=== PATIENT | male | born 1960 | race Caucasian/White ===

== ENCOUNTER 2016-07-23 11:15 | Emergency (ER) | payer MEDICARE, MEDICAID ==
[2016-07-23] MEDS ORDERED: HYDROMORPHONE HCL INJ/PF 2 MG/ML AMPULE IV ONE (11:49)
--- NOTE | 2016-07-23 11:49 | ER Document Report ---
ED Medical Screen (RME) - General Mode of Arrival: Wheelchair Information source: Patient TRAVEL OUTSIDE OF THE [place] IN LAST 30 DAYS: No - HPI Patient complains to provider of: Bruising and pain to the upper abdomen Onset: Other - 'couple days ago' Associated Symptoms: Other - see notes above <YOHANNES TERRY - Last Filed: 07/23/16 12:52> <FABIANA DIAZ - Last Filed: 07/23/16 13:33> - General Chief Complaint: Rib Pain Stated Complaint: ABDOMINAL PAIN/DIFFICULTY BREATHING Time Seen by Provider: 07/23/16 11:42 Notes: 55-year-old male with history of hypertension and on Coumadin presents to the ED complaining of bruising and pain to the upper abdomen that started a couple days ago. Patient reports that he was crabbing when an alligator pulled on his line and he was pressed up against the railing. Patient reports gradually worsening bruising and pain to the upper abdomen. (YOHANNES TERRY) - Related Data Allergies/Adverse Reactions: Algerian Ginseng [From Ginseng Edge] Allergy (Severe, Verified 07/23/16 11:19) INTERACTS WITH SZ MEDICATION SO CANNOT HAVE guarana seed extract [From Ginseng Edge] Allergy (Severe, Verified 07/23/16 11: 19) INTERACTS WITH SZ MEDICATION SO CANNOT HAVE Kinyarwanda Ginseng [From Ginseng Edge] Allergy (Severe, Verified 07/23/16 11:19) INTERACTS WITH SZ MEDICATION SO CANNOT HAVE Siberian Ginseng Root Extract [From Ginseng Edge] Allergy (Severe, Verified 11:19) INTERACTS WITH SZ MEDICATION SO CANNOT HAVE Past Medical History - General Information source: Patient - Social History Family history: Reviewed & Not Pertinent - Past Medical History Cardiac Medical History: Reports: Hx Hypertension Denies: Hx Coronary Artery Disease, Hx Heart Attack Pulmonary Medical History: Reports: Hx COPD Denies: Hx Asthma, Hx Bronchitis, Hx Pneumonia Neurological Medical History: Reports: Hx Cerebrovascular Accident - 2 Major CVAs- 1996, 2008, Hx Seizures - Epilepsy- last seizure a few months Endocrine Medical History: Reports: Hx Diabetes Mellitus Type 2 Renal/ Medical History: Denies: Hx Peritoneal Dialysis GI Medical History: Reports: Hx Gastroesophageal Reflux Disease Musculoskeltal Medical History: Reports Hx Arthritis Psychiatric Medical History: Reports: Hx Anxiety, Hx Depression Past Surgical History: Reports: Hx Appendectomy, Hx Cholecystectomy - Immunizations Hx Diphtheria, Pertussis, Tetanus Vaccination: Yes - 2006 <TERRYYOHANNES - Last Filed: 07/23/16 12:52> Review of Systems - Review of Systems Constitutional: No symptoms reported EENT: No symptoms reported Cardiovascular: No symptoms reported Respiratory: No symptoms reported Gastrointestinal: See HPI, Abdominal pain - bilateral upper abdomen Genitourinary: No symptoms reported Male Genitourinary: No symptoms reported Musculoskeletal: No symptoms reported Skin: See HPI, Change in color - bruising to the bilateral upper abdomen Hematologic/Lymphatic: No symptoms reported Neurological/Psychological: No symptoms reported -: Yes All other systems reviewed and negative <YOHANNES TERRY - Last Filed: 07/23/16 12:52> Physical Exam - General General appearance: Alert In distress: None - Respiratory Respiratory status: No respiratory distress Breath sounds: Normal - Cardiovascular Rhythm: Regular Heart sounds: Normal auscultation Murmur: No Friction rub: No Gallop: None auscultated - Abdominal Inspection: Other - ecchymosis across the upper abdomen that is worse on the right than left.. No: Normal Distension: Distended - mild Tenderness: Tender - diffuse tenderness to palpation, Guarding - RUQ <TERRYYOHANNES - Last Filed: 07/23/16 12:52> Course - Laboratory Result Diagrams: 07/23/16 12:09 07/23/16 12:09 <YOHANNES TERRY - Last Filed: 07/23/16 12:52> - Laboratory Result Diagrams: 07/23/16 12:09 07/23/16 12:09 <FABIANA DIAZ - Last Filed: 07/23/16 13:33> - Vital Signs Vital signs: Temp Pulse Resp BP Pulse Ox 97.7 F 76 15 118/64 96 07/23/16 11:23 07/23/16 11:23 07/23/16 13:01 07/23/16 13:01 07/23/16 13:01 - Laboratory Laboratory results interpreted by me: 07/23/16 07/23/16 07/23/16 12:09 12:09 12:09 RBC 3.83 L Hgb 12.0 L Hct 36.3 L PT 39.4 H Sodium 135.8 L Chloride 95 L BUN 23 H Creatinine 1.43 H Est GFR (Non-Af Amer) 52 L Glucose 322 H Scribe Documentation - Scribe Written by Scribe:: Richar Leach, 07/23/2016 1257 acting as scribe for :: Lee <YOHANNES TERRY - Last Filed: 07/23/16 12:52>
[2016-07-23 12:36] LABS: ABSOLUTE BASOPHILS # (AUTO) 0.1 10^3/uL (0.0-0.2); ABSOLUTE EOSINOPHILS # (AUTO) 0.3 10^3/uL (0.0-0.6); ABSOLUTE LYMPHOCYTES (AUTO) 2.5 10^3/uL (0.5-4.7); ABSOLUTE MONOCYTES (AUTO) 0.6 10^3/uL (0.1-1.4); ABSOLUTE NEUT (AUTO) 5.7 10^3/uL (1.7-8.2); BASOPHILS % (AUTO) 0.7 % (0-2); EOSINOPHILS % (AUTO) 2.9 % (0-6); HEMATOCRIT 36.3 % (37.9-51.0); HGB HCT DIFFERENCE -0.3; LYMPHOCYTES % (AUTO) 27.7 % (13-45); MEAN CORPUSCULAR HEMOGLOBIN 31.4 pg (27.0-33.4); MEAN CORPUSCULAR HGB CONC 33.2 g/dL (32.0-36.0); MEAN CORPUSCULAR VOLUME 95 fl (80-97); MONOCYTES % (AUTO) 6.4 % (3-13); RED BLOOD COUNT 3.83 10^6/uL (4.35-5.55); SEGMENTED NEUTROPHILS % (AUTO) 62.3 % (42-78); WHITE BLOOD COUNT 9.1 10^3/uL (4.0-10.5)
[2016-07-23 12:44] LABS: PROTHROMBIN TIME 39.4 SEC (11.4-15.4)
[2016-07-23 12:59] LABS: ADD ON TESTING BLD IN LAB ACKNOWLEDGE
--- NOTE | 2016-07-23 13:04 | ER Document Report ---
ED General Pain - General Chief Complaint: Rib Pain Stated Complaint: ABDOMINAL PAIN/DIFFICULTY BREATHING Time Seen by Provider: 07/23/16 11:42 Mode of Arrival: Wheelchair Information source: Patient Notes: Patient is a 55-year-old male with past medical history as recorded including stroke 3, on Coumadin, who presents today with upper abdominal pain and swelling secondary to an incident 4 days ago. Patient states he was crabbing with his family when he was using a line with chicken to catch cramps with an alligator caught the line. Patient states he tried to hold onto the line and with the alligator move because the patient to hit his upper abdomen and lower ribs on a railing. He has had some progressive pain and swelling to the upper abdomen since that time. He denies any chest pain but states some mild shortness of breath when he lays flat. He denies any nausea, vomiting, or fevers. TRAVEL OUTSIDE OF THE [place] IN LAST 30 DAYS: No - HPI Onset: Other - See above Onset/Duration: Sudden Quality of pain: Achy, Burning Severity: Moderate Pain Level: 2 Context: New onset Associated symptoms: Other - See above Exacerbated by: Other - See above Relieved by: Denies Similar symptoms previously: No Recently seen / treated by doctor: No - Related Data Allergies/Adverse Reactions: Togolese Ginseng [From Ginseng Edge] Allergy (Severe, Verified 07/23/16 11:19) INTERACTS WITH SZ MEDICATION SO CANNOT HAVE guarana seed extract [From Ginseng Edge] Allergy (Severe, Verified 07/23/16 11: 19) INTERACTS WITH SZ MEDICATION SO CANNOT HAVE Lao Ginseng [From Ginseng Edge] Allergy (Severe, Verified 07/23/16 11:19) INTERACTS WITH SZ MEDICATION SO CANNOT HAVE Siberian Ginseng Root Extract [From Ginseng Edge] Allergy (Severe, Verified 11:19) INTERACTS WITH SZ MEDICATION SO CANNOT HAVE Past Medical History - General Information source: Patient - Social History Smoking Status: Unknown if Ever Smoked Cigarette use (# per day): No Chew tobacco use (# tins/day): No Smoking Education Provided: No Frequency of alcohol use: None Family History: Reviewed & Not Pertinent Patient has suicidal ideation: No Patient has homicidal ideation: No - Past Medical History Cardiac Medical History: Reports: Hx Hypertension Denies: Hx Coronary Artery Disease, Hx Heart Attack Pulmonary Medical History: Reports: Hx COPD Denies: Hx Asthma, Hx Bronchitis, Hx Pneumonia Neurological Medical History: Reports: Hx Cerebrovascular Accident - 2 Major CVAs- 1996, 2008, Hx Seizures - Epilepsy- last seizure a few months Endocrine Medical History: Reports: Hx Diabetes Mellitus Type 2 Renal/ Medical History: Denies: Hx Peritoneal Dialysis GI Medical History: Reports: Hx Gastroesophageal Reflux Disease Musculoskeltal Medical History: Reports Hx Arthritis Psychiatric Medical History: Reports: Hx Anxiety, Hx Depression Past Surgical History: Reports: Hx Appendectomy, Hx Cholecystectomy - Immunizations Hx Diphtheria, Pertussis, Tetanus Vaccination: Yes - 2006 Review of Systems - Review of Systems Constitutional: denies: Fever EENT: denies: Eye discharge, Nose discharge Respiratory: denies: Short of breath Gastrointestinal: Abdomen distended. denies: Vomiting Genitourinary: denies: Dysuria Musculoskeletal: denies: Leg swelling Neurological/Psychological: Other - no slurred speech -: Yes All other systems reviewed and negative Physical Exam - Vital signs Vitals: Temp Pulse Resp BP Pulse Ox 97.7 F 76 18 109/78 97 07/23/16 11:23 07/23/16 11:23 07/23/16 11:23 07/23/16 11:23 07/23/16 11:23 Interpretation: Normal Notes: Reviewed vital signs and nursing note as charted by RN. CONSTITUTIONAL: Alert and oriented and responds appropriately to questions. Well -appearing; well-nourished HEAD: Normocephalic; atraumatic EYES: PERRL; Sclerae non-icteric CARD: Regular rate and rhythm; no murmurs, no clicks, no rubs, no gallops; symmetric distal pulses RESP: Normal chest excursion without splinting or tachypnea; a mild tenderness to the anterior lateral ribs without crepitus; breath sounds clear and equal bilaterallys ABD/GI: Normal bowel sounds; patient has ecchymosis across his entire upper abdomen. Tender to palpation to the upper left and right quadrants. No rebound or guarding present. BACK: The back appears normal and is non-tender to palpation EXT: Normal ROM in all joints; non-tender to palpation; no cyanosis, no effusions, no edema SKIN: See above NEURO: Moves all extremities equally; Motor and sensory function intact PSYCH: The patient's mood and manner are appropriate. Grooming and personal hygiene are appropriate. Course - Re-evaluation Re-evalutation: Given the above history and physical examination, we will order coagulation profile, hemoglobin, and a CT scan of the abdomen and pelvis. Patient's vital signs are stable. Patient currently denies any chest pain. 07/23/16 13:04 Hemoglobin as recorded. INR is recorded. CT is pending. Vital signs are stable. 07/23/16 15:14 No change in the exam. CT scan of the abdomen and pelvis as recorded. Patient will be discharged home with strict return precautions and follow-up with primary care provider. Given the patient's slightly elevated INR, I am having him hold his morning dose tomorrow and contact his primary doctor. Strict return precautions have been explained. - Vital Signs Vital signs: Temp Pulse Resp BP Pulse Ox 97.7 F 76 8 L 124/62 98 07/23/16 11:23 07/23/16 11:23 07/23/16 14:01 07/23/16 14:00 07/23/16 14:01 - Laboratory Result Diagrams: 07/23/16 12:09 07/23/16 12:09 Laboratory results interpreted by me: 07/23/16 07/23/16 07/23/16 12:09 12:09 12:09 RBC 3.83 L Hgb 12.0 L Hct 36.3 L PT 39.4 H Sodium 135.8 L Chloride 95 L BUN 23 H Creatinine 1.43 H Est GFR (Non-Af Amer) 52 L Glucose 322 H Discharge - Discharge Clinical Impression: Elevated INR Abdominal wall contusion Qualifiers: Encounter type: initial encounter Qualified Code(s): S30.1XXA - Contusion of abdominal wall, initial encounter Condition: Good Disposition: HOME, SELF-CARE Additional Instructions: Come back immediately for any increased pain, swelling, fever, shortness of breath, vomiting, or any other acute problems. Please hold her morning dose of Coumadin as we have discussed and contact her primary care physician for follow- up.
[2016-07-23 13:12] LABS: ALANINE AMINOTRANSFERASE 29 U/L (21-72); ALBUMIN 4.3 g/dL (3.5-5.0); ALKALINE PHOSPHATASE 57 U/L (38-126); ANION GAP 13 (5-19); ASPARTATE AMINO TRANSFERASE 25 U/L (17-59); BILIRUBIN,DIRECT 0.4 mg/dL (0.0-0.4); BILIRUBIN,TOTAL 0.5 mg/dL (0.2-1.3); BLOOD UREA NITROGEN 23 mg/dL (7-20); CALCIUM 8.8 mg/dL (8.4-10.2); CARBON DIOXIDE 28 mmol/L (22-30); CHLORIDE 95 mmol/L (98-107); CREATININE RESULT 1.43 mg/dL (0.52-1.25); GLUCOSE 322 mg/dL (75-110); POTASSIUM 3.8 mmol/L (3.6-5.0); SODIUM 135.8 mmol/L (137-145); TOTAL PROTEIN 7.7 g/dL (6.3-8.2)
[2016-07-23 13:13] LABS: LIPASE 62.4 U/L (23-300)
--- NOTE | 2016-07-23 14:37 | RADIOLOGY REPORT (SQ) ---
EXAM DESCRIPTION: CT ABD/PELVIS WITH IV ONLY; CT CHEST WITH COMPLETED DATE/TIME: 07/23/2016 2:21 pm REASON FOR STUDY: RUQ bruise after trauma, on coumadin; 21; trauma on coumadin CONTRAST TYPE AND DOSE: contrast/concentration: Isovue 370.00 mg/ml; Total Contrast Delivered: 85.0 ml; Total Saline Delivered: 53.7 ml RENAL FUNCTION: Creatinine 1.4 COMPARISON: None. TECHNIQUE: CT scan of the chest performed using helical scanning technique with dynamic intravenous contrast injection. Images reviewed with lung, soft tissue and bone windows. Reconstructed coronal a nd sagittal MPR images reviewed. All images stored on PACS. All CT scanners at this facility use dose modulation, iterative reconstruction, and/or weight based d osing when appropriate to reduce radiation dose to as low as reasonably achievable (ALARA). [facility]: Dose Right [facility]: CareDose [facility]: Dose Right [facility]: Teradose 4D [facility]: Corevalus Systems RADIATION DOSE: Up-to-date CT equipment and radiation dose reduction techniques were employed. CTDIv ol: 9.3 - 12.4 mGy. DLP: 1441 mGy-cm.. LIMITATIONS: None. FINDINGS: AXILLAE: No adenopathy. CHEST WALL: No masses. No subcutaneous air. LUNGS: No nodules or masses. No pneumothorax. No infiltrates. PLEURA: No effusions. No calcifications. THYROID: No masses or significant asymmetry. HILAR AND MEDIASTINAL STRUCTURES: Small subcentimeter mediastinal nodes. No mediastinal hematoma inga dent. No abnormal gas. AORTA AND GREAT VESSELS: No aneurysm. No laceration or dissection. PULMONARY ARTERIES: No identified pulmonary emboli. Study not optimized for the pulmonary arteries. HEART: No pericardial effusion. HARDWARE AND LIFELINES: None. BONES: No significant finding. OTHER: No other significant finding. IMPRESSION: 1. No acute posttraumatic changes in the chest. COMPARISON: None. RADIATION DOSE: Up-to-date CT equipment and radiation dose reduction techniques were employed. CTDIv ol: 9.3 - 12.4 mGy. DLP: 1441 mGy-cm.mGy. TECHNIQUE: CT scan of the abdomen and pelvis performed with intravenous and oral contrast using [place] scanning technique with dynamic intravenous contrast injection. Images reviewed with lung, soft tissue and bone windows. Reconstructed coronal and sagittal MPR images reviewed. Delayed images for evaluation of the urinary system also acquired and evaluated. All images stored on PACS. All CT scanners at this facility use dose modulation, iterative reconstruction, and/or weight based d osing when appropriate to reduce radiation dose to as low as reasonably achievable (ALARA). [facility]: Dose Right [facility]: SureCare [facility]: Dose Right [facility]: Teradose 4D [facility]: Corevalus Systems FINDINGS: LIVER: No laceration. No perihepatic fluid. Mildly fatty. SPLEEN: No evidence of injury or adjacent fluid. PANCREAS: No masses. No significant calcifications. No adjacent inflammation or peripancreatic flui d collections. Pancreatic duct not dilated. GALLBLADDER: Surgically absent. ADRENAL GLANDS: No significant masses or asymmetry. RIGHT KIDNEY AND URETER: No solid masses. No significant calcification. No hydronephrosis or hydroure ter. LEFT KIDNEY AND URETER: No solid masses. No significant calcification. No hydronephrosis or hydrouret er. AORTA AND VESSELS: Atherosclerotic but normal caliber, intact. Major arterial and venous structures look generally patent. No retroperitoneal hematoma evident. RETROPERITONEUM: As above. LARGE AND SMALL BOWEL: No dilatation. No masses. No wall thickening. APPENDIX: Surgically absent. ABDOMINAL WALL: No hernia or masses. PERITONEAL CAVITY: No free air. No free fluid. No peritoneal implants or masses. PELVIS: No mass or free fluid. Normal bladder. BONES: No significant or acute findings. OTHER: No other significant finding. IMPRESSION: 1. No acute abdominopelvic abnormality. TECHNICAL DOCUMENTATION: JOB ID: [id number] Quality ID # [id number]: Final reports with documentation of one or more dose reduction techniques (e.g., Au tomated exposure control, adjustment of the mA and/or kV according to patient size, use of iterative reconstruction technique) 2010 [employer]- All Rights Reserved
[2016-07-23] MEDS ORDERED: NORMAL SALINE 1000 ML 1,000 ML IV ONE (15:26)
[2016-07-23] MEDS ORDERED: HYDROCODONE/ACETAMINOPHEN 5-325 MG TABLET PO ONE (15:30)
[2016-07-23 16:13] VITALS: BP 136/83
== END 2016-07-23 16:42 | disposition home or self-care (01) ==
LOC: ER 11:15
DX: S30.1XXA Contusion of abdominal wall, initial encounter (principal); R07.81 Pleurodynia; R10.9 Unspecified abdominal pain; R06.02 Shortness of breath; X58.XXXA Exposure to other specified factors, initial encounter
CPT/HCPCS: 99284; 96374; 86900; 86901; 36415; 86850; 83690; 85025; 85610; 80053; 71260; 74177; J1170; J7030; A9270

== ENCOUNTER 2016-11-12 16:21 | Inpatient (IN) | payer MEDICARE, MEDICAID ==
[2016-11-12] MEDS ORDERED: NORMAL SALINE 1000 ML 1,000 ML IV PRN (16:47)
[2016-11-12] MEDS ORDERED: ONDANSETRON HCL INJ/PF 4 MG/2 ML SDV IV ONE ×2 (16:48→21:16)
[2016-11-12] MEDS ORDERED: MORPHINE SULFATE 10 MG/ML INJ IV ONE ×2 (16:48→20:35)
--- NOTE | 2016-11-12 16:48 | ER Document Report ---
ED Medical Screen (RME) - General Chief Complaint: Abdominal Pain Stated Complaint: SEVERE STOMACH PAIN Time Seen by Provider: 11/12/16 16:36 Mode of Arrival: Wheelchair Information source: Patient, Relative TRAVEL OUTSIDE OF THE [place] IN LAST 30 DAYS: No - HPI Patient complains to provider of: Abdominal pain Notes: 11/12/16 16:47 Patient is a 56-year-old male presenting to the emergency room today complaining of diffuse crampy abdominal pain that has been going on intermittently, however worsening over the past week, he has had nausea and vomiting for a week, has not been able to pass urine over the past 48 hours although he does not feel as though he has a full bladder, has not had a bowel movement in a few days as well, patient was sent to the emergency room by Dr. Otero's office - Related Data Allergies/Adverse Reactions: Malian Ginseng [From Ginseng Edge] Allergy (Severe, Verified 11/12/16 16:30) INTERACTS WITH SZ MEDICATION SO CANNOT HAVE guarana seed extract [From Ginseng Edge] Allergy (Severe, Verified 11/12/16 16: 30) INTERACTS WITH SZ MEDICATION SO CANNOT HAVE French Ginseng [From Ginseng Edge] Allergy (Severe, Verified 11/12/16 16:30) INTERACTS WITH SZ MEDICATION SO CANNOT HAVE Siberian Ginseng Root Extract [From Ginseng Edge] Allergy (Severe, Verified 05/26 16:30) INTERACTS WITH SZ MEDICATION SO CANNOT HAVE Past Medical History - Social History Family history: Reviewed & Not Pertinent - Past Medical History Cardiac Medical History: Reports: Hx Hypertension Denies: Hx Coronary Artery Disease, Hx Heart Attack Pulmonary Medical History: Reports: Hx COPD Denies: Hx Asthma, Hx Bronchitis, Hx Pneumonia Neurological Medical History: Reports: Hx Cerebrovascular Accident - 2 Major CVAs- 1996, 2008, Hx Seizures - Epilepsy- last seizure a few months Endocrine Medical History: Reports: Hx Diabetes Mellitus Type 2 Renal/ Medical History: Denies: Hx Peritoneal Dialysis GI Medical History: Reports: Hx Gastroesophageal Reflux Disease Musculoskeltal Medical History: Reports Hx Arthritis Psychiatric Medical History: Reports: Hx Anxiety, Hx Depression Past Surgical History: Reports: Hx Appendectomy, Hx Cholecystectomy - Immunizations Hx Diphtheria, Pertussis, Tetanus Vaccination: Yes - 2006 Physical Exam - Vital signs Vitals: Temp Pulse Resp BP Pulse Ox 97.4 F 70 18 125/63 97 11/12/16 16:30 11/12/16 16:30 11/12/16 16:30 11/12/16 16:30 11/12/16 16:30 Course - Vital Signs Vital signs: Temp Pulse Resp BP Pulse Ox 97.4 F 70 18 125/63 97 11/12/16 16:30 11/12/16 16:30 11/12/16 16:30 11/12/16 16:30 11/12/16 16:30
[2016-11-12 17:40] LABS: APPEARANCE,URINE CLEAR; BILIRUBIN,URINE NEGATIVE (NEGATIVE); GLUCOSE, URINE 50 mg/dL (NEGATIVE); KETONES,URINE NEGATIVE (NEGATIVE); LEUKOCYTE ESTERASE,URINE NEGATIVE (NEGATIVE); NITRITE,URINE NEGATIVE (NEGATIVE); PROTEIN,URINE 30 mg/dL (NEGATIVE); URINE SPECIFIC GRAVITY 1.013; UROBILINOGEN,URINE NEGATIVE mg/dL (<2.0)
[2016-11-12 18:02] LABS: ABSOLUTE BASOPHILS # (AUTO) 0.1 10^3/uL (0.0-0.2); ABSOLUTE EOSINOPHILS # (AUTO) 0.2 10^3/uL (0.0-0.6); ABSOLUTE LYMPHOCYTES (AUTO) 1.9 10^3/uL (0.5-4.7); ABSOLUTE MONOCYTES (AUTO) 0.8 10^3/uL (0.1-1.4); ABSOLUTE NEUT (AUTO) 7.8 10^3/uL (1.7-8.2); BASOPHILS % (AUTO) 0.9 % (0-2); EOSINOPHILS % (AUTO) 1.6 % (0-6); HEMATOCRIT 38.9 % (37.9-51.0); HEMOGLOBIN 13.6 g/dL (13.5-17.0); HGB HCT DIFFERENCE 1.9; LYMPHOCYTES % (AUTO) 17.9 % (13-45); MEAN CORPUSCULAR HEMOGLOBIN 32.3 pg (27.0-33.4); MEAN CORPUSCULAR HGB CONC 35.1 g/dL (32.0-36.0); MEAN CORPUSCULAR VOLUME 92 fl (80-97); MONOCYTES % (AUTO) 7.1 % (3-13); RED BLOOD COUNT 4.23 10^6/uL (4.35-5.55); SEGMENTED NEUTROPHILS % (AUTO) 72.5 % (42-78); WHITE BLOOD COUNT 10.7 10^3/uL (4.0-10.5)
--- NOTE | 2016-11-12 19:46 | ER Document Report ---
ED GI/ - General Chief Complaint: Abdominal Pain Stated Complaint: SEVERE STOMACH PAIN Time Seen by Provider: 11/12/16 16:36 Mode of Arrival: Wheelchair Notes: Patient is a 56-year-old male who comes emergency department for chief complaint of intermittent worsening abdominal pain and vomiting 1 week. He was sent to the emergency department by his aquatics lifeguard Dr. Otero. He states that he is feeling pain in his mid to left lower abdomen which is worsening. He states he had a normal bowel movement yesterday, nonbloody, not constipated. He denies hematemesis. Past medical history of CVA, hypertension, GERD, he takes Nexium, he also takes hydrocodone. He has had an appendectomy and cholecystectomy. He had an endoscopy in the past, polyps were removed, he is not sure how long ago this was. He states vomiting is random, he denies chest pain, shortness of breath, fever. TRAVEL OUTSIDE OF THE [place] IN LAST 30 DAYS: No - Related Data Allergies/Adverse Reactions: Andorran Ginseng [From Ginseng Edge] Allergy (Severe, Verified 11/12/16 16:30) INTERACTS WITH SZ MEDICATION SO CANNOT HAVE guarana seed extract [From Ginseng Edge] Allergy (Severe, Verified 11/12/16 16: 30) INTERACTS WITH SZ MEDICATION SO CANNOT HAVE Greek Ginseng [From Ginseng Edge] Allergy (Severe, Verified 11/12/16 16:30) INTERACTS WITH SZ MEDICATION SO CANNOT HAVE Siberian Ginseng Root Extract [From Ginseng Edge] Allergy (Severe, Verified 05/26 16:30) INTERACTS WITH SZ MEDICATION SO CANNOT HAVE Past Medical History - General Information source: Patient, Relative - Social History Smoking Status: Never Smoker Frequency of alcohol use: None Drug Abuse: None Lives with: Family Family History: Reviewed & Not Pertinent - Past Medical History Cardiac Medical History: Reports: Hx Hypertension Denies: Hx Coronary Artery Disease, Hx Heart Attack Pulmonary Medical History: Reports: Hx COPD Denies: Hx Asthma, Hx Bronchitis, Hx Pneumonia Neurological Medical History: Reports: Hx Cerebrovascular Accident - 2 Major CVAs- 1996, 2008, Hx Seizures - Epilepsy- last seizure a few months Endocrine Medical History: Reports: Hx Diabetes Mellitus Type 2 Renal/ Medical History: Denies: Hx Peritoneal Dialysis GI Medical History: Reports: Hx Gastroesophageal Reflux Disease Musculoskeltal Medical History: Reports Hx Arthritis Psychiatric Medical History: Reports: Hx Anxiety, Hx Depression Past Surgical History: Reports: Hx Appendectomy, Hx Cholecystectomy - Immunizations Hx Diphtheria, Pertussis, Tetanus Vaccination: Yes - 2006 Review of Systems - Review of Systems Constitutional: No symptoms reported EENT: No symptoms reported Cardiovascular: No symptoms reported Respiratory: No symptoms reported Gastrointestinal: See HPI Genitourinary: No symptoms reported Male Genitourinary: No symptoms reported Musculoskeletal: No symptoms reported Skin: No symptoms reported Hematologic/Lymphatic: No symptoms reported Neurological/Psychological: No symptoms reported Physical Exam - Vital signs Vitals: Temp Pulse Resp BP Pulse Ox 97.4 F 70 18 125/63 97 11/12/16 16:30 11/12/16 16:30 11/12/16 16:30 11/12/16 16:30 11/12/16 16:30 Interpretation: Normal - General General appearance: Appears well, Alert - HEENT Head: Normocephalic, Atraumatic Eyes: Normal Pupils: PERRL - Respiratory Respiratory status: No respiratory distress Chest status: Nontender Breath sounds: Normal Chest palpation: Normal - Cardiovascular Rhythm: Regular. No: Tachycardia Heart sounds: Normal auscultation, S1 appreciated, S2 appreciated Murmur: No - Abdominal Inspection: Normal Distension: No distension Bowel sounds: Normal Tenderness: Tender - generalized abdominal tenderness, no areas of guarding, no rigidity, no rebound tenderness Organomegaly: No organomegaly - Back Back: Normal, Nontender. No: Tender, CVA tenderness - Extremities General upper extremity: Normal inspection, Nontender, Normal color, Normal ROM , Normal temperature General lower extremity: Normal inspection, Nontender, Normal color, Normal ROM , Normal temperature, Normal weight bearing. No: Carlton's sign - Neurological Neuro grossly intact: Yes Cognition: Normal Orientation: AAOx4 Williamson Coma Scale Eye Opening: Spontaneous Sirena Coma Scale Verbal: Oriented Sirena Coma Scale Motor: Obeys Commands Sirena Coma Scale Total: 15 Speech: Normal Motor strength normal: LUE, RUE, LLE, RLE Sensory: Normal - Psychological Associated symptoms: Normal affect, Normal mood - Skin Skin Temperature: Warm Skin Moisture: Dry Skin Color: Normal Course - Re-evaluation Re-evalutation: Patient with generalized abdominal tenderness, he does intermittently appear to be uncomfortable, he does not appear to be in severe distress. Vital signs are generally unremarkable with no fever, no tachycardia, no hypotension. CBC shows mild leukocytosis with no shift. Chemistries show acute renal insufficiency with creatinine of 2.95, elevated BUN, mild hyponatremia. Anion gap and bicarbonate are normal. Patient reporting some flank pain on the left side although I do not appreciate CVA tenderness. Because of this CAT scan was performed to rule out obstructing pathology causing renal failure or other acute intra-abdominal abnormality. CAT scan is normal. Daughter states that patient has had this before where he vomits and has abdominal pain for days and then finally improves. He states that if he even eats soup he will vomit it up. Patient was sent here by his aquatics lifeguard , I called his aquatics lifeguard Dr. Olvera, his recommendation is for patient to be kept n.p.o. and admitted to the hospital and he will plan to consult on an scope the patient tomorrow. Called and spoke with Dr. Cruz, patient's primary care provider, patient will be admitted to telemetry. - Vital Signs Vital signs: Temp Pulse Resp BP Pulse Ox 97.7 F 72 16 149/71 H 99 11/13/16 04:18 11/13/16 04:18 11/13/16 04:18 11/13/16 04:18 11/13/16 00:28 - Laboratory Result Diagrams: 11/12/16 17:41 11/12/16 19:55 Laboratory results interpreted by me: 11/12/16 11/12/16 11/12/16 17:09 17:41 19:55 WBC 10.7 H RBC 4.23 L PT Sodium 133.7 L Potassium 3.5 L Chloride 92 L BUN 41 H Creatinine 2.95 H Est GFR ( Amer) 27 L Est GFR (Non-Af Amer) 22 L Glucose 227 H Direct Bilirubin 0.6 H AST 69 H ALT 90 H Urine Protein 30 H Urine Glucose (UA) 50 H Urine Blood SMALL H 11/12/16 19:55 WBC RBC PT 22.3 H Sodium Potassium Chloride BUN Creatinine Est GFR ( Amer) Est GFR (Non-Af Amer) Glucose Direct Bilirubin AST ALT Urine Protein Urine Glucose (UA) Urine Blood Discharge - Discharge Clinical Impression: Abdominal pain Qualifiers: Abdominal location: generalized Qualified Code(s): R10.84 - Generalized abdominal pain Vomiting Qualifiers: Vomiting type: unspecified Vomiting Intractability: unspecified Nausea presence : with nausea Qualified Code(s): R11.2 - Nausea with vomiting, unspecified Acute renal failure Qualifiers: Acute renal failure type: unspecified Qualified Code(s): N17.9 - Acute kidney failure, unspecified Condition: Stable Disposition: ADMITTED INPATIENT Admitting Provider: Nancy Unit Admitted: Telemetry
[2016-11-12 20:26] LABS: ALANINE AMINOTRANSFERASE 90 U/L (21-72); ALBUMIN 4.5 g/dL (3.5-5.0); ALKALINE PHOSPHATASE 73 U/L (38-126); ANION GAP 15 (5-19); ASPARTATE AMINO TRANSFERASE 69 U/L (17-59); BILIRUBIN,DIRECT 0.6 mg/dL (0.0-0.4); BILIRUBIN,TOTAL 0.6 mg/dL (0.2-1.3); BLOOD UREA NITROGEN 41 mg/dL (7-20); CALCIUM 9.4 mg/dL (8.4-10.2); CARBON DIOXIDE 27 mmol/L (22-30); CHLORIDE 92 mmol/L (98-107); CREATININE RESULT 2.95 mg/dL (0.52-1.25); GLUCOSE 227 mg/dL (75-110); LIPASE 44.1 U/L (23-300); POTASSIUM 3.5 mmol/L (3.6-5.0); SODIUM 133.7 mmol/L (137-145); TOTAL PROTEIN 7.7 g/dL (6.3-8.2)
--- NOTE | 2016-11-12 21:09 | RADIOLOGY REPORT (SQ) ---
EXAM DESCRIPTION: CT ABD/PELVIS NO ORAL OR IV COMPLETED DATE/TIME: 11/12/2016 8:57 pm REASON FOR STUDY: LLQ and left flank pain, vomiting COMPARISON: None. TECHNIQUE: CT scan of the abdomen and pelvis performed without intravenous or oral contrast. Images reviewed with lung, soft tissue, and bone windows. Reconstructed coronal and sagittal MPR images revi ewed. All images stored on PACS. All CT scanners at this facility use dose modulation, iterative reconstruction, and/or weight based d osing when appropriate to reduce radiation dose to as low as reasonably achievable (ALARA). [facility]: Dose Right [facility]: CareDose [facility]: Dose Right [facility]: Teradose 4D [facility]: Smart Technologies RADIATION DOSE: Up-to-date CT equipment and radiation dose reduction techniques were employed. CTDIv ol: 9.1 mGy. DLP: 485 mGy-cm.mGy. LIMITATIONS: None. FINDINGS: LOWER CHEST: No significant findings. No nodules or infiltrates. NON-CONTRASTED LIVER, SPLEEN, ADRENALS: Evaluation limited by lack of IV contrast. No identified sign ificant masses. PANCREAS: No masses. No peripancreatic inflammatory changes. GALLBLADDER: Surgically absent. RIGHT KIDNEY AND URETER: No suspicious masses. Assessment limited by lack of IV contrast. No signif icant calcifications. No hydronephrosis or hydroureter. LEFT KIDNEY AND URETER: No suspicious masses. Assessment limited by lack of IV contrast. No signifi cant calcifications. No hydronephrosis or hydroureter. AORTA AND RETROPERITONEUM: No aneurysm. No retroperitoneal masses or adenopathy. BOWEL AND PERITONEAL CAVITY: No obvious masses or inflammatory changes. No free fluid. APPENDIX: Normal. PELVIS, BLADDER, AND ABDOMINAL WALL:No abnormal masses. No free fluid. Bladder normal. BONES: No significant findings. OTHER: No other significant finding. IMPRESSION: NO ACUTE PROCESS IN THE ABDOMEN OR PELVIS. COMMENT: Quality ID # [id number]: Final reports with documentation of one or more dose reduction techniques (e.g., Automated exposure control, adjustment of the mA and/or kV according to patient size, use of iterative reconstruction technique) TECHNICAL DOCUMENTATION: JOB ID: [id number] All Rights Reserved
[2016-11-12 21:43] LABS: PROTHROMBIN TIME 22.3 SEC (11.4-15.4)
[2016-11-13] MEDS: NORMAL SALINE 1000 ML 1,000 ML IV PRN ×2 (02:14→17:43)
[2016-11-13] MEDS: ONDANSETRON HCL INJ/PF 4 MG/2 ML SDV IV PRN ×4 (02:14→21:54)
[2016-11-13] MEDS: MORPHINE SULFATE 10 MG/ML INJ IV PRN ×4 (02:14→22:02)
[2016-11-13] MEDS ORDERED: DEXTROSE 40% GEL 15 GM TUBE PO PRN ×2 (02:27)
[2016-11-13] MEDS ORDERED: GLUCAGON,HUMAN RECOMB 1 MG INJ SUBCUT PRN (02:27)
[2016-11-13] MEDS ORDERED: DEXTROSE 50%-WATER 25 GM/50 ML DISP.SYRIN IV PRN ×2 (02:27)
[2016-11-13 05:27] LABS: ABSOLUTE EOSINOPHILS # (AUTO) 0.2 10^3/uL (0.0-0.6); ABSOLUTE LYMPHOCYTES (AUTO) 2.1 10^3/uL (0.5-4.7); ABSOLUTE MONOCYTES (AUTO) 0.7 10^3/uL (0.1-1.4); ABSOLUTE NEUT (AUTO) 4.7 10^3/uL (1.7-8.2); BASOPHILS % (AUTO) 0.3 % (0-2); HEMATOCRIT 33.9 % (37.9-51.0); HEMOGLOBIN 12.2 g/dL (13.5-17.0); HGB HCT DIFFERENCE 2.7; LYMPHOCYTES % (AUTO) 27.2 % (13-45); MEAN CORPUSCULAR HGB CONC 35.9 g/dL (32.0-36.0); MEAN CORPUSCULAR VOLUME 92 fl (80-97); RED BLOOD COUNT 3.68 10^6/uL (4.35-5.55); RED CELL DISTRIBUTION WIDTH 12.4 % (11.5-14.0); SEGMENTED NEUTROPHILS % (AUTO) 60.5 % (42-78); WHITE BLOOD COUNT 7.8 10^3/uL (4.0-10.5)
[2016-11-13 05:52] LABS: ALANINE AMINOTRANSFERASE 85 U/L (21-72); ALBUMIN 3.9 g/dL (3.5-5.0); ALKALINE PHOSPHATASE 67 U/L (38-126); ANION GAP 14 (5-19); ASPARTATE AMINO TRANSFERASE 65 U/L (17-59); BILIRUBIN,DIRECT 0.5 mg/dL (0.0-0.4); BILIRUBIN,TOTAL 0.5 mg/dL (0.2-1.3); BLOOD UREA NITROGEN 35 mg/dL (7-20); CARBON DIOXIDE 25 mmol/L (22-30); CHLORIDE 96 mmol/L (98-107); CREATININE RESULT 2.69 mg/dL (0.52-1.25); GLUCOSE 170 mg/dL (75-110); POTASSIUM 3.2 mmol/L (3.6-5.0); TOTAL PROTEIN 6.7 g/dL (6.3-8.2)
--- NOTE | 2016-11-13 07:27 | PDOC CONSULTATION ---
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 he also had a colonoscopy that was completed to the cecum he comes in with acute complaints denies any unusual diet or recent travel no one else is sick denies any diarrhea had CT scan done that was negative he needs to be scheduled for an EGD to rule out any gastric outlet obstruction he may also have a component of gastroparesis Past Medical History Cardiac Medical History: Reports: Hypertension Denies: Coronary Artery Disease, Myocardial Infarction Pulmonary Medical History: Reports: Chronic Obstructive Pulmonary Disease (COPD) Denies: Asthma, Bronchitis, Pneumonia Neurological Medical History: Reports: Seizures - Epilepsy- last seizure a few months Endocrine Medical History: Reports: Diabetes Mellitus Type 2 GI Medical History: Reports: Gastroesophageal Reflux Disease Musculoskeltal Medical History: Reports: Arthritis Psychiatric Medical History: Reports: Depression Hematology: Denies: Anemia Past Surgical History Past Surgical History: Reports: Appendectomy, Cholecystectomy Social History Lives with: Family Smoking Status: Never Smoker Cigarettes Packs Per Day: 1 Last Time Smoked: 11/08/2016 Frequency of Alcohol Use: None Hx Prescription Drug Abuse: No - Advance Directive Resuscitation Status: Full Code Family History Family History: Reviewed & Not Pertinent Parental Family History Reviewed: Yes Children Family History Reviewed: Unknown Sibling(s) Family History Reviewed.: Unknown Medication/Allergy Home Medications: Amlodipine Besylate 10 mg PO DAILY 06/05/14 Atenolol [Tenormin 25 mg Tablet] 25 mg PO DAILY 06/05/14 Carbamazepine [Carbamazepine ER] 400 mg PO DAILY 06/05/14 Carbamazepine [Tegretol Xr 200 mg Tab.sr] 200 mg PO QHS 06/05/14 Citalopram Hydrobromide [Celexa] 1 tab PO DAILY 06/05/14 Clonidine HCl [Clonidine HCl ER] 0.1 mg PO Q12 06/05/14 Fluticasone Propionate [Flonase Allergy Relief] 9.9 ml NS ASDIR PRN 06/05/14 Gabapentin 800 mg PO BID 06/05/14 Glimepiride [Amaryl 4 mg Tablet] 2 tab PO DAILY 06/05/14 Hydrochlorothiazide 25 mg PO DAILY 06/05/14 Insulin Aspart [Novolog Flexpen] 0 unit SUBCUT .SLD SCALE 06/05/14 Insulin Detemir [Levemir Flextouch] 60 unit SQ QHS 06/05/14 Lisinopril 40 mg PO DAILY 06/05/14 Metformin HCl [Glucophage] 1 tab PO BID 06/05/14 [place]-3 Fatty Acids [[place]-3] 1,000 mg PO BID 06/05/14 Atorvastatin Calcium [Lipitor 40 mg Tablet] 40 mg PO QHS 11/28/14 Warfarin Sodium [Coumadin 7.5 mg Tablet] 7.5 mg PO DAILY 11/28/14 Cyclobenzaprine HCl [Flexeril 10 mg Tablet] 10 mg PO TID #10 tablet 05/08/15 Albuterol Sulfate [Ventolin Hfa] 1 - 2 puff IH Q4 PRN 08/07/15 Esomeprazole Mag Trihydrate [Nexium] 40 mg PO DAILY 08/07/15 Levocetirizine Dihydrochloride [Xyzal 5 mg Tablet] 5 mg PO DAILY 08/07/15 Nitroglycerin 0.4 mg SL ASDIR PRN 08/07/15 Tiotropium [place] [Spiriva Handihaler 18 mcg/dose (30 Dose)] 1 cap IH DAILY Triamcinolone Acetonide [Aristocort 0.025% Cream] 1 applic TP BID 08/07/15 Hydrocodone Bit/Acetaminophen [Hydrocodon-Acetaminophn 10-325] 1 each PO TID PRN 08/08/15 Magnesium Oxide [Diasense Magnesium] 400 mg PO DAILY #30 tablet 08/09/15 Potassium Chloride 20 meq PO DAILY #60 tab.prt.sr 08/09/15 Hydrocodone/Acetaminophen [[place] 5-325 Tablet] 1 each PO Q6 PRN #12 tablet 07/23 Allergies/Adverse Reactions: Indonesian Ginseng [From Ginseng Edge] Allergy (Severe, Verified 11/12/16 16:30) INTERACTS WITH SZ MEDICATION SO CANNOT HAVE guarana seed extract [From Ginseng Edge] Allergy (Severe, Verified 11/12/16 16: 30) INTERACTS WITH SZ MEDICATION SO CANNOT HAVE Luxembourgish Ginseng [From Ginseng Edge] Allergy (Severe, Verified 11/12/16 16:30) INTERACTS WITH SZ MEDICATION SO CANNOT HAVE Siberian Ginseng Root Extract [From Ginseng Edge] Allergy (Severe, Verified 05/26 16:30) INTERACTS WITH SZ MEDICATION SO CANNOT HAVE Review of Systems Constitutional: ABSENT: fever(s), headache(s), night sweats Eyes: ABSENT: visual disturbances Ears: ABSENT: hearing changes Nose, Mouth, and Throat: ABSENT: mouth pain Cardiovascular: PRESENT: dyspnea on exertion. ABSENT: chest pain, orthropnea, palpitations Respiratory: ABSENT: hemoptysis Gastrointestinal: PRESENT: nausea, vomiting. ABSENT: coffee ground emesis, diarrhea, melena Genitourinary: ABSENT: dysuria, hematuria Musculoskeletal: ABSENT: deformity, joint swelling Integumentary: ABSENT: lesions, pruritus Neurological: ABSENT: syncope, tingling, tremor(s), vertigo Endocrine: ABSENT: polydipsia, polyphagia, polyuria Hematologic/Lymphatic: ABSENT: easy bruising Physical Exam Vital Signs: Temp Pulse Resp BP Pulse Ox 97.7 F 72 16 149/71 H 99 11/13/16 04:18 11/13/16 04:18 11/13/16 04:18 11/13/16 04:18 11/13/16 00:28 Intake & Output 11/12/16 11/13/16 11/14/16 06:59 06:59 06:59 Intake Total 400 Balance 400 General appearance: PRESENT: well-developed, well-nourished Head exam: PRESENT: atraumatic, normocephalic Eye exam: PRESENT: EOMI, PERRLA. ABSENT: nystagmus, periorbital swelling, scleral icterus Mouth exam: PRESENT: moist, neck supple Throat exam: ABSENT: tonsillar exudate, tonsillogmegaly Neck exam: ABSENT: meningismus, tenderness, thyromegaly Respiratory exam: PRESENT: symmetrical, unlabored. ABSENT: chest wall tenderness, tachypnea Cardiovascular exam: PRESENT: RRR, +S1, +S2 GI/Abdominal exam: PRESENT: soft. ABSENT: rebound, rigid, tenderness Extremities exam: PRESENT: pedal edema, +1 edema. ABSENT: joint swelling Neurological exam: PRESENT: alert, awake, oriented to time, oriented to situation, CN II-XII grossly intact Skin exam: PRESENT: normal color. ABSENT: mottled, urticaria, vesicles Results Laboratory Results: 11/13/16 04:44 11/13/16 04:44 11/13/16 11/13/16 04:44 04:44 WBC 7.8 RBC 3.68 L Hgb 12.2 L Hct 33.9 L MCV 92 MCH 33.0 MCHC 35.9 RDW 12.4 Plt Count 281 Seg Neutrophils % 60.5 Lymphocytes % 27.2 Monocytes % 9.0 Eosinophils % 3.0 Basophils % 0.3 Absolute Neutrophils 4.7 Absolute Lymphocytes 2.1 Absolute Monocytes 0.7 Absolute Eosinophils 0.2 Absolute Basophils 0.0 Sodium 135.0 L Potassium 3.2 L Chloride 96 L Carbon Dioxide 25 Anion Gap 14 BUN 35 H Creatinine 2.69 H Est GFR ( Amer) 30 L Est GFR (Non-Af Amer) 25 L Glucose 170 H Calcium 9.0 Total Bilirubin 0.5 AST 65 H ALT 85 H Alkaline Phosphatase 67 Total Protein 6.7 Albumin 3.9 Impressions: Abdomen/Pelvis CT 11/12/16 20:35 IMPRESSION: NO ACUTE PROCESS IN THE ABDOMEN OR PELVIS. Assessment & Plan - Diagnosis (1) Abdominal pain Qualifiers: Abdominal location: generalized Qualified Code(s): R10.84 - Generalized abdominal pain Plan: May have peptic ulcer disease does have a history of GERD has has been on PPI due to his history of Pitt's now has abnormal renal function will need EGD Pitt's will be ablated if necessary will try to get him off PPI if possible Risks, benefits and alternatives are discussed with the patient in detail further recommendations to follow he has had his gallbladder removed in the past (2) Vomiting Qualifiers: Vomiting type: unspecified Vomiting Intractability: unspecified Nausea presence: with nausea Qualified Code(s): R11.2 - Nausea with vomiting, unspecified Plan: Will exclude possible gastric outlet issues however he has diabetic and could have a component of gastroparesis as well his worsening renal function may also be a cause further recommendations to follow in the meanwhile, start antiemetics and will schedule his EGD in the am
[2016-11-13] MEDS ORDERED: POTASSI CL 20 MEQ/50 ML RIDER 20 MEQ/50 ML RTUPB IV ONE (08:31)
--- NOTE | 2016-11-13 08:47 | PDOC H&P ---
History of Present Illness Admission Date/PCP: 11/13/16 02:26 JAYNA ROB Patient complains of: [place], Vomiting, Abdominal pain History of Present Illness: RADHA GARCIA is a 56 year old male known to my practice who presented to the ED with complain of worsening abdominal pain with persistent nausea and vomiting. Patient reported that his symptoms have been on going for several days. He denied any fever or chills. No problem with his urination or flank pain. Patient has not been compliant with his diabetic management and medical follow up. He has history of Pitt esophagus and under care of Dr Otero, entry level administrative assistant. His initial ED evaluation revealed worsening renal function. His CT abdomen was negative for acute pathology. His morbidities include Hypertension, COPD, Seizure disorder, GERD, Osteoarthritis and Diabetes Mellitus. Past Medical History Cardiac Medical History: Reports: Hypertension Denies: Coronary Artery Disease, Myocardial Infarction Pulmonary Medical History: Reports: Chronic Obstructive Pulmonary Disease (COPD) Denies: Asthma, Bronchitis, Pneumonia Neurological Medical History: Reports: Seizures - Epilepsy- last seizure a few months Endocrine Medical History: Reports: Diabetes Mellitus Type 2 GI Medical History: Reports: Gastroesophageal Reflux Disease Musculoskeltal Medical History: Reports: Arthritis Psychiatric Medical History: Reports: Depression Hematology: Denies: Anemia Past Surgical History Past Surgical History: Reports: Appendectomy, Cholecystectomy Social History Lives with: Family Smoking Status: Never Smoker Cigarettes Packs Per Day: 1 Last Time Smoked: 11/08/2016 Frequency of Alcohol Use: None Hx Prescription Drug Abuse: No - Advance Directive Resuscitation Status: Full Code Family History Family History: Reviewed & Not Pertinent Parental Family History Reviewed: Yes Children Family History Reviewed: Yes Sibling(s) Family History Reviewed.: Yes Medication/Allergy Allergies/Adverse Reactions: Guyanese Ginseng [From Ginseng Edge] Allergy (Severe, Verified 11/12/16 16:30) INTERACTS WITH SZ MEDICATION SO CANNOT HAVE guarana seed extract [From Ginseng Edge] Allergy (Severe, Verified 11/12/16 16: 30) INTERACTS WITH SZ MEDICATION SO CANNOT HAVE Lao Ginseng [From Ginseng [facility]] Allergy (Severe, Verified 11/12/16 16:30) INTERACTS WITH SZ MEDICATION SO CANNOT HAVE Siberian Ginseng Root Extract [From Ginseng Edge] Allergy (Severe, Verified 05/26 16:30) INTERACTS WITH SZ MEDICATION SO CANNOT HAVE Review of Systems Constitutional: ABSENT: chills, fever(s), headache(s), weight gain, weight loss Eyes: ABSENT: visual disturbances Ears: ABSENT: hearing changes Nose, Mouth, and Throat: ABSENT: as per HPI, headache(s), mouth pain, sore throat, vertigo, other Cardiovascular: ABSENT: chest pain, dyspnea on exertion, edema, orthropnea, palpitations Respiratory: ABSENT: cough, hemoptysis Gastrointestinal: PRESENT: abdominal pain, nausea, vomiting. ABSENT: as per HPI , bloating, coffee ground emesis, constipation, diarrhea, dysphagia, heartburn, hematemesis, hematochezia, melena, other Genitourinary: ABSENT: dysuria, hematuria Musculoskeletal: ABSENT: joint swelling Integumentary: ABSENT: rash, wounds Neurological: ABSENT: abnormal gait, abnormal speech, confusion, dizziness, focal weakness, syncope Psychiatric: ABSENT: anxiety, depression, homidical ideation, suicidal ideation Endocrine: ABSENT: cold intolerance, heat intolerance, menstrual abnormalities, polydipsia, polyuria Hematologic/Lymphatic: ABSENT: easy bleeding, easy bruising, lymphadenopathy Physical Exam Vital Signs: Temp Pulse Resp BP Pulse Ox 97.7 F 63 16 149/71 H 99 11/13/16 04:18 11/13/16 07:00 11/13/16 04:18 11/13/16 04:18 11/13/16 00:28 Intake & Output 11/12/16 11/13/16 11/14/16 06:59 06:59 06:59 Intake Total 400 Balance 400 General appearance: PRESENT: no acute distress Head exam: PRESENT: atraumatic, normocephalic Eye exam: PRESENT: conjunctiva pink, EOMI, PERRLA. ABSENT: scleral icterus Ear exam: PRESENT: normal external ear exam Mouth exam: PRESENT: moist, tongue midline Teeth exam: PRESENT: poor dentation Neck exam: PRESENT: full ROM. ABSENT: carotid bruit, JVD, lymphadenopathy, thyromegaly Respiratory exam: PRESENT: clear to auscultation mark Cardiovascular exam: PRESENT: RRR. ABSENT: diastolic murmur, rubs, systolic murmur Pulses: PRESENT: normal dorsalis pedis pul, +2 pedal pulses bilateral Vascular exam: PRESENT: normal capillary refill. ABSENT: pallor GI/Abdominal exam: PRESENT: normal bowel sounds, soft, tenderness - left flank region. ABSENT: distended, guarding, mass, organolmegaly, rebound Rectal exam: PRESENT: deferred Extremities exam: ABSENT: pedal edema Musculoskeletal exam: PRESENT: normal inspection Neurological exam: PRESENT: alert, awake, oriented to person, oriented to place , oriented to time, oriented to situation, CN II-XII grossly intact. ABSENT: motor sensory deficit Psychiatric exam: PRESENT: appropriate affect, normal mood. ABSENT: homicidal ideation, suicidal ideation Skin exam: PRESENT: dry, intact, warm. ABSENT: cyanosis, rash Results Laboratory Results: 11/13/16 04:44 11/13/16 04:44 11/13/16 11/13/16 04:44 04:44 WBC 7.8 RBC 3.68 L Hgb 12.2 L Hct 33.9 L MCV 92 MCH 33.0 MCHC 35.9 RDW 12.4 Plt Count 281 Seg Neutrophils % 60.5 Lymphocytes % 27.2 Monocytes % 9.0 Eosinophils % 3.0 Basophils % 0.3 Absolute Neutrophils 4.7 Absolute Lymphocytes 2.1 Absolute Monocytes 0.7 Absolute Eosinophils 0.2 Absolute Basophils 0.0 Sodium 135.0 L Potassium 3.2 L Chloride 96 L Carbon Dioxide 25 Anion Gap 14 BUN 35 H Creatinine 2.69 H Est GFR ( Amer) 30 L Est GFR (Non-Af Amer) 25 L Glucose 170 H Calcium 9.0 Total Bilirubin 0.5 AST 65 H ALT 85 H Alkaline Phosphatase 67 Total Protein 6.7 Albumin 3.9 Impressions: Abdomen/Pelvis CT 11/12/16 20:35 IMPRESSION: NO ACUTE PROCESS IN THE ABDOMEN OR PELVIS. Assessment & Plan - Diagnosis (1) Acute renal failure Qualifiers: Acute renal failure type: unspecified Qualified Code(s): N17.9 - Acute kidney failure, unspecified Is this a current diagnosis for this admission?: Yes Plan: See admitting attending physician orders. (2) Nausea & vomiting Qualifiers: Vomiting type: unspecified Vomiting Intractability: unspecified Qualified Code(s): R11.2 - Nausea with vomiting, unspecified Is this a current diagnosis for this admission?: Yes Plan: See admitting attending physician orders. (3) Abdominal pain Qualifiers: Abdominal location: generalized Qualified Code(s): R10.84 - Generalized abdominal pain Is this a current diagnosis for this admission?: Yes Plan: See admitting attending physician orders. (4) Diabetes mellitus type 2 in nonobese Is this a current diagnosis for this admission?: Yes Plan: See admitting attending physician orders. (5) HTN (hypertension) Qualifiers: Hypertension type: essential hypertension Qualified Code(s): I10 - Essential (primary) hypertension Is this a current diagnosis for this admission?: Yes Plan: See admitting attending physician orders. (6) COPD (chronic obstructive pulmonary disease) Qualifiers: Chronic bronchitis type: unspecified Is this a current diagnosis for this admission?: Yes Plan: See admitting attending physician orders. (7) GERD (gastroesophageal reflux disease) Qualifiers: Esophagitis presence: esophagitis presence not specified Qualified Code(s) : K21.9 - Gastro-esophageal reflux disease without esophagitis Is this a current diagnosis for this admission?: Yes Plan: See admitting attending physician orders. (8) Seizure disorder Is this a current diagnosis for this admission?: Yes Plan: See admitting attending physician orders. (9) Osteoarthritis involving multiple joints on both sides of body Is this a current diagnosis for this admission?: Yes Plan: See admitting attending physician orders. - Time Time Spent: 50 to 70 Minutes Medications reviewed and adjusted accordingly: Yes Anticipated discharge: Home Within: Other - Inpatient Certification Based on my medical assessment, after consideration of the patient's comorbidities, presenting symptoms, or acuity I expect that the services needed warrant INPATIENT care.: Yes I certify that my determination is in accordance with my understanding of Medicare's requirements for reasonable and necessary INPATIENT services [42 CFR 412.3e].: Yes Medical Necessity: Need Close Monitoring Due to Risk of Patient Decompensation, Need For IV Fluids, Need For Continuous Telemetry Monitoring, Risk of Complication if Not Cared For in Hospital Post Hospital Care: D/C Division Sales Manager Documentation - Plan Summary Plan Summary: See admitting attending physician orders.
[2016-11-13 08:56] LABS: PHOSPHORUS 3.5 mg/dL (2.5-4.5)
--- NOTE | 2016-11-13 09:04 | EKG REPORT ---
SEVERITY:- BORDERLINE ECG - SINUS RHYTHM BORDERLINE T ABNORMALITIES, ANT-LAT LEADS : Confirmed by: Rachel Chance MD 13-Nov-2016 09:04:20
[2016-11-13 09:21] LABS: MAGNESIUM 1.1 mg/dL (1.6-2.3)
[2016-11-13] MEDS ORDERED: MAGNESIUM SULFATE/D5W 1 GM/100 ML RTUPB IV ONE (14:30)
[2016-11-13] MEDS ORDERED: DIPHENHYDRAMINE HCL 50 MG/ML VIAL ONE (14:49)
[2016-11-13] MEDS ORDERED: MIDAZOLAM 2 MG/2 ML INJ ONE ×2 (14:50)
[2016-11-13] MEDS ORDERED: NALOXONE HCL INJ/PF 0.4 MG/1 ML SDV ONE (14:50)
[2016-11-13] MEDS ORDERED: ONDANSETRON HCL INJ/PF 4 MG/2 ML SDV ONE (14:50)
[2016-11-13] MEDS ORDERED: EPINEPHRINE INJ 1 MG/10 ML DISP.SYRIN ONE (14:51)
[2016-11-13] MEDS ORDERED: FLUMAZENIL INJ 0.5 MG/5 ML VIAL ONE (14:51)
[2016-11-13] MEDS ORDERED: GLUCAGON,HUMAN RECOMB 1 MG INJ ONE (14:51)
[2016-11-13] MEDS: FENTANYL CITRATE INJ/PF 100 MCG/2 ML AMPUL ONE ×3 (14:52→14:58)
--- NOTE | 2016-11-13 15:25 | Operative Report ---
Operative Report DATE OF SURGERY: 11/13/16 Operative Report: The risks benefits and alternatives of the procedure explained to the patient in detail and informed consent is obtained.A GIF Olympus video scope was inserted into the patient's mouth and hypopharynx, the esophagus is identified intubated and insufflated, the scope was then advanced through the esophagus stomach and duodenum, retroflexion maneuver is done,the esophagus stomach and first and second portions of the duodenum examined PREOPERATIVE DIAGNOSIS: Nausea vomiting. Known history of Pitt's POSTOPERATIVE DIAGNOSIS: Gastritis status post biopsy rule out Helicobacter pylori. [place]'s esophagus status post ablation OPERATION: EGD with ablation. EGD with biopsy SURGEON: FRANCISCO J MOYER ANESTHESIA: Moderate Sedation - 3 mg of Versed, 50 mcg of fentanyl. Conscious sedation monitoring time 30 minutes. TISSUE REMOVED OR ALTERED: Gastric mucosal specimen obtained to rule out Helicobacter pylori COMPLICATIONS: None. ESTIMATED BLOOD LOSS: None. INTRAOPERATIVE FINDINGS: As described above. PROCEDURE: Patient tolerated procedure well. No immediate postprocedure complications are noted. Patient sent back to his room in good condition. Resume regular diet We will wait on biopsies. Started on PPI. Further recommendations to follow.
[2016-11-14] MEDS: INSULIN LISPRO 100 UNIT/ML 3 ML VIAL SUBCUT PRN ×3 (00:50→22:15)
[2016-11-14] MEDS: ONDANSETRON HCL INJ/PF 4 MG/2 ML SDV IV PRN ×3 (03:11→13:21)
[2016-11-14] MEDS: MORPHINE SULFATE 10 MG/ML INJ IV PRN (03:11)
[2016-11-14] MEDS: NORMAL SALINE 1000 ML 1,000 ML IV PRN ×2 (03:15→13:21)
[2016-11-14] MEDS ORDERED: ALBUTEROL SULFATE HFA (90 MCG/PUFF) 8 GM MDI (1 MDI/ER DISP) IH PRN (08:32)
[2016-11-14] MEDS ORDERED: ALBUTEROL SULFATE 0.083% NEB 2.5 MG/3 ML AMPUL NEB PRN (08:32)
[2016-11-14] MEDS ORDERED: NITROGLYCERIN 0.4 MG/TAB 25 TAB/BOTTLE SL PRN (08:32)
[2016-11-14] MEDS ORDERED: GLIMEPIRIDE 4 MG TABLET PO ONE (09:00)
[2016-11-14] MEDS ORDERED: LANSOPRAZOLE 30 MG TAB.RAP.DR PO ONE (09:30)
[2016-11-14] MEDS: CITALOPRAM HYDROBROMIDE 20 MG TABLET PO SCH (09:56)
[2016-11-14] MEDS: VARENICLINE TARTRATE 1 MG TABLET PO SCH ×2 (09:56→17:24)
[2016-11-14] MEDS: CARBAMAZEPINE 200 MG TAB.SR.12H PO SCH (09:57)
[2016-11-14] MEDS: HYDROCHLOROTHIAZIDE 25 MG TABLET PO SCH (09:57)
[2016-11-14] MEDS: AMLODIPINE BESYLATE 10 MG TABLET PO SCH (09:58)
[2016-11-14] MEDS: MAGNESIUM OXIDE 400 MG TABLET PO SCH (09:58)
[2016-11-14] MEDS: POTASSIUM CHLORIDE 10 MEQ TABLET.SA PO SCH (09:59)
[2016-11-14] MEDS: HYDROCODONE/ACETAMINOPHEN 10-325 MG TABLET PO PRN ×2 (09:59→18:32)
[2016-11-14] MEDS ORDERED: (PENDING PHARMACY ID) (Atenolol [Tenormin] 25 MG) PO SCH (10:00)
[2016-11-14] MEDS ORDERED: LISINOPRIL 10 MG TABLET PO SCH (10:00)
[2016-11-14] MEDS ORDERED: HYDROCHLOROTHIAZIDE 25 MG TABLET PO SCH (10:00)
[2016-11-14] MEDS ORDERED: (PENDING PHARMACY ID) (Potassium Chloride [Klor-Con M20] 20 MEQ) PO SCH (10:00)
[2016-11-14] MEDS ORDERED: CLONIDINE HCL 0.1 MG TABLET PO SCH (10:00)
[2016-11-14] MEDS ORDERED: CARBAMAZEPINE 400 MG PO SCH (10:00)
[2016-11-14] MEDS ORDERED: ATENOLOL 50 MG TABLET PO ONE (12:00)
--- NOTE | 2016-11-14 12:03 | PDOC PROGRESS REPORT ---
Subjective Progress Note for:: 11/14/16 Subjective:: patient underwent EGD yesterday tolerated well. Biopsies are still pending. Patient did have some Pitt's esophagus that was ablated. Still having nausea vomiting not able to eat. Renal consultation is pending. We will wait on biopsies for further recommendations. We will need PPI along with antiemetic as needed. Family updated Physical Exam Vital Signs: Temp Pulse Resp BP Pulse Ox 98.1 F 73 16 139/67 H 98 11/14/16 11:30 11/14/16 11:30 11/14/16 11:30 11/14/16 11:30 11/14/16 11:30 Intake & Output 11/13/16 11/14/16 11/15/16 06:59 06:59 06:59 Intake Total 400 3043 Output Total 1000 Balance 400 2043 Weight 75.4 kg General appearance: PRESENT: cooperative, well-developed, well-nourished Head exam: PRESENT: atraumatic, normocephalic Eye exam: PRESENT: EOMI, PERRLA. ABSENT: nystagmus, periorbital swelling, scleral icterus Mouth exam: PRESENT: moist, neck supple Throat exam: ABSENT: tonsillar exudate Neck exam: ABSENT: meningismus, tenderness, thyromegaly Respiratory exam: PRESENT: symmetrical, unlabored. ABSENT: tachypnea, wheezes Cardiovascular exam: PRESENT: RRR, +S1, +S2 GI/Abdominal exam: PRESENT: soft. ABSENT: rebound, rigid, tenderness Extremities exam: ABSENT: joint swelling Musculoskeletal exam: PRESENT: full ROM Neurological exam: PRESENT: oriented to time, oriented to situation, CN II-XII grossly intact Psychiatric exam: PRESENT: appropriate affect Skin exam: PRESENT: normal color. ABSENT: mottled, pallor, petechiae, urticaria , vesicles Results Laboratory Results: 11/13/16 04:44 11/13/16 04:44 Impressions: Abdomen/Pelvis CT 11/12/16 20:35 IMPRESSION: NO ACUTE PROCESS IN THE ABDOMEN OR PELVIS. Assessment & Plan - Diagnosis (1) Abdominal pain Qualifiers: Abdominal location: generalized Qualified Code(s): R10.84 - Generalized abdominal pain Is this a current diagnosis for this admission?: Yes (2) Vomiting Qualifiers: Vomiting type: unspecified Vomiting Intractability: unspecified Nausea presence: with nausea Qualified Code(s): R11.2 - Nausea with vomiting, unspecified (3) Abnormal LFTs Plan: Slight elevation in the patient's AST and ALT levels Continue to monitor. No signs of biliary obstruction with the normal total bilirubin. (4) Barretts esophagus Plan: Ablated yesterday during upper endoscopy. Patient tolerated the procedure. (5) Acute renal failure Qualifiers: Acute renal failure type: unspecified Qualified Code(s): N17.9 - Acute kidney failure, unspecified Is this a current diagnosis for this admission?: Yes Plan: No follow-up labs have been ordered for today. His potassium was low yesterday. His mag needs him was slow but I have given him a gram prior to his procedure. He will need follow-up labs. He will need nephrology consult. (6) GERD (gastroesophageal reflux disease) Qualifiers: Esophagitis presence: esophagitis presence not specified Qualified Code(s) : K21.9 - Gastro-esophageal reflux disease without esophagitis Is this a current diagnosis for this admission?: Yes Plan: Continue PPI and antiemetic. No ulcer noted to explain the patient's abdominal pain. CT scan had been done. It is negative.
[2016-11-14] MEDS: PREGABALIN 100 MG CAPSULE PO SCH ×2 (13:13→22:06)
--- NOTE | 2016-11-14 15:49 | PDOC PROGRESS REPORT ---
Subjective Progress Note for:: 11/14/16 Subjective:: Patient reported some improvement in his abdominal pain. Tolerating some amount of oral food intake but limited quantity. No significant nausea or vomiting. No fever or chills. Physical Exam Vital Signs: Temp Pulse Resp BP Pulse Ox 98.1 F 73 16 139/67 H 98 11/14/16 11:30 11/14/16 11:30 11/14/16 11:30 11/14/16 11:30 11/14/16 11:30 Intake & Output 11/13/16 11/14/16 11/15/16 06:59 06:59 06:59 Intake Total 400 3043 Output Total 1000 Balance 400 2043 Weight 75.4 kg General appearance: PRESENT: no acute distress, well-developed, well-nourished Head exam: PRESENT: atraumatic, normocephalic Eye exam: PRESENT: conjunctiva pink, EOMI, PERRLA. ABSENT: scleral icterus Mouth exam: PRESENT: moist Respiratory exam: PRESENT: clear to auscultation mark Cardiovascular exam: PRESENT: RRR. ABSENT: diastolic murmur, rubs, systolic murmur GI/Abdominal exam: PRESENT: normal bowel sounds, soft, tenderness - epigastric region. ABSENT: distended, guarding, mass, organolmegaly, rebound Extremities exam: ABSENT: pedal edema Neurological exam: PRESENT: alert, awake, oriented to person, oriented to place , oriented to time, oriented to situation, CN II-XII grossly intact. ABSENT: motor sensory deficit Psychiatric exam: PRESENT: appropriate affect, normal mood. ABSENT: homicidal ideation, suicidal ideation Skin exam: PRESENT: dry, intact, warm. ABSENT: cyanosis, rash Results Laboratory Results: 11/13/16 04:44 11/13/16 04:44 Impressions: Abdomen/Pelvis CT 11/12/16 20:35 IMPRESSION: NO ACUTE PROCESS IN THE ABDOMEN OR PELVIS. Assessment & Plan - Diagnosis (1) Acute renal failure Qualifiers: Acute renal failure type: unspecified Qualified Code(s): N17.9 - Acute kidney failure, unspecified Is this a current diagnosis for this admission?: Yes (2) Nausea & vomiting Qualifiers: Vomiting type: unspecified Vomiting Intractability: unspecified Qualified Code(s): R11.2 - Nausea with vomiting, unspecified Is this a current diagnosis for this admission?: Yes (3) Abdominal pain Qualifiers: Abdominal location: generalized Qualified Code(s): R10.84 - Generalized abdominal pain Is this a current diagnosis for this admission?: Yes (4) Diabetes mellitus type 2 in nonobese Is this a current diagnosis for this admission?: Yes (5) HTN (hypertension) Qualifiers: Hypertension type: essential hypertension Qualified Code(s): I10 - Essential (primary) hypertension Is this a current diagnosis for this admission?: Yes (6) COPD (chronic obstructive pulmonary disease) Qualifiers: Chronic bronchitis type: unspecified Is this a current diagnosis for this admission?: Yes (7) GERD (gastroesophageal reflux disease) Qualifiers: Esophagitis presence: esophagitis presence not specified Qualified Code(s) : K21.9 - Gastro-esophageal reflux disease without esophagitis Is this a current diagnosis for this admission?: Yes (8) Seizure disorder Is this a current diagnosis for this admission?: Yes (9) Osteoarthritis involving multiple joints on both sides of body Is this a current diagnosis for this admission?: Yes - Time Time Spent with patient: 25-34 minutes Medications reviewed and adjusted accordingly: Yes Anticipated discharge: Home Within: Other - Inpatient Certification Based on my medical assessment, after consideration of the patient's comorbidities, presenting symptoms, or acuity I expect that the services needed warrant INPATIENT care.: Yes I certify that my determination is in accordance with my understanding of Medicare's requirements for reasonable and necessary INPATIENT services [42 CFR 412.3e].: Yes Medical Necessity: Need Close Monitoring Due to Risk of Patient Decompensation, Need For IV Fluids, Need For Continuous Telemetry Monitoring, Need for Pain Control, Risk of Complication if Not Cared For in Hospital Post Hospital 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 Maintain on IV fluid support with hope that his hydration will resolve his abnormal renal indices. There is downward trend in his creatinine level. His CT scan abdomen and pelvis did not suggest any structural kidney pathology, limited by IV contrast due to his elevated creatinine upon presentation. He will receive potassium and Magnesium supplementation. I will request nephrology consultation with Dr. Daljit Rodríguez.
[2016-11-14] MEDS ORDERED: METFORMIN HCL 500 MG TABLET PO SCH (16:00)
[2016-11-14] MEDS ORDERED: MAGNESIUM SULFATE/D5W 1 GM/100 ML RTUPB IV ONE (18:00)
[2016-11-14] MEDS ORDERED: (PENDING PHARMACY ID) (Fenofibrate Nanocrystallized [Triglide] 160 MG) PO SCH (22:00)
[2016-11-14] MEDS: CLONIDINE HCL 0.2 MG TABLET PO SCH (22:06)
[2016-11-15] MEDS: HYDROCODONE/ACETAMINOPHEN 10-325 MG TABLET PO PRN ×3 (00:15→18:43)
[2016-11-15] MEDS: ONDANSETRON HCL INJ/PF 4 MG/2 ML SDV IV PRN ×3 (00:17→20:27)
[2016-11-15 05:15] LABS: ABSOLUTE BASOPHILS # (AUTO) 0.1 10^3/uL (0.0-0.2); ABSOLUTE EOSINOPHILS # (AUTO) 0.3 10^3/uL (0.0-0.6); ABSOLUTE MONOCYTES (AUTO) 0.6 10^3/uL (0.1-1.4); ABSOLUTE NEUT (AUTO) 4.7 10^3/uL (1.7-8.2); BASOPHILS % (AUTO) 1.1 % (0-2); EOSINOPHILS % (AUTO) 3.5 % (0-6); HEMATOCRIT 32.5 % (37.9-51.0); HEMOGLOBIN 11.5 g/dL (13.5-17.0); LYMPHOCYTES % (AUTO) 26.6 % (13-45); MEAN CORPUSCULAR HEMOGLOBIN 32.4 pg (27.0-33.4); MEAN CORPUSCULAR HGB CONC 35.3 g/dL (32.0-36.0); MEAN CORPUSCULAR VOLUME 92 fl (80-97); MONOCYTES % (AUTO) 7.4 % (3-13); RED BLOOD COUNT 3.54 10^6/uL (4.35-5.55); RED CELL DISTRIBUTION WIDTH 12.6 % (11.5-14.0); SEGMENTED NEUTROPHILS % (AUTO) 61.4 % (42-78); WHITE BLOOD COUNT 7.6 10^3/uL (4.0-10.5)
[2016-11-15] MEDS: PREGABALIN 100 MG CAPSULE PO SCH ×3 (05:24→21:44)
[2016-11-15] MEDS: LANSOPRAZOLE 30 MG TAB.RAP.DR PO SCH (05:24)
[2016-11-15 05:38] LABS: ALANINE AMINOTRANSFERASE 53 U/L (21-72); ALBUMIN 3.6 g/dL (3.5-5.0); ALKALINE PHOSPHATASE 64 U/L (38-126); ANION GAP 12 (5-19); ASPARTATE AMINO TRANSFERASE 16 U/L (17-59); BILIRUBIN,DIRECT 0.4 mg/dL (0.0-0.4); BILIRUBIN,TOTAL 0.4 mg/dL (0.2-1.3); BLOOD UREA NITROGEN 16 mg/dL (7-20); CALCIUM 8.7 mg/dL (8.4-10.2); CARBON DIOXIDE 27 mmol/L (22-30); CHLORIDE 93 mmol/L (98-107); GLUCOSE 323 mg/dL (75-110); POTASSIUM 3.2 mmol/L (3.6-5.0); SODIUM 131.7 mmol/L (137-145)
[2016-11-15] MEDS: MAGNESIUM OXIDE 400 MG TABLET PO SCH (10:03)
[2016-11-15] MEDS: POTASSIUM CHLORIDE 10 MEQ TABLET.SA PO SCH (10:03)
[2016-11-15] MEDS: CLONIDINE HCL 0.2 MG TABLET PO SCH ×2 (10:04→21:42)
[2016-11-15] MEDS: AMLODIPINE BESYLATE 10 MG TABLET PO SCH (10:04)
[2016-11-15] MEDS: GLIMEPIRIDE 4 MG TABLET PO SCH (10:04)
[2016-11-15] MEDS: CITALOPRAM HYDROBROMIDE 20 MG TABLET PO SCH (10:04)
[2016-11-15] MEDS: ATENOLOL 50 MG TABLET PO SCH (10:05)
[2016-11-15] MEDS: VARENICLINE TARTRATE 1 MG TABLET PO SCH ×2 (10:05→17:42)
[2016-11-15] MEDS: HYDROCHLOROTHIAZIDE 25 MG TABLET PO SCH (10:05)
[2016-11-15] MEDS: FLUTICASONE NASAL SPRAY 50 MCG/SPRY 120 SPRAY/16 GM NASL PRN (10:06)
[2016-11-15] MEDS: CARBAMAZEPINE 200 MG TAB.SR.12H PO SCH (11:11)
--- NOTE | 2016-11-15 15:31 | PDOC PROGRESS REPORT ---
Subjective Subjective:: Patient denied any chest pain or difficulty with breathing. No significant abdominal pain, nausea or vomiting. Tolerating some amount of oral food intake but limited quantity. No fever or chills. Physical Exam Vital Signs: Temp Pulse Resp BP Pulse Ox 98.0 F 68 16 128/66 H 97 11/15/16 07:31 11/15/16 13:34 11/15/16 13:34 11/15/16 07:31 11/15/16 07:31 Intake & Output 11/14/16 11/15/16 11/16/16 06:59 06:59 06:59 Intake Total 3043 5770 Output Total 1000 2300 Balance 2043 3470 Weight 75.4 kg Physical Exam: General appearance: PRESENT: no acute distress, well-developed, well-nourished Head exam: PRESENT: atraumatic, normocephalic Eye exam: PRESENT: conjunctiva pink, EOMI, PERRLA. ABSENT: scleral icterus Mouth exam: PRESENT: moist Respiratory exam: PRESENT: clear to auscultation mark Cardiovascular exam: PRESENT: RRR. ABSENT: diastolic murmur, rubs, systolic murmur GI/Abdominal exam: PRESENT: normal bowel sounds, soft ABSENT: tenderness, distended, guarding, mass, organomegaly, rebound Extremities exam: ABSENT: pedal edema Neurological exam: PRESENT: alert, awake, oriented to person, oriented to place , oriented to time, oriented to situation, CN II-XII grossly intact. ABSENT: motor sensory deficit Psychiatric exam: PRESENT: appropriate affect, normal mood. ABSENT: homicidal ideation, suicidal ideation Skin exam: PRESENT: dry, intact, warm. ABSENT: cyanosis, rash Results Laboratory Results: 11/15/16 04:36 11/15/16 04:36 11/15/16 11/15/16 04:36 04:36 WBC 7.6 RBC 3.54 L Hgb 11.5 L Hct 32.5 L MCV 92 MCH 32.4 MCHC 35.3 RDW 12.6 Plt Count 267 Seg Neutrophils % 61.4 Lymphocytes % 26.6 Monocytes % 7.4 Eosinophils % 3.5 Basophils % 1.1 Absolute Neutrophils 4.7 Absolute Lymphocytes 2.0 Absolute Monocytes 0.6 Absolute Eosinophils 0.3 Absolute Basophils 0.1 Sodium 131.7 L Potassium 3.2 L Chloride 93 L Carbon Dioxide 27 Anion Gap 12 BUN 16 Creatinine 1.00 Est GFR ( Amer) > 60 Est GFR (Non-Af Amer) > 60 Glucose 323 H Calcium 8.7 Total Bilirubin 0.4 AST 16 L ALT 53 Alkaline Phosphatase 64 Total Protein 6.0 L Albumin 3.6 Impressions: Abdomen/Pelvis CT 11/12/16 20:35 IMPRESSION: NO ACUTE PROCESS IN THE ABDOMEN OR PELVIS. Assessment & Plan - Diagnosis (1) Acute renal failure Qualifiers: Acute renal failure type: unspecified Qualified Code(s): N17.9 - Acute kidney failure, unspecified Is this a current diagnosis for this admission?: Yes Plan: Resolved (2) Nausea & vomiting Qualifiers: Vomiting type: unspecified Vomiting Intractability: unspecified Qualified Code(s): R11.2 - Nausea with vomiting, unspecified Is this a current diagnosis for this admission?: Yes Plan: Resolved (3) Abdominal pain Qualifiers: Abdominal location: generalized Qualified Code(s): R10.84 - Generalized abdominal pain Is this a current diagnosis for this admission?: Yes Plan: Resolved (4) Diabetes mellitus type 2 in nonobese Is this a current diagnosis for this admission?: Yes Plan: Restart on Metformin therapy. Continue sliding scale coverage. (5) HTN (hypertension) Qualifiers: Hypertension type: essential hypertension Qualified Code(s): I10 - Essential (primary) hypertension Is this a current diagnosis for this admission?: Yes (6) COPD (chronic obstructive pulmonary disease) Qualifiers: Chronic bronchitis type: unspecified Is this a current diagnosis for this admission?: Yes (7) GERD (gastroesophageal reflux disease) Qualifiers: Esophagitis presence: esophagitis presence not specified Qualified Code(s) : K21.9 - Gastro-esophageal reflux disease without esophagitis Is this a current diagnosis for this admission?: Yes (8) Seizure disorder Is this a current diagnosis for this admission?: Yes (9) Osteoarthritis involving multiple joints on both sides of body Is this a current diagnosis for this admission?: Yes - Time Time Spent with patient: 25-34 minutes Medications reviewed and adjusted accordingly: Yes Anticipated discharge: Home Within: Other - Inpatient Certification Based on my medical assessment, after consideration of the patient's comorbidities, presenting symptoms, or acuity I expect that the services needed warrant INPATIENT care.: Yes I certify that my determination is in accordance with my understanding of Medicare's requirements for reasonable and necessary INPATIENT services [42 CFR 412.3e].: Yes Medical Necessity: Need Close Monitoring Due to Risk of Patient Decompensation, Need For IV Fluids, Need For Continuous Telemetry Monitoring, Risk of Complication if Not Cared For in Hospital Post Hospital Care: D/C Roll Icer Machine Documentation - Plan Summary Plan Summary: Restart on Metformin for Diabetes Mellitus management. Cancel nephrology consult request since there is no available service and his prerenal azotemia did resolved.
[2016-11-15] MEDS ORDERED: MAGNESIUM SULFATE/D5W 1 GM/100 ML RTUPB IV ONE (16:00)
[2016-11-15] MEDS ORDERED: POTASSIUM CHLORIDE 10 MEQ TABLET.SA PO ONE (16:00)
[2016-11-15] MEDS: INSULIN LISPRO 100 UNIT/ML 3 ML VIAL SUBCUT PRN ×2 (17:34→22:52)
[2016-11-16] MEDS: HYDROCODONE/ACETAMINOPHEN 10-325 MG TABLET PO PRN ×3 (02:11→17:59)
[2016-11-16] MEDS: ONDANSETRON HCL INJ/PF 4 MG/2 ML SDV IV PRN ×2 (02:11→21:48)
[2016-11-16] MEDS: NORMAL SALINE 1000 ML 1,000 ML IV PRN ×2 (02:12→15:27)
[2016-11-16] MEDS: PREGABALIN 100 MG CAPSULE PO SCH ×3 (06:39→21:48)
[2016-11-16] MEDS: LANSOPRAZOLE 30 MG TAB.RAP.DR PO SCH (06:39)
[2016-11-16 06:46] LABS: ANION GAP 12 (5-19); BLOOD UREA NITROGEN 16 mg/dL (7-20); CALCIUM 9.3 mg/dL (8.4-10.2); CARBON DIOXIDE 26 mmol/L (22-30); CHLORIDE 97 mmol/L (98-107); CREATININE RESULT 1.05 mg/dL (0.52-1.25); GLUCOSE 236 mg/dL (75-110); MAGNESIUM 1.4 mg/dL (1.6-2.3); POTASSIUM 3.7 mmol/L (3.6-5.0); SODIUM 135.4 mmol/L (137-145)
[2016-11-16] MEDS: GLIMEPIRIDE 4 MG TABLET PO SCH (08:09)
[2016-11-16] MEDS: POTASSIUM CHLORIDE 10 MEQ TABLET.SA PO SCH (09:34)
[2016-11-16] MEDS: CITALOPRAM HYDROBROMIDE 20 MG TABLET PO SCH (09:34)
[2016-11-16] MEDS: CLONIDINE HCL 0.2 MG TABLET PO SCH ×2 (09:35→21:48)
[2016-11-16] MEDS: AMLODIPINE BESYLATE 10 MG TABLET PO SCH (09:35)
[2016-11-16] MEDS: HYDROCHLOROTHIAZIDE 25 MG TABLET PO SCH (09:35)
[2016-11-16] MEDS: MAGNESIUM OXIDE 400 MG TABLET PO SCH (09:36)
[2016-11-16] MEDS: INSULIN LISPRO 100 UNIT/ML 3 ML VIAL SUBCUT PRN ×4 (09:40→21:59)
[2016-11-16] MEDS: VARENICLINE TARTRATE 1 MG TABLET PO SCH ×2 (09:44→17:29)
[2016-11-16] MEDS: ATENOLOL 50 MG TABLET PO SCH (09:45)
[2016-11-16] MEDS: CARBAMAZEPINE 200 MG TAB.SR.12H PO SCH (11:12)
--- NOTE | 2016-11-16 15:30 | PDOC PROGRESS REPORT ---
Subjective Progress Note for:: 11/16/16 Subjective:: No chest pain or difficulty with breathing. No abdominal pain, nausea or vomiting. No fever or chills. No compliant with dietary restriction due to family supplying patient with excess calorie food. He maintain hyperglycemic state. Physical Exam Vital Signs: Temp Pulse Resp BP Pulse Ox 97.9 F 53 L 16 116/48 L 98 11/16/16 12:10 11/16/16 14:00 11/16/16 12:10 11/16/16 12:10 11/16/16 12:10 Intake & Output 11/15/16 11/16/16 11/17/16 06:59 06:59 06:59 Intake Total 5770 3420 530 Output Total 2300 2400 700 Balance 3470 1020 -170 Physical Exam: General appearance: PRESENT: no acute distress, well-developed, well-nourished Head exam: PRESENT: atraumatic, normocephalic Eye exam: PRESENT: conjunctiva pink, EOMI, PERRLA. ABSENT: scleral icterus Mouth exam: PRESENT: moist Respiratory exam: PRESENT: clear to auscultation mark Cardiovascular exam: PRESENT: RRR. ABSENT: diastolic murmur, rubs, systolic murmur GI/Abdominal exam: PRESENT: normal bowel sounds, soft ABSENT: tenderness, distended, guarding, mass, organomegaly, rebound Extremities exam: ABSENT: pedal edema Neurological exam: PRESENT: alert, awake, oriented to person, oriented to place , oriented to time, oriented to situation, CN II-XII grossly intact. ABSENT: motor sensory deficit Psychiatric exam: PRESENT: appropriate affect, normal mood. ABSENT: homicidal ideation, suicidal ideation Skin exam: PRESENT: dry, intact, warm. ABSENT: cyanosis, rash Results Laboratory Results: 11/15/16 04:36 11/16/16 05:50 11/16/16 05:50 Sodium 135.4 L Potassium 3.7 Chloride 97 L Carbon Dioxide 26 Anion Gap 12 BUN 16 Creatinine 1.05 Est GFR ( Amer) > 60 Est GFR (Non-Af Amer) > 60 Glucose 236 H Calcium 9.3 Magnesium 1.4 L Impressions: Abdomen/Pelvis CT 11/12/16 20:35 IMPRESSION: NO ACUTE PROCESS IN THE ABDOMEN OR PELVIS. Assessment & Plan - Diagnosis (1) Acute renal failure Qualifiers: Acute renal failure type: unspecified Qualified Code(s): N17.9 - Acute kidney failure, unspecified Is this a current diagnosis for this admission?: Yes (2) Nausea & vomiting Qualifiers: Vomiting type: unspecified Vomiting Intractability: unspecified Qualified Code(s): R11.2 - Nausea with vomiting, unspecified Is this a current diagnosis for this admission?: Yes (3) Abdominal pain Qualifiers: Abdominal location: generalized Qualified Code(s): R10.84 - Generalized abdominal pain Is this a current diagnosis for this admission?: Yes (4) Diabetes mellitus type 2 in nonobese Is this a current diagnosis for this admission?: Yes (5) HTN (hypertension) Qualifiers: Hypertension type: essential hypertension Qualified Code(s): I10 - Essential (primary) hypertension Is this a current diagnosis for this admission?: Yes (6) COPD (chronic obstructive pulmonary disease) Qualifiers: Chronic bronchitis type: unspecified Is this a current diagnosis for this admission?: Yes (7) GERD (gastroesophageal reflux disease) Qualifiers: Esophagitis presence: esophagitis presence not specified Qualified Code(s) : K21.9 - Gastro-esophageal reflux disease without esophagitis Is this a current diagnosis for this admission?: Yes (8) Seizure disorder Is this a current diagnosis for this admission?: Yes (9) Osteoarthritis involving multiple joints on both sides of body Is this a current diagnosis for this admission?: Yes - Time Time Spent with patient: 25-34 minutes Medications reviewed and adjusted accordingly: Yes Anticipated discharge: Home with Homehealth Within: Other - Inpatient Certification Based on my medical assessment, after consideration of the patient's comorbidities, presenting symptoms, or acuity I expect that the services needed warrant INPATIENT care.: Yes I certify that my determination is in accordance with my understanding of Medicare's requirements for reasonable and necessary INPATIENT services [42 CFR 412.3e].: Yes Medical Necessity: Need Close Monitoring Due to Risk of Patient Decompensation, Need For IV Fluids, Need For Continuous Telemetry Monitoring, Risk of Complication if Not Cared For in Hospital Post Hospital Care: D/C Systems Operator Documentation - Plan Summary Plan Summary: Continue current medication management. Decrease IV fluid infusion rate to maintenance level. Patient will receive magnesium rider replacment. Request DM teaching nurse to educate patient and family of diabetes self management.
[2016-11-16] MEDS ORDERED: MAGNESIUM SULFATE/D5W 1 GM/100 ML RTUPB IV ONE (16:30)
[2016-11-16] MEDS: FLUTICASONE NASAL SPRAY 50 MCG/SPRY 120 SPRAY/16 GM NASL PRN (23:34)
[2016-11-17] MEDS: NORMAL SALINE 1000 ML 1,000 ML IV PRN (03:04)
[2016-11-17] MEDS: PREGABALIN 100 MG CAPSULE PO SCH ×3 (06:37→21:27)
[2016-11-17] MEDS: LANSOPRAZOLE 30 MG TAB.RAP.DR PO SCH (06:37)
[2016-11-17] MEDS: HYDROCODONE/ACETAMINOPHEN 10-325 MG TABLET PO PRN ×3 (06:46→21:26)
[2016-11-17] MEDS: ONDANSETRON HCL INJ/PF 4 MG/2 ML SDV IV PRN ×3 (06:46→21:26)
[2016-11-17] MEDS: INSULIN LISPRO 100 UNIT/ML 3 ML VIAL SUBCUT PRN ×3 (06:46→21:27)
[2016-11-17] MEDS: ATENOLOL 50 MG TABLET PO SCH (09:35)
[2016-11-17] MEDS: POTASSIUM CHLORIDE 10 MEQ TABLET.SA PO SCH (09:35)
[2016-11-17] MEDS: VARENICLINE TARTRATE 1 MG TABLET PO SCH ×2 (09:35→18:38)
[2016-11-17] MEDS: CLONIDINE HCL 0.2 MG TABLET PO SCH ×2 (09:37→21:27)
[2016-11-17] MEDS: MAGNESIUM OXIDE 400 MG TABLET PO SCH (09:37)
[2016-11-17] MEDS: CITALOPRAM HYDROBROMIDE 20 MG TABLET PO SCH (09:37)
[2016-11-17] MEDS: HYDROCHLOROTHIAZIDE 25 MG TABLET PO SCH (09:38)
[2016-11-17] MEDS: CARBAMAZEPINE 200 MG TAB.SR.12H PO SCH (09:38)
[2016-11-17] MEDS: GLIMEPIRIDE 4 MG TABLET PO SCH (09:38)
[2016-11-17] MEDS: AMLODIPINE BESYLATE 10 MG TABLET PO SCH (09:39)
--- NOTE | 2016-11-17 13:07 | PDOC PROGRESS REPORT ---
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 ABSENT: nystagmus, periorbital swelling, scleral icterus Mouth exam: PRESENT: moist, neck supple Throat exam: ABSENT: tonsillar exudate, tonsillogmegaly Neck exam: ABSENT: meningismus, tenderness, thyromegaly Respiratory exam: PRESENT: symmetrical, unlabored. ABSENT: tachypnea, wheezes Cardiovascular exam: PRESENT: RRR, +S1, +S2 GI/Abdominal exam: PRESENT: soft. ABSENT: rebound, rigid, tenderness Extremities exam: ABSENT: joint swelling Musculoskeletal exam: PRESENT: full ROM Neurological exam: PRESENT: alert, awake, oriented to time, oriented to situation Skin exam: PRESENT: normal color. ABSENT: mottled, pallor, petechiae, urticaria , vesicles Results Laboratory Results: 11/15/16 04:36 11/16/16 05:50 Impressions: Abdomen/Pelvis CT 11/12/16 20:35 IMPRESSION: NO ACUTE PROCESS IN THE ABDOMEN OR PELVIS. Assessment & Plan - Diagnosis (1) Abdominal pain Qualifiers: Abdominal location: generalized Qualified Code(s): R10.84 - Generalized abdominal pain Is this a current diagnosis for this admission?: Yes (2) Vomiting Qualifiers: Vomiting type: unspecified Vomiting Intractability: unspecified Nausea presence: with nausea Qualified Code(s): R11.2 - Nausea with vomiting, unspecified (3) Abnormal LFTs Plan: seems to have resolved, (4) Barretts esophagus Plan: recently ablated , follow up in 1 year (5) Acute renal failure Qualifiers: Acute renal failure type: unspecified Qualified Code(s): N17.9 - Acute kidney failure, unspecified Is this a current diagnosis for this admission?: Yes Plan: improving, may explain his nausea and vomiting (6) GERD (gastroesophageal reflux disease) Qualifiers: Esophagitis presence: esophagitis presence not specified Qualified Code(s) : K21.9 - Gastro-esophageal reflux disease without esophagitis Is this a current diagnosis for this admission?: Yes Plan: continue PPI and antiemetic will wait on biopsies - Time Time Spent with patient: 15-24 minutes
--- NOTE | 2016-11-17 14:35 | PDOC PROGRESS REPORT ---
Subjective Progress Note for:: 11/17/16 Subjective:: No chest pain or difficulty with breathing. No abdominal pain, nausea or vomiting. No fever or chills. POC remain elevated probably due to lack of Metformin on his medication regimen. Physical Exam Vital Signs: Temp Pulse Resp BP Pulse Ox 97.7 F 49 L 18 134/66 H 96 11/17/16 11:56 11/17/16 11:56 11/17/16 11:56 11/17/16 11:56 11/17/16 11:56 Intake & Output 11/16/16 11/17/16 11/18/16 06:59 06:59 06:59 Intake Total 3420 4338 Output Total 2400 2850 Balance 1020 1488 Weight 76.5 kg Physical Exam: General appearance: PRESENT: no acute distress, well-developed, well-nourished Head exam: PRESENT: atraumatic, normocephalic Eye exam: PRESENT: conjunctiva pink, EOMI, PERRLA. ABSENT: scleral icterus Mouth exam: PRESENT: moist Respiratory exam: PRESENT: clear to auscultation mark Cardiovascular exam: PRESENT: RRR. ABSENT: diastolic murmur, rubs, systolic murmur GI/Abdominal exam: PRESENT: normal bowel sounds, soft ABSENT: tenderness, distended, guarding, mass, organomegaly, rebound Extremities exam: ABSENT: pedal edema Neurological exam: PRESENT: alert, awake, oriented to person, oriented to place , oriented to time, oriented to situation, CN II-XII grossly intact. ABSENT: motor sensory deficit Psychiatric exam: PRESENT: appropriate affect, normal mood. ABSENT: homicidal ideation, suicidal ideation Skin exam: PRESENT: dry, intact, warm. ABSENT: cyanosis, rash Results Laboratory Results: 11/15/16 04:36 11/16/16 05:50 Impressions: Abdomen/Pelvis CT 11/12/16 20:35 IMPRESSION: NO ACUTE PROCESS IN THE ABDOMEN OR PELVIS. Assessment & Plan - Diagnosis (1) Acute renal failure Qualifiers: Acute renal failure type: unspecified Qualified Code(s): N17.9 - Acute kidney failure, unspecified Is this a current diagnosis for this admission?: Yes (2) Nausea & vomiting Qualifiers: Vomiting type: unspecified Vomiting Intractability: unspecified Qualified Code(s): R11.2 - Nausea with vomiting, unspecified Is this a current diagnosis for this admission?: Yes (3) Abdominal pain Qualifiers: Abdominal location: generalized Qualified Code(s): R10.84 - Generalized abdominal pain Is this a current diagnosis for this admission?: Yes (4) Diabetes mellitus type 2 in nonobese Is this a current diagnosis for this admission?: Yes Plan: Discussed with pharmacy regarding restarting him on Metformin since his renal indices have been normal since 11/14/16. (5) HTN (hypertension) Qualifiers: Hypertension type: essential hypertension Qualified Code(s): I10 - Essential (primary) hypertension Is this a current diagnosis for this admission?: Yes (6) COPD (chronic obstructive pulmonary disease) Qualifiers: Chronic bronchitis type: unspecified Is this a current diagnosis for this admission?: Yes (7) GERD (gastroesophageal reflux disease) Qualifiers: Esophagitis presence: esophagitis presence not specified Qualified Code(s) : K21.9 - Gastro-esophageal reflux disease without esophagitis Is this a current diagnosis for this admission?: Yes (8) Seizure disorder Is this a current diagnosis for this admission?: Yes (9) Osteoarthritis involving multiple joints on both sides of body Is this a current diagnosis for this admission?: Yes (10) Bradycardia Is this a current diagnosis for this admission?: Yes Plan: Maybe drug induced. I will d/c Atenolol and monitor response. Obtain 12 lead EKG evaluation. - Time Time Spent with patient: 25-34 minutes Medications reviewed and adjusted accordingly: Yes Anticipated discharge: Home Within: Other - Inpatient Certification Medical Necessity: Need Close Monitoring Due to Risk of Patient Decompensation, Need For Continuous Telemetry Monitoring, Risk of Complication if Not Cared For in Hospital Post Hospital Care: D/C Brand Lead Documentation - Plan Summary Plan Summary: Restart on Metformin for DM management. Held by pharmacy due to initial elevated serum creatinine. D/C Atenolol due to associated bradycardia. Follow up on DM educator consultation for Diabetes teaching.
[2016-11-17] MEDS ORDERED: METFORMIN HCL 500 MG TABLET PO SCH (15:00)
--- NOTE | 2016-11-17 18:12 | EKG REPORT ---
SEVERITY:- NORMAL ECG - SINUS RHYTHM : Confirmed by: Sidney Bowie MD 17-Nov-2016 18:12:14
[2016-11-17] MEDS: METFORMIN HCL 500 MG TABLET PO SCH (18:33)
[2016-11-17] MEDS: FENOFIBRATE NANOCRYSTALLIZED 145 MG TABLET PO SCH (18:33)
[2016-11-18] MEDS: PREGABALIN 100 MG CAPSULE PO SCH ×3 (05:10→21:08)
[2016-11-18] MEDS: LANSOPRAZOLE 30 MG TAB.RAP.DR PO SCH (05:10)
[2016-11-18] MEDS: ONDANSETRON HCL INJ/PF 4 MG/2 ML SDV IV PRN ×3 (05:45→21:09)
[2016-11-18] MEDS: HYDROCODONE/ACETAMINOPHEN 10-325 MG TABLET PO PRN ×3 (05:45→21:08)
[2016-11-18] MEDS: METFORMIN HCL 500 MG TABLET PO SCH ×2 (08:06→17:43)
[2016-11-18] MEDS: GLIMEPIRIDE 4 MG TABLET PO SCH (08:06)
[2016-11-18] MEDS: INSULIN LISPRO 100 UNIT/ML 3 ML VIAL SUBCUT PRN ×2 (08:06→17:43)
--- NOTE | 2016-11-18 09:04 | PDOC PROGRESS REPORT ---
Subjective Progress Note for:: 11/18/16 Subjective:: biopsies are negative patient symptoms have improved able to tolerate diet less nausea and no vomiting patient denies any melena there is no early satiety patient can be followed as an outpatient Physical Exam Vital Signs: Temp Pulse Resp BP Pulse Ox 98.0 F 54 L 15 126/53 H 98 11/18/16 08:20 11/18/16 08:20 11/18/16 08:20 11/18/16 08:20 11/18/16 08:20 Intake & Output 11/17/16 11/18/16 11/19/16 06:59 06:59 06:59 Intake Total 4338 3610 Output Total 2850 3200 Balance 1488 410 Weight 76.5 kg 76.5 kg General appearance: PRESENT: no acute distress, well-developed, well-nourished Head exam: PRESENT: atraumatic, normocephalic Eye exam: PRESENT: EOMI, PERRLA. ABSENT: nystagmus, periorbital swelling, scleral icterus Mouth exam: PRESENT: moist Throat exam: ABSENT: tonsillar exudate, tonsillogmegaly Neck exam: ABSENT: meningismus, tenderness, thyromegaly Respiratory exam: PRESENT: symmetrical, unlabored. ABSENT: tachypnea, wheezes Cardiovascular exam: PRESENT: RRR, +S1, +S2 GI/Abdominal exam: PRESENT: soft. ABSENT: rebound, rigid, tenderness Extremities exam: ABSENT: joint swelling Neurological exam: PRESENT: alert, awake, oriented to time, oriented to situation, CN II-XII grossly intact Psychiatric exam: PRESENT: appropriate affect Skin exam: PRESENT: normal color. ABSENT: mottled, pallor, petechiae, urticaria , vesicles Results Laboratory Results: 11/15/16 04:36 11/16/16 05:50 Impressions: Abdomen/Pelvis CT 11/12/16 20:35 IMPRESSION: NO ACUTE PROCESS IN THE ABDOMEN OR PELVIS. Assessment & Plan - Diagnosis (1) Abdominal pain Qualifiers: Abdominal location: generalized Qualified Code(s): R10.84 - Generalized abdominal pain Is this a current diagnosis for this admission?: Yes Plan: resolved, no peptic ulcer disease (2) Vomiting Qualifiers: Vomiting type: unspecified Vomiting Intractability: unspecified Nausea presence: with nausea Qualified Code(s): R11.2 - Nausea with vomiting, unspecified (3) Abnormal LFTs Plan: resolved, will follow up as outpatient (4) Barretts esophagus Plan: surveillance in 1 year (5) Acute renal failure Qualifiers: Acute renal failure type: unspecified Qualified Code(s): N17.9 - Acute kidney failure, unspecified Is this a current diagnosis for this admission?: Yes Plan: improving, likely explains his nausea and vomiting (6) GERD (gastroesophageal reflux disease) Qualifiers: Esophagitis presence: esophagitis presence not specified Qualified Code(s) : K21.9 - Gastro-esophageal reflux disease without esophagitis Is this a current diagnosis for this admission?: Yes - Time Time Spent with patient: 15-24 minutes
[2016-11-18] MEDS: HYDROCHLOROTHIAZIDE 25 MG TABLET PO SCH (10:27)
[2016-11-18] MEDS: POTASSIUM CHLORIDE 10 MEQ TABLET.SA PO SCH (10:28)
[2016-11-18] MEDS: CLONIDINE HCL 0.2 MG TABLET PO SCH ×2 (10:28→21:09)
[2016-11-18] MEDS: MAGNESIUM OXIDE 400 MG TABLET PO SCH (10:28)
[2016-11-18] MEDS: AMLODIPINE BESYLATE 10 MG TABLET PO SCH (10:28)
[2016-11-18] MEDS: CITALOPRAM HYDROBROMIDE 20 MG TABLET PO SCH (10:28)
[2016-11-18] MEDS: CARBAMAZEPINE 200 MG TAB.SR.12H PO SCH (10:30)
[2016-11-18] MEDS: VARENICLINE TARTRATE 1 MG TABLET PO SCH ×2 (10:30→17:43)
[2016-11-18] MEDS: FLUTICASONE NASAL SPRAY 50 MCG/SPRY 120 SPRAY/16 GM NASL PRN (10:31)
[2016-11-18] MEDS: FENOFIBRATE NANOCRYSTALLIZED 145 MG TABLET PO SCH (17:43)
--- NOTE | 2016-11-18 19:15 | PDOC PROGRESS REPORT ---
Subjective Progress Note for:: 11/18/16 Subjective:: No chest pain or difficulty with breathing. No abdominal pain, nausea or vomiting. No fever or chills. There is some improvement in his glycemic control. Spouse reported that he has been on Coumadin therapy by his manager staffing while in [place] due to blood clot. Physical Exam Vital Signs: Temp Pulse Resp BP Pulse Ox 98.0 F 59 L 17 138/70 H 99 11/18/16 17:08 11/18/16 17:08 11/18/16 17:08 11/18/16 17:08 11/18/16 17:08 Intake & Output 11/17/16 11/18/16 11/19/16 06:59 06:59 06:59 Intake Total 4338 3610 2139 Output Total 2850 3200 Balance 1926 517 3273 Weight 76.5 kg 76.5 kg Physical Exam: General appearance: PRESENT: no acute distress, well-developed, well-nourished Head exam: PRESENT: atraumatic, normocephalic Eye exam: PRESENT: conjunctiva pink, EOMI, PERRLA. ABSENT: scleral icterus Mouth exam: PRESENT: moist Respiratory exam: PRESENT: clear to auscultation mark Cardiovascular exam: PRESENT: RRR. ABSENT: diastolic murmur, rubs, systolic murmur GI/Abdominal exam: PRESENT: normal bowel sounds, soft ABSENT: tenderness, distended, guarding, mass, organomegaly, rebound Extremities exam: ABSENT: pedal edema Neurological exam: PRESENT: alert, awake, oriented to person, oriented to place , oriented to time, oriented to situation, CN II-XII grossly intact. ABSENT: motor sensory deficit Psychiatric exam: PRESENT: appropriate affect, normal mood. ABSENT: homicidal ideation, suicidal ideation Skin exam: PRESENT: dry, intact, warm. ABSENT: cyanosis, rash Results Laboratory Results: 11/15/16 04:36 11/16/16 05:50 Impressions: Abdomen/Pelvis CT 11/12/16 20:35 IMPRESSION: NO ACUTE PROCESS IN THE ABDOMEN OR PELVIS. Assessment & Plan - Diagnosis (1) Acute renal failure Qualifiers: Acute renal failure type: unspecified Qualified Code(s): N17.9 - Acute kidney failure, unspecified Is this a current diagnosis for this admission?: Yes (2) Nausea & vomiting Qualifiers: Vomiting type: unspecified Vomiting Intractability: unspecified Qualified Code(s): R11.2 - Nausea with vomiting, unspecified Is this a current diagnosis for this admission?: Yes (3) Abdominal pain Qualifiers: Abdominal location: generalized Qualified Code(s): R10.84 - Generalized abdominal pain Is this a current diagnosis for this admission?: Yes (4) Diabetes mellitus type 2 in nonobese Is this a current diagnosis for this admission?: Yes (5) HTN (hypertension) Qualifiers: Hypertension type: essential hypertension Qualified Code(s): I10 - Essential (primary) hypertension Is this a current diagnosis for this admission?: Yes (6) COPD (chronic obstructive pulmonary disease) Qualifiers: Chronic bronchitis type: unspecified Is this a current diagnosis for this admission?: Yes (7) GERD (gastroesophageal reflux disease) Qualifiers: Esophagitis presence: esophagitis presence not specified Qualified Code(s) : K21.9 - Gastro-esophageal reflux disease without esophagitis Is this a current diagnosis for this admission?: Yes (8) Seizure disorder Is this a current diagnosis for this admission?: Yes (9) Osteoarthritis involving multiple joints on both sides of body Is this a current diagnosis for this admission?: Yes (10) Bradycardia Is this a current diagnosis for this admission?: Yes - Time Time Spent with patient: 25-34 minutes Medications reviewed and adjusted accordingly: Yes Anticipated discharge: Home with Homehealth Within: Other - Inpatient Certification Based on my medical assessment, after consideration of the patient's comorbidities, presenting symptoms, or acuity I expect that the services needed warrant INPATIENT care.: Yes I certify that my determination is in accordance with my understanding of Medicare's requirements for reasonable and necessary INPATIENT services [42 CFR 412.3e].: Yes Medical Necessity: Need Close Monitoring Due to Risk of Patient Decompensation, Need For Continuous Telemetry Monitoring, Risk of Complication if Not Cared For in Hospital Post Hospital Care: D/C Ic Designer Gate Arrays Documentation - Plan Summary Plan Summary: Obtain INR. Restart on Coumadin therapy after extensive discussion with patient and spouse regarding risk of intracranial bleed due to his seizure disorder. Start on Januvia 50 mg po bid with intent to combine with Metformin upon discharge for better glycemic control. Maintain on all other current medication management.
[2016-11-18 19:50] LABS: PROTHROMBIN TIME 11.9 SEC (11.4-15.4)
[2016-11-18] MEDS ORDERED: SITAGLIPTIN PHOSPHATE 50 MG TABLET PO ONE (20:00)
[2016-11-18] MEDS: WARFARIN SODIUM 7.5 MG TABLET PO SCH (21:08)
[2016-11-18] MEDS ORDERED: (PENDING PHARMACY ID) (Warfarin Sodium 7.5 MG) PO SCH (22:00)
[2016-11-19] MEDS: PREGABALIN 100 MG CAPSULE PO SCH ×3 (05:26→21:53)
[2016-11-19] MEDS: LANSOPRAZOLE 30 MG TAB.RAP.DR PO SCH (05:26)
[2016-11-19] MEDS: SITAGLIPTIN PHOSPHATE 50 MG TABLET PO SCH ×2 (08:01→16:06)
[2016-11-19] MEDS: GLIMEPIRIDE 4 MG TABLET PO SCH (08:01)
[2016-11-19] MEDS: INSULIN LISPRO 100 UNIT/ML 3 ML VIAL SUBCUT PRN ×3 (08:01→22:00)
[2016-11-19] MEDS: METFORMIN HCL 500 MG TABLET PO SCH ×2 (08:01→16:06)
[2016-11-19] MEDS: HYDROCODONE/ACETAMINOPHEN 10-325 MG TABLET PO PRN ×3 (08:08→22:54)
[2016-11-19] MEDS: ONDANSETRON HCL INJ/PF 4 MG/2 ML SDV IV PRN ×3 (08:09→22:56)
[2016-11-19] MEDS: CLONIDINE HCL 0.2 MG TABLET PO SCH ×2 (11:01→21:44)
[2016-11-19] MEDS: POTASSIUM CHLORIDE 10 MEQ TABLET.SA PO SCH (11:02)
[2016-11-19] MEDS: MAGNESIUM OXIDE 400 MG TABLET PO SCH (11:03)
[2016-11-19] MEDS: CITALOPRAM HYDROBROMIDE 20 MG TABLET PO SCH (11:03)
[2016-11-19] MEDS: AMLODIPINE BESYLATE 10 MG TABLET PO SCH (11:03)
[2016-11-19] MEDS: HYDROCHLOROTHIAZIDE 25 MG TABLET PO SCH (11:03)
[2016-11-19] MEDS: VARENICLINE TARTRATE 1 MG TABLET PO SCH ×2 (11:04→17:09)
[2016-11-19] MEDS: CARBAMAZEPINE 200 MG TAB.SR.12H PO SCH (11:05)
[2016-11-19] MEDS: FENOFIBRATE NANOCRYSTALLIZED 145 MG TABLET PO SCH (17:09)
--- NOTE | 2016-11-19 18:08 | PDOC PROGRESS REPORT ---
Subjective Progress Note for:: 11/19/16 Subjective:: No chest pain or difficulty with breathing. No abdominal pain, nausea or vomiting. No fever or chills. Physical Exam Vital Signs: Temp Pulse Resp BP Pulse Ox 97.9 F 57 L 20 140/74 H 100 11/19/16 16:00 11/19/16 16:00 11/19/16 16:00 11/19/16 16:00 11/19/16 16:00 Intake & Output 11/18/16 11/19/16 11/20/16 06:59 06:59 06:59 Intake Total 3610 2859 810 Output Total 3200 1425 590 Balance 410 1434 220 Weight 76.5 kg 76.6 kg Physical Exam: General appearance: PRESENT: no acute distress, well-developed, well-nourished Head exam: PRESENT: atraumatic, normocephalic Eye exam: PRESENT: conjunctiva pink, EOMI, PERRLA. ABSENT: scleral icterus Mouth exam: PRESENT: moist Respiratory exam: PRESENT: clear to auscultation mark Cardiovascular exam: PRESENT: RRR. ABSENT: diastolic murmur, rubs, systolic murmur GI/Abdominal exam: PRESENT: normal bowel sounds, soft ABSENT: tenderness, distended, guarding, mass, organomegaly, rebound Extremities exam: ABSENT: pedal edema Neurological exam: PRESENT: alert, awake, oriented to person, oriented to place , oriented to time, oriented to situation, CN II-XII grossly intact. ABSENT: motor sensory deficit Psychiatric exam: PRESENT: appropriate affect, normal mood. ABSENT: homicidal ideation, suicidal ideation Skin exam: PRESENT: dry, intact, warm. ABSENT: cyanosis, rash Results Laboratory Results: 11/15/16 04:36 11/16/16 05:50 Impressions: Abdomen/Pelvis CT 11/12/16 20:35 IMPRESSION: NO ACUTE PROCESS IN THE ABDOMEN OR PELVIS. Assessment & Plan - Diagnosis (1) Acute renal failure Qualifiers: Acute renal failure type: unspecified Qualified Code(s): N17.9 - Acute kidney failure, unspecified Is this a current diagnosis for this admission?: Yes Plan: Resolved (2) Nausea & vomiting Qualifiers: Vomiting type: unspecified Vomiting Intractability: unspecified Qualified Code(s): R11.2 - Nausea with vomiting, unspecified Is this a current diagnosis for this admission?: Yes Plan: Resolved (3) Abdominal pain Qualifiers: Abdominal location: generalized Qualified Code(s): R10.84 - Generalized abdominal pain Is this a current diagnosis for this admission?: Yes Plan: Resolved (4) Diabetes mellitus type 2 in nonobese Is this a current diagnosis for this admission?: Yes Plan: Improving POC readings. Consider combining Januvia and Metformin upon discharge. (5) HTN (hypertension) Qualifiers: Hypertension type: essential hypertension Qualified Code(s): I10 - Essential (primary) hypertension Is this a current diagnosis for this admission?: Yes Plan: Improving on current medication regimen. (6) COPD (chronic obstructive pulmonary disease) Qualifiers: Chronic bronchitis type: unspecified Is this a current diagnosis for this admission?: Yes (7) GERD (gastroesophageal reflux disease) Qualifiers: Esophagitis presence: esophagitis presence not specified Qualified Code(s) : K21.9 - Gastro-esophageal reflux disease without esophagitis Is this a current diagnosis for this admission?: Yes (8) Seizure disorder Is this a current diagnosis for this admission?: Yes (9) Osteoarthritis involving multiple joints on both sides of body Is this a current diagnosis for this admission?: Yes (10) Bradycardia Is this a current diagnosis for this admission?: Yes Plan: Resolved - Time Time Spent with patient: 25-34 minutes Medications reviewed and adjusted accordingly: Yes Anticipated discharge: Home Within: within 24 hours - Inpatient Certification Based on my medical assessment, after consideration of the patient's comorbidities, presenting symptoms, or acuity I expect that the services needed warrant INPATIENT care.: Yes I certify that my determination is in accordance with my understanding of Medicare's requirements for reasonable and necessary INPATIENT services [42 CFR 412.3e].: Yes Medical Necessity: Need Close Monitoring Due to Risk of Patient Decompensation, Need For IV Fluids, Need For Continuous Telemetry Monitoring, Risk of Complication if Not Cared For in Hospital Post Hospital Care: D/C Garment Inspector Documentation - Plan Summary Plan Summary: D/C IV fluid support. Instructed to maintain adequate oral fluid intake.
[2016-11-19] MEDS: WARFARIN SODIUM 7.5 MG TABLET PO SCH (21:53)
[2016-11-20] MEDS: LANSOPRAZOLE 30 MG TAB.RAP.DR PO SCH (05:49)
[2016-11-20] MEDS: PREGABALIN 100 MG CAPSULE PO SCH ×3 (05:49→22:10)
[2016-11-20] MEDS: METFORMIN HCL 500 MG TABLET PO SCH ×2 (07:22→18:01)
[2016-11-20] MEDS: SITAGLIPTIN PHOSPHATE 50 MG TABLET PO SCH ×2 (07:22→18:02)
[2016-11-20] MEDS: GLIMEPIRIDE 4 MG TABLET PO SCH (07:23)
[2016-11-20] MEDS: ONDANSETRON HCL INJ/PF 4 MG/2 ML SDV IV PRN ×3 (07:29→22:44)
[2016-11-20] MEDS: HYDROCODONE/ACETAMINOPHEN 10-325 MG TABLET PO PRN ×3 (07:29→22:42)
[2016-11-20] MEDS: CITALOPRAM HYDROBROMIDE 20 MG TABLET PO SCH (09:29)
[2016-11-20] MEDS: CLONIDINE HCL 0.2 MG TABLET PO SCH ×2 (09:29→22:10)
[2016-11-20] MEDS: POTASSIUM CHLORIDE 10 MEQ TABLET.SA PO SCH (09:30)
[2016-11-20] MEDS: MAGNESIUM OXIDE 400 MG TABLET PO SCH (09:30)
[2016-11-20] MEDS: VARENICLINE TARTRATE 1 MG TABLET PO SCH ×2 (09:30→18:01)
[2016-11-20] MEDS: HYDROCHLOROTHIAZIDE 25 MG TABLET PO SCH (09:30)
[2016-11-20] MEDS: CARBAMAZEPINE 200 MG TAB.SR.12H PO SCH (09:30)
[2016-11-20] MEDS: AMLODIPINE BESYLATE 10 MG TABLET PO SCH (09:30)
[2016-11-20] MEDS: INSULIN LISPRO 100 UNIT/ML 3 ML VIAL SUBCUT PRN ×3 (09:31→18:02)
[2016-11-20] MEDS: FENOFIBRATE NANOCRYSTALLIZED 145 MG TABLET PO SCH (18:02)
[2016-11-20] MEDS: WARFARIN SODIUM 7.5 MG TABLET PO SCH (22:10)
[2016-11-21 05:53] LABS: PROTHROMBIN TIME 17.5 SEC (11.4-15.4)
[2016-11-21] MEDS ORDERED: LANSOPRAZOLE 30 MG TAB.RAP.DR PO SCH (06:00)
[2016-11-21] MEDS: PREGABALIN 100 MG CAPSULE PO SCH ×2 (06:02→14:05)
[2016-11-21] MEDS: GLIMEPIRIDE 4 MG TABLET PO SCH (08:07)
[2016-11-21] MEDS: HYDROCODONE/ACETAMINOPHEN 10-325 MG TABLET PO PRN (08:07)
[2016-11-21] MEDS: METFORMIN HCL 500 MG TABLET PO SCH (08:08)
[2016-11-21] MEDS: INSULIN LISPRO 100 UNIT/ML 3 ML VIAL SUBCUT PRN (08:08)
[2016-11-21] MEDS: SITAGLIPTIN PHOSPHATE 50 MG TABLET PO SCH (08:08)
[2016-11-21] MEDS: ONDANSETRON HCL INJ/PF 4 MG/2 ML SDV IV PRN (08:28)
[2016-11-21] MEDS: CLONIDINE HCL 0.2 MG TABLET PO SCH (09:32)
[2016-11-21] MEDS: AMLODIPINE BESYLATE 10 MG TABLET PO SCH (09:33)
[2016-11-21] MEDS: MAGNESIUM OXIDE 400 MG TABLET PO SCH (09:33)
[2016-11-21] MEDS: HYDROCHLOROTHIAZIDE 25 MG TABLET PO SCH (09:33)
[2016-11-21] MEDS: VARENICLINE TARTRATE 1 MG TABLET PO SCH (09:33)
[2016-11-21] MEDS: CARBAMAZEPINE 200 MG TAB.SR.12H PO SCH (09:33)
[2016-11-21] MEDS: POTASSIUM CHLORIDE 10 MEQ TABLET.SA PO SCH (09:33)
[2016-11-21] MEDS: CITALOPRAM HYDROBROMIDE 20 MG TABLET PO SCH (09:33)
--- NOTE | 2016-11-21 15:16 | PDOC DISCHARGE SUMMARY ---
General - Admit/Disc Date/PCP Admission Date/Primary Care Provider: 11/13/16 02:26 JAYNA RIVAS Discharge Date: 11/21/16 - Discharge Diagnosis (1) Acute renal failure Is this a current diagnosis for this admission?: Yes (2) Nausea & vomiting Is this a current diagnosis for this admission?: Yes (3) Abdominal pain Is this a current diagnosis for this admission?: Yes (4) Diabetes mellitus type 2 in nonobese Is this a current diagnosis for this admission?: Yes (5) HTN (hypertension) Is this a current diagnosis for this admission?: Yes (6) COPD (chronic obstructive pulmonary disease) Is this a current diagnosis for this admission?: Yes (7) GERD (gastroesophageal reflux disease) Is this a current diagnosis for this admission?: Yes (8) Seizure disorder Is this a current diagnosis for this admission?: Yes (9) Osteoarthritis involving multiple joints on both sides of body Is this a current diagnosis for this admission?: Yes (10) Bradycardia Is this a current diagnosis for this admission?: Yes - Additional Information Resuscitation Status: Full Code Discharge Diet: Cardiac, Diabetic Discharge Activity: Activity As Tolerated Home Medications: Albuterol Sulfate [Albuterol Sulfate 2.5mg/3 mL] 1 vial IH Q4HP PRN 11/13/16 Albuterol Sulfate [Proair HFA] 2 puff IH Q4HP PRN 11/13/16 Amlodipine Besylate [Norvasc 10 mg Tablet] 10 mg PO DAILY 11/13/16 Atenolol [Tenormin] 25 mg PO DAILY 11/13/16 Buprenorphine (Butrans) 15 Mcg Patch 1 ea TOP MO@1000 11/13/16 Carbamazepine [Tegretol Xr] 400 mg PO DAILY 11/13/16 Citalopram Hydrobromide [Celexa 20 mg Tablet] 20 mg PO DAILY 11/13/16 Cyclobenzaprine HCl [Flexeril 10 mg Tablet] 10 mg PO QHS 11/13/16 Esomeprazole Magnesium [Nexium] 40 mg PO QAM 11/13/16 Fenofibrate Nanocrystallized [Triglide] 160 mg PO QHS 11/13/16 Fluticasone Propionate [Flonase Nasal [place] 50 Mcg/[place] 16 gm] 2 sprays NASL DAILYP PRN 11/13/16 Gabapentin [Neurontin] 800 mg PO BID 11/13/16 Glimepiride [Amaryl 4 mg Tablet] 8 mg PO QAM 11/13/16 Hydrochlorothiazide [Hydrodiuril 25 mg Tablet] 25 mg PO DAILY 11/13/16 Hydrocodone/Acetaminophen [[place] 10-325 mg Tablet] 1 tab PO TIDP PRN 11/13/16 Insulin Aspart [Novolog Insulin (Aspart) 100 unit/mL] 0 unit SUBCUT .SLIDING SCALE 11/13/16 Insulin Detemir [Levemir] 60 unit SQ HSP PRN 11/13/16 Lisinopril [Prinivil 40 mg Tablet] 40 mg PO DAILY 11/13/16 Magnesium Oxide [Mag-Ox 400 mg Tablet] 400 mg PO DAILY 11/13/16 Metformin HCl [Glucophage] 1,000 mg PO BIDBS 11/13/16 Nitroglycerin [Nitrostat 0.4 mg (1/150 Gr) Tabs 25/Bottle] 1 tab SL Q5MP PRN 06/25 [place]-3 Acid Ethyl Esters [Lovaza 1 gm Capsule] 2 gm PO Q12 11/13/16 Potassium Chloride [Klor-Con M20] 20 meq PO DAILY 11/13/16 Pregabalin [Lyrica 100 mg Capsule] 100 mg PO Q8 11/13/16 Varenicline Tartrate [Chantix 1 mg Tablet] 1 mg PO BID 11/13/16 Clonidine HCl [Catapres 0.2 mg Tablet] 0.2 mg PO Q12 #60 tablet 11/21/16 Sitagliptin Phosphate [Januvia 50 mg Tablet] 50 mg PO BIDACBS #60 tablet Warfarin Sodium [Coumadin] 7.5 mg PO DAILY #0 11/21/16 History of Present Illness History of Present Illness: RADHA GARCIA is a 56 year old male known to my practice who presented to the ED with complain of worsening abdominal pain with persistent nausea and vomiting. Patient reported that his symptoms have been on going for several days. He denied any fever or chills. No problem with his urination or flank pain. Patient has not been compliant with his diabetic management and medical follow up. He has history of [place] esophagus and under care of Dr Otero, office cleaner. His initial ED evaluation revealed worsening renal function. His CT abdomen was negative for acute pathology. His morbidities include Hypertension, COPD, Seizure disorder, GERD, Osteoarthritis and Diabetes Mellitus. Hospital Course Hospital Course: Patient did respond to IV PPI and anti emetic therapy. He was seen by Dr Otero, gastroenterologoist, and had EGD completed during this hospitalization that did not reveal any acute pathology but suggested chronic inactive gastritis on biopsy pathology review. His hospitalization further compounded by his hyperglycemic incidents. Adjustment was made to his diabetic medication management with some improvement. He will be discharge home today with follow up appointment. Physical Exam Vital Signs: Temp Pulse Resp BP Pulse Ox 98.1 F 61 12 100/54 L 98 11/21/16 12:59 11/21/16 12:59 11/21/16 12:59 11/21/16 12:59 11/21/16 12:59 Intake & Output 11/20/16 11/21/16 11/22/16 06:59 06:59 06:59 Intake Total 2590 1520 Output Total 590 Balance 2000 1520 Weight 75.2 kg 73.8 kg Physical Exam: General appearance: PRESENT: no acute distress, well-developed, well-nourished Head exam: PRESENT: atraumatic, normocephalic Eye exam: PRESENT: conjunctiva pink, EOMI, PERRLA. ABSENT: scleral icterus Mouth exam: PRESENT: moist Respiratory exam: PRESENT: clear to auscultation mark Cardiovascular exam: PRESENT: RRR. ABSENT: diastolic murmur, rubs, systolic murmur GI/Abdominal exam: PRESENT: normal bowel sounds, soft ABSENT: tenderness, distended, guarding, mass, organomegaly, rebound Extremities exam: ABSENT: pedal edema Neurological exam: PRESENT: alert, awake, oriented to person, oriented to place , oriented to time, oriented to situation, CN II-XII grossly intact. ABSENT: motor sensory deficit Psychiatric exam: PRESENT: appropriate affect, normal mood. ABSENT: homicidal ideation, suicidal ideation Skin exam: PRESENT: dry, intact, warm. ABSENT: cyanosis, rash Results Laboratory Results: 11/15/16 04:36 11/16/16 05:50 Impressions: Abdomen/Pelvis CT 11/12/16 20:35 IMPRESSION: NO ACUTE PROCESS IN THE ABDOMEN OR PELVIS. Qualifiers PATEINT BEING DISCHARGED WITH ANY OF THE FOLLOWING DIAGNOSIS?: No Plan Discharge Plan: D/C home today. Follow up in the office as instructed upon discharge. Time Spent: Less than 30 Minutes
[2016-11-21 15:28] VITALS: BP 140/74
== END 2016-11-21 16:11 | disposition home or self-care (01) | DRG 684 ==
LOC: ER 16:21 → UNDOADMIN 22:36 → EH 22:36 → 4S 11-13 00:23 → EH 11-13 00:23 → 4S 11-13 02:26 → EH 11-13 02:26
PROVIDERS: ADMIT Internal Medicine Geriatric Medicine; ATTEND Internal Medicine Geriatric Medicine
PROC: 0D558ZZ Destruction of Esophagus, Via Natural or Artificial Opening Endoscopic (ICD-10-PCS; 2016-11-13)
PROC: 0DB68ZX Excision of Stomach, Via Natural or Artificial Opening Endoscopic, Diagnostic (ICD-10-PCS; principal; 2016-11-13 14:00)
PROC: 3E0F73Z Introduction of Anti-inflammatory into Respiratory Tract, Via Natural or Artificial Opening (ICD-10-PCS; 2016-11-14)
DX: N17.9 Acute kidney failure, unspecified (principal); E11.9 Type 2 diabetes mellitus without complications; I10 Essential (primary) hypertension; J44.9 Chronic obstructive pulmonary disease, unspecified; K21.9 Gastro-esophageal reflux disease without esophagitis; G40.909 Epilepsy, unspecified, not intractable, without status epilepticus; M15.3 Secondary multiple arthritis; R00.1 Bradycardia, unspecified; K22.70 Barrett's esophagus without dysplasia; M19.90 Unspecified osteoarthritis, unspecified site; F32.9 Major depressive disorder, single episode, unspecified; F41.8 Other specified anxiety disorders; K29.50 Unspecified chronic gastritis without bleeding; Z90.49 Acquired absence of other specified parts of digestive tract; Z79.82 Long term (current) use of aspirin; Z79.4 Long term (current) use of insulin; Z79.899 Other long term (current) drug therapy; Z86.73 Personal history of transient ischemic attack (TIA), and cerebral infarction without residual deficits; Z91.19 Patient's noncompliance with other medical treatment and regimen
CPT/HCPCS: 36415; 43239; 74176; 80048; 80053; 80307; 81001; 82962; 83690; 83735; 84100; 85025; 85610; 85730; 87086; 88305; 88342; 93005; 93010; 96374; 96375; 96376; 99285; J0171; J1200; J1610; J1815; J2250; J2270; J2310; J2405; J3010; J3475; J3480; J3490; J7030

== ENCOUNTER 2016-12-23 11:11 | Emergency (ER) | payer MEDICARE, MEDICAID ==
[2016-12-23] MEDS ORDERED: ONDANSETRON HCL INJ/PF 4 MG/2 ML SDV IV ONE (11:34)
[2016-12-23] MEDS ORDERED: NORMAL SALINE 1000 ML 1,000 ML IV ONE (11:34)
--- NOTE | 2016-12-23 11:36 | ER Document Report ---
ED Medical Screen (RME) - General Chief Complaint: Flank Pain Stated Complaint: ABDOMINAL PAIN Time Seen by Provider: 12/23/16 11:32 Notes: Patient complains of several days of severe lower back pain and abdominal pain. He has had nausea. And diarrhea. Patient states she was recently admitted to this hospital for renal failure. TRAVEL OUTSIDE OF THE [place] IN LAST 30 DAYS: No - Related Data Allergies/Adverse Reactions: Macedonian Ginseng [From Ginseng Edge] Allergy (Severe, Verified 12/23/16 11:16) INTERACTS WITH SZ MEDICATION SO CANNOT HAVE guarana seed extract [From Ginseng Edge] Allergy (Severe, Verified 12/23/16 11: 16) INTERACTS WITH SZ MEDICATION SO CANNOT HAVE Bulgarian Ginseng [From Ginseng Edge] Allergy (Severe, Verified 12/23/16 11:16) INTERACTS WITH SZ MEDICATION SO CANNOT HAVE Siberian Ginseng Root Extract [From Ginseng Edge] Allergy (Severe, Verified 11:16) INTERACTS WITH SZ MEDICATION SO CANNOT HAVE Past Medical History - Social History Chew tobacco use (# tins/day): - 5 Frequency of alcohol use: None Drug Abuse: None Family history: Reviewed & Not Pertinent - Past Medical History Cardiac Medical History: Reports: Hx Hypercholesterolemia, Hx Hypertension Denies: Hx Coronary Artery Disease, Hx Heart Attack Pulmonary Medical History: Reports: Hx COPD Denies: Hx Asthma, Hx Bronchitis, Hx Pneumonia Neurological Medical History: Reports: Hx Cerebrovascular Accident - 2 Major CVAs- 1996, 2008, Hx Seizures Endocrine Medical History: Reports: Hx Diabetes Mellitus Type 2 Renal/ Medical History: Reports: Hx Kidney Stones. Denies: Hx Peritoneal Dialysis GI Medical History: Reports: Hx Gastroesophageal Reflux Disease Musculoskeltal Medical History: Reports Hx Arthritis Psychiatric Medical History: Reports: Hx Anxiety, Hx Depression Past Surgical History: Reports: Hx Appendectomy, Hx Cholecystectomy, Hx Orthopedic Surgery - Neck - Immunizations Hx Diphtheria, Pertussis, Tetanus Vaccination: Yes - 2006 History of Influenza Vaccine for 11/2016 - 04/2017 Season: Refused Physical Exam - Vital signs Vitals: Temp Pulse Resp BP Pulse Ox 97.8 F 72 18 118/64 99 12/23/16 11:16 12/23/16 11:16 12/23/16 11:16 12/23/16 11:16 12/23/16 11:16 Course - Vital Signs Vital signs: Temp Pulse Resp BP Pulse Ox 97.8 F 72 18 118/64 99 11/14/17 11:16 12/23/16 11:16 12/23/16 11:16 12/23/16 11:16 12/23/16 11:16
[2016-12-23] MEDS ORDERED: FENTANYL CITRATE INJ/PF 100 MCG/2 ML AMPUL IV ONE ×2 (13:12→14:51)
--- NOTE | 2016-12-23 13:14 | ER Document Report ---
ED GI/ - General Mode of Arrival: Ambulatory Information source: Patient TRAVEL OUTSIDE OF THE [place] IN LAST 30 DAYS: No <CHEIKH FRANCISCO - Last Filed: 12/23/16 13:23> <CHAPIN NEGRETE - Last Filed: 01/21/17 16:49> - General Chief Complaint: Flank Pain Stated Complaint: ABDOMINAL PAIN Time Seen by Provider: 12/23/16 11:32 Notes: Patient is a 56 year old male that presents to the emergency department today with complaints of right sided flank and back pain. Patient was seen a little over a month ago for similar complaints and his daughter at bedside states she does not think it has gotten any better since discharge, she thinks his pain is worse now than when he was previously admitted. Patient complains of dark urine. Patient is a poor historian so history is somewhat limited. (CHEIKH FRNACISCO) - Related Data Allergies/Adverse Reactions: Danish Ginseng [From Ginseng Edge] Allergy (Severe, Verified 12/23/16 11:16) INTERACTS WITH SZ MEDICATION SO CANNOT HAVE guarana seed extract [From Ginseng Edge] Allergy (Severe, Verified 12/23/16 11: 16) INTERACTS WITH SZ MEDICATION SO CANNOT HAVE Irish Ginseng [From Ginseng Edge] Allergy (Severe, Verified 12/23/16 11:16) INTERACTS WITH SZ MEDICATION SO CANNOT HAVE Siberian Ginseng Root Extract [From Ginseng Edge] Allergy (Severe, Verified 11:16) INTERACTS WITH SZ MEDICATION SO CANNOT HAVE Past Medical History - General Information source: Patient - Social History Smoking Status: Current Every Day Smoker Cigarette use (# per day): Yes - 5 Frequency of alcohol use: None Drug Abuse: None Lives with: Family Family History: Reviewed & Not Pertinent - Past Medical History Cardiac Medical History: Reports: Hx Hypercholesterolemia, Hx Hypertension Pulmonary Medical History: Reports: Hx COPD Neurological Medical History: Reports: Hx Cerebrovascular Accident - 2 Major CVAs- 1996, 2008, Hx Seizures Endocrine Medical History: Reports: Hx Diabetes Mellitus Type 2 Renal/ Medical History: Reports: Hx Kidney Stones GI Medical History: Reports: Hx Gastroesophageal Reflux Disease Musculoskeltal Medical History: Reports Hx Arthritis Psychiatric Medical History: Reports: Hx Anxiety, Hx Depression Past Surgical History: Reports: Hx Appendectomy, Hx Cholecystectomy, Hx Orthopedic Surgery - Neck - Immunizations Hx Diphtheria, Pertussis, Tetanus Vaccination: Yes - 2006 <CHEIKH FRANCISCO - Last Filed: 12/23/16 13:23> Review of Systems - Review of Systems Constitutional: No symptoms reported EENT: No symptoms reported Cardiovascular: No symptoms reported Respiratory: No symptoms reported Gastrointestinal: See HPI, Abdominal pain, Diarrhea Genitourinary: See HPI, Flank pain Male Genitourinary: No symptoms reported Musculoskeletal: No symptoms reported Skin: No symptoms reported Hematologic/Lymphatic: No symptoms reported Neurological/Psychological: No symptoms reported -: Yes All other systems reviewed and negative <CHEIKH FRANCISCO - Last Filed: 12/23/16 13:23> Physical Exam - Vital signs Interpretation: Normal - General General appearance: Alert In distress: None - Appears uncomfortable - HEENT Head: Normocephalic, Atraumatic Eyes: Normal Pupils: PERRL - Respiratory Respiratory status: No respiratory distress Chest status: Nontender Breath sounds: Normal Chest palpation: Normal - Cardiovascular Rhythm: Regular Heart sounds: Normal auscultation Murmur: No - Abdominal Inspection: Normal Distension: No distension Bowel sounds: Normal Tenderness: Nontender Organomegaly: No organomegaly - Back Back: Normal, Tender - Paraspinal tenderness to palpation of the right lower back - Extremities General upper extremity: Normal inspection, Nontender, Normal color, Normal ROM , Normal temperature General lower extremity: Normal inspection, Nontender, Normal color, Normal ROM , Normal temperature, Normal weight bearing. No: Carlton's sign - Neurological Neuro grossly intact: Yes Cognition: Normal Orientation: AAOx4 Si[place] Coma Scale Eye Opening: Spontaneous [place] Coma Scale Verbal: Oriented Sirena Coma Scale Motor: Obeys Commands Marcy Coma Scale Total: 15 Speech: Normal Motor strength normal: LUE, RUE, LLE, RLE Sensory: Normal - Psychological Associated symptoms: Normal affect, Normal mood - Skin Skin Temperature: Warm Skin Moisture: Dry Skin Color: Normal <CHAPIN NEGRETE - Last Filed: 01/21/17 16:49> - Vital signs Vitals: Temp Pulse Resp BP Pulse Ox 97.8 F 72 18 118/64 99 12/23/16 11:16 12/23/16 11:16 12/23/16 11:16 12/23/16 11:16 12/23/16 11:16 Course <CHEIKH FRANCISCO - Last Filed: 12/23/16 13:23> - Laboratory Result Diagrams: 12/23/16 13:04 12/23/16 13:04 <CHAPIN NEGRETE - Last Filed: 01/21/17 16:49> - Re-evaluation Re-evalutation: 12/23/16 16:08 Patient with no acute findings on CT, bladder, or urine. Feels better after pain medication. Patient has Lortab at home. He will be discharged home with Soma and Lidoderm patches. He is to follow-up with his doctor. Return if any worsening or concerning symptoms. I have discussed his case with Dr. Rivas. Patient will be given slip for outpatient MRI. Patient and daughter understand and agree with this plan. Stable for discharge. (CHAPIN NEGRETE) - Vital Signs Vital signs: Temp Pulse Resp BP Pulse Ox 97.8 F 72 11 L 136/79 H 100 12/23/16 11:16 12/23/16 11:16 12/23/16 16:01 12/23/16 16:00 12/23/16 16:01 - Laboratory Laboratory results interpreted by me: 12/23/16 12/23/16 12/23/16 13:04 13:04 13:04 RBC 3.51 L Hgb 11.2 L Hct 32.6 L PT Carbon Dioxide 31 H Glucose 166 H Creatine Kinase 42 L Urine Glucose (UA) 12/23/16 12/23/16 13:04 14:59 RBC Hgb Hct PT 17.2 H Carbon Dioxide Glucose Creatine Kinase Urine Glucose (UA) >=500 H Discharge <CHEIKH FRANCISCO - Last Filed: 12/23/16 13:23> <CHAPIN NEGRETE - Last Filed: 01/21/17 16:49> - Discharge Clinical Impression: Back pain Qualifiers: Back pain location: low back pain Chronicity: acute Back pain laterality: right Sciatica presence: unspecified whether sciatica present Qualified Code(s) : M54.5 - Low back pain Condition: Stable Disposition: HOME, SELF-CARE Prescriptions: Carisoprodol [Soma 350 Mg Tablet] 350 mg PO BIDP PRN #20 tablet PRN Reason: Lidocaine [Lidoderm] 1 each TP DAILY #30 adh..patch Forms: Follow-Up Radiology Testing Referrals: JAYNA RIVAS MD [Primary Care Provider] - Follow up in 1 week Scribe Attestation: 12/23/16 15:58 I personally performed the services described in the documentation, reviewed and edited the documentation which was dictated to the scribe in my presence, and it accurately records my words and actions. (CHAPIN NEGRETE) Scribe Documentation - Scribe Written by Richar:: Richar Warren, 12/23/2016 acting as scribe for :: Callie <CHEIKH FRANCISCO - Last Filed: 12/23/16 13:23>
[2016-12-23 13:39] LABS: ABSOLUTE EOSINOPHILS # (AUTO) 0.4 10^3/uL (0.0-0.6); ABSOLUTE LYMPHOCYTES (AUTO) 2.7 10^3/uL (0.5-4.7); ABSOLUTE MONOCYTES (AUTO) 0.6 10^3/uL (0.1-1.4); ABSOLUTE NEUT (AUTO) 6.4 10^3/uL (1.7-8.2); BASOPHILS % (AUTO) 0.3 % (0-2); EOSINOPHILS % (AUTO) 3.5 % (0-6); HEMATOCRIT 32.6 % (37.9-51.0); HEMOGLOBIN 11.2 g/dL (13.5-17.0); LYMPHOCYTES % (AUTO) 26.6 % (13-45); MEAN CORPUSCULAR HEMOGLOBIN 32.1 pg (27.0-33.4); MEAN CORPUSCULAR HGB CONC 34.4 g/dL (32.0-36.0); MEAN CORPUSCULAR VOLUME 93 fl (80-97); MONOCYTES % (AUTO) 5.5 % (3-13); RED BLOOD COUNT 3.51 10^6/uL (4.35-5.55); SEGMENTED NEUTROPHILS % (AUTO) 64.1 % (42-78)
[2016-12-23 14:10] LABS: ALANINE AMINOTRANSFERASE 49 U/L (21-72); ALBUMIN 3.9 g/dL (3.5-5.0); ALKALINE PHOSPHATASE 72 U/L (38-126); ANION GAP 12 (5-19); ASPARTATE AMINO TRANSFERASE 41 U/L (17-59); BILIRUBIN,DIRECT 0.3 mg/dL (0.0-0.4); BILIRUBIN,TOTAL 0.3 mg/dL (0.2-1.3); BLOOD UREA NITROGEN 17 mg/dL (7-20); CALCIUM 8.5 mg/dL (8.4-10.2); CARBON DIOXIDE 31 mmol/L (22-30); CHLORIDE 99 mmol/L (98-107); CREATININE RESULT 0.89 mg/dL (0.52-1.25); GLUCOSE 166 mg/dL (75-110); LIPASE 49.8 U/L (23-300); POTASSIUM 3.8 mmol/L (3.6-5.0); SODIUM 141.5 mmol/L (137-145)
--- NOTE | 2016-12-23 14:14 | RADIOLOGY REPORT (SQ) ---
EXAM DESCRIPTION: CT LTD RENAL STONE PROTOCOL ON COMPLETED DATE/TIME: 12/23/2016 1:34 pm REASON FOR STUDY: flank pain, n/v COMPARISON: 11/12/2016 TECHNIQUE: CT scan of the abdomen and pelvis performed without intravenous or oral contrast. Images reviewed with lung, soft tissue, and bone windows. Reconstructed coronal and sagittal MPR images revi ewed. All images stored on PACS. All CT scanners at this facility use dose modulation, iterative reconstruction, and/or weight based d osing when appropriate to reduce radiation dose to as low as reasonably achievable (ALARA). [facility]: Dose Right [facility]: CareDose [facility]: Dose Right [facility]: Teradose 4D [facility]: Smart Virtual[employer] Software RADIATION DOSE: Up-to-date CT equipment and radiation dose reduction techniques were employed. CTDIv ol: 11.5 mGy. DLP: 651 mGy-cm.mGy. LIMITATIONS: None. FINDINGS: LOWER CHEST: No significant findings. No nodules or infiltrates. NON-CONTRASTED LIVER, SPLEEN, ADRENALS: Evaluation limited by lack of IV contrast. No identified sign ificant masses. Scattered splenic calcifications are again identified. PANCREAS: No masses. No peripancreatic inflammatory changes. GALLBLADDER: Status post cholecystectomy RIGHT KIDNEY AND URETER: No suspicious masses. Assessment limited by lack of IV contrast. No signif icant calcifications. No hydronephrosis or hydroureter. LEFT KIDNEY AND URETER: No suspicious masses. Assessment limited by lack of IV contrast. No signifi cant calcifications. No hydronephrosis or hydroureter. AORTA AND RETROPERITONEUM: No aneurysm. Vascular calcifications are identified in the abdominal aort a. No retroperitoneal masses or adenopathy. BOWEL AND PERITONEAL CAVITY: No obvious masses or inflammatory changes. No free fluid. APPENDIX: Status post appendectomy PELVIS, BLADDER, AND ABDOMINAL WALL:No abnormal masses. No free fluid. Bladder normal. Prostatic quentin cifications are identified. BONES: No significant findings. OTHER: Small umbilical hernia is identified containing fat IMPRESSION: NO SIGNIFICANT OR ACUTE PROCESS IN THE ABDOMEN OR PELVIS. COMMENT: Quality ID # [id number]: Final reports with documentation of one or more dose reduction techniques (e.g., Automated exposure control, adjustment of the mA and/or kV according to patient size, use of iterative reconstruction technique) TECHNICAL DOCUMENTATION: JOB ID: [id number]- All Rights Reserved
--- NOTE | 2016-12-23 14:42 | RADIOLOGY REPORT (SQ) ---
EXAM DESCRIPTION: U/S RETROPERITON (RENAL/AORTA) COMPLETED DATE/TIME: 12/23/2016 2:33 pm REASON FOR STUDY: evaluate renal failure COMPARISON: None. TECHNIQUE: Dynamic and static grayscale images acquired of the kidneys and bladder and recorded on P ACS. Additional selected color Doppler and spectral images recorded. LIMITATIONS: None. FINDINGS: RIGHT KIDNEY: Normal size, 11.4 cm. Normal echogenicity. No solid or suspicious masses. No hydronephrosis. No calcifications. LEFT KIDNEY: Normal size, 11.2 cm. Normal echogenicity. No solid or suspicious masses. No hydronephr osis. No calcifications. BLADDER: No masses. OTHER FINDINGS: No other significant finding. IMPRESSION: NORMAL RENAL AND BLADDER ULTRASOUND. TECHNICAL DOCUMENTATION: JOB ID: [id number] [employer]- All Rights Reserved
[2016-12-23] MEDS ORDERED: MORPHINE SULFATE 10 MG/ML INJ IV ONE (14:59)
[2016-12-23 15:08] LABS: PROTHROMBIN TIME 17.2 SEC (11.4-15.4)
[2016-12-23 15:09] LABS: PARTIAL THROMBOPLASTIN TIME 33.9 SEC (23.5-35.8)
[2016-12-23 15:21] LABS: APPEARANCE,URINE CLEAR; BILIRUBIN,URINE NEGATIVE (NEGATIVE); GLUCOSE, URINE >=500 mg/dL (NEGATIVE); KETONES,URINE NEGATIVE (NEGATIVE); LEUKOCYTE ESTERASE,URINE NEGATIVE (NEGATIVE); NITRITE,URINE NEGATIVE (NEGATIVE); PROTEIN,URINE NEGATIVE (NEGATIVE); URINE SPECIFIC GRAVITY 1.007; UROBILINOGEN,URINE NEGATIVE mg/dL (<2.0)
[2016-12-23 16:16] VITALS: BP 136/79
== END 2016-12-23 16:25 | disposition home or self-care (01) ==
LOC: ER 11:11
DX: M54.5 Low back pain (principal); R10.9 Unspecified abdominal pain; R39.89 Other symptoms and signs involving the genitourinary system; R19.7 Diarrhea, unspecified; F17.210 Nicotine dependence, cigarettes, uncomplicated; I10 Essential (primary) hypertension; J44.9 Chronic obstructive pulmonary disease, unspecified; E11.9 Type 2 diabetes mellitus without complications; Z86.73 Personal history of transient ischemic attack (TIA), and cerebral infarction without residual deficits; Z87.442 Personal history of urinary calculi; Z90.49 Acquired absence of other specified parts of digestive tract
CPT/HCPCS: 96376; 99284; 96361; 96374; 96375; 36415; 82553; 82550; 83690; 85025; 85610; 85730; 80053; 81001; 76770; 76380; J3010; J2270; J2405; J7030

== ENCOUNTER 2017-06-24 16:25 | Emergency (ER) | payer MEDICARE, MEDICAID ==
[2017-06-24] MEDS ORDERED: OXYCODONE-ACETAMINOPHEN 5-325 MG TABLET PO ONE (17:03)
--- NOTE | 2017-06-24 17:10 | ER Document Report ---
ED Respiratory Problem - General Chief Complaint: Rib Pain Stated Complaint: FALL/RIB PAIN Time Seen by Provider: 06/24/17 16:57 Notes: Patient is a 57-year-old male with complaints of left rib pain. Patient reports that he fell in the bathroom 2 days ago hitting his left ribs on the sink. Positive pain with deep breathing. Denies hitting his head or any other injuries. TRAVEL OUTSIDE OF THE [place] IN LAST 30 DAYS: No - HPI Patient complains to provider of: Other - Left rib pain Duration: Worse/persistent Quality of pain: Sharp Cough: Nonproductive Associated symptoms: Hurts to breathe. denies: Chest pain/discomfort, Difficulty breathing Similar symptoms previously: No Recently seen / treated by doctor: No - Related Data Allergies/Adverse Reactions: Ukrainian Ginseng [From Ginseng Edge] Allergy (Severe, Verified 06/24/17 16:26) INTERACTS WITH SZ MEDICATION SO CANNOT HAVE guarana seed extract [From Ginseng Edge] Allergy (Severe, Verified 06/24/17 16: 26) INTERACTS WITH SZ MEDICATION SO CANNOT HAVE Portuguese Ginseng [From Ginseng Edge] Allergy (Severe, Verified 06/24/17 16:26) INTERACTS WITH SZ MEDICATION SO CANNOT HAVE Siberian Ginseng Root Extract [From Ginseng Edge] Allergy (Severe, Verified 16:26) INTERACTS WITH SZ MEDICATION SO CANNOT HAVE Past Medical History - General Information source: Patient - Social History Smoking Status: Current Every Day Smoker Frequency of alcohol use: None Drug Abuse: None Lives with: Family Family History: Reviewed & Not Pertinent - Past Medical History Cardiac Medical History: Reports: Hx Hypercholesterolemia, Hx Hypertension Denies: Hx Coronary Artery Disease, Hx Heart Attack Pulmonary Medical History: Reports: Hx COPD Denies: Hx Asthma, Hx Bronchitis, Hx Pneumonia Neurological Medical History: Reports: Hx Cerebrovascular Accident - 2 Major CVAs- 1996, 2008, Hx Seizures Endocrine Medical History: Reports: Hx Diabetes Mellitus Type 2 Renal/ Medical History: Reports: Hx Kidney Stones. Denies: Hx Peritoneal Dialysis GI Medical History: Reports: Hx Gastroesophageal Reflux Disease Musculoskeltal Medical History: Reports Hx Arthritis Psychiatric Medical History: Reports: Hx Anxiety, Hx Depression Past Surgical History: Reports: Hx Appendectomy, Hx Cholecystectomy, Hx Orthopedic Surgery - Neck - Immunizations Hx Diphtheria, Pertussis, Tetanus Vaccination: Yes - 2006 Review of Systems - Review of Systems Constitutional: No symptoms reported EENT: No symptoms reported Cardiovascular: No symptoms reported Respiratory: See HPI Gastrointestinal: No symptoms reported Genitourinary: No symptoms reported Male Genitourinary: No symptoms reported Musculoskeletal: No symptoms reported Skin: No symptoms reported Hematologic/Lymphatic: No symptoms reported Neurological/Psychological: No symptoms reported Physical Exam - Vital signs Vitals: Temp Pulse Resp BP Pulse Ox 98.2 F 98 16 130/67 H 96 06/24/17 16:30 06/24/17 16:30 06/24/17 16:30 06/24/17 16:30 06/24/17 16:30 Interpretation: Normal - General General appearance: Appears well, Alert - HEENT Head: Normocephalic, Atraumatic Eyes: Normal Pupils: PERRL - Respiratory Respiratory status: No respiratory distress Chest status: Tender - left anterolateral chest wall tenderness., Ecchymosis - left areola and left lateral chest wall, Pain on movement, Pain with cough, Pain with deep breathing Breath sounds: Decreased air movement - poor respiratory effort Chest palpation: Normal - Cardiovascular Rhythm: Regular Heart sounds: Normal auscultation Murmur: No - Abdominal Inspection: Normal Distension: No distension Bowel sounds: Normal Tenderness: Nontender Organomegaly: No organomegaly - Back Back: Normal, Nontender - Extremities General upper extremity: Normal inspection, Nontender, Normal color, Normal ROM , Normal temperature General lower extremity: Normal inspection, Nontender, Normal color, Normal ROM , Normal temperature, Normal weight bearing. No: Carlton's sign - Neurological Neuro grossly intact: Yes Cognition: Normal Orientation: AAOx4 Rule Coma Scale Eye Opening: Spontaneous Rule Coma Scale Verbal: Oriented Rule Coma Scale Motor: Obeys Commands Rule Coma Scale Total: 15 Speech: Normal Motor strength normal: LUE, RUE, LLE, RLE Sensory: Normal - Psychological Associated symptoms: Normal affect, Normal mood - Skin Skin Temperature: Warm Skin Moisture: Dry Skin Color: Normal Course - Re-evaluation Re-evalutation: 06/24/17 17:54 X-ray is negative for rib fracture. These results were reviewed with the patient. I will prescribe a short course of narcotic pain medication for pain control. Patient encouraged to breathe deeply to avoid developing a pneumonia. Patient is instructed to follow-up with his primary care tomorrow. Patient is agreeable with plan and stable for discharge - Vital Signs Vital signs: Temp Pulse Resp BP Pulse Ox 98.2 F 98 16 130/67 H 96 06/24/17 16:30 06/24/17 16:30 06/24/17 16:30 06/24/17 16:30 06/24/17 16:30 Discharge - Discharge Clinical Impression: Contusion of rib on left side Qualifiers: Encounter type: initial encounter Qualified Code(s): S20.212A - Contusion of left front wall of thorax, initial encounter Condition: Stable Disposition: HOME, SELF-CARE Instructions: Rib Injuries and Fractures ([facility]), Oral Narcotic Medication ([facility]) , Ice Packs ([facility]) Additional Instructions: Your x-ray is negative for rib fracture Take your pain medication as prescribed and follow-up with your pain management tomorrow for further treatment Encourage deep breathing to avoid developing a pneumonia If you develop any cough, fever, shortness of breath you need to be reevaluated Prescriptions: Oxycodone HCl/Acetaminophen [Percocet 5-325 mg Tablet] 1 - 2 tab PO ASDIR PRN # 25 tablet PRN Reason:
--- NOTE | 2017-06-24 17:30 | RADIOLOGY REPORT (SQ) ---
EXAM DESCRIPTION: RIBS LEFT W/PA CHEST COMPLETED DATE/TIME: 06/24/2017 5:21 pm REASON FOR STUDY: fell, left rib pain COMPARISON: None. TECHNIQUE: Frontal view of the chest and additional views of the left ribs acquired. NUMBER OF VIEWS: Three view. LIMITATIONS: None. FINDINGS: FRONTAL CXR: No pneumothorax. No pleural effusion. No atelectasis or infiltrates. RIBS: No displaced rib fractures. No lytic or blastic bony lesions. OTHER: No other significant finding. IMPRESSION: NO PNEUMOTHORAX. NO DISPLACED RIB FRACTURES. COMMENT: SITE OF TRAUMA/COMPLAINT MARKED/STAMP COMPLETED: YES. TECHNICAL DOCUMENTATION: JOB ID: [id number] [employer]- All Rights Reserved Reading location - IP/workstation name: [email or web address]
[2017-06-24] MEDS ORDERED: LIDOCAINE 5% (700 MG) TRANSDERMAL ADH..PATCH TP ONE (17:52)
[2017-06-24 18:13] VITALS: BP 118/82
== END 2017-06-24 18:13 | disposition home or self-care (01) ==
LOC: ER 16:25
DX: S20.212A Contusion of left front wall of thorax, initial encounter (principal); R07.81 Pleurodynia; W19.XXXA Unspecified fall, initial encounter; Y92.002 Bathroom of unspecified non-institutional (private) residence as the place of occurrence of the external cause; I10 Essential (primary) hypertension; J44.9 Chronic obstructive pulmonary disease, unspecified; E11.9 Type 2 diabetes mellitus without complications
CPT/HCPCS: 99283; 71101; A9270

== ENCOUNTER 2017-07-26 16:35 | Emergency (ER) | payer MEDICARE, MEDICAID ==
[2017-07-26] MEDS ORDERED: ONDANSETRON 4 MG TAB.RAPDIS PO ONE (17:36)
--- NOTE | 2017-07-26 17:38 | ER Document Report ---
ED Medical Screen (RME) - General Chief Complaint: Abdominal Pain Stated Complaint: VOMITING Time Seen by Provider: 07/26/17 17:34 Mode of Arrival: Ambulatory Information source: Patient Notes: 56-year-old male with hypertension, type 2 diabetes, COPD, previous CVA, DVT on Coumadin presents with complaint of nausea, vomiting, left flank pain that started upon awakening. Patient describes left flank pain as aching, throbbing and without radiation. He states he had 3 episodes of vomiting prior to arrival. Patient states that during his vomiting episodes his nose began to bleed. Upon exam there is no active bleeding. I have greeted and performed a rapid initial assessment of this patient. A comprehensive ED assessment and evaluation of the patient including analysis of labs and imaging ( if obtained) and completion of medical decision making will be conducted by an additional ED provider. Lab called to inform me of a panic value of the patient's INR which is 5.9. They are sending someone to redraw this lab. PHYSICAL EXAMINATION: GENERAL: Appears to be in pain. HEAD: Atraumatic, normocephalic. EYES: Pupils equal round extraocular movements intact, conjunctiva are normal. ENT: Nares patent NECK: Normal range of motion LUNGS: No respiratory distress Musculoskeletal: Normal range of motion NEUROLOGICAL: Normal speech, normal gait. PSYCH: Normal mood, normal affect. SKIN: Warm, Dry, normal turgor, no rashes or lesions noted. TRAVEL OUTSIDE OF THE [place] IN LAST 30 DAYS: No - HPI Onset: Just prior to arrival Onset/Duration: Gradual, Persistent Quality of pain: Throbbing Severity: Mild Associated Symptoms: Nausea, Vomiting - Related Data Allergies/Adverse Reactions: Belarusian Ginseng [From Ginseng Edge] Allergy (Severe, Verified 07/26/17 17:27) INTERACTS WITH SZ MEDICATION SO CANNOT HAVE guarana seed extract [From Ginseng Edge] Allergy (Severe, Verified 07/26/17 17: 27) INTERACTS WITH SZ MEDICATION SO CANNOT HAVE Polish Ginseng [From Ginseng Edge] Allergy (Severe, Verified 07/26/17 17:27) INTERACTS WITH SZ MEDICATION SO CANNOT HAVE Siberian Ginseng Root Extract [From Ginseng Edge] Allergy (Severe, Verified 17:27) INTERACTS WITH SZ MEDICATION SO CANNOT HAVE Past Medical History - Social History Chew tobacco use (# tins/day): No Frequency of alcohol use: None Drug Abuse: None Family history: Reviewed & Not Pertinent - Past Medical History Cardiac Medical History: Reports: Hx Hypercholesterolemia, Hx Hypertension Denies: Hx Coronary Artery Disease, Hx Heart Attack Pulmonary Medical History: Reports: Hx COPD Denies: Hx Asthma, Hx Bronchitis, Hx Pneumonia Neurological Medical History: Reports: Hx Cerebrovascular Accident - 2 Major CVAs- 1996, 2008, Hx Seizures Endocrine Medical History: Reports: Hx Diabetes Mellitus Type 2 Renal/ Medical History: Reports: Hx Kidney Stones. Denies: Hx Peritoneal Dialysis GI Medical History: Reports: Hx Gastroesophageal Reflux Disease Musculoskeltal Medical History: Reports Hx Arthritis Psychiatric Medical History: Reports: Hx Anxiety, Hx Depression Past Surgical History: Reports: Hx Appendectomy, Hx Cholecystectomy, Hx Orthopedic Surgery - Neck - Immunizations Hx Diphtheria, Pertussis, Tetanus Vaccination: Yes - 2006 History of Influenza Vaccine for 11/2016 - 04/2017 Season: Refused Physical Exam - Vital signs Vitals: Temp Pulse Resp BP Pulse Ox 98.9 F 96 18 138/92 H 98 07/26/17 16:51 07/26/17 16:51 07/26/17 16:51 07/26/17 16:51 07/26/17 16:51 Course - Vital Signs Vital signs: Temp Pulse Resp BP Pulse Ox 98.9 F 96 18 138/92 H 98 07/26/17 16:51 07/26/17 16:51 07/26/17 16:51 07/26/17 16:51 07/26/17 16:51 - Laboratory Result Diagrams: 07/26/17 18:28 07/26/17 18:28 Laboratory results interpreted by me: 07/26/17 18:28 WBC 10.8 H RBC 4.06 L Hgb 13.1 L Hct 36.6 L Doctor's Discharge - Discharge Referrals: JAYNA RIVAS MD [Primary Care Provider] - Follow up as needed
[2017-07-26 18:41] LABS: ABSOLUTE BASOPHILS # (AUTO) 0.1 10^3/uL (0.0-0.2); ABSOLUTE EOSINOPHILS # (AUTO) 0.3 10^3/uL (0.0-0.6); ABSOLUTE LYMPHOCYTES (AUTO) 1.7 10^3/uL (0.5-4.7); ABSOLUTE MONOCYTES (AUTO) 0.7 10^3/uL (0.1-1.4); BASOPHILS % (AUTO) 1.3 % (0-2); EOSINOPHILS % (AUTO) 2.5 % (0-6); HEMATOCRIT 36.6 % (37.9-51.0); HEMOGLOBIN 13.1 g/dL (13.5-17.0); LYMPHOCYTES % (AUTO) 15.9 % (13-45); MEAN CORPUSCULAR HEMOGLOBIN 32.3 pg (27.0-33.4); MEAN CORPUSCULAR HGB CONC 35.8 g/dL (32.0-36.0); MEAN CORPUSCULAR VOLUME 90 fl (80-97); MONOCYTES % (AUTO) 6.1 % (3-13); PLATELET COUNT 351 10^3/uL (150-450); RED BLOOD COUNT 4.06 10^6/uL (4.35-5.55); RED CELL DISTRIBUTION WIDTH 13.2 % (11.5-14.0); SEGMENTED NEUTROPHILS % (AUTO) 74.2 % (42-78); TOTAL CELLS COUNTED % (AUTO) 100 %; WHITE BLOOD COUNT 10.8 10^3/uL (4.0-10.5)
[2017-07-26 19:00] LABS: ALANINE AMINOTRANSFERASE 34 U/L (21-72); ALBUMIN 4.5 g/dL (3.5-5.0); ALKALINE PHOSPHATASE 123 U/L (38-126); ANION GAP 16 (5-19); ASPARTATE AMINO TRANSFERASE 40 U/L (17-59); BILIRUBIN,DIRECT 0.6 mg/dL (0.0-0.4); BILIRUBIN,TOTAL 0.6 mg/dL (0.2-1.3); BLOOD UREA NITROGEN 9 mg/dL (7-20); CALCIUM 9.3 mg/dL (8.4-10.2); CARBON DIOXIDE 28 mmol/L (22-30); CHLORIDE 89 mmol/L (98-107); GLUCOSE 119 mg/dL (75-110); SODIUM 132.8 mmol/L (137-145); TOTAL PROTEIN 8.1 g/dL (6.3-8.2)
[2017-07-26 19:06] LABS: POTASSIUM 2.8 mmol/L (3.6-5.0)
[2017-07-26] MEDS: NORMAL SALINE 1000 ML 1,000 ML IV PRN ×2 (19:24→23:10)
--- NOTE | 2017-07-26 19:30 | ER Document Report ---
ED General - General Chief Complaint: Abdominal Pain Stated Complaint: VOMITING Time Seen by Provider: 07/26/17 17:34 Mode of Arrival: Ambulatory Information source: Patient Notes: This is a 56-year-old man with a history of CVAs, chronic kidney disease, chronic pain, coronary artery disease who is on chronic anticoagulation with Coumadin who presents to the emergency room with nausea, vomiting. He does state that he has had some back pain (left flank) as well. He did state he had an episode of nosebleeding which is resolved spontaneously. Patient does report falling 1 week onto his side and does have some left flank pain. He denies any blood in the urine. TRAVEL OUTSIDE OF THE [place] IN LAST 30 DAYS: No - HPI Onset: Last week Onset/Duration: Gradual Quality of pain: Dull Severity: Moderate Pain Level: 2 Associated symptoms: Nausea, Vomiting. denies: Chest pain, Fever, Shortness of breath Exacerbated by: Denies Relieved by: Denies Similar symptoms previously: Yes Recently seen / treated by doctor: Yes - Related Data Allergies/Adverse Reactions: Ecuadorean Ginseng [From Ginseng Edge] Allergy (Severe, Verified 07/26/17 17:27) INTERACTS WITH SZ MEDICATION SO CANNOT HAVE guarana seed extract [From Ginseng Edge] Allergy (Severe, Verified 07/26/17 17: 27) INTERACTS WITH SZ MEDICATION SO CANNOT HAVE Hungarian Ginseng [From Ginseng Edge] Allergy (Severe, Verified 07/26/17 17:27) INTERACTS WITH SZ MEDICATION SO CANNOT HAVE Siberian Ginseng Root Extract [From Ginseng Edge] Allergy (Severe, Verified 17:27) INTERACTS WITH SZ MEDICATION SO CANNOT HAVE Past Medical History - General Information source: Patient - Social History Smoking Status: Current Every Day Smoker Cigarette use (# per day): Yes - 1 pack per day smoker Chew tobacco use (# tins/day): No Frequency of alcohol use: None Drug Abuse: None Lives with: Family Family History: Reviewed & Not Pertinent Patient has suicidal ideation: No Patient has homicidal ideation: No - Past Medical History Cardiac Medical History: Reports: Hx Hypercholesterolemia, Hx Hypertension Denies: Hx Coronary Artery Disease, Hx Heart Attack Pulmonary Medical History: Reports: Hx COPD Denies: Hx Asthma, Hx Bronchitis, Hx Pneumonia Neurological Medical History: Reports: Hx Cerebrovascular Accident - 2 Major CVAs- 1996, 2008, Hx Seizures Endocrine Medical History: Reports: Hx Diabetes Mellitus Type 2 Renal/ Medical History: Reports: Hx Kidney Stones. Denies: Hx Peritoneal Dialysis GI Medical History: Reports: Hx Gastroesophageal Reflux Disease Musculoskeltal Medical History: Reports Hx Arthritis Psychiatric Medical History: Reports: Hx Anxiety, Hx Depression Past Surgical History: Reports: Hx Appendectomy, Hx Cholecystectomy, Hx Orthopedic Surgery - Neck - Immunizations Hx Diphtheria, Pertussis, Tetanus Vaccination: Yes - 2006 Review of Systems - Review of Systems Constitutional: denies: Chills, Fever EENT: See HPI Cardiovascular: No symptoms reported Respiratory: No symptoms reported Gastrointestinal: See HPI Genitourinary: No symptoms reported Male Genitourinary: No symptoms reported Musculoskeletal: See HPI Skin: No symptoms reported Hematologic/Lymphatic: No symptoms reported Neurological/Psychological: No symptoms reported Physical Exam - Vital signs Vitals: Temp Pulse Resp BP Pulse Ox 98.9 F 96 18 138/92 H 98 07/26/17 16:51 07/26/17 16:51 07/26/17 16:51 07/26/17 16:51 07/26/17 16:51 Notes: Physical exam: GENERAL: 56-year-old man, alert and oriented 3, no acute distress. No active bleeding. HEAD: Atraumatic, normocephalic. EYES: Pupils equal round and reactive to light, extraocular movements intact, sclera anicteric, conjunctiva are normal. ENT: Nares patent, no active bleeding, oropharynx clear without exudates. Moist mucous membranes. NECK: Normal range of motion, supple without obvious mass or JVD. LUNGS: Breath sounds clear to auscultation bilaterally and equal. No wheezes rales or rhonchi. HEART: Regular rate and rhythm without murmurs, rubs or gallops. ABDOMEN: Soft, normoactive bowel sounds. No tenderness to palpation. No guarding, no rebound. No masses appreciated. Mild left CVA tenderness felt mostly musculoskeletal. EXTREMITIES: Normal range of motion, no pitting or edema. No clubbing or cyanosis. NEUROLOGICAL: Cranial nerves II through XII grossly intact. Normal speech, moving all extremities. PSYCH: Normal mood, normal affect. SKIN: Warm, Dry, normal turgor, no rashes or lesions noted. Course - Re-evaluation Re-evalutation: 07/26/17 22:54 Note: Given the patient's flank pain and supratherapeutic INR, CT of the abdomen was done which shows no evidence of bleed. For the supratherapeutic INR, patient was given vitamin K (2.5 mg p.o.) 1. The plan will be to hold the Coumadin for 2 days. I have advised him to have a repeat INR in 3 days. As far as the nosebleeds, they stopped prior to his arrival here in the ER and he has had no further bleeding. She was given nausea medicine with some IV fluids and he feels much better. Patient did have hypomagnesemia and was given IV magnesium. He was also found to have hypokalemia and was given potassium. He has had these electrolyte disorders in the past. He denies any alcohol intake. He does smoke 1 pack per day. - Vital Signs Vital signs: Temp Pulse Resp BP Pulse Ox 98.9 F 96 18 138/92 H 98 07/26/17 16:51 07/26/17 16:51 07/26/17 16:51 07/26/17 16:51 07/26/17 16:51 - Laboratory Result Diagrams: 07/26/17 18:28 07/26/17 18:28 Laboratory results interpreted by me: 07/26/17 07/26/17 07/26/17 18:28 18:28 18:28 WBC 10.8 H RBC 4.06 L Hgb 13.1 L Hct 36.6 L PT INR Sodium 132.8 L Potassium 2.8 L* Chloride 89 L Glucose 119 H Magnesium 1.0 L* Direct Bilirubin 0.6 H 07/26/17 19:04 WBC RBC Hgb Hct PT 56.9 H* INR 6.10 H* Sodium Potassium Chloride Glucose Magnesium Direct Bilirubin Discharge - Discharge Clinical Impression: Hypomagnesemia, Hypokalemia, Nausea, Supratherapeutic INR Condition: Stable Additional Instructions: As we discussed, your magnesium level was low as well as your potassium. You were given both in the ER. I would continue your potassium supplementation. Magnesium supplementation is fine as well. I would continue your other medicines. Kidney function tests were excellent and I. Your Coumadin level however was updated (6.1). Given the nosebleed you had earlier, you were given some vitamin K. And I would hold the Coumadin level for 2 days. I would like you to follow-up with Dr. Rivas and repeat get a repeat Coumadin level in a few days. Return to the emergency room for any concerns or getting worse. Prescriptions: Clonidine HCl 0.2 mg PO BID #60 tablet Gabapentin 800 mg PO TID #60 capsule Referrals: JAYNA RIVAS MD [Primary Care Provider] - Follow up in 3-5 days
[2017-07-26 19:42] LABS: PROTHROMBIN TIME 56.9 SEC (11.4-15.4)
--- NOTE | 2017-07-26 20:06 | RADIOLOGY REPORT (SQ) ---
EXAM DESCRIPTION: CT LTD RENAL STONE PROTOCOL ON COMPLETED DATE/TIME: 07/26/2017 7:52 pm REASON FOR STUDY: left flank pain COMPARISON: 12/23/2016. TECHNIQUE: CT scan of the abdomen and pelvis performed without intravenous or oral contrast. Images reviewed with lung, soft tissue, and bone windows. Reconstructed coronal and sagittal MPR images revi ewed. All images stored on PACS. All CT scanners at this facility use dose modulation, iterative reconstruction, and/or weight based d osing when appropriate to reduce radiation dose to as low as reasonably achievable (ALARA). [facility]: Dose Right [facility]: CareDose [facility]: Dose Right [facility]: Teradose 4D [facility]: Victorious RADIATION DOSE: CT Rad equipment meets quality standard of care and radiation dose reduction techniq ues were employed. CTDIvol: 8.1 mGy. DLP: 438 mGy-cm.mGy. LIMITATIONS: None. FINDINGS: LOWER CHEST: No significant findings. No nodules or infiltrates. NON-CONTRASTED LIVER, SPLEEN, ADRENALS: Evaluation limited by lack of IV contrast. No identified sign ificant masses. PANCREAS: No masses. No peripancreatic inflammatory changes. GALLBLADDER: Surgically absent. RIGHT KIDNEY AND URETER: No suspicious masses. Assessment limited by lack of IV contrast. No signif icant calcifications. No hydronephrosis or hydroureter. LEFT KIDNEY AND URETER: No suspicious masses. Assessment limited by lack of IV contrast. No signifi cant calcifications. No hydronephrosis or hydroureter. AORTA AND RETROPERITONEUM: No aneurysm. No retroperitoneal masses or adenopathy. BOWEL AND PERITONEAL CAVITY: No obvious masses or inflammatory changes. No free fluid. APPENDIX: Surgically absent. PELVIS, BLADDER, AND ABDOMINAL WALL:No abnormal masses. No free fluid. Bladder normal. BONES: No significant findings. OTHER: No other significant finding. IMPRESSION: NO SIGNIFICANT OR ACUTE PROCESS IN THE ABDOMEN OR PELVIS. COMMENT: Quality ID # [id number]: Final reports with documentation of one or more dose reduction techniques (e.g., Automated exposure control, adjustment of the mA and/or kV according to patient size, use of iterative reconstruction technique) TECHNICAL DOCUMENTATION: JOB ID: [id number] [employer]- All Rights Reserved Reading location - IP/workstation name: [email or web address]
[2017-07-26] MEDS ORDERED: POTASSIUM CHLORIDE 10 MEQ TABLET.SA PO ONE ×2 (20:34→22:50)
[2017-07-26 20:42] LABS: APPEARANCE,URINE CLEAR; BILIRUBIN,URINE NEGATIVE (NEGATIVE); COLOR,URINE YELLOW; GLUCOSE, URINE NEGATIVE (NEGATIVE); KETONES,URINE NEGATIVE (NEGATIVE); LEUKOCYTE ESTERASE,URINE NEGATIVE (NEGATIVE); NITRITE,URINE NEGATIVE (NEGATIVE); PROTEIN,URINE NEGATIVE (NEGATIVE); URINE SPECIFIC GRAVITY 1.009; UROBILINOGEN,URINE NEGATIVE mg/dL (<2.0)
[2017-07-26] MEDS ORDERED: MORPHINE SULFATE 10 MG/ML INJ IV ONE (21:13)
[2017-07-26] MEDS ORDERED: PHYTONADIONE 5 MG TABLET PO ONE (21:13)
[2017-07-26] MEDS ORDERED: FENTANYL CITRATE INJ/PF 100 MCG/2 ML AMPUL IV ONE (21:38)
[2017-07-26] MEDS: MAGNESIUM SULFATE/D5W 1 GM/100 ML RTUPB IV SCH ×2 (21:46→22:58)
[2017-07-26] MEDS ORDERED: PROMETHAZINE HCL 25 MG TABLET PO ONE (23:28)
[2017-07-27 00:48] VITALS: BP 166/79
== END 2017-07-27 00:48 | disposition home or self-care (01) ==
LOC: ER 16:35
DX: R10.9 Unspecified abdominal pain (principal); R11.0 Nausea; E83.42 Hypomagnesemia; E87.6 Hypokalemia; R79.89 Other specified abnormal findings of blood chemistry; F17.210 Nicotine dependence, cigarettes, uncomplicated; E78.00 Pure hypercholesterolemia, unspecified; I10 Essential (primary) hypertension; J44.9 Chronic obstructive pulmonary disease, unspecified; E11.9 Type 2 diabetes mellitus without complications; Z86.73 Personal history of transient ischemic attack (TIA), and cerebral infarction without residual deficits; Z87.442 Personal history of urinary calculi; Z90.49 Acquired absence of other specified parts of digestive tract; Z79.02 Long term (current) use of antithrombotics/antiplatelets
CPT/HCPCS: 99284; 96361; 96375; 96365; 96366; 36415; 83735; 85025; 85610; 80053; 81001; 76380; A9270 ×4; J3010; J3475; J7030; J3490; S0119

== ENCOUNTER 2017-09-28 10:02 | Emergency (ER) | payer MEDICARE, MEDICAID ==
[2017-09-28] MEDS ORDERED: NORMAL SALINE 1000 ML 1,000 ML IV PRN (10:23)
--- NOTE | 2017-09-28 10:23 | ER Document Report ---
ED General - General Stated Complaint: WEAKNESS Time Seen by Provider: 09/28/17 10:14 Notes: 56-year-old male brought in by EMS for altered mental status. Patient was found obtunded on the floor. History of DKA. History of noncompliance. On Coumadin. Followed by Dr. Cruz. Patient is arousable and does answer questions. Patient does seem to be quite somnolent. No signs of trauma. Has not taken his insulin he says because he has felt too ill. TRAVEL OUTSIDE OF THE [place] IN LAST 30 DAYS: No - HPI Onset: Yesterday Onset/Duration: Sudden Quality of pain: Achy Severity: Severe Pain Level: 3 Associated symptoms: Nausea, Vomiting - Related Data Allergies/Adverse Reactions: Spanish Ginseng [From Ginseng Edge] Allergy (Severe, Verified 07/26/17 17:27) INTERACTS WITH SZ MEDICATION SO CANNOT HAVE guarana seed extract [From Ginseng Edge] Allergy (Severe, Verified 07/26/17 17: 27) INTERACTS WITH SZ MEDICATION SO CANNOT HAVE Swedish Ginseng [From Ginseng Edge] Allergy (Severe, Verified 07/26/17 17:27) INTERACTS WITH SZ MEDICATION SO CANNOT HAVE Siberian Ginseng Root Extract [From Ginseng Edge] Allergy (Severe, Verified 17:27) INTERACTS WITH SZ MEDICATION SO CANNOT HAVE Past Medical History - General Information source: Patient, [facility] Office, [facility] Records Cannot obtain history due to: Altered mental status - Social History Smoking Status: Unknown if Ever Smoked Frequency of alcohol use: Unknown Drug Abuse: Other - unKnown Lives with: Other - Unknown Family History: Reviewed & Not Pertinent - Past Medical History Cardiac Medical History: Reports: Hx Hypercholesterolemia, Hx Hypertension Denies: Hx Coronary Artery Disease, Hx Heart Attack Pulmonary Medical History: Reports: Hx COPD Denies: Hx Asthma, Hx Bronchitis, Hx Pneumonia Neurological Medical History: Reports: Hx Cerebrovascular Accident - 2 Major CVAs- 1996, 2008, Hx Seizures Endocrine Medical History: Reports: Hx Diabetes Mellitus Type 2 Renal/ Medical History: Reports: Hx Kidney Stones. Denies: Hx Peritoneal Dialysis GI Medical History: Reports: Hx Gastroesophageal Reflux Disease Musculoskeletal Medical History: Reports Hx Arthritis Psychiatric Medical History: Reports: Hx Anxiety, Hx Depression Past Surgical History: Reports: Hx Appendectomy, Hx Cholecystectomy, Hx Orthopedic Surgery - Neck - Immunizations Hx Diphtheria, Pertussis, Tetanus Vaccination: Yes - 2006 Review of Systems - Review of Systems -: Yes ROS unobtainable due to patient's medical condition Physical Exam - Vital signs Vitals: Resp 22 H 09/28/17 10:05 Interpretation: Tachycardic, Tachypneic. No: Febrile - Notes Notes: Very ill-appearing man in acute distress - General General appearance: Appears well, Alert - HEENT Head: Normocephalic, Atraumatic Eyes: Normal Pupils: PERRL Mucous membranes: Dry Pharynx: Normal Neck: Normal - Respiratory Respiratory status: Tachypnea Chest status: Nontender Breath sounds: Normal Chest palpation: Normal - Cardiovascular Rhythm: Tachycardia Heart sounds: Normal auscultation Murmur: No - Abdominal Inspection: Normal Distension: No distension Bowel sounds: Normal Tenderness: Nontender Organomegaly: No organomegaly - Back Back: Normal, Nontender - Extremities General upper extremity: Normal inspection, Nontender, Normal color, Normal ROM , Normal temperature General lower extremity: Normal inspection, Nontender, Normal color, Normal ROM , Normal temperature. No: Carlton's sign - Neurological Neuro grossly intact: Yes Cognition: Confused Orientation: Disoriented to place, Disoriented to time. No: Disoriented to events Sirena Coma Scale Eye Opening: Spontaneous Sterling Coma Scale Verbal: Confused Sirena Coma Scale Motor: Obeys Commands Sterling Coma Scale Total: 14 Speech: Normal Motor strength normal: LUE, RUE, LLE, RLE Sensory: Normal - Psychological Associated symptoms: Normal affect, Normal mood - Skin Skin Temperature: Warm Skin Moisture: Dry Skin Color: Normal Course - Re-evaluation Re-evalutation: 09/28/17 11:49 This is an extremely ill individual who is acidotic and hypercarbic with blood sugar over 1200 in the potassium of 1.8. On Coumadin with an INR of 2.58. No obvious head bleed. Starting on insulin however potassium is extremely low so need IV potassium. Will also try oral potassium. Troponin is slightly elevated as well. Patient is tachycardic. IV fluids have been ordered. I am consulting hospitalist for admission at this time. It is my opinion the patient currently is too unstable for transfer needs to be resuscitated here. Patient is in guarded condition at this time. 09/28/17 11:50 Laboratory 09/28/17 09/28/17 09/28/17 10:27 10:27 10:27 WBC 17.9 H RBC 5.35 Hgb 16.7 Hct 52.6 H MCV 98 H MCH 31.3 MCHC 31.8 L RDW 13.2 Plt Count 455 H Total Counted 100 Seg Neutrophils % Not Reportable Seg Neuts % (Manual) 94 H Lymphocytes % Not Reportable Lymphocytes % (Manual) 2 L Monocytes % Not Reportable Monocytes % (Manual) 4 Eosinophils % Not Reportable Eosinophils % (Manual) 0 Basophils % Not Reportable Basophils % (Manual) 0 Absolute Neutrophils Not Reportable Abs Neuts (Manual) 16.8 H Absolute Lymphocytes Not Reportable Abs Lymphs (Manual) 0.4 L Absolute Monocytes Not Reportable Abs Monocytes (Manual) 0.7 Absolute Eosinophils Not Reportable Absolute Eos (Manual) 0.0 Absolute Basophils Not Reportable Abs Basophils (Manual) 0.0 Toxic Granulation SLIGHT Clumped Platelets PRESENT Platelet Comment Not Reportable RBC Morph Comment NORMO-CYTIC/CHROMIC PT INR APTT VBG pH VBG pCO2 VBG HCO3 VBG Base Excess Sodium 146.4 H Potassium 1.8 L* Chloride 92 L Carbon Dioxide 20 L Anion Gap 34 H BUN 24 H Creatinine 1.14 Est GFR ( Amer) > 60 Est GFR (Non-Af Amer) > 60 Glucose 1244 H* Lactic Acid 4.9 H Calcium 12.5 H* Total Bilirubin 0.5 Direct Bilirubin 0.5 H Neonat Total Bilirubin Not Reportable Neonat Direct Bilirubin Not Reportable Neonat Indirect Bili Not Reportable AST 25 ALT 39 Alkaline Phosphatase 209 H Troponin I Total Protein 10.1 H Albumin 5.2 H 09/28/17 09/28/17 09/28/17 10:27 10:27 10:27 WBC RBC Hgb Hct MCV MCH MCHC RDW Plt Count Total Counted Seg Neutrophils % Seg Neuts % (Manual) Lymphocytes % Lymphocytes % (Manual) Monocytes % Monocytes % (Manual) Eosinophils % Eosinophils % (Manual) Basophils % Basophils % (Manual) Absolute Neutrophils Abs Neuts (Manual) Absolute Lymphocytes Abs Lymphs (Manual) Absolute Monocytes Abs Monocytes (Manual) Absolute Eosinophils Absolute Eos (Manual) Absolute Basophils Abs Basophils (Manual) Toxic Granulation Clumped Platelets Platelet Comment RBC Morph Comment PT 28.9 H INR 2.58 APTT 39.5 H VBG pH 7.19 L* VBG pCO2 65.6 H* VBG HCO3 24.2 VBG Base Excess -5.8 Sodium Potassium Chloride Carbon Dioxide Anion Gap BUN Creatinine Est GFR ( Amer) Est GFR (Non-Af Amer) Glucose Lactic Acid Calcium Total Bilirubin Direct Bilirubin Neonat Total Bilirubin Neonat Direct Bilirubin Neonat Indirect Bili AST ALT Alkaline Phosphatase Troponin I 0.200 Total Protein Albumin Head CT 09/28/17 10:38 IMPRESSION: No acute findings. Old right occipital and bilateral basal ganglia infarcts EVIDENCE OF ACUTE STROKE: NO. 09/28/17 14:05 Dr. Reyes has seen and evaluated patient. After discussion with the pediatric orthodontist at [facility] she has decided to transfer patient. I have ordered a repeat Accu-Chek. Patient will need more potassium and continuation of insulin drip. Pending transfer at this time. Patient has been reevaluated. Remains stable for transfer at this time. 09/28/17 14:50 09/28/17 15:38 Blood sugar still high but coming down nicely. Troponin is slightly elevated as well. Continue with potassium drip as well as insulin drip. Increasing insulin to 7 units an hour. Potassium is up to 2.1. Remains arousable. Cameron is in place. 09/28/17 15:52 The patient has been reevaluated. Remained stable for transfer at this time - Vital Signs Vital signs: Temp Pulse Resp BP Pulse Ox 95.6 F L 18 152/97 H 96 09/28/17 15:47 09/28/17 15:47 09/28/17 14:00 09/28/17 14:01 - Laboratory Result Diagrams: 09/28/17 10:27 09/28/17 14:38 Laboratory results interpreted by me: 09/28/17 09/28/17 09/28/17 10:27 10:27 10:27 WBC 17.9 H Hct 52.6 H MCV 98 H MCHC 31.8 L Plt Count 455 H Seg Neuts % (Manual) 94 H Lymphocytes % (Manual) 2 L Abs Neuts (Manual) 16.8 H Abs Lymphs (Manual) 0.4 L PT APTT VBG pH VBG pCO2 Sodium 146.4 H Potassium 1.8 L* Chloride 92 L Carbon Dioxide 20 L Anion Gap 34 H BUN 24 H Glucose 1244 H* Lactic Acid 4.9 H Calcium 12.5 H* Direct Bilirubin 0.5 H Alkaline Phosphatase 209 H Total Protein 10.1 H Albumin 5.2 H Urine Protein Urine Glucose (UA) Urine Ketones Urine Blood 09/28/17 09/28/17 09/28/17 10:27 10:27 11:36 WBC Hct MCV MCHC Plt Count Seg Neuts % (Manual) Lymphocytes % (Manual) Abs Neuts (Manual) Abs Lymphs (Manual) PT 28.9 H APTT 39.5 H VBG pH 7.19 L* VBG pCO2 65.6 H* Sodium Potassium Chloride Carbon Dioxide Anion Gap BUN Glucose Lactic Acid Calcium Direct Bilirubin Alkaline Phosphatase Total Protein Albumin Urine Protein 30 H Urine Glucose (UA) >=500 H Urine Ketones 20 H Urine Blood MODERATE H - EKG Interpretation by [place] EKG shows normal: [place], Intervals, QRS Complexes, ST-T Waves Rate: Tachycardia Critical Care Note - Critical Care Note Total time excluding time spent on procedures (mins): 75 Comments: Electrolyte abnormality, acidosis, DKA, combined respiratory and metabolic acidosis, profound hypokalemia, coordination of transfer of care Discharge - Discharge Clinical Impression: Hypokalemia, Non-ST elevation HI (NSTEMI) Diabetic ketoacidosis Qualifiers: Diabetes mellitus type: type 1 Diabetes mellitus complication detail: without coma Qualified Code(s): E10.10 - Type 1 diabetes mellitus with ketoacidosis without coma Condition: Poor Disposition: [facility] Unit Admitted: ICU
--- NOTE | 2017-09-28 10:24 | EKG REPORT ---
SEVERITY:- ABNORMAL ECG - SINUS TACHYCARDIA FIRST DEGREE AV BLOCK PRASANNA, CONSIDER BIATRIAL ABNORMALITIES LVH WITH SECONDARY REPOLARIZATION ABNORMALITY ST DEPRESSION, CONSIDER ISCHEMIA, DIFFUSE LDS : Confirmed by: Kyaw Verma 28-Sep-2017 10:23:55
[2017-09-28 10:54] LABS: VENOUS BLOOD BASE EXCESS -5.8 mmol/L; VENOUS BLOOD HCO3 24.2 mmol/L (20-32)
[2017-09-28 10:57] LABS: HEMATOCRIT 52.6 % (37.9-51.0); HEMOGLOBIN 16.7 g/dL (13.5-17.0); MEAN CORPUSCULAR HEMOGLOBIN 31.3 pg (27.0-33.4); MEAN CORPUSCULAR HGB CONC 31.8 g/dL (32.0-36.0); MEAN CORPUSCULAR VOLUME 98 fl (80-97); PLATELET COUNT 455 10^3/uL (150-450); RED BLOOD COUNT 5.35 10^6/uL (4.35-5.55); RED CELL DISTRIBUTION WIDTH 13.2 % (11.5-14.0); WHITE BLOOD COUNT 17.9 10^3/uL (4.0-10.5)
[2017-09-28 10:59] LABS: VENOUS BLOOD PCO2 65.6 mmHg (35-63); VENOUS BLOOD PH 7.19 (7.30-7.42)
[2017-09-28 11:07] LABS: INTERNATIONAL RATION (INR) 2.58; PROTHROMBIN TIME 28.9 SEC (11.4-15.4)
[2017-09-28 11:08] LABS: PARTIAL THROMBOPLASTIN TIME 39.5 SEC (23.5-35.8)
--- NOTE | 2017-09-28 11:10 | RADIOLOGY REPORT (SQ) ---
EXAM DESCRIPTION: CT HEAD WITHOUT COMPLETED DATE/TIME: 09/28/2017 11:01 am REASON FOR STUDY: altered COMPARISON: CT brain 08/07/2015, 05/08/2015 TECHNIQUE: Axial images acquired through the brain without intravenous contrast. Images reviewed wi th bone, brain and subdural windows. Additional sagittal and coronal reconstructions were generated. Images stored on PACS. All CT scanners at this facility use dose modulation, iterative reconstruction, and/or weight based d osing when appropriate to reduce radiation dose to as low as reasonably achievable (ALARA). [facility]: Dose Right [facility]: CareDose [facility]: Dose Right [facility]: Teradose 4D [facility]: Smart Gentis RADIATION DOSE: CT Rad equipment meets quality standard of care and radiation dose reduction techniq ues were employed. CTDIvol: 53.2 mGy. DLP: 2546 mGy-cm. mGy. LIMITATIONS: Motion artifact, patient scanned twice FINDINGS: Motion artifact. Patient scanned twice. On images without motion, no gross acute large territory ischemic change, acute intracranial hemorrha ge, mass effect, or midline shift. Old infarcts are present in the right occipital lobe, bilateral basal ganglia. No acute calvarial fracture. Paranasal sinuses grossly clear. IMPRESSION: No acute findings. Old right occipital and bilateral basal ganglia infarcts EVIDENCE OF ACUTE STROKE: NO. COMMENT: Quality ID # [id number]: Final reports with documentation of one or more dose reduction techniques (e.g., Automated exposure control, adjustment of the mA and/or kV according to patient size, use of iterative reconstruction technique) TECHNICAL DOCUMENTATION: JOB ID: [id number] [employer]- All Rights Reserved Reading location - IP/workstation name: [email or web address]
[2017-09-28 11:16] LABS: ALANINE AMINOTRANSFERASE 39 U/L (21-72); ALBUMIN 5.2 g/dL (3.5-5.0); ALKALINE PHOSPHATASE 209 U/L (38-126); ASPARTATE AMINO TRANSFERASE 25 U/L (17-59); BILIRUBIN,DIRECT 0.5 mg/dL (0.0-0.4); BILIRUBIN,TOTAL 0.5 mg/dL (0.2-1.3); BLOOD UREA NITROGEN 24 mg/dL (7-20); TOTAL PROTEIN 10.1 g/dL (6.3-8.2)
[2017-09-28 11:22] LABS: CARBON DIOXIDE 20 mmol/L (22-30); CHLORIDE 92 mmol/L (98-107); SODIUM 146.4 mmol/L (137-145)
[2017-09-28] MEDS ORDERED: ALBUTEROL SULFATE 0.083% NEB 2.5 MG/3 ML AMPUL NEB ONE (11:26)
[2017-09-28 11:29] LABS: CALCIUM 12.5 mg/dL (8.4-10.2)
[2017-09-28 11:30] LABS: ABSOLUTE LYMPHOCYTES# (MANUAL) 0.4 10^3/uL (0.5-4.7); ABSOLUTE MONOCYTES # (MANUAL) 0.7 10^3/uL (0.1-1.4); ABSOLUTE NEUTROPHILS# (MANUAL) 16.8 10^3/uL (1.7-8.2); ANION GAP 34 (5-19); BASOPHILS % (MANUAL) 0 % (0-2); EOSINOPHILS % (MANUAL) 0 % (0-6); GLUCOSE 1244 mg/dL (75-110); LYMPHOCYTES % (MANUAL) 2 % (13-45); MONOCYTES % (MANUAL) 4 % (3-13); PLATELET CLUMPS PRESENT; POTASSIUM 1.8 mmol/L (3.6-5.0); SEGMENTED NEUTROPHILS % (MAN) 94 % (42-78); TOTAL CELLS COUNTED 100; TOXIC GRANULATION SLIGHT
[2017-09-28] MEDS ORDERED: POTASSI CL 20 MEQ/1/2NS 1L 20 MEQ/1,000 ML RTUINJ IV ONE ×2 (11:30→15:09)
[2017-09-28 11:31] LABS: RBC MORPHOLOGY COMMENT NORMO-CYTIC/CHROMIC
[2017-09-28] MEDS ORDERED: DEXTROSE 50%-WATER 25 GM/50 ML DISP.SYRIN IV PRN ×2 (11:33)
[2017-09-28] MEDS ORDERED: DEXTROSE 40% GEL 15 GM TUBE PO PRN ×2 (11:33)
[2017-09-28] MEDS ORDERED: GLUCAGON,HUMAN RECOMB 1 MG INJ IM PRN (11:33)
[2017-09-28] MEDS ORDERED: NORMAL SALINE 100 ML with INSULIN REGULAR, HUMAN 100 UNIT IV PRN ×2 (11:33)
[2017-09-28] MEDS ORDERED: ASPIRIN 81 MG TABLET, CHEWABLE PO ONE (11:34)
[2017-09-28] MEDS ORDERED: POTASSIUM CHLORIDE 20 MEQ/15 ML UDCUP PO ONE (11:35)
--- NOTE | 2017-09-28 12:20 | RADIOLOGY REPORT (SQ) ---
EXAM DESCRIPTION: CHEST SINGLE VIEW COMPLETED DATE/TIME: 09/28/2017 11:46 am REASON FOR STUDY: sob COMPARISON: CT 07/23/2016 EXAM PARAMETERS: NUMBER OF VIEWS: One view. TECHNIQUE: Single frontal radiographic view of the chest acquired. RADIATION DOSE: NA LIMITATIONS: None. FINDINGS: LUNGS AND PLEURA: No opacities, masses or pneumothorax. No pleural effusion. MEDIASTINUM AND HILAR STRUCTURES: No masses. Contour normal. HEART AND VASCULAR STRUCTURES: Heart normal in size. Normal vasculature. BONES: No acute findings. HARDWARE: None in the chest. OTHER: No other significant finding. IMPRESSION: NO ACUTE RADIOGRAPHIC FINDING IN THE CHEST. TECHNICAL DOCUMENTATION: JOB ID: [id number] [employer]- All Rights Reserved Reading location - IP/workstation name: [email or web address]
[2017-09-28] MEDS: RINGERS SOLUTION,LACTATED 1,000 ML IV PRN ×2 (12:24→12:50)
[2017-09-28] MEDS ORDERED: INSULIN REG, HUMAN 100 UNIT/ML 3 ML VIAL (PYX) ONE (12:41)
[2017-09-28 12:42] LABS: APPEARANCE,URINE CLEAR; BILIRUBIN,URINE NEGATIVE (NEGATIVE); COLOR,URINE STRAW; GLUCOSE, URINE >=500 mg/dL (NEGATIVE); KETONES,URINE 20 mg/dL (NEGATIVE); LEUKOCYTE ESTERASE,URINE NEGATIVE (NEGATIVE); NITRITE,URINE NEGATIVE (NEGATIVE); PROTEIN,URINE 30 mg/dL (NEGATIVE); URINE SPECIFIC GRAVITY 1.028; UROBILINOGEN,URINE NEGATIVE mg/dL (<2.0)
[2017-09-28] MEDS ORDERED: INSULIN REG, HUMAN 100 UNIT/ML 3 ML VIAL (PYX) IV ONE (12:51)
[2017-09-28] MEDS ORDERED: POTASSI CL 20 MEQ/50 ML RIDER 20 MEQ/50 ML RTUPB IV ONE (14:07)
[2017-09-28 15:12] LABS: BLOOD UREA NITROGEN 25 mg/dL (7-20); CALCIUM 11.3 mg/dL (8.4-10.2)
[2017-09-28 15:18] LABS: CARBON DIOXIDE 20 mmol/L (22-30); CHLORIDE 107 mmol/L (98-107); SODIUM 150.6 mmol/L (137-145)
[2017-09-28 15:25] LABS: ANION GAP 24 (5-19)
[2017-09-28 15:27] LABS: GLUCOSE 851 mg/dL (75-110); POTASSIUM 2.1 mmol/L (3.6-5.0)
[2017-09-28 16:06] VITALS: BP 141/96
== END 2017-09-28 16:26 | disposition short-term general hospital (02) ==
LOC: ER 10:02 → EH 12:03 → UNDOADMIN 12:03 → EH 16:25
DX: E10.10 Type 1 diabetes mellitus with ketoacidosis without coma (principal); T38.3X6A Underdosing of insulin and oral hypoglycemic [antidiabetic] drugs, initial encounter; Z91.128 Patient's intentional underdosing of medication regimen for other reason; Z91.14 Patient's other noncompliance with medication regimen; I21.4 Non-ST elevation (NSTEMI) myocardial infarction; E87.6 Hypokalemia; R41.0 Disorientation, unspecified; R11.2 Nausea with vomiting, unspecified; I10 Essential (primary) hypertension; J44.9 Chronic obstructive pulmonary disease, unspecified; R00.0 Tachycardia, unspecified; Z86.73 Personal history of transient ischemic attack (TIA), and cerebral infarction without residual deficits; Z79.01 Long term (current) use of anticoagulants
CPT/HCPCS: 93005; 99291; 99292; 51702; 96365; 96366; 36415; 87040; 87086; 82962; 85025; 85610; 85730; 80048; 80053; 81001; 84484; 82803; 83605; 71045; 70450; 93010; A9270 ×2; J3480; J7120

== ENCOUNTER 2018-01-23 00:57 | Emergency (ER) | payer MEDICARE, MEDICAID ==
[2018-01-23] MEDS ORDERED: MORPHINE SULFATE 10 MG/ML INJ IV ONE (02:30)
[2018-01-23] MEDS ORDERED: ONDANSETRON HCL INJ/PF 4 MG/2 ML SDV IV ONE (02:31)
--- NOTE | 2018-01-23 02:41 | ER Document Report ---
ED GI/ - General Chief Complaint: Pain With Urination Stated Complaint: URINARY PROBLEM Time Seen by Provider: 01/23/18 02:22 Notes: Patient is a 57 year old male that comes to the emergency department for chief complaint of pain in his left mid to lower abdomen and left side for the past 3 days, he states he has vomited once yesterday, he denies fever, he states today he started having hematuria as well. He is on Coumadin. He denies fever or chills. Past medical history of kidney stones, ureteral stents, CVA, hypertension, type 2 diabetes, smoking. TRAVEL OUTSIDE OF THE [place] IN LAST 30 DAYS: No - Related Data Allergies/Adverse Reactions: Burmese Ginseng [From Ginseng Edge] Allergy (Severe, Verified 07/26/17 17:27) INTERACTS WITH SZ MEDICATION SO CANNOT HAVE guarana seed extract [From Ginseng Edge] Allergy (Severe, Verified 07/26/17 17: 27) INTERACTS WITH SZ MEDICATION SO CANNOT HAVE Indonesian Ginseng [From Ginseng Edge] Allergy (Severe, Verified 07/26/17 17:27) INTERACTS WITH SZ MEDICATION SO CANNOT HAVE Siberian Ginseng Root Extract [From Ginseng Edge] Allergy (Severe, Verified 17:27) INTERACTS WITH SZ MEDICATION SO CANNOT HAVE Past Medical History - General Information source: Patient - Social History Smoking Status: Never Smoker Drug Abuse: None Lives with: Family Family History: Reviewed & Not Pertinent - Past Medical History Cardiac Medical History: Reports: Hx Hypercholesterolemia, Hx Hypertension Denies: Hx Coronary Artery Disease, Hx Heart Attack Pulmonary Medical History: Reports: Hx COPD Denies: Hx Asthma, Hx Bronchitis, Hx Pneumonia Neurological Medical History: Reports: Hx Cerebrovascular Accident - 2 Major CVAs- 1996, 2008, Hx Seizures Endocrine Medical History: Reports: Hx Diabetes Mellitus Type 2 Renal/ Medical History: Reports: Hx Kidney Stones. Denies: Hx Peritoneal Dialysis GI Medical History: Reports: Hx Gastroesophageal Reflux Disease Musculoskeletal Medical History: Reports Hx Arthritis Psychiatric Medical History: Reports: Hx Anxiety, Hx Depression Past Surgical History: Reports: Hx Appendectomy, Hx Cholecystectomy, Hx Orthopedic Surgery - Neck - Immunizations Hx Diphtheria, Pertussis, Tetanus Vaccination: Yes - 2006 Review of Systems - Review of Systems Constitutional: No symptoms reported EENT: No symptoms reported Cardiovascular: No symptoms reported Respiratory: No symptoms reported Gastrointestinal: See HPI Genitourinary: See HPI Male Genitourinary: No symptoms reported Musculoskeletal: No symptoms reported Skin: No symptoms reported Hematologic/Lymphatic: No symptoms reported Neurological/Psychological: No symptoms reported Physical Exam - Vital signs Vitals: Temp Pulse Resp BP Pulse Ox 98.3 F 75 22 H 131/84 H 95 01/23/18 02:07 01/23/18 02:07 01/23/18 02:07 01/23/18 02:07 01/23/18 02:07 - Notes Notes: GENERAL: Alert, interacts well. Mildly uncomfortable appearing HEAD: Normocephalic, atraumatic. EYES: Pupils equal, round, and reactive to light. Extraocular movements intact. ENT: Oral mucosa moist, tongue midline. Oropharynx unremarkable. Airway patent. Nares patent, no nasal septal hematoma, TM's intact. NECK: Full range of motion. Supple. Trachea midline. LUNGS: Clear to auscultation bilaterally, no wheezes, rales, or rhonchi. No respiratory distress. HEART: Regular rate and rhythm. No murmur ABDOMEN: Tenderness in the left mid to lower abdomen, no guarding or rigidity, remaining abdomen nontender. Non-distended. Bowel sounds present in all 4 quadrants. GENITOURINARY: No signs of trauma, no current bleeding, unremarkable otherwise. EXTREMITIES: Moves all 4 extremities spontaneously. No edema, normal radial and dorsalis pedis pulses bilaterally. No cyanosis. BACK: no cervical, thoracic, lumbar midline tenderness. No saddle anesthesia, normal distal neurovascular exam. No CVA tenderness. NEUROLOGICAL: Alert and oriented x3. Normal speech. [cranial nerves II through XII grossly intact]. PSYCH: Normal affect, normal mood. SKIN: Warm, dry, normal turgor. No rashes or lesions noted. Course - Re-evaluation Re-evalutation: I did see the patient's urine at bedside, it appears to be gross blood. He does not have any bleeding from the penis however. He has not had any trauma. He does have some left lower abdominal pain but without guarding. He also has some bruising over the lower abdomen, he states this is from injecting his insulin. Vital signs are unremarkable, no fever. Patient medicated for his symptoms. On reevaluation he still has intermittent minimal symptoms. CBC shows mild leukocytosis, hemoglobin is normal. Chemistry shows mildly low potassium and magnesium is slightly low. Patient with no dizziness, palpitations, chest pain, shortness of breath. Urine shows blood, bacteria, white blood cells. Started on Rocephin. Culture placed. PT/INR unfortunately shows that patient is very over anticoagulated with INR of 9. CAT scan performed to rule out bleed and infected ureterolithiasis. Negative for both. I discussed with patient, recommended admission to the hospital for his over anticoagulation and urinary tract infection. I also recommended treatment of electrolytes. Patient declined. He states that he has to be home with his who is dying, he states that he must be discharged to be with her but he does agree to have his laboratory workup performed and close follow-up. He states he will take his antibiotics, hold his warfarin, and see his provider. He states he will return if he worsens. I discussed this with his daughter and she states agreement with this plan. I discussed with Dr. Mccullough. - Vital Signs Vital signs: Temp Pulse Resp BP Pulse Ox 98.8 F 75 22 H 159/100 H 98 01/23/18 04:50 01/23/18 02:07 01/23/18 02:07 01/23/18 04:50 01/23/18 04:50 - Laboratory Result Diagrams: 01/23/18 03:00 01/23/18 03:00 Laboratory results interpreted by me: 01/23/18 01/23/18 01/23/18 02:25 03:00 03:00 WBC 11.9 H Absolute Neutrophils 8.6 H PT 83.8 H* Potassium Chloride Carbon Dioxide Glucose Magnesium Alkaline Phosphatase Urine Protein 100 H Urine Blood LARGE H 01/23/18 01/23/18 03:00 03:00 WBC Absolute Neutrophils PT Potassium 3.1 L Chloride 97 L Carbon Dioxide 34 H Glucose 250 H Magnesium 1.5 L Alkaline Phosphatase 175 H Urine Protein Urine Blood Discharge - Discharge Clinical Impression: Hypercoagulable state Hematuria Qualifiers: Hematuria type: gross Qualified Code(s): R31.0 - Gross hematuria Urinary tract infection Qualifiers: Urinary tract infection type: site unspecified Hematuria presence: without hematuria Qualified Code(s): N39.0 - Urinary tract infection, site not specified Condition: Stable Disposition: HOME, SELF-CARE Additional Instructions: Your evaluation is most consistent with a recently stone, bleeding secondary to this, a urinary tract infection, and you are over anticoagulated. Hold your Coumadin for the next 2 days, call tomorrow for close primary care follow-up so they can recheck this. Be very careful and avoid falling because of your high risk of bleeding. You have been provided with pain medication to take, do not mix with alcohol or other sedating medication. Return immediately if you worsen including severe headache, vomiting, fever, severe abdominal pain, or any other concerning or worsening symptoms. Prescriptions: Cephalexin Monohydrate [Keflex 500 mg Capsule] 500 mg PO BID #14 capsule Morphine Sulfate [Morphine Ir 15 Mg Tablet] 15 mg PO TID PRN #10 tablet PRN Reason: Referrals: JEFFREY MYRICK MD [Primary Care Provider] - 01/25/18
[2018-01-23 03:10] LABS: ABSOLUTE BASOPHILS # (AUTO) 0.1 10^3/uL (0.0-0.2); ABSOLUTE EOSINOPHILS # (AUTO) 0.3 10^3/uL (0.0-0.6); ABSOLUTE LYMPHOCYTES (AUTO) 1.8 10^3/uL (0.5-4.7); ABSOLUTE MONOCYTES (AUTO) 0.9 10^3/uL (0.1-1.4); ABSOLUTE NEUT (AUTO) 8.6 10^3/uL (1.7-8.2); BASOPHILS % (AUTO) 1.2 % (0-2); EOSINOPHILS % (AUTO) 2.8 % (0-6); HEMATOCRIT 40.9 % (37.9-51.0); HEMOGLOBIN 13.9 g/dL (13.5-17.0); LYMPHOCYTES % (AUTO) 15.5 % (13-45); MEAN CORPUSCULAR HEMOGLOBIN 30.9 pg (27.0-33.4); MEAN CORPUSCULAR VOLUME 91 fl (80-97); MONOCYTES % (AUTO) 7.9 % (3-13); PLATELET COUNT 315 10^3/uL (150-450); RED BLOOD COUNT 4.49 10^6/uL (4.35-5.55); RED CELL DISTRIBUTION WIDTH 13.3 % (11.5-14.0); SEGMENTED NEUTROPHILS % (AUTO) 72.6 % (42-78); TOTAL CELLS COUNTED % (AUTO) 100 %; WHITE BLOOD COUNT 11.9 10^3/uL (4.0-10.5)
[2018-01-23 03:11] LABS: APPEARANCE,URINE CLOUDY; BILIRUBIN,URINE NEGATIVE (NEGATIVE); GLUCOSE, URINE NEGATIVE (NEGATIVE); KETONES,URINE NEGATIVE (NEGATIVE); LEUKOCYTE ESTERASE,URINE NEGATIVE (NEGATIVE); NITRITE,URINE NEGATIVE (NEGATIVE); PROTEIN,URINE 100 mg/dL (NEGATIVE); URINE SPECIFIC GRAVITY 1.014; UROBILINOGEN,URINE NEGATIVE mg/dL (<2.0)
[2018-01-23 03:12] LABS: COLOR,URINE RED
[2018-01-23 03:23] LABS: ALANINE AMINOTRANSFERASE 67 U/L (21-72); ALBUMIN 3.9 g/dL (3.5-5.0); ALKALINE PHOSPHATASE 175 U/L (38-126); ANION GAP 6 (5-19); ASPARTATE AMINO TRANSFERASE 38 U/L (17-59); BILIRUBIN,DIRECT 0.3 mg/dL (0.0-0.4); BILIRUBIN,TOTAL 0.6 mg/dL (0.2-1.3); BLOOD UREA NITROGEN 12 mg/dL (7-20); CARBON DIOXIDE 34 mmol/L (22-30); CHLORIDE 97 mmol/L (98-107); GLUCOSE 250 mg/dL (75-110); POTASSIUM 3.1 mmol/L (3.6-5.0); SODIUM 137.3 mmol/L (137-145); TOTAL PROTEIN 7.6 g/dL (6.3-8.2)
[2018-01-23] MEDS ORDERED: CEFTRIAXONE 1 GM/D5W RTU 1 GM/50 ML RTUPB IV ONE (03:23)
[2018-01-23 03:33] LABS: INTERNATIONAL RATION (INR) 9.98
[2018-01-23 03:34] LABS: PROTHROMBIN TIME 83.8 SEC (11.4-15.4)
--- NOTE | 2018-01-23 04:01 | RADIOLOGY REPORT (SQ) ---
CLINICAL DATA: 57-year-old male with abdominal pain and hematuria. TECHNICAL DATA: Axial CT imaging of the abdomen and pelvis was performed. Sagittal and coronal reconstructed images were then performed. The CT study is performed according to ALARA (as low as reasonably achievable) or ALARA/IMAGE GENTLY, with automatic adjustment of mA and/or kV according to patient size. Performed on: 01/23/2018 at 3:27 AM Comparison: Prior CT abdomen and pelvis performed on 07/26/2017. FINDINGS: Lung bases: The lung bases are clear. There is minimal bibasilar atelectasis and/or fibrosis. Liver:The liver is normal in size and configuration. No focal hepatic abnormalities are appreciated on this unenhanced scan. Liver attenuation is within normal limits. Spleen:The spleen is normal is size, configuration and attenuation. There are multiple splenic granulomas. Gallbladder and bile duct: The gallbladder is surgically absent. There is no biliary ductal dilatation. Pancreas: The pancreas is grossly normal in size and configuration. Adrenal Glands:The adrenal glands are normal in size and configuration. Kidneys:The kidneys are normal in size and configuration. There appears to be mild fullness of the left renal collecting system without nash hydronephrosis or hydroureter. No ureteral calculi are identified. There is no evidence of nephrolithiasis. No focal renal abnormalities are identified. Stomach:The stomach is grossly normal. There is no definite hiatal hernia. Bowel:The bowel gas pattern is non specific and non obstructive. Appendix: The appendix is not clearly visualized on this examination. There is no definite CT evidence to suggest acute appendicitis. Free air:There is no evidence of free air. Free fluid: There is no evidence of free fluid. Vasculature: The aorta is normal in caliber and contour. The inferior vena cava is grossly unremarkable. There are heavy atherosclerotic calcifications along the abdominal aorta and iliac arteries. Lymphadenopathy: No pathologic lymphadenopathy is identified. Bladder: The bladder is well distended and smooth in contour. Reproductive: The prostate gland is grossly within normal limits. There are punctate calcifications scattered throughout the prostate gland. Bones: No acute osseous abnormalities are identified. Soft tissues: There is infiltration of the subcutaneous fat along the lower anterior abdominal wall without significant skin thickening. This appearance could be related to cellulitis or localized subcutaneous injections. IMPRESSION: 1. Very mild fullness of the left renal collecting system without nash hydronephrosis or hydroureter. No urinary tract calcifications are identified. The appearance is nonspecific but could be related to a recently passed stone. 2. Evidence of prior granulomatous disease. 3. Remote cholecystectomy. 4. Heavy atherosclerotic calcifications along the abdominal aorta and iliac arteries. 5. Infiltration of the subcutaneous fat along the lower anterior abdominal wall which could be related to cellulitis or localized subcutaneous medication injections. This is new when compared to the prior study. Correlate clinically.
[2018-01-23] MEDS ORDERED: OXYCODONE-ACETAMINOPHEN 5-325 MG TABLET PO ONE (04:17)
[2018-01-23 05:04] VITALS: BP 159/100
== END 2018-01-23 05:04 | disposition home or self-care (01) ==
LOC: ER 00:57
DX: D68.59 Other primary thrombophilia (principal); R31.0 Gross hematuria; N39.0 Urinary tract infection, site not specified; R10.30 Lower abdominal pain, unspecified; Z79.01 Long term (current) use of anticoagulants; I10 Essential (primary) hypertension; J44.9 Chronic obstructive pulmonary disease, unspecified; E11.9 Type 2 diabetes mellitus without complications
CPT/HCPCS: 99284; 96375; 96365; 86900; 86901; 36415; 87086; 86850; 83735; 85025; 85610; 80053; 81001; 76380; J2270; A9270; J2405; J0696

== ENCOUNTER 2018-05-07 15:15 | Emergency (ER) | payer MEDICARE, MEDICAID ==
[2018-05-07 15:39] VITALS: BP 156/83
--- NOTE | 2018-05-07 18:28 | ER Document Report ---
ED Medical Screen (RME) - General Chief Complaint: Head Injury without LOC Stated Complaint: HEADACHE Time Seen by Provider: 05/07/18 18:25 Primary Care Provider: JEFFREY MYRICK MD [Primary Care Provider] - Follow up as needed Mode of Arrival: Medic Information source: Patient, Relative TRAVEL OUTSIDE OF THE [place] IN LAST 30 DAYS: No - HPI Patient complains to provider of: head injury Onset: This afternoon - pt with ossible syncopal episode after standing up from commode and hit his head on corner of wall (pt. on coumadin). Has been dizzy with CHRISTOPHER since - Related Data Allergies/Adverse Reactions: Cuban Ginseng [From Ginseng Edge] Allergy (Severe, Verified 07/26/17 17:27) INTERACTS WITH SZ MEDICATION SO CANNOT HAVE guarana seed extract [From Ginseng Edge] Allergy (Severe, Verified 07/26/17 17:27) INTERACTS WITH SZ MEDICATION SO CANNOT HAVE Turkish Ginseng [From Ginseng Edge] Allergy (Severe, Verified 07/26/17 17:27) INTERACTS WITH SZ MEDICATION SO CANNOT HAVE Siberian Ginseng Root Extract [From Ginseng Edge] Allergy (Severe, Verified 07/26/17 17:27) INTERACTS WITH SZ MEDICATION SO CANNOT HAVE Past Medical History - Social History Family history: Reviewed & Not Pertinent - Past Medical History Cardiac Medical History: Reports: Hx Hypercholesterolemia, Hx Hypertension Denies: Hx Coronary Artery Disease, Hx Heart Attack Pulmonary Medical History: Reports: Hx COPD Denies: Hx Asthma, Hx Bronchitis, Hx Pneumonia Neurological Medical History: Reports: Hx Cerebrovascular Accident - 2 Major CVAs- 1996, 2008, Hx Seizures Endocrine Medical History: Reports: Hx Diabetes Mellitus Type 2 Renal/ Medical History: Reports: Hx Kidney Stones. Denies: Hx Peritoneal Dialysis GI Medical History: Reports: Hx Gastroesophageal Reflux Disease Musculoskeltal Medical History: Reports Hx Arthritis Psychiatric Medical History: Reports: Hx Anxiety, Hx Depression Past Surgical History: Reports: Hx Appendectomy, Hx Cholecystectomy, Hx Orthopedic Surgery - Neck - Immunizations Hx Diphtheria, Pertussis, Tetanus Vaccination: Yes - 2006 History of Influenza Vaccine for 11/2016 - 04/2017 Season: Refused Physical Exam - Vital signs Vitals: Temp Pulse Resp BP Pulse Ox 98.1 F 70 18 156/83 H 99 05/07/18 15:36 05/07/18 15:36 05/07/18 15:36 05/07/18 15:36 05/07/18 15:36 Course - Vital Signs Vital signs: Temp Pulse Resp BP Pulse Ox 98.1 F 70 18 156/83 H 99 05/07/18 15:36 05/07/18 15:36 05/07/18 15:36 05/07/18 15:36 05/07/18 15:36 Doctor's Discharge - Discharge Referrals: JEFFREY MYRICK MD [Primary Care Provider] - Follow up as needed
--- NOTE | 2018-05-07 19:19 | RADIOLOGY REPORT (SQ) ---
EXAM DESCRIPTION: CT HEAD WITHOUT COMPLETED DATE/TIME: 05/07/2018 7:00 pm REASON FOR STUDY: head trauma COMPARISON: 09/28/2017 TECHNIQUE: Axial images acquired through the brain without intravenous contrast. Images reviewed wi th bone, brain and subdural windows. Images stored on PACS. All CT scanners at this facility use dose modulation, iterative reconstruction, and/or weight based d osing when appropriate to reduce radiation dose to as low as reasonably achievable (ALARA). [facility]: Dose Right [facility]: CareDose [facility]: Dose Right [facility]: Teradose 4D [facility]: Smart Play[employer] RADIATION DOSE: CT Rad equipment meets quality standard of care and radiation dose reduction techniq ues were employed. CTDIvol: 53.2 mGy. DLP: 991 mGy-cm.mGy. LIMITATIONS: None. FINDINGS: VENTRICLES: Stable. CEREBRUM: No masses. No hemorrhage. No midline shift. Areas of low density in the white matter due to chronic ischemic change. No evidence for acute infarction. CEREBELLUM: No masses. No hemorrhage. No alteration of density. No evidence for acute infarction. EXTRAAXIAL SPACES: Age-related involutional change. No fluid collections. No masses. ORBITS AND GLOBE: No intra- or extraconal masses. Normal contour of globe without masses. CALVARIUM: No fracture. PARANASAL SINUSES: No fluid or mucosal thickening. SOFT TISSUES: No mass or hematoma. OTHER: No other significant finding. IMPRESSION: No acute intracranial findings. EVIDENCE OF ACUTE STROKE: NO. TECHNICAL DOCUMENTATION: JOB ID: [id number] Quality ID # [id number]: Final reports with documentation of one or more dose reduction techniques (e.g., Au tomated exposure control, adjustment of the mA and/or kV according to patient size, use of iterative reconstruction technique) 2010 [employer]- All Rights Reserved Reading location - IP/workstation name: [email or web address]
[2018-05-07 20:11] LABS: APPEARANCE,URINE CLEAR; BILIRUBIN,URINE NEGATIVE (NEGATIVE); COLOR,URINE YELLOW; GLUCOSE, URINE NEGATIVE (NEGATIVE); KETONES,URINE NEGATIVE (NEGATIVE); LEUKOCYTE ESTERASE,URINE TRACE (NEGATIVE); NITRITE,URINE NEGATIVE (NEGATIVE); PROTEIN,URINE 30 mg/dL (NEGATIVE); URINE SPECIFIC GRAVITY 1.016
[2018-05-07 20:20] LABS: ABSOLUTE BASOPHILS # (AUTO) 0.1 10^3/uL (0.0-0.2); ABSOLUTE EOSINOPHILS # (AUTO) 0.3 10^3/uL (0.0-0.6); ABSOLUTE MONOCYTES (AUTO) 0.8 10^3/uL (0.1-1.4); ABSOLUTE NEUT (AUTO) 6.8 10^3/uL (1.7-8.2); BASOPHILS % (AUTO) 1.2 % (0-2); EOSINOPHILS % (AUTO) 2.4 % (0-6); HEMATOCRIT 42.5 % (37.9-51.0); LYMPHOCYTES % (AUTO) 27.5 % (13-45); MEAN CORPUSCULAR HEMOGLOBIN 31.8 pg (27.0-33.4); MEAN CORPUSCULAR HGB CONC 35.3 g/dL (32.0-36.0); MEAN CORPUSCULAR VOLUME 90 fl (80-97); MONOCYTES % (AUTO) 7.2 % (3-13); PLATELET COUNT 320 10^3/uL (150-450); RED BLOOD COUNT 4.71 10^6/uL (4.35-5.55); RED CELL DISTRIBUTION WIDTH 13.7 % (11.5-14.0); SEGMENTED NEUTROPHILS % (AUTO) 61.7 % (42-78); TOTAL CELLS COUNTED % (AUTO) 100 %
[2018-05-07 20:36] LABS: PROTHROMBIN TIME 11.5 SEC (11.4-15.4)
[2018-05-07 20:53] LABS: ALANINE AMINOTRANSFERASE 38 U/L (21-72); ALBUMIN 4.4 g/dL (3.5-5.0); ALKALINE PHOSPHATASE 106 U/L (38-126); ANION GAP 9 (5-19); ASPARTATE AMINO TRANSFERASE 20 U/L (17-59); BILIRUBIN,DIRECT 0.3 mg/dL (0.0-0.4); BILIRUBIN,TOTAL 0.8 mg/dL (0.2-1.3); BLOOD UREA NITROGEN 14 mg/dL (7-20); CARBON DIOXIDE 28 mmol/L (22-30); CHLORIDE 103 mmol/L (98-107); CREATINE KINASE 43 U/L (55-170); GLUCOSE 75 mg/dL (75-110); POTASSIUM 3.1 mmol/L (3.6-5.0); SODIUM 139.7 mmol/L (137-145)
--- NOTE | 2018-05-07 20:56 | EKG REPORT ---
SEVERITY:- NORMAL ECG - SINUS RHYTHM : Confirmed by: Rachel Chance MD 07-May-2018 20:55:01
[2018-05-07 21:04] LABS: CREATINE KINASE MB 0.29 ng/mL (<4.55)
[2018-05-07 21:10] LABS: TROPONIN I < 0.012 ng/mL
--- NOTE | 2018-05-07 22:36 | ER Document Report ---
ED General - General Chief Complaint: Head Injury without LOC Stated Complaint: HEADACHE Time Seen by Provider: 05/07/18 18:25 Primary Care Provider: JEFFREY MYRICK MD [Primary Care Provider] - Follow up as needed RACHEL MORALES MD [ACTIVE STAFF] - 05/10/18 Mode of Arrival: Medic Notes: Patient is a 57-year-old male with a past medical history of hypertension, prior CVA, prior MT, presents after an episode which he went from a sitting to standing position after urinating, states that he became lightheaded and fell striking his head on the corner of a wall. He then apparently fell backwards onto the floor. A loss of consciousness occurred either before or after the head trauma. Patient was unconscious for several seconds. He then spontaneously regained consciousness. EMS was contacted and patient was brought to the emergency department. At the time of my evaluation he describes a mild to moderate throbbing, aching, global headache most focal to the central forehead. Nothing seems to improve or worsen the headache. Denies any new focal weakness or numbness but states that he does have baseline weakness in the right upper Rachel from a prior CVA. Patient has been having frequent episodes of lightheadedness and/or presyncope for the past 1 month. Has seen his primary care doctor with out resolution to this issue. He denies any chest pain, palpitations, shortness of breath either before or after today's fall. Denies any of these symptoms currently. Does take warfarin for a history of DVTs. TRAVEL OUTSIDE OF THE [place] IN LAST 30 DAYS: No - Related Data Allergies/Adverse Reactions: Uzbek Ginseng [From Ginseng Edge] Allergy (Severe, Verified 07/26/17 17:27) INTERACTS WITH SZ MEDICATION SO CANNOT HAVE guarana seed extract [From Ginseng Edge] Allergy (Severe, Verified 07/26/17 17:2 7) INTERACTS WITH SZ MEDICATION SO CANNOT HAVE Albanian Ginseng [From Ginseng Edge] Allergy (Severe, Verified 07/26/17 17:27) INTERACTS WITH SZ MEDICATION SO CANNOT HAVE Siberian Ginseng Root Extract [From Ginseng Edge] Allergy (Severe, Verified 07/26/17 17:27) INTERACTS WITH SZ MEDICATION SO CANNOT HAVE Past Medical History - General Information source: Patient, Relative - Social History Smoking Status: Current Every Day Smoker Chew tobacco use (# tins/day): No Frequency of alcohol use: None Drug Abuse: None Lives with: Family Family History: Reviewed & Not Pertinent Patient has suicidal ideation: No Patient has homicidal ideation: No - Past Medical History Cardiac Medical History: Reports: Hx Hypercholesterolemia, Hx Hypertension Denies: Hx Coronary Artery Disease, Hx Heart Attack Pulmonary Medical History: Reports: Hx COPD Denies: Hx Asthma, Hx Bronchitis, Hx Pneumonia Neurological Medical History: Reports: Hx Cerebrovascular Accident - 2 Major CVAs- 1996, 2008, Hx Seizures Endocrine Medical History: Reports: Hx Diabetes Mellitus Type 2 Renal/ Medical History: Reports: Hx Kidney Stones. Denies: Hx Peritoneal Dialysis GI Medical History: Reports: Hx Gastroesophageal Reflux Disease Musculoskeletal Medical History: Reports Hx Arthritis Psychiatric Medical History: Reports: Hx Anxiety, Hx Depression Past Surgical History: Reports: Hx Appendectomy, Hx Cholecystectomy, Hx Orthopedic Surgery - Neck - Immunizations Hx Diphtheria, Pertussis, Tetanus Vaccination: Yes - 2006 Review of Systems - Review of Systems Notes: Constitutional: Negative for fever. Eyes: Negative for visual changes. ENT: Negative for facial injury Cardiovascular: Negative for chest injury. Respiratory: Negative for shortness of breath. Gastrointestinal: Negative for abdominal injury. Genitourinary: Negative for genital injury Musculoskeletal: Negative for back injury. Skin: Positive for laceration/abrasions. Neurological: Positive for head injury. Physical Exam - Vital signs Vitals: Temp Pulse Resp BP Pulse Ox 98.1 F 70 18 156/83 H 99 05/07/18 15:36 05/07/18 15:36 05/07/18 15:36 05/07/18 15:36 05/07/18 15:36 Interpretation: Hypertensive Notes: PHYSICAL EXAMINATION: GENERAL: Appears older than stated age but in no acute distress HEAD: Atraumatic, normocephalic. EYES: Pupils equal round and reactive to light, extraocular movements intact, sclera anicteric, conjunctiva are normal. ENT: nares patent, no oral pharyngeal trauma. No hemotympanum, no Rogers's sign, no raccoon eyes. NECK: No midline cervical spine tenderness. Patient able to move their head to 45 bilaterally without any discomfort. LUNGS: Breath sounds clear to auscultation bilaterally and equal. No wheezes rales or rhonchi. HEART: Regular rate and rhythm without murmurs. CHEST WALL: No ecchymosis over the chest wall. ABDOMEN: Soft, nontender, normoactive bowel sounds. No guarding, no rebound. No abdominal bruising EXTREMITIES: Normal range of motion, no pitting or edema. No long bone deformities. BACK: No midline spinal tenderness, step-offs, or deformities. NEUROLOGICAL: Patient has baseline weakness to the right upper and right lower extremity. Approximately 4- in the biceps and triceps as well as 4- both distal and proximal in the right lower extremity. Patient is daughter at bedside states this is baseline. The patient has 5 out of 5 biceps and triceps in the left upper extremity, 5 out of 5 both distally and proximally in the left lower extremity. PSYCH: Normal mood, normal affect. SKIN: Warm, Dry, normal turgor, abrasion to the central forehead Course - Re-evaluation Re-evalutation: 05/07/18 22:35 Patient presents after having an episode of near syncope versus syncope when going from a sitting to standing position after urinating striking his head on the corner of a wall. Patient is anticoagulated on Coumadin although his INR is not therapeutic. CT of the head obtained in triage noted to be unremarkable. Patient evaluated by NEXUS criteria and found to be negative. Patient is also negative by swedish C-spine criteria. No clinical evidence to suggest increased risk of cervical spine fracture. No indication for further imaging of the cervical spine this point. The patient has no additional findings of trauma on examination beyond an abrasion to his central forehead. Tetanus is already up-to-date. The patient reports that he has had at least 3-4 weeks of persistent episodes of lightheadedness and or dizziness. Uncertain whether or not he passed out today prior to or after the fall. No known history of CHF, chronic kidney disease. Labs unremarkable here. EKG without any acute findings. I have strongly encouraged the patient and his daughter at the bedside to follow-up closely with her primary care doctor given the recurrent nature of his symptoms and advised a cardiology consultation. A referral has been provided. No indication for hospitalization at this point patient does not have any red flag diagnoses mandating hospitalization under the context of syncope. It is also quite unclear to me whether or not the patient actually syncopized prior to falling as the history suggests more likely that he actually passed out after striking his head. He does have some signs and symptoms consistent with a concussion. Concussion precautions reviewed. At this time will discharge with return precautions and follow-up recommendations. Verbal discharge instructions given a the bedside and opportunity for questions given. Medication warnings reviewed. Patient is in agreement with this plan and has verbalized understanding of return precautions and the need for primary care follow-up in the next 24-72 hours. - Vital Signs Vital signs: Temp Pulse Resp BP Pulse Ox 98.1 F 70 18 156/83 H 99 05/07/18 15:36 05/07/18 15:36 05/07/18 15:36 05/07/18 15:36 05/07/18 15:36 - Laboratory Result Diagrams: 05/07/18 20:00 05/07/18 20:00 Laboratory results interpreted by me: 05/07/18 05/07/18 05/07/18 19:49 20:00 20:00 WBC 11.0 H Potassium 3.1 L Creatine Kinase 43 L Urine Protein 30 H Urine Urobilinogen 4.0 H Ur Leukocyte Esterase TRACE H - Diagnostic Test Radiology reviewed: Image reviewed, Reports reviewed Radiology results interpreted by me: 05/07/18 22:36 CT head: No acute intracranial bleed or mass - EKG Interpretation by Me Additional EKG results interpreted by me: 05/07/18 22:37 Sinus rhythm, rate 66. No ST elevations or depressions. QTC is 461. Discharge - Discharge Clinical Impression: Lightheadedness Head trauma Qualifiers: Encounter type: initial encounter Qualified Code(s): S09.90XA - Unspecified injury of head, initial encounter Syncope Qualifiers: Syncope type: unspecified Qualified Code(s): R55 - Syncope and collapse Condition: Good Disposition: HOME, SELF-CARE Additional Instructions: You have likely sustained a contusion (bruise) to your head. The CT scan of your head is normal today. Symptoms to expect from a concussion include nausea, mild to moderate headache, difficulty concentrating or sleeping, and mild lightheadedness. These symptoms should improve over the next few days to weeks. Return to the emergency department or follow-up with your primary care doctor if your symptoms are not improving over this time. Signs of a more serious head injury include vomiting, severe headache, excessive sleepiness or confusion, and weakness or numbness in your face, arms or legs. Return immediately to the Emergency Department if you experience any of these more concerning symptoms. Rest, avoid strenuous physical or mental activity, and avoid activities that could potentially result in another head injury until all your symptoms from this head injury are completely resolved for at least 2-3 weeks. As we discussed today, given your recurrent episodes of lightheadedness and near syncope you need to have a formal evaluation with cardiology. Please contact the senior professional services consultant listed in your paperwork today. Test that would be considered including echocardiogram, Holter monitor and possibly a stress test. They should also review your medications as your blood pressure does not appear to be optimally controlled and could also be contributing to your symptoms. Return if you develop persistent vomiting, confusion, become unable to walk, develop focal weakness or numbness that is different from your baseline right- sided weakness, have a fever of greater than 101 F, or have any other symptoms that are worrisome to you. Referrals: JEFFREY MYRICK MD [Primary Care Provider] - Follow up as needed RACHEL MORALES MD [ACTIVE STAFF] - 05/10/18
[2018-05-07] MEDS ORDERED: METOCLOPRAMIDE HCL 10 MG TABLET PO ONE (23:20)
[2018-05-07] MEDS ORDERED: ACETAMINOPHEN 325 MG TABLET PO ONE (23:20)
== END 2018-05-08 00:04 | disposition home or self-care (01) ==
LOC: ER 15:15
DX: S00.81XA Abrasion of other part of head, initial encounter (principal); R51 Headache; W19.XXXA Unspecified fall, initial encounter; Y93.89 Activity, other specified; W22.01XA Walked into wall, initial encounter; R55 Syncope and collapse; E11.9 Type 2 diabetes mellitus without complications; I69.351 Hemiplegia and hemiparesis following cerebral infarction affecting right dominant side; I10 Essential (primary) hypertension; I25.2 Old myocardial infarction; Z86.718 Personal history of other venous thrombosis and embolism; Z79.01 Long term (current) use of anticoagulants; J44.9 Chronic obstructive pulmonary disease, unspecified
CPT/HCPCS: 93005; 99284; 36415; 82553; 82550; 85025; 85610; 80053; 81001; 84484; 70450; 93010; A9270 ×2

== ENCOUNTER 2018-07-09 12:33 | Observation (INO) | payer MEDICARE, MEDICAID ==
[2018-07-09] MEDS ORDERED: ACETAMINOPHEN 325 MG TABLET PO ONE (14:31)
[2018-07-09] MEDS ORDERED: NORMAL SALINE 1000 ML 1,000 ML IV ONE (14:31)
--- NOTE | 2018-07-09 14:32 | ER Document Report ---
ED Medical Screen (RME) - General Chief Complaint: High Blood Sugar Stated Complaint: BLOOD SUGAR ISSUES Time Seen by Provider: 07/09/18 14:25 Primary Care Provider: JEFFREY MYRICK MD [Primary Care Provider] - Follow up as needed TRAVEL OUTSIDE OF THE [place] IN LAST 30 DAYS: No - HPI Notes: 07/09/18 14:33 Patient is a 57-year-old male with several comorbidities including diabetes, CVA, hypertension, end-stage renal disease (not currently on dialysis) who presents complaining of elevated blood glucose and right foot pain and swelling over the past 2 to 3 days. Patient is not aware of any injury to the foot. He is still able to eat and drink without difficulty. He is urinating normally and having normal bowel movements. Patient states that he has no other swelling to his legs. Denies CHRISTOPHER, fever, neck pain, URI, CP, SOB, Abd pain, dysuria, back pain, or rash. I have treated and performed a rapid initial assessment of this patient. A comprehensive ED assessment and evaluation of the patient, analysis of test results and completion of medical decision making process will be conducted by additional ED providers. PHYSICAL EXAMINATION: GENERAL: Well-appearing, well-nourished and in no acute distress. A&Ox4. Answers questions appropriately. LUNGS: Breath sounds clear to auscultation bilaterally and equal. No wheezes rales or rhonchi. HEART: Regular rate and rhythm without murmurs, rubs, gallops. ABDOMEN: Soft, nondistended abdomen. No guarding, no rebound. Normal bowel sounds present. No CVA tenderness bilaterally. Grossly nontender (cannot elic it thorough abd exam w/o bed, however). Right foot: Patient has warmth, swelling of the foot dorsally, trace pitting edema noted with 1+ pulses b/l. + tenderness to dorsal foot. No edema to the rt leg or left leg otherwise. No calf tenderness. NEUROLOGICAL: Normal speech, normal gait. PSYCH: Normal mood, normal affect. - Related Data Allergies/Adverse Reactions: Congolese Ginseng [From Ginseng Edge] Allergy (Severe, Verified 07/09/18 12:39) INTERACTS WITH SZ MEDICATION SO CANNOT HAVE guarana seed extract [From Ginseng Edge] Allergy (Severe, Verified 07/09/18 12:39) INTERACTS WITH SZ MEDICATION SO CANNOT HAVE Welsh Ginseng [From Ginseng Edge] Allergy (Severe, Verified 07/09/18 12:39) INTERACTS WITH SZ MEDICATION SO CANNOT HAVE Siberian Ginseng Root Extract [From Ginseng Edge] Allergy (Severe, Verified 07/09/18 12:39) INTERACTS WITH SZ MEDICATION SO CANNOT HAVE Past Medical History - Social History Chew tobacco use (# tins/day): No Frequency of alcohol use: None Drug Abuse: None Family history: Reviewed & Not Pertinent - Past Medical History Cardiac Medical History: Reports: Hx Hypercholesterolemia, Hx Hypertension Denies: Hx Coronary Artery Disease, Hx Heart Attack Pulmonary Medical History: Reports: Hx COPD Denies: Hx Asthma, Hx Bronchitis, Hx Pneumonia Neurological Medical History: Reports: Hx Cerebrovascular Accident - 2 Major CVAs- 1996, 2008, Hx Seizures Endocrine Medical History: Reports: Hx Diabetes Mellitus Type 2 Renal/ Medical History: Reports: Hx End Stage Renal Disease - dialysis in the past, Hx Kidney Stones. Denies: Hx Peritoneal Dialysis GI Medical History: Reports: Hx Gastroesophageal Reflux Disease Musculoskeltal Medical History: Reports Hx Arthritis Psychiatric Medical History: Reports: Hx Anxiety, Hx Depression Past Surgical History: Reports: Hx Appendectomy, Hx Cholecystectomy, Hx Orthopedic Surgery - Neck - Immunizations Hx Diphtheria, Pertussis, Tetanus Vaccination: Yes - 2006 History of Influenza Vaccine for 11/2016 - 04/2017 Season: Refused Physical Exam - Vital signs Vitals: Temp Pulse Resp BP Pulse Ox 98.7 F 73 16 138/82 H 95 07/09/18 12:43 07/09/18 12:43 07/09/18 12:43 07/09/18 12:43 07/09/18 12:43 Course - Vital Signs Vital signs: Temp Pulse Resp BP Pulse Ox 98.7 F 73 16 138/82 H 95 07/09/18 12:43 07/09/18 12:43 07/09/18 12:43 07/09/18 12:43 07/09/18 12:43 - Laboratory Laboratory results interpreted by me: 07/09/18 12:47 POC Glucose 509 H* Doctor's Discharge - Discharge Referrals: JEFFREY MYRICK MD [Primary Care Provider] - Follow up as needed
[2018-07-09 14:52] LABS: ABSOLUTE BASOPHILS # (AUTO) 0.1 10^3/uL (0.0-0.2); ABSOLUTE EOSINOPHILS # (AUTO) 0.2 10^3/uL (0.0-0.6); ABSOLUTE LYMPHOCYTES (AUTO) 1.9 10^3/uL (0.5-4.7); ABSOLUTE MONOCYTES (AUTO) 0.4 10^3/uL (0.1-1.4); ABSOLUTE NEUT (AUTO) 5.4 10^3/uL (1.7-8.2); BASOPHILS % (AUTO) 1.3 % (0-2); EOSINOPHILS % (AUTO) 3.1 % (0-6); HEMATOCRIT 42.3 % (37.9-51.0); HEMOGLOBIN 14.3 g/dL (13.5-17.0); LYMPHOCYTES % (AUTO) 23.7 % (13-45); MEAN CORPUSCULAR HGB CONC 33.7 g/dL (32.0-36.0); MEAN CORPUSCULAR VOLUME 92 fl (80-97); MONOCYTES % (AUTO) 5.3 % (3-13); PLATELET COUNT 271 10^3/uL (150-450); RED BLOOD COUNT 4.59 10^6/uL (4.35-5.55); RED CELL DISTRIBUTION WIDTH 13.9 % (11.5-14.0); SEGMENTED NEUTROPHILS % (AUTO) 66.6 % (42-78); TOTAL CELLS COUNTED % (AUTO) 100 %; WHITE BLOOD COUNT 8.1 10^3/uL (4.0-10.5)
[2018-07-09 14:54] LABS: VENOUS BLOOD BASE EXCESS 4.6 mmol/L; VENOUS BLOOD HCO3 31.4 mmol/L (20-32); VENOUS BLOOD PCO2 55.3 mmHg (35-63); VENOUS BLOOD PH 7.37 (7.30-7.42)
--- NOTE | 2018-07-09 15:07 | RADIOLOGY REPORT (SQ) ---
EXAM DESCRIPTION: FOOT RIGHT COMPLETE COMPLETED DATE/TIME: 07/09/2018 2:56 pm REASON FOR STUDY: rt foot pain/swelling COMPARISON: None. NUMBER OF VIEWS: Three views. TECHNIQUE: AP, lateral and oblique radiographic images acquired of the right foot. LIMITATIONS: None. FINDINGS: MINERALIZATION: Normal. BONES: No acute fracture or dislocation. No worrisome bone lesions. JOINTS: No effusions. SOFT TISSUES: No soft tissue swelling. No foreign body. OTHER: No other significant finding. IMPRESSION: NEGATIVE STUDY OF THE RIGHT FOOT. NO RADIOGRAPHIC EVIDENCE OF ACUTE INJURY. TECHNICAL DOCUMENTATION: JOB ID: [id number] [employer]- All Rights Reserved Reading location - IP/workstation name: [email or web address]
[2018-07-09 15:11] LABS: INTERNATIONAL RATION (INR) 2.48; PARTIAL THROMBOPLASTIN TIME 34.8 SEC (23.5-35.8)
[2018-07-09 15:18] LABS: ALANINE AMINOTRANSFERASE 24 U/L (21-72); ALBUMIN 4.2 g/dL (3.5-5.0); ALKALINE PHOSPHATASE 123 U/L (38-126); ANION GAP 11 (5-19); ASPARTATE AMINO TRANSFERASE 14 U/L (17-59); BILIRUBIN,DIRECT 0.3 mg/dL (0.0-0.4); BILIRUBIN,TOTAL 0.3 mg/dL (0.2-1.3); BLOOD UREA NITROGEN 7 mg/dL (7-20); CALCIUM 9.3 mg/dL (8.4-10.2); CARBON DIOXIDE 30 mmol/L (22-30); CHLORIDE 99 mmol/L (98-107); POTASSIUM 3.5 mmol/L (3.6-5.0); SODIUM 139.5 mmol/L (137-145); TOTAL PROTEIN 7.6 g/dL (6.3-8.2)
[2018-07-09 15:26] LABS: GLUCOSE 468 mg/dL (75-110)
--- NOTE | 2018-07-09 17:24 | ER Document Report ---
ED Blood Sugar Problem - General Chief Complaint: High Blood Sugar Stated Complaint: BLOOD SUGAR ISSUES Time Seen by Provider: 07/09/18 14:25 Primary Care Provider: JEFFREY MYRICK MD [Primary Care Provider] - Follow up as needed Notes: Patient is an insulin-dependent diabetic who says that his blood sugars reading high today. Also, patient is complaining of pain in his right foot associated with swelling and discoloration of the dorsal aspect of the right foot. He says he started noticing the pain about 3 days ago in the distal midfoot, near the attachment of the second and third and fourth toes to the foot. He has no injuries in that area no breaks in the skin. Patient does have some mild neuropathy, but does have pain sensation. Is been nauseated but not vomiting. No diarrhea or change in bowels. Denies difficulty breathing or shortness of breath. Denies any fevers. PMH: Stroke x2, Guyon Hale syndrome, cardiomegaly. IDDM, hypertension, blood clot in right thigh 7 years ago, requiring surgical removal and subsequent secondarily developed increased compartment pressure in the right lower leg and had to have a fasciotomy. No history of gout. Patient is on Coumadin because he has a tendency to clot frequently. TRAVEL OUTSIDE OF THE [place] IN LAST 30 DAYS: No - Related Data Allergies/Adverse Reactions: Togolese Ginseng [From Ginseng Edge] Allergy (Severe, Verified 07/09/18 12:39) INTERACTS WITH SZ MEDICATION SO CANNOT HAVE guarana seed extract [From Ginseng Edge] Allergy (Severe, Verified 07/09/18 12:39) INTERACTS WITH SZ MEDICATION SO CANNOT HAVE Uzbek Ginseng [From Ginseng Edge] Allergy (Severe, Verified 07/09/18 12:39) INTERACTS WITH SZ MEDICATION SO CANNOT HAVE Siberian Ginseng Root Extract [From Ginseng Edge] Allergy (Severe, Verified 07/09/18 12:39) INTERACTS WITH SZ MEDICATION SO CANNOT HAVE Past Medical History - Social History Smoking Status: Current Every Day Smoker Chew tobacco use (# tins/day): No Frequency of alcohol use: None Drug Abuse: None Family History: Reviewed & Not Pertinent Patient has suicidal ideation: No Patient has homicidal ideation: No - Past Medical History Cardiac Medical History: Reports: Hx Hypercholesterolemia, Hx Hypertension Pulmonary Medical History: Reports: Hx COPD Neurological Medical History: Reports: Hx Cerebrovascular Accident - 2 Major CVAs- 1996, 2009, Hx Seizures, Other - Guyon Hale syndrome Endocrine Medical History: Reports: Hx Diabetes Mellitus Type 1, Hx Diabetes Mellitus Type 2 Renal/ Medical History: Reports: Hx End Stage Renal Disease - dialysis in the past, Hx Kidney Stones GI Medical History: Reports: Hx Gastroesophageal Reflux Disease Musculoskeletal Medical History: Reports Hx Arthritis Psychiatric Medical History: Reports: Hx Anxiety, Hx Depression Past Surgical History: Reports: Hx Appendectomy, Hx Cholecystectomy, Hx Orthopedic Surgery - Neck - Immunizations Hx Diphtheria, Pertussis, Tetanus Vaccination: Yes - 2006 Review of Systems - Review of Systems Notes: REVIEW OF SYSTEMS: CONSTITUTIONAL : Denies fever. EENT: Denies eye, ear, nose or mouth or throat pain or other symptoms. CARDIOVASCULAR: Denies chest pain. RESPIRATORY: Denies cough, chest congestion, or shortness of breath. GASTROINTESTINAL: Denies abdominal pain or nausea, vomiting, or diarrhea. GENITOURINARY: Denies difficulty or painful urinating, urinary frequency, blood in urine. MUSCULOSKELETAL: Denies back or neck pain. Patient complains of pain and swelling and discoloration of the dorsal aspect of his right foot from mid foot to the attachment of the toes. Otherwise denies joint pain or swelling. Negative Homans bilaterally. SKIN: Denies rash or skin lesions. See HPI. NEUROLOGICAL: Denies LOC or altered mental status. Denies headache. Denies sensory loss or motor deficits. ALL OTHER SYSTEMS REVIEWED AND NEGATIVE. Physical Exam - Vital signs Vitals: Temp Pulse Resp BP Pulse Ox 98.7 F 73 16 138/82 H 95 07/09/18 12:43 07/09/18 12:43 07/09/18 12:43 07/09/18 12:43 07/09/18 12:43 Interpretation: Normal. No: Febrile Notes: PHYSICAL EXAMINATION: GENERAL: Well-appearing, in no acute distress. Vital signs are all normal. HEAD: Atraumatic, normocephalic. EYES: Pupils equal round and reactive to light, extraocular movements intact. ENT: oropharynx clear without exudates. Moist mucous membranes. NECK: Normal range of motion, supple. LUNGS: Breath sounds clear and equal bilaterally. HEART: Regular rate and rhythm without murmurs. ABDOMEN: Soft, nontender. No guarding or rebound. No masses. BACK: No tenderness throughout entire back. EXTREMITIES: Painful swelling of the dorsal aspect of the right foot about the midfoot and ankle region on down towards the attachment of the middle toes on the underside of the right foot. Very tender. Patient has swelling which makes it difficult to feel pulses,, but I do believe I can palpate both dorsalis pedis and posterior tibial pulses, although they are faint. Likely subcutaneous blood, of the dorsal midfoot and down into the heel of the foot and back towards the toes. Good capillary refill. The left foot is normal. NEUROLOGICAL: Normal speech,. Normal sensory, motor, and reflex exams. Awake, alert, and oriented x3. Cranial nerves normal. PSYCH: Normal mood, normal affect. SKIN: Warm, dry, no rashes. Course - Re-evaluation Re-evalutation: 07/09/18 17:57 Blood sugars around 500. Labs do not appear to be DKA. - Vital Signs Vital signs: Temp Pulse Resp BP Pulse Ox 98.7 F 73 16 138/82 H 95 07/09/18 12:43 07/09/18 12:43 07/09/18 12:43 07/09/18 12:43 07/09/18 12:43 - Laboratory Result Diagrams: 07/09/18 14:40 07/09/18 14:40 Laboratory results interpreted by me: 07/09/18 07/09/18 07/09/18 12:47 14:40 14:40 PT 28.0 H Potassium 3.5 L Glucose 468 H* POC Glucose 509 H* Magnesium 1.5 L AST 14 L Urine Glucose (UA) 07/09/18 16:15 PT Potassium Glucose POC Glucose Magnesium AST Urine Glucose (UA) >=500 H - Diagnostic Test Radiology results interpreted by me: 07/09/18 18:01 X-ray of the right foot is normal. Soft tissue swelling present. No evidence of osteomyelitis, fracture, or dislocation. Discharge - Discharge Clinical Impression: IDDM (insulin dependent diabetes mellitus), Cellulitis of right foot, Hematoma Condition: Stable Disposition: ADMITTED INPATIENT Admitting Provider: Ann (Hospitalist) Unit Admitted: Medical Floor Referrals: JEFFREY MYRICK MD [Primary Care Provider] - Follow up as needed
[2018-07-09 17:33] LABS: APPEARANCE,URINE CLEAR; BILIRUBIN,URINE NEGATIVE (NEGATIVE); COLOR,URINE YELLOW; GLUCOSE, URINE >=500 mg/dL (NEGATIVE); KETONES,URINE NEGATIVE (NEGATIVE); LEUKOCYTE ESTERASE,URINE NEGATIVE (NEGATIVE); NITRITE,URINE NEGATIVE (NEGATIVE); PROTEIN,URINE NEGATIVE (NEGATIVE); URINE SPECIFIC GRAVITY 1.033; UROBILINOGEN,URINE NEGATIVE mg/dL (<2.0)
[2018-07-09] MEDS ORDERED: OXYCODONE-ACETAMINOPHEN 5-325 MG TABLET PO ONE (17:42)
[2018-07-09] MEDS ORDERED: OXYCODONE HCL IR 5 MG TABLET PO ONE (17:55)
[2018-07-09] MEDS ORDERED: INSULIN LISPRO 100 UNIT/ML 3 ML VIAL SUBCUT ONE (18:37)
[2018-07-09] MEDS ORDERED: ACETAMINOPHEN 325 MG TABLET PO PRN (19:20)
[2018-07-09] MEDS ORDERED: DOCUSATE SODIUM 100 MG CAPSULE PO PRN (19:20)
[2018-07-09] MEDS ORDERED: MAG HYDROX/AL HYDROX/SIMETH SUSP 30 ML UDCUP PO PRN (19:20)
[2018-07-09] MEDS ORDERED: PROMETHAZINE HCL 25 MG TABLET PO PRN (19:20)
[2018-07-09] MEDS ORDERED: TEMAZEPAM 7.5 MG CAPSULE PO PRN (19:20)
[2018-07-09] MEDS ORDERED: ALBUTEROL SULFATE HFA (90 MCG/PUFF) 200 PUFF/8.5 GM MDI IH PRN (19:31)
[2018-07-09] MEDS ORDERED: GLUCAGON,HUMAN RECOMB 1 MG INJ IM PRN (19:38)
[2018-07-09] MEDS ORDERED: DEXTROSE 40% GEL 15 GM TUBE PO PRN ×2 (19:38)
[2018-07-09] MEDS ORDERED: DEXTROSE 50%-WATER 25 GM/50 ML DISP.SYRIN IV PRN ×2 (19:38)
[2018-07-09] MEDS ORDERED: NICOTINE 14 MG/24 HR PATCH.TD24 TD PRN (19:41)
[2018-07-09] MEDS ORDERED: MECLIZINE HCL 25 MG TABLET PO PRN (19:42)
--- NOTE | 2018-07-09 20:16 | PDOC H&P ---
History of Present Illness Admission Date/PCP: 07/09/18 18:14 JEFFREY MYRICK Patient complains of: Pain and discoloration of the right foot History of Present Illness: RADHA GARCIA is a 57 year old male with history of 2 strokes (2010 and 2006), uncontrolled diabetes mellitus type 2, diabetic neuropathy, hypertension, depression and DVT in the left leg with subsequent compartment syndrome requiring fasciotomy. The patient notes that several days ago he began to have increased discomfort in the distal right foot. First the plantar aspect was painful and then the dorsum of the foot became discolored and tender. It was slightly warm to touch. It was discolored. The patient presented to the emergency department. His white blood cell count was normal. He was mildly hypertensive. Of most concern was the mottled discolored appearance of the right foot. His INR was therapeutic but there is certainly concern for infection with hematoma. His glucose was 500. He also had low magnesium and potassium. With all of his comorbidities the patient was referred to the hospitalist service for admission for cellulitis of the right foot. Past Medical History Cardiac Medical History: Reports: DVT, Hyperlipidema, Hypertension Denies: Coronary Artery Disease, Myocardial Infarction Pulmonary Medical History: Reports: Chronic Obstructive Pulmonary Disease (COPD) Denies: Asthma, Bronchitis, Pneumonia Neurological Medical History: Reports: Ischemic CVA, Seizures, Other - Guillian Hale syndrome Endocrine Medical History: Reports: Diabetes Mellitus Type 2 Renal/ Medical History: Reports: Other - Acute kidney injury requiring hemodialysis in the past. Normal renal funct GI Medical History: Reports: Gastroesophageal Reflux Disease Musculoskeltal Medical History: Reports: Arthritis Psychiatric Medical History: Reports: Depression, Tobacco Dependency Hematology: Denies: Anemia Past Surgical History Past Surgical History: Reports: Appendectomy, Cholecystectomy, Orthopedic Surgery - Neck. Flexor tendon release both hands. Social History Information Source: Patient, [facility] Records Lives with: Family - His daughter and grandchildren live with him Smoking Status: Current Every Day Smoker Cigarettes Packs Per Day: 1 Frequency of Alcohol Use: None Hx Recreational Drug Use: No Drugs: None Hx Prescription Drug Abuse: No Past Social History Note: Recently in January 2018 - Advance Directive Resuscitation Status: Full Code Surrogate healthcare decision maker:: Currently no healthcare proxy or living will on record. His daughter Caprice is the designated decision maker. Family History Family History: CAD, Malignancy - Melanoma Parental Family History Reviewed: Yes Children Family History Reviewed: Yes Sibling(s) Family History Reviewed.: Yes Medication/Allergy Home Medications: Albuterol Sulfate [Proair HFA] 2 puff IH Q4HP PRN 11/13/16 Fluticasone Propionate [Flonase Nasal [place] 50 Mcg/[place] 16 gm] 2 sprays NASL DAILYP PRN 11/13/16 Gabapentin [Neurontin] 400 mg PO TID 11/13/16 Glimepiride [Amaryl 4 mg Tablet] 8 mg PO QAM 11/13/16 Insulin Aspart [Novolog Insulin (Aspart) 100 unit/mL] 0 unit SUBCUT .SLIDING SCALE 11/13/16 Clonidine HCl 0.2 mg PO BID #60 tablet 07/26/17 Buprenorphine [Butrans] 20 mcg TP MO@1000 09/28/17 Tizanidine HCl [Zanaflex] 4 mg PO TID 09/28/17 Atorvastatin Calcium [Lipitor 40 mg Tablet] 40 mg PO QHS 07/09/18 Bupropion HCl [Wellbutrin Xl 300mg 24hr Tablet] 300 mg PO DAILY 07/09/18 Carvedilol [Coreg 6.25 mg Tablet] 6.25 mg PO Q12 07/09/18 Escitalopram Oxalate [Lexapro] 20 mg PO DAILY 07/09/18 Fluticasone/Salmeterol [Advair 250-50 Diskus 14 Dose/Diskus] 1 inh IH Q12 07/09/18 Insulin Detemir [Levemir] 55 unit SQ BID 07/09/18 Oxycodone HCl/Acetaminophen [Percocet 5-325 mg Tablet] 1 tab PO Q6HP PRN 07/09/18 Pantoprazole Sodium [Protonix [address] Tablet] 40 mg PO QAM 07/09/18 Pregabalin [Lyrica 100 Mg Capsule] 100 mg PO Q8 07/09/18 Warfarin Sodium [Coumadin 7.5 mg Tablet] 7.5 mg PO QHS 07/09/18 Allergies/Adverse Reactions: Swazi Ginseng [From Ginseng Edge] Allergy (Severe, Verified 07/09/18 12:39) INTERACTS WITH SZ MEDICATION SO CANNOT HAVE guarana seed extract [From Ginseng Edge] Allergy (Severe, Verified 07/09/18 12:39) INTERACTS WITH SZ MEDICATION SO CANNOT HAVE Spanish Ginseng [From Ginseng Edge] Allergy (Severe, Verified 07/09/18 12:39) INTERACTS WITH SZ MEDICATION SO CANNOT HAVE [facility] Ginseng Root Extract [From Ginseng Edge] Allergy (Severe, Verified 07/09/18 12:39) INTERACTS WITH SZ MEDICATION SO CANNOT HAVE Review of Systems Constitutional: PRESENT: anorexia - Decreased appetite, weight loss - Over 20 pounds but he is not sure of the timeframe. ABSENT: headache(s), night sweats Eyes: PRESENT: visual disturbances - Blank spot in the central visual field of the right eye. Left eye is normal. Ears: ABSENT: hearing changes Nose, Mouth, and Throat: PRESENT: vertigo - Reports that recently on occasion when he turns his head there is a room spinning. ABSENT: mouth pain, sore throat Cardiovascular: ABSENT: chest pain, edema, palpitations Respiratory: ABSENT: cough, dyspnea, hemoptysis, sputum Gastrointestinal: PRESENT: diarrhea - Occasional, heartburn. ABSENT: abdominal pain, constipation, nausea, vomiting Genitourinary: PRESENT: nocturia Musculoskeletal: PRESENT: back pain. ABSENT: deformity Integumentary: PRESENT: erythema, other - Ecchymosis consistent with likely hematoma right foot. ABSENT: pruritus Neurological: PRESENT: abnormal speech - Very mild dysarthria, memory loss - Somewhat slow recalling details, vertigo. ABSENT: convulsions, restless legs, tremor(s) Psychiatric: PRESENT: depression. ABSENT: anxiety, hallucinations Endocrine: ABSENT: cold intolerance, heat intolerance, polydipsia, polyphagia Hematologic/Lymphatic: ABSENT: easy bleeding, easy bruising Physical Exam Vital Signs: Temp Pulse Resp BP Pulse Ox 98.7 F 73 16 138/82 H 95 07/09/18 12:43 07/09/18 12:43 07/09/18 12:43 07/09/18 12:43 07/09/18 12:43 Intake & Output 07/08/18 07/09/18 07/10/18 06:59 06:59 06:59 Intake Total 1000 Balance 1000 Weight 71.9 kg General appearance: PRESENT: no acute distress, cooperative, well-developed Head exam: PRESENT: atraumatic, normocephalic Eye exam: PRESENT: conjunctiva pink, EOMI. ABSENT: nystagmus, periorbital swelling, scleral icterus Ear exam: PRESENT: normal external ear exam Mouth exam: PRESENT: moist, tongue midline, other - castillo discoloration with cobblestone appearance Throat exam: ABSENT: post pharyngeal erythema Respiratory exam: PRESENT: clear to auscultation mark, symmetrical, unlabored. ABSENT: accessory muscle use, rales, rhonchi, tachypnea, wheezes Cardiovascular exam: PRESENT: RRR, +S1, +S2 Pulses: PRESENT: normal radial pulses, normal dorsalis pedis pul GI/Abdominal exam: PRESENT: normal bowel sounds, soft. ABSENT: distended, guarding, tenderness Rectal exam: PRESENT: deferred Gentrourinary exam: ABSENT: indwelling catheter Extremities exam: ABSENT: pedal edema Musculoskeletal exam: PRESENT: normal inspection Neurological exam: PRESENT: alert, awake, oriented to person, oriented to place, oriented to time, oriented to situation, other - Very mild dysarthria Psychiatric exam: PRESENT: flat affect. ABSENT: agitated, anxious Focused psych exam: ABSENT: delusional, restlessness Skin exam: PRESENT: other - Dusky discoloration of the distal right foot and several toes possibly related to hematoma formation. No open lesions. Results Laboratory Results: 07/09/18 14:40 07/09/18 14:40 07/09/18 07/09/18 07/09/18 14:40 14:40 14:40 WBC 8.1 RBC 4.59 Hgb 14.3 Hct 42.3 MCV 92 MCH 31.0 MCHC 33.7 RDW 13.9 Plt Count 271 Seg Neutrophils % 66.6 Lymphocytes % 23.7 Monocytes % 5.3 Eosinophils % 3.1 Basophils % 1.3 Absolute Neutrophils 5.4 Absolute Lymphocytes 1.9 Absolute Monocytes 0.4 Absolute Eosinophils 0.2 Absolute Basophils 0.1 VBG pH 7.37 VBG pCO2 55.3 VBG HCO3 31.4 VBG Base Excess 4.6 Sodium 139.5 Potassium 3.5 L Chloride 99 Carbon Dioxide 30 Anion Gap 11 BUN 7 Creatinine 0.68 Est GFR ( Amer) > 60 Est GFR (Non-Af Amer) > 60 Glucose 468 H* Uric Acid Calcium 9.3 Magnesium 1.5 L Total Bilirubin 0.3 AST 14 L ALT 24 Alkaline Phosphatase 123 Total Protein 7.6 Albumin 4.2 Urine Color Urine Appearance Urine pH Ur Specific [place] Urine Protein Urine Glucose (UA) Urine Ketones Urine Blood Urine Nitrite Ur Leukocyte Esterase Urine WBC (Auto) Urine RBC (Auto) 07/09/18 07/09/18 14:40 16:15 WBC RBC Hgb Hct MCV MCH MCHC RDW Plt Count Seg Neutrophils % Lymphocytes % Monocytes % Eosinophils % Basophils % Absolute Neutrophils Absolute Lymphocytes Absolute Monocytes Absolute Eosinophils Absolute Basophils VBG pH VBG pCO2 VBG HCO3 VBG Base Excess Sodium Potassium Chloride Carbon Dioxide Anion Gap BUN Creatinine Est GFR ( Amer) Est GFR (Non-Af Amer) Glucose Uric Acid 3.1 L Calcium Magnesium Total Bilirubin AST ALT Alkaline Phosphatase Total Protein Albumin Urine Color YELLOW Urine Appearance CLEAR Urine pH 7.0 Ur Specific [place] 1.033 Urine Protein NEGATIVE Urine Glucose (UA) >=500 H Urine Ketones NEGATIVE Urine Blood NEGATIVE Urine Nitrite NEGATIVE Ur Leukocyte Esterase NEGATIVE Urine WBC (Auto) 1 Urine RBC (Auto) 0 Impressions: Foot X-Ray 07/09/18 14:29 IMPRESSION: NEGATIVE STUDY OF THE RIGHT FOOT. NO RADIOGRAPHIC EVIDENCE OF ACUTE INJURY. Assessment and Plan - Diagnosis (1) Cellulitis of right foot Is this a current diagnosis for this admission?: Yes Plan: It is somewhat difficult to be sure however the onset and appearance of the foot suggest possible underlying infection. Because of good dorsalis pedis pulse it is unlikely to be ischemic. The skin is slightly warm to touch rather than cold. There is tenderness. There is no open wound. I am going to start Ancef and monitor closely. (2) Hematoma Is this a current diagnosis for this admission?: Yes Plan: The dorsum of the right foot is suggestive of possible subcutaneous hematoma. The patient's INR is in fact in the therapeutic range. We will continue his 7.5 mg of warfarin and monitor the foot closely. If there is 6 suggestion of increased bleeding into the soft tissue we will hold his warfarin. (3) Diabetes mellitus type 2, insulin dependent Is this a current diagnosis for this admission?: Yes Plan: His initial glucose was 500. He reports that he is on a NovoLog sliding scale with 55 units of Levemir twice daily. I will continue Accu-Cheks before meals and at bedtime with a Humalog sliding scale. I will start Lantus 55 units twice daily. Will monitor the sliding scale insulin needs and adjust his Lantus accordingly. (4) Diabetic neuropathy Qualifiers: Diabetes mellitus type: type 2 Diabetes mellitus complication detail: diabetic polyneuropathy Qualified Code(s): E11.42 - Type 2 diabetes mellitus with diabetic polyneuropathy Is this a current diagnosis for this admission?: Yes Plan: I did review the medication bottles that the patient brought to the facility. Although pregabalin is on an old medication list the only prescribed medication in hand was gabapentin 800 mg 3 times a day and so I will continue this regimen. (5) Vertigo Is this a current diagnosis for this admission?: Yes Plan: He describes classic vertigo symptoms that are intermittent. He did not have a nystagmus on exam. I will make meclizine available if needed. He does have a history of 2 strokes and this could be a late effect of stroke. (6) Hypomagnesemia Is this a current diagnosis for this admission?: Yes Plan: On an old medication list the patient has mag oxide 400 mg daily. I will resume oral magnesium and monitor his magnesium level. (7) HTN (hypertension) Qualifiers: Hypertension type: essential hypertension Qualified Code(s): I10 - Essential (primary) hypertension Is this a current diagnosis for this admission?: Yes Plan: On old medication list there are multiple medications. Currently the medications in hand are carvedilol and clonidine. His blood pressure was slightly elevated and with his underlying diabetes I have resumed valsartan. Parameters for low blood pressure are in place. (8) GERD (gastroesophageal reflux disease) Qualifiers: Esophagitis presence: without esophagitis Qualified Code(s): K21.9 - Ga stro-esophageal reflux disease without esophagitis Is this a current diagnosis for this admission?: Yes Plan: History of gastroesophageal reflux disease. He does report that his appetite is inconsistent. We will continue Protonix 40 mg daily at this time. (9) Hyperlipidemia Qualifiers: Hyperlipidemia type: mixed hyperlipidemia Qualified Code(s): E78.2 - Mixed hyperlipidemia Is this a current diagnosis for this admission?: Yes Plan: I will substitute atorvastatin for his room the statin. With a history of 2 strokes as well as family cardiac history he is at high risk for systemic atherosclerosis. He is not on antiplatelet therapy, only chronic anticoagulation. I will defer to his primary care physician with regard to antiplatelet therapy. (10) Depression Qualifiers: Depression Type: unspecified Qualified Code(s): F32.9 - Major depressive disorder, single episode, unspecified Is this a current diagnosis for this admission?: Yes Plan: The initiation of treatment for depression is unknown. He did recently lose his in January 2018. This certainly could be a reactive depression. He has had 2 strokes and this would be a significant reason for depression. We will continue his current medication regimen. He certainly seems asymptomatic at this time. (11) History of DVT (deep vein thrombosis) Is this a current diagnosis for this admission?: Yes Plan: He has a history of DVT with subsequent compartment syndrome and fasciotomy in the left leg. His current warfarin prescription bottle is for 7.5 mg and he reports that he takes 1 tab daily. I will continue this dose and check his INR. (12) Tobacco dependence due to cigarettes Is this a current diagnosis for this admission?: Yes Plan: Despite history of 2 strokes and a family history of cardiac disease the patient continues to smoke. We discussed the significant risks. He acknowledges that many people have encouraged him to stop smoking. On the list of all medications there are in fact is an entry for Chantix. At this time I will offer a nicotine patch. - Time Time Spent with patient: 35 or more minutes - Approximately 70 minutes was spent on this admission. Smoking Cessation Education: 3 to 10 minutes Medications reviewed and adjusted accordingly: Yes Anticipated discharge: Home Within: within 48 hours - Plan Summary Plan Summary: We will admit the patient to initiate IV antibiotics. I will also treat the hypokalemia and hypomagnesemia. Based on the effectiveness of the antibiotics he may discharge home tomorrow or possibly Thursday at the latest.
[2018-07-09] MEDS: OXYCODONE-ACETAMINOPHEN 5-325 MG TABLET PO PRN (20:46)
[2018-07-09] MEDS ORDERED: INSULIN GLARGINE,HUM.REC.ANLOG 1,000 UNIT/10 ML VIAL SUBCUT SCH (22:00)
[2018-07-09] MEDS ORDERED: WARFARIN SODIUM 7.5 MG TABLET PO SCH (22:00)
[2018-07-09] MEDS ORDERED: ATORVASTATIN CALCIUM 40 MG TABLET PO SCH (22:00)
[2018-07-09] MEDS ORDERED: INSULIN GLARGINE,HUM.REC.ANLOG 1,000 UNIT/10 ML VIAL (PYX) SUBCUT ONE (22:19)
[2018-07-09] MEDS: GABAPENTIN 400 MG CAPSULE PO SCH (22:33)
[2018-07-09] MEDS: CARVEDILOL 6.25 MG TABLET PO SCH (22:34)
[2018-07-09] MEDS: CEFAZOLIN 1 GM/D5W RTU 1 GM/50 ML RTUPB IV SCH (22:36)
[2018-07-10] MEDS: INSULIN LISPRO 100 UNIT/ML 3 ML VIAL SUBCUT SCH ×4 (01:08→17:35)
[2018-07-10 04:38] LABS: INTERNATIONAL RATION (INR) 2.55; PROTHROMBIN TIME 28.7 SEC (11.4-15.4)
[2018-07-10 04:54] LABS: ANION GAP 8 (5-19); BLOOD UREA NITROGEN 9 mg/dL (7-20); CALCIUM 8.7 mg/dL (8.4-10.2); CARBON DIOXIDE 29 mmol/L (22-30); CHLORIDE 104 mmol/L (98-107); GLUCOSE 97 mg/dL (75-110); SODIUM 141.4 mmol/L (137-145)
[2018-07-10 05:16] LABS: POTASSIUM 2.7 mmol/L (3.6-5.0)
[2018-07-10] MEDS: CEFAZOLIN 1 GM/D5W RTU 1 GM/50 ML RTUPB IV SCH ×3 (05:39→18:00)
[2018-07-10] MEDS: OXYCODONE-ACETAMINOPHEN 5-325 MG TABLET PO PRN ×3 (05:43→18:22)
[2018-07-10] MEDS: GABAPENTIN 400 MG CAPSULE PO SCH ×2 (05:44→15:26)
[2018-07-10] MEDS ORDERED: PANTOPRAZOLE SODIUM 40 MG TABLET.DR PO SCH (06:00)
[2018-07-10] MEDS: POTASSIUM CHLORIDE 20 MEQ/50 ML RTU IV SCH ×2 (06:29→10:17)
[2018-07-10] MEDS ORDERED: GLIMEPIRIDE 4 MG TABLET PO SCH (08:00)
[2018-07-10] MEDS ORDERED: VALSARTAN 160 MG TABLET PO ONE (08:30)
[2018-07-10] MEDS ORDERED: CLONIDINE HCL 0.2 MG TABLET PO ONE (08:30)
[2018-07-10] MEDS: POTASSIUM CHLORIDE 10 MEQ CAPSULE.ER PO SCH ×3 (08:43→17:36)
[2018-07-10] MEDS ORDERED: CARVEDILOL 6.25 MG TABLET PO ONE (08:45)
[2018-07-10] MEDS ORDERED: INSULIN GLARGINE,HUM.REC.ANLOG 1,000 UNIT/10 ML VIAL (PYX) SUBCUT ONE ×3 (10:00→13:21)
[2018-07-10] MEDS ORDERED: VALSARTAN 160 MG TABLET PO SCH (10:00)
[2018-07-10] MEDS ORDERED: HYDROCHLOROTHIAZIDE 25 MG TABLET PO SCH (10:00)
[2018-07-10] MEDS ORDERED: POTASSIUM CHLORIDE 10 MEQ CAPSULE.ER PO SCH (10:00)
[2018-07-10] MEDS ORDERED: (PENDING PHARMACY ID) (Gabapentin [Neurontin] 400 MG) PO SCH (10:00)
[2018-07-10] MEDS ORDERED: MAGNESIUM OXIDE 400 MG TABLET PO SCH ×2 (10:00→18:00)
[2018-07-10] MEDS ORDERED: CITALOPRAM HYDROBROMIDE 20 MG TABLET PO SCH (10:00)
[2018-07-10] MEDS: CLONIDINE HCL 0.2 MG TABLET PO SCH ×2 (10:28→17:36)
[2018-07-10] MEDS: CARVEDILOL 6.25 MG TABLET PO SCH (10:29)
[2018-07-10] MEDS: OXYCODONE HCL IR 5 MG TABLET PO PRN ×2 (12:25→18:23)
[2018-07-10] MEDS: POTASSI CL 20 MEQ/50 ML RIDER 20 MEQ/50 ML RTUPB IV SCH ×3 (14:45→17:31)
[2018-07-10] MEDS: MAGNESIUM SULFATE/D5W 1 GM/100 ML RTUPB IV SCH ×2 (14:55→16:05)
[2018-07-10 16:16] VITALS: BP 165/76
--- NOTE | 2018-07-10 20:18 | PDOC DISCHARGE SUMMARY ---
General - Admit/Disc Date/PCP Admission Date/Primary Care Provider: 07/09/18 18:14 JEFFREY MYRICK Discharge Date: 07/10/18 - Discharge Diagnosis (1) Cellulitis of right foot Is this a current diagnosis for this admission?: Yes Summary: There is no open area on the foot. The patient was afebrile and had a normal white blood cell count but was exhibiting discomfort and slight erythema. There is also some dusky discoloration. The patient was on antibiotics overnight. The foot is cat tender. After further observation and evaluation he did not feel that this is a significant cellulitis and will not continue antibiotics at home. The patient is having discomfort. He has a history of a DVT with fasciotomy. He also has systemic atherosclerosis. We will continue with aspi rin and warfarin. He will follow-up with Dr. Myrick and he might benefit from assessment by a vascular surgeon. (2) Hematoma Is this a current diagnosis for this admission?: Yes Summary: There is a suggestion of hematoma due to the slight dusky discoloration on the foot. I did not stop the patient's warfarin therapy. With a suspicion of peripheral vascular disease I felt the benefits of remaining on aspirin and warfarin greatly outweighed any risk. (3) Diabetes mellitus type 2, insulin dependent Is this a current diagnosis for this admission?: Yes Summary: He will return to his Levemir and NovoLog regimen and continue his glimepiride. (4) Diabetic neuropathy Is this a current diagnosis for this admission?: Yes Summary: Continue gabapentin (5) Vertigo Is this a current diagnosis for this admission?: Yes Summary: He did not have any episodes of vertigo and therefore he will not need a prescription for meclizine at discharge. (6) Hypomagnesemia Is this a current diagnosis for this admission?: Yes Summary: His serum magnesium was low today. He will receive IV magnesium and his daily magnesium dose will be increased to 3 times daily with meals (7) HTN (hypertension) Is this a current diagnosis for this admission?: Yes Summary: In the past he had been on a combination medication. I have resumed his valsartan, amlodipine and hydrochlorothiazide. This combination was is in a single pill. I explained that I will keep the medication separate in case Dr. Myrick would like to change his regimen. (8) GERD (gastroesophageal reflux disease) Is this a current diagnosis for this admission?: Yes Summary: Continue Protonix daily (9) Hyperlipidemia Is this a current diagnosis for this admission?: Yes Summary: Continue statin therapy daily (10) Depression Is this a current diagnosis for this admission?: Yes Summary: Continue Wellbutrin daily (11) History of DVT (deep vein thrombosis) Is this a current diagnosis for this admission?: Yes Summary: Continue warfarin daily follow-up with Dr. Myrick for INR testing. (12) Tobacco dependence due to cigarettes Is this a current diagnosis for this admission?: Yes Summary: Strongly suggested smoking cessation. (13) Chronic pain Is this a current diagnosis for this admission?: Yes Summary: It is certainly possible that his chronic leg pain is vascular. He is on narcotics at home. He requested a prescription. He reported that he is out of his medication. I did provide a prescription for 15 tablets of the 5 mg oxycodone. He reports that he takes 10 mg. Hopefully he will be judicious and try to make these last until his follow-up appointment. - Additional Information Resuscitation Status: Full Code Discharge Diet: Cardiac Discharge Activity: Activity As Tolerated Prescriptions: Amlodipine Besylate [Norvasc 5 mg Tablet] 5 mg PO QHS 30 Days #30 tablet Hydrochlorothiazide [Hydrodiuril 25 mg Tablet] 25 mg PO DAILY 30 Days #30 tablet Magnesium Oxide [Mag-Ox 400 mg Tablet] 400 mg PO BID 30 Days #60 tablet Oxycodone HCl [Oxy-Ir 5 mg Tablet] 5 mg PO Q6HP PRN 4 Days #15 tablet PRN Reason: Potassium Chloride [Klor-Con 10 Meq Capsule ER] 20 meq PO MEALS 30 Days #90 capsule.er Valsartan 320 mg PO DAILY 30 Days #30 tablet Home Medications: Albuterol Sulfate [Proair HFA] 2 puff IH Q6HP PRN 11/13/16 Fluticasone Propionate [Flonase Nasal [place] 50 Mcg/[place] 16 gm] 2 sprays NAREB DAILYP PRN 11/13/16 Gabapentin [Neurontin] 800 mg PO Q8 11/13/16 Glimepiride [Amaryl 4 mg Tablet] 4 mg PO QAM 11/13/16 Insulin Aspart [Novolog Insulin (Aspart) 100 unit/mL] 0 unit SUBCUT .SLIDING SCALE 11/13/16 Clonidine HCl 0.2 mg PO BID #60 tablet 07/26/17 Buprenorphine [Butrans] 20 mcg TP MO@1000 09/28/17 Tizanidine HCl [Zanaflex] 4 mg PO Q8HP PRN 09/28/17 Atorvastatin Calcium [Lipitor 40 mg Tablet] 40 mg PO QHS 07/09/18 Bupropion HCl [Wellbutrin Xl 300mg 24hr Tablet] 300 mg PO DAILY 07/09/18 Carvedilol [Coreg 6.25 mg Tablet] 6.25 mg PO Q12 07/09/18 Escitalopram Oxalate [Lexapro] 20 mg PO DAILY 07/09/18 Fluticasone/Salmeterol [Advair 250-50 Diskus 14 Dose/Diskus] 1 inh IH Q12 07/09/18 Insulin Detemir [Levemir] 55 unit SQ BID 07/09/18 Pantoprazole Sodium [Protonix [address] Tablet] 40 mg PO QAM 07/09/18 Warfarin Sodium [Coumadin 7.5 mg Tablet] 7.5 mg PO QHS 07/09/18 Amlodipine Besylate [Norvasc 5 mg Tablet] 5 mg PO QHS 30 Days #30 tablet 07/10/18 Atorvastatin Calcium [Lipitor 40 mg Tablet] 40 mg PO QHS tablet 07/10/18 Carvedilol [Coreg 6.25 mg Tablet] 6.25 mg PO Q12 tablet 07/10/18 Docusate Sodium [Colace 100 mg Capsule] 100 mg PO BIDP PRN capsule 07/10/18 Hydrochlorothiazide [Hydrodiuril 25 mg Tablet] 25 mg PO DAILY 30 Days #30 tablet 07/10/18 Magnesium Oxide [Mag-Ox 400 mg Tablet] 400 mg PO BID 30 Days #60 tablet 07/10/18 Nicotine [Nicoderm 14 mg/24 Hr Transdermal Patch] 1 each TD DAILYP PRN patch.td24 07/10/18 Oxycodone HCl [Oxy-Ir 5 mg Tablet] 5 mg PO Q6HP PRN 4 Days #15 tablet 07/10/18 Pantoprazole Sodium [Protonix [address] Tablet] 40 mg PO Q6AM tablet.dr 07/10/18 Potassium Chloride [Klor-Con 10 Meq Capsule ER] 20 meq PO MEALS 30 Days #90 capsule.er 07/10/18 Valsartan 320 mg PO DAILY 30 Days #30 tablet 07/10/18 Warfarin Sodium [Coumadin 7.5 mg Tablet] 7.5 mg PO QHS tablet 07/10/18 History of Present Illness Patient complains of: Foot pain History of Present Illness: RADHA GARCIA is a 57 year old male with history of 2 strokes (2010 and 2006), uncontrolled diabetes mellitus type 2, diabetic neuropathy, hypertension, depression and DVT in the left leg with subsequent compartment syndrome requiring fasciotomy. The patient notes that several days ago he began to have increased discomfort in the distal right foot. First the plantar aspect was painful and then the dorsum of the foot became discolored and tender. It was slightly warm to touch. It was discolored. The patient presented to the emergency department. His white blood cell count was normal. He was mildly hypertensive. Of most concern was the mottled discolored appearance of the right foot. His INR was therapeutic but there is certainly concern for infectio n with hematoma. His glucose was 500. He also had low magnesium and potassium. With all of his comorbidities the patient was referred to the hospitalist service for admission for cellulitis of the right foot. Hospital Course Hospital Course: The patient had an unremarkable hospital course. Today his foot is not as sore. The discoloration does not seem as bad. I once again reviewed all of the information from the admission and reviewed the physical exam. It is possible that the discomfort in the foot is more vascular than infectious. For this r andrew we will continue the warfarin and aspirin therapy but I did not prescribe antibiotic therapy as I do not feel he needed at this time. He will continue his other medications. He certainly needs closer monitoring of his medications especially considering his medical comorbidities. He will follow-up with Dr. Myrick as an outpatient. Physical Exam Vital Signs: Temp Pulse Resp BP Pulse Ox 98.1 F 62 17 194/88 H 100 07/10/18 08:00 07/10/18 08:00 07/10/18 08:00 07/10/18 08:00 07/10/18 08:00 Intake & Output 07/09/18 07/10/18 07/11/18 06:59 06:59 06:59 Intake Total 2049 Output Total 400 Balance 1650 Weight 61.8 kg General appearance: PRESENT: mild distress, well-developed Head exam: PRESENT: atraumatic, normocephalic Eye exam: PRESENT: conjunctiva pink. ABSENT: scleral icterus Ear exam: PRESENT: normal external ear exam Teeth exam: PRESENT: poor dentation Respiratory exam: PRESENT: clear to auscultation mark, symmetrical, unlabored. ABSENT: accessory muscle use, rales, rhonchi, tachypnea, wheezes Cardiovascular exam: PRESENT: RRR, +S1, +S2 GI/Abdominal exam: PRESENT: normal bowel sounds, soft. ABSENT: distended, tenderness Extremities exam: PRESENT: other - No significant erythema. The dorsum of the foot is still slightly swollen. The dusky discoloration exhibited yesterday is noticeably less today. Neurological exam: PRESENT: alert, awake, oriented to person, oriented to place, oriented to time, oriented to situation Psychiatric exam: PRESENT: flat affect. ABSENT: agitated, anxious Focused psych exam: ABSENT: delusional, restlessness Skin exam: PRESENT: other - Foot exam as above Results Laboratory Results: 07/09/18 14:40 07/10/18 04:20 07/09/18 07/09/18 07/09/18 14:40 14:40 14:40 WBC 8.1 RBC 4.59 Hgb 14.3 Hct 42.3 MCV 92 MCH 31.0 MCHC 33.7 RDW 13.9 Plt Count 271 Seg Neutrophils % 66.6 Lymphocytes % 23.7 Monocytes % 5.3 Eosinophils % 3.1 Basophils % 1.3 Absolute Neutrophils 5.4 Absolute Lymphocytes 1.9 Absolute Monocytes 0.4 Absolute Eosinophils 0.2 Absolute Basophils 0.1 VBG pH 7.37 VBG pCO2 55.3 VBG HCO3 31.4 VBG Base Excess 4.6 Sodium 139.5 Potassium 3.5 L Chloride 99 Carbon Dioxide 30 Anion Gap 11 BUN 7 Creatinine 0.68 Est GFR ( Amer) > 60 Est GFR (Non-Af Amer) > 60 Glucose 468 H* Uric Acid Calcium 9.3 Magnesium 1.5 L Total Bilirubin 0.3 AST 14 L ALT 24 Alkaline Phosphatase 123 Total Protein 7.6 Albumin 4.2 Urine Color Urine Appearance Urine pH Ur Specific [place] Urine Protein Urine Glucose (UA) Urine Ketones Urine Blood Urine Nitrite Ur Leukocyte Esterase Urine WBC (Auto) Urine RBC (Auto) 07/09/18 07/09/18 07/10/18 14:40 16:15 04:20 WBC RBC Hgb Hct MCV MCH MCHC RDW Plt Count Seg Neutrophils % Lymphocytes % Monocytes % Eosinophils % Basophils % Absolute Neutrophils Absolute Lymphocytes Absolute Monocytes Absolute Eosinophils Absolute Basophils VBG pH VBG pCO2 VBG HCO3 VBG Base Excess Sodium 141.4 Potassium 2.7 L* Chloride 104 Carbon Dioxide 29 Anion Gap 8 BUN 9 Creatinine 0.58 Est GFR ( Amer) > 60 Est GFR (Non-Af Amer) > 60 Glucose 97 Uric Acid 3.1 L Calcium 8.7 Magnesium 1.4 L Total Bilirubin AST ALT Alkaline Phosphatase Total Protein Albumin Urine Color YELLOW Urine Appearance CLEAR Urine pH 7.0 Ur Specific [place] 1.033 Urine Protein NEGATIVE Urine Glucose (UA) >=500 H Urine Ketones NEGATIVE Urine Blood NEGATIVE Urine Nitrite NEGATIVE Ur Leukocyte Esterase NEGATIVE Urine WBC (Auto) 1 Urine RBC (Auto) 0 Impressions: Foot X-Ray 07/09/18 14:29 IMPRESSION: NEGATIVE STUDY OF THE RIGHT FOOT. NO RADIOGRAPHIC EVIDENCE OF ACUTE INJURY. Qualifiers - * PATIENT BEING DISCHARGED WITH ANY OF THE FOLLOWING DIAGNOSIS: No Acute Heart Failure Is this a Heart Failure Patient?: No
[2018-07-10] MEDS ORDERED: INSULIN GLARGINE,HUM.REC.ANLOG 1,000 UNIT/10 ML VIAL SUBCUT SCH (22:00)
[2018-07-10] MEDS ORDERED: AMLODIPINE BESYLATE 5 MG TABLET PO SCH (22:00)
== END 2018-07-10 19:11 | disposition home or self-care (01) ==
LOC: ER 12:33 → INTOOBSV 18:14 → EH 18:14 → 5 20:38
PROVIDERS: ADMIT Hospitalist; ATTEND Hospitalist
PROC: HZ31ZZZ Individual Counseling for Substance Abuse Treatment, Behavioral (ICD-10-PCS; principal; 2018-07-09)
DX: L03.115 Cellulitis of right lower limb (principal); E11.65 Type 2 diabetes mellitus with hyperglycemia; E11.40 Type 2 diabetes mellitus with diabetic neuropathy, unspecified; R42 Dizziness and giddiness; E83.42 Hypomagnesemia; E78.2 Mixed hyperlipidemia; K21.9 Gastro-esophageal reflux disease without esophagitis; F32.9 Major depressive disorder, single episode, unspecified; G89.29 Other chronic pain; M79.606 Pain in leg, unspecified; G61.0 Guillain-Barre syndrome; J44.9 Chronic obstructive pulmonary disease, unspecified; F17.210 Nicotine dependence, cigarettes, uncomplicated; E11.22 Type 2 diabetes mellitus with diabetic chronic kidney disease; I12.0 Hypertensive chronic kidney disease with stage 5 chronic kidney disease or end stage renal disease; N18.6 End stage renal disease; R63.0 Anorexia; R63.4 Abnormal weight loss; R41.3 Other amnesia; R47.1 Dysarthria and anarthria; Z79.82 Long term (current) use of aspirin; Z79.4 Long term (current) use of insulin; Z86.718 Personal history of other venous thrombosis and embolism; Z86.73 Personal history of transient ischemic attack (TIA), and cerebral infarction without residual deficits; Z90.49 Acquired absence of other specified parts of digestive tract; Z82.49 Family history of ischemic heart disease and other diseases of the circulatory system; Z98.890 Other specified postprocedural states; Z79.02 Long term (current) use of antithrombotics/antiplatelets
CPT/HCPCS: 99284; 96360; 96361; 36415 ×2; 82962 ×2; 83735 ×2; 84550; 85025; 85610 ×2; 85730; 80048; 80053; 81001; 82803; 73630; 97116; 97163; 99406; G0378 ×3; A9270 ×19; J0690 ×2; J3475; J3490 ×3; J3480; J7030; J1815

== ENCOUNTER 2018-08-15 05:05 | Emergency (ER) | payer MEDICARE, MEDICAID ==
[2018-08-15] MEDS ORDERED: CLINDAMYCIN 600 MG/D5W RTU 600 MG/50 ML RTUPB IV ONE (08:24)
[2018-08-15 08:32] LABS: INTERNATIONAL RATION (INR) 4.27; PROTHROMBIN TIME 42.2 SEC (11.4-15.4)
[2018-08-15 08:35] LABS: ALANINE AMINOTRANSFERASE 25 U/L (21-72); ALBUMIN 3.5 g/dL (3.5-5.0); ALKALINE PHOSPHATASE 118 U/L (38-126); ANION GAP 9 (5-19); ASPARTATE AMINO TRANSFERASE 13 U/L (17-59); BILIRUBIN,DIRECT 0.2 mg/dL (0.0-0.4); BILIRUBIN,TOTAL 0.4 mg/dL (0.2-1.3); BLOOD UREA NITROGEN 9 mg/dL (7-20); CALCIUM 8.8 mg/dL (8.4-10.2); CARBON DIOXIDE 30 mmol/L (22-30); CHLORIDE 94 mmol/L (98-107); GLUCOSE 364 mg/dL (75-110); POTASSIUM 3.5 mmol/L (3.6-5.0); SODIUM 133.4 mmol/L (137-145); TOTAL PROTEIN 6.7 g/dL (6.3-8.2)
[2018-08-15 08:39] LABS: ABSOLUTE BASOPHILS # (AUTO) 0.1 10^3/uL (0.0-0.2); ABSOLUTE EOSINOPHILS # (AUTO) 0.3 10^3/uL (0.0-0.6); ABSOLUTE LYMPHOCYTES (AUTO) 2.3 10^3/uL (0.5-4.7); ABSOLUTE MONOCYTES (AUTO) 1.1 10^3/uL (0.1-1.4); ABSOLUTE NEUT (AUTO) 12.6 10^3/uL (1.7-8.2); BASOPHILS % (AUTO) 0.7 % (0-2); EOSINOPHILS % (AUTO) 1.8 % (0-6); HEMATOCRIT 42.1 % (37.9-51.0); LYMPHOCYTES % (AUTO) 14.2 % (13-45); MEAN CORPUSCULAR HEMOGLOBIN 30.8 pg (27.0-33.4); MEAN CORPUSCULAR HGB CONC 33.3 g/dL (32.0-36.0); MEAN CORPUSCULAR VOLUME 93 fl (80-97); MONOCYTES % (AUTO) 6.7 % (3-13); PLATELET COUNT 274 10^3/uL (150-450); RED BLOOD COUNT 4.55 10^6/uL (4.35-5.55); SEGMENTED NEUTROPHILS % (AUTO) 76.6 % (42-78); TOTAL CELLS COUNTED % (AUTO) 100 %; WHITE BLOOD COUNT 16.5 10^3/uL (4.0-10.5)
[2018-08-15] MEDS ORDERED: MORPHINE SULFATE 10 MG/ML INJ IV ONE (08:50)
[2018-08-15] MEDS ORDERED: ONDANSETRON HCL INJ/PF 4 MG/2 ML SDV IV ONE (08:50)
[2018-08-15] MEDS ORDERED: MAGNESIUM SULFATE/D5W 1 GM/100 ML RTUPB IV SCH (09:00)
--- NOTE | 2018-08-15 09:09 | ER Document Report ---
Entered by CHEIKH FRANCISCO SCRIBE 08/15/18 0827 Acting as scribe for:KULWANT CHOUDHARY MD ED Skin Rash/Insect Bite/Abscs - General Chief Complaint: Skin Problem Stated Complaint: MASS ON NECK Time Seen by Provider: 08/15/18 08:14 Primary Care Provider: JEFFREY MYRICK MD [Primary Care Provider] - Follow up as needed Mode of Arrival: Ambulatory Information source: Patient Notes: 57-year-old male comes emergency room complaining of pain and swelling to the back of his head and neck, and some swelling to his right anterior lateral neck. He states the swelling started about 2 days ago. His daughter arrived and states that his bleeding time was checked a few days ago and it was normal suggesting that he was not anticoagulated. He does take Coumadin for prior DVT from some years ago. Patient was admitted here on 07/09/2018 for cellulitis to foot. At that time he is found to have poorly controlled blood sugars. TRAVEL OUTSIDE OF THE [place] IN LAST 30 DAYS: No - Related Data Allergies/Adverse Reactions: [place] Ginseng [From Ginseng Edge] Allergy (Severe, Verified 07/09/18 12:39) INTERACTS WITH SZ MEDICATION SO CANNOT HAVE guarana seed extract [From Ginseng Edge] Allergy (Severe, Verified 07/09/18 12:39) INTERACTS WITH SZ MEDICATION SO CANNOT HAVE Hebrew Ginseng [From Ginseng Edge] Allergy (Severe, Verified 07/09/18 12:39) INTERACTS WITH SZ MEDICATION SO CANNOT HAVE Siber[place] Ginseng Root Extract [From Ginseng Edge] Allergy (Severe, Verified 07/09/18 12:39) INTERACTS WITH SZ MEDICATION SO CANNOT HAVE Past Medical History - General Information source: Patient - Social History Smoking Status: Current Every Day Smoker Cigarette use (# per day): Yes - 1 PPD Chew tobacco use (# tins/day): No Smoking Education Provided: No Frequency of alcohol use: None Drug Abuse: None Occupation: Unemployed Lives with: Family Family History: Reviewed & Not Pertinent, CAD, Malignancy - Melanoma - Past Medical History Cardiac Medical History: Reports: Hx DVT - Left leg, Hx Hypercholesterolemia, Hx Hypertension Pulmonary Medical History: Reports: Hx COPD Neurological Medical History: Reports: Hx Cerebrovascular Accident - 2 Major CVAs- 1996, 2008, Hx Seizures Endocrine Medical History: Reports: Hx Diabetes Mellitus Type 2 Renal/ Medical History: Reports: Hx Kidney Stones GI Medical History: Reports: Hx Gastroesophageal Reflux Disease Musculoskeletal Medical History: Reports Hx Arthritis Psychiatric Medical History: Reports: Hx Anxiety, Hx Depression Past Surgical History: Reports: Hx Appendectomy, Hx Cholecystectomy, Hx Orthopedic Surgery - Neck. Flexor tendon release both hands. - Immunizations Hx Diphtheria, Pertussis, Tetanus Vaccination: Yes - 2006 Review of Systems - Review of Systems Constitutional: No symptoms reported EENT: No symptoms reported Cardiovascular: No symptoms reported Respiratory: No symptoms reported Gastrointestinal: No symptoms reported Genitourinary: No symptoms reported Male Genitourinary: No symptoms reported Musculoskeletal: No symptoms reported Skin: See HPI, Lesions - abscess to neck Hematologic/Lymphatic: No symptoms reported Neurological/Psychological: No symptoms reported -: Yes All other systems reviewed and negative Physical Exam - Vital signs Vitals: Temp Pulse Resp BP Pulse Ox 98.5 F 81 20 122/97 H 98 08/15/18 05:09 08/15/18 05:09 08/15/18 05:09 08/15/18 05:09 08/15/18 05:09 - General General appearance: Appears well, Alert In distress: None - HEENT Head: Normocephalic, Atraumatic Eyes: Normal Pupils: PERRL Neck: Other - Left posterior neck at the nuchal ridge region has large tender swollen area with questionable fluctuance. There is a scab in the center of it. There is a smaller similar lesion just distal which also has a scab in the center but does not feel like there is any fluctuance. The right anterior lateral neck has some soft tissue swelling that is not particularly tender but patient reports is new today. - Respiratory Respiratory status: No respiratory distress Chest status: Nontender Breath sounds: Normal - Cardiovascular Rhythm: Regular Heart sounds: Normal auscultation Murmur: No - Abdominal Inspection: Normal - Back Back: Normal - Extremities General upper extremity: Normal inspection General lower extremity: Normal inspection - Neurological Neuro grossly intact: Yes - Psychological Associated symptoms: Normal affect, Normal mood - Skin Skin Temperature: Warm Skin Moisture: Dry Skin Color: Normal Course - Re-evaluation Re-evalutation: 08/15/18 09:28 After initially agreeing to admission, the patient changes mind and states she has to leave. He has a cousin that is on the way to his house to pick him up to go to [place]. I explained to him the seriousness of the infection with his diabetes and being excessively anticoagulated. I explained that the infection could get out of control and kill him. I explained that the abscess could grow and rupture and he could bleed to . He accepts these risks and is willing to sign out AMA. I will give him a prescription for clindamycin and have him stop taking his Coumadin for two days. - Vital Signs Vital signs: Temp Pulse Resp BP Pulse Ox 98.5 F 81 20 122/97 H 98 08/15/18 05:09 08/15/18 05:09 08/15/18 05:09 08/15/18 05:09 08/15/18 05:09 - Laboratory Result Diagrams: 08/15/18 08:05 08/15/18 08:05 Laboratory results interpreted by me: 08/15/18 08/15/18 08/15/18 08:05 08:05 08:05 WBC 16.5 H Absolute Neutrophils 12.6 H PT 42.2 H Sodium 133.4 L Potassium 3.5 L Chloride 94 L Glucose 364 H Hemoglobin A1c % Magnesium 1.2 L* AST 13 L 08/15/18 08:05 WBC Absolute Neutrophils PT Sodium Potassium Chloride Glucose Hemoglobin A1c % 13.5 H Magnesium AST Discharge - Discharge Clinical Impression: Abscess, Excessive anticoagulation Leukocytosis Qualifiers: Leukocytosis type: unspecified Qualified Code(s): D72.829 - Elevated white blood cell count, unspecified Uncontrolled diabetes mellitus Qualifiers: Diabetes mellitus type: type 2 Glycemic state: with hyperglycemia Qualified Code(s): E11.65 - Type 2 diabetes mellitus with hyperglycemia Condition: Stable Disposition: AGAINST MEDICAL ADVICE Additional Instructions: Abscess You have an abscess (boil). This a pus-forming infection, usually due to staph. Some boils may be left to drain on their own, but most require lancing. From the time the tender lump first appears, it may be three or four days before the abscess is ready to shell. Local heat and rest help at this stage of treatment. An antibiotic may prevent spread of the infection. Once the abscess is opened, packing may be placed into it. This is done so pus is not sealed inside by premature closure of the cavity. The packing will be removed at your follow-up visit or you may be advised to remove it yourself at home. Sometimes this packing must be replaced a few times during healing. The wound will heal with surprisingly little scar. Depending on the size and location of an abscess, healing can take one to four weeks. You may shower and wash the area around the incision site two or three times a day. Antibiotics may be prescribed, but are usually not necessary after an abscess has been drained. If you develop fever, chilling, worsening pain, or increasing swelling in the area, call the doctor or return immediately. Diabetes You have an abnormally high blood sugar, suspicious for diabetes. Not all high blood sugar requires long-term treatment. High blood sugar can be due to medications, , or the stress of illness. (These cases are "borderline diabetes.") If the doctor feels your high blood sugar might get better with time, you may not require treatment now. You will be scheduled for further evaluation. It's very important that you follow through. Uncontrolled high blood sugar leads to early heart disease, strokes, nerve damage, eye damage, and kidney damage. All diabetics should follow a diet designed to control the blood sugar. Overweight diabetics should exercise regularly and lose weight. If this is not sufficient to control the blood sugar, pills or insulin shots are necessary. Younger people who develop diabetes almost always require insulin daily. Home testing of blood sugars or urine sugar is required. Diabetic teaching is available to help you figure insulin doses and monitor the blood sugar. Call the physician if there is faintness, excess sleepiness, or very rapid breathing. If hypoglycemia (LOW blood sugar) develops, symptoms are shakiness, weakness, sweating, and confusion. In this case, you should eat or drink something with sugar at once. Your bleeding time was excessively elevated, making it too dangerous to attempt to open the abscess today. Your white blood cell count was elevated suggesting that you have an infection that is getting worse. Your blood sugars are quite high, and your A1c is also very high suggesting your blood sugars are poorly controlled at all times. I have recommended that you be admitted to the hospital to manage the abscess, the high blood sugars, and the elevated bleeding time. You have elected to leave AGAINST MEDICAL ADVICE after being warned about the risks, including worsening infection, rupture of the abscess with excessive bleeding, and . You should take the clindamycin as prescribed. Stop taking your Coumadin for the next 2 to 3 days. Check your blood sugars frequently and take sliding scale insulin according to your blood sugars. Follow-up with your primary care provider in the next few days for recheck. RETURN TO THE EMERGENCY ROOM IF ANY NEW OR WORSENING SYMPTOMS. Prescriptions: Clindamycin HCl 300 mg PO QID #28 capsule Referrals: JEFFREY MYRICK MD [Primary Care Provider] - Follow up in 3-5 days Scribe Attestation: 08/15/18 08:29 I personally performed the services described in the documentation, reviewed and edited the documentation which was dictated to the scribe in my presence, and it accurately records my words and actions. I personally performed the services described in the documentation, reviewed and edited the documentation which was dictated to the scribe in my presence, and it accurately records my words and actions.
[2018-08-15 10:00] VITALS: BP 124/82
== END 2018-08-15 09:57 | disposition left against medical advice (07) ==
LOC: ER 05:05
DX: D72.829 Elevated white blood cell count, unspecified (principal); L02.11 Cutaneous abscess of neck; E11.65 Type 2 diabetes mellitus with hyperglycemia; R51 Headache; M54.2 Cervicalgia; Z86.718 Personal history of other venous thrombosis and embolism; Z79.01 Long term (current) use of anticoagulants; F17.210 Nicotine dependence, cigarettes, uncomplicated; I10 Essential (primary) hypertension
CPT/HCPCS: 99283; 96375; 96365; 36415; 87040; 83735; 85025; 85610; 80053; 83036; J2270; J2405

== ENCOUNTER 2018-11-18 17:31 | Inpatient (IN) | payer MEDICARE, MEDICAID ==
[2018-11-18 17:52] LABS: VENOUS BLOOD BASE EXCESS 4.5 mmol/L; VENOUS BLOOD HCO3 32.2 mmol/L (20-32); VENOUS BLOOD PCO2 62.1 mmHg (35-63); VENOUS BLOOD PH 7.33 (7.30-7.42)
[2018-11-18 17:53] LABS: ABSOLUTE EOSINOPHILS # (AUTO) 0.2 10^3/uL (0.0-0.6); ABSOLUTE LYMPHOCYTES (AUTO) 2.5 10^3/uL (0.5-4.7); ABSOLUTE MONOCYTES (AUTO) 0.5 10^3/uL (0.1-1.4); ABSOLUTE NEUT (AUTO) 4.7 10^3/uL (1.7-8.2); BASOPHILS % (AUTO) 0.4 % (0-2); EOSINOPHILS % (AUTO) 2.2 % (0-6); HEMATOCRIT 39.2 % (37.9-51.0); HEMOGLOBIN 13.3 g/dL (13.5-17.0); LYMPHOCYTES % (AUTO) 31.2 % (13-45); MEAN CORPUSCULAR HEMOGLOBIN 31.6 pg (27.0-33.4); MEAN CORPUSCULAR VOLUME 93 fl (80-97); MONOCYTES % (AUTO) 6.8 % (3-13); PLATELET COUNT 296 10^3/uL (150-450); RED BLOOD COUNT 4.22 10^6/uL (4.35-5.55); RED CELL DISTRIBUTION WIDTH 13.6 % (11.5-14.0); SEGMENTED NEUTROPHILS % (AUTO) 59.4 % (42-78); TOTAL CELLS COUNTED % (AUTO) 100 %
[2018-11-18 18:21] LABS: ALKALINE PHOSPHATASE 165 U/L (38-126); ANION GAP 12 (5-19); ASPARTATE AMINO TRANSFERASE 16 U/L (17-59); BILIRUBIN,DIRECT 0.2 mg/dL (0.0-0.4); BILIRUBIN,TOTAL 0.4 mg/dL (0.2-1.3); BLOOD UREA NITROGEN 16 mg/dL (7-20); CALCIUM 9.4 mg/dL (8.4-10.2); CARBON DIOXIDE 33 mmol/L (22-30); CHLORIDE 91 mmol/L (98-107); POTASSIUM 3.2 mmol/L (3.6-5.0); TOTAL PROTEIN 7.5 g/dL (6.3-8.2)
[2018-11-18 18:31] LABS: GLUCOSE 400 mg/dL (75-110)
[2018-11-18 18:51] LABS: APPEARANCE,URINE CLEAR; BILIRUBIN,URINE NEGATIVE (NEGATIVE); COLOR,URINE YELLOW; GLUCOSE, URINE >=500 mg/dL (NEGATIVE); KETONES,URINE NEGATIVE (NEGATIVE); LEUKOCYTE ESTERASE,URINE NEGATIVE (NEGATIVE); NITRITE,URINE NEGATIVE (NEGATIVE); PROTEIN,URINE NEGATIVE (NEGATIVE); URINE SPECIFIC GRAVITY 1.022
[2018-11-18] MEDS ORDERED: NORMAL SALINE 1000 ML 1,000 ML IV ONE (20:16)
[2018-11-18] MEDS ORDERED: POTASSIUM CHLORIDE 10 MEQ CAPSULE.ER PO ONE (20:16)
[2018-11-18] MEDS ORDERED: INSULIN REG, HUMAN 100 UNIT/ML 3 ML VIAL (PYX) SUBCUT ONE (20:17)
--- NOTE | 2018-11-18 20:19 | ER Document Report ---
ED General - General Chief Complaint: High Blood Sugar Stated Complaint: HIGH BLOOD SUGAR Time Seen by Provider: 11/18/18 20:09 Notes: Patient is a 58-year-old male that comes to the emergency department for chief complaint of feeling lightheaded and weak along with having high blood sugars. He denies vomiting, chest pain, shortness of breath, fevers, or any specific areas of weakness. He does have history of insulin-dependent diabetes, states he has been taking his insulin but he checked at home and it was still reading high. Patient also has history of CVA that reportedly affects his speech. Patient giving me very limited history otherwise. He lives at home with his daughter. TRAVEL OUTSIDE OF THE [place] IN LAST 30 DAYS: No - Related Data Allergies/Adverse Reactions: Mongolian Ginseng [From Ginseng Edge] Allergy (Severe, Verified 09/05/18 18:01) INTERACTS WITH SZ MEDICATION SO CANNOT HAVE guarana seed extract [From Ginseng Edge] Allergy (Severe, Verified 09/05/18 18:01) INTERACTS WITH SZ MEDICATION SO CANNOT HAVE German Ginseng [From Ginseng Edge] Allergy (Severe, Verified 09/05/18 18:01) INTERACTS WITH SZ MEDICATION SO CANNOT HAVE Siberian Ginseng Root Extract [From Ginseng Edge] Allergy (Severe, Verified 09/05/18 18:01) INTERACTS WITH SZ MEDICATION SO CANNOT HAVE Past Medical History - General Information source: Patient, Relative - Social History Smoking Status: Former Smoker Drug Abuse: None Lives with: Family Family History: CAD, Malignancy - Melanoma Patient has suicidal ideation: No Patient has homicidal ideation: No - Past Medical History Cardiac Medical History: Reports: Hx DVT - Left leg, Hx Hypercholesterolemia, Hx Hypertension Denies: Hx Atrial Fibrillation, Hx Congestive Heart Failure, Hx Coronary Artery Disease, Hx Heart Attack, Hx Peripheral Vascular Disease, Hx Pulmonary Embolism Pulmonary Medical History: Reports: Hx COPD Denies: Hx Asthma, Hx Bronchitis, Hx Pneumonia Neurological Medical History: Reports: Hx Cerebrovascular Accident - 2 Major CVAs- 1996, 2008, Hx Seizures - Epilepsy Endocrine Medical History: Reports: Hx Diabetes Mellitus Type 2. Denies: Hx Diabetes Mellitus Type 1, Hx Hyperthyroidism, Hx Hypothyroidism Renal/ Medical History: Reports: Hx End Stage Renal Disease - dialysis in the past, Hx Kidney Stones. Denies: Hx Peritoneal Dialysis GI Medical History: Reports: Hx Gastroesophageal Reflux Disease. Denies: Hx Cirrhosis, Hx Crohn's Disease, Hx Hepatitis, Hx Ulcerative Colitis Musculoskeletal Medical History: Reports Hx Arthritis, Denies Hx Gout Skin Medical History: Denies Hx Eczema, Denies Hx Psoriasis Psychiatric Medical History: Reports: Hx Anxiety, Hx Depression Infectious Medical History: Denies: Hx Hepatitis Past Surgical History: Reports: Hx Appendectomy, Hx Cholecystectomy, Hx Orthopedic Surgery - Neck. Flexor tendon release both hands. - Immunizations Hx Diphtheria, Pertussis, Tetanus Vaccination: Yes - 2006 Review of Systems - Review of Systems Constitutional: See HPI EENT: No symptoms reported Cardiovascular: See HPI Respiratory: No symptoms reported Gastrointestinal: No symptoms reported Genitourinary: No symptoms reported Male Genitourinary: No symptoms reported Musculoskeletal: No symptoms reported Skin: No symptoms reported Hematologic/Lymphatic: No symptoms reported Neurological/Psychological: See HPI Physical Exam - Vital signs Vitals: Resp Pulse Ox 17 100 11/18/18 17:41 11/18/18 17:41 - Notes Notes: GENERAL: Awake, quiet, responsive, cooperative HEAD: Normocephalic, atraumatic. EYES: Pupils equal, round, and reactive to light. Extraocular movements intact. ENT: Oral mucosa moist, tongue midline. Oropharynx unremarkable. Airway patent. NECK: Full range of motion. Supple. Trachea midline. LUNGS: Clear to auscultation bilaterally, no wheezes, rales, or rhonchi. No respiratory distress. HEART: Regular rate and rhythm. No murmur ABDOMEN: Soft, non-tender. Non-distended. Bowel sounds present in all 4 quadrants. GENITOURINARY: Deferred EXTREMITIES: Moves all 4 extremities spontaneously. No edema, normal radial and dorsalis pedis pulses bilaterally. No cyanosis. BACK: no cervical, thoracic, lumbar midline tenderness. No saddle anesthesia, normal distal neurovascular exam. Moves all extremities in full range of motion. NEUROLOGICAL: Alert and oriented x3. Slow but normal speech. Obvious gait ataxia and keeps falling to the right when I try to stand him. Abnormal finger- nose test on the right. Cranial nerves otherwise intact. PSYCH: Very quiet, poor eye contact SKIN: Warm, dry, normal turgor. No rashes or lesions noted. Course - Re-evaluation Re-evalutation: 11/18/18 22:54 Daughter came to bedside. She states that patient very much concerned her especially this morning because he was confused, and example as he was asking to put his shoes on but he already had his shoes on, this is beyond his normal, he is also very unsteady on his feet and they had to catch him several times to keep him from falling. No fall injury reported. She states that he is more sluggish and weaker than his baseline as well. Patient was ambulated, noticed to be falling to the right consistently, he also has abnormal [id number] testing on the right side. Concern for possible CVA although since symptoms have been going on since this morning he is definitely outside the window. CT of the head is negative, general work-up nonspecific other than hyperglycemia and borderline potassium, given potassium and insulin with IV fluids. Because of concern for possible CVA, discussed with Dr. Andres, will discuss with Dr. Wetzel. Discussed with Dr. Wetzel, patient admitted to [facility] observation, family states appreciation and agreement, patient states agreement. - Vital Signs Vital signs: Temp Pulse Resp BP Pulse Ox 98.1 F 57 L 16 172/77 H 99 11/19/18 04:26 11/19/18 04:26 11/19/18 04:26 11/19/18 04:26 11/19/18 04:26 - Laboratory Result Diagrams: 11/18/18 17:40 11/19/18 05:22 Laboratory results interpreted by me: 11/18/18 11/18/18 11/18/18 17:38 17:40 17:40 RBC 4.22 L Hgb 13.3 L VBG HCO3 Sodium 136.4 L Potassium 3.2 L Chloride 91 L Carbon Dioxide 33 H Glucose 400 H* POC Glucose 396 H AST 16 L Alkaline Phosphatase 165 H Urine Glucose (UA) Urine Urobilinogen 11/18/18 11/18/18 11/18/18 17:40 17:49 19:44 RBC Hgb VBG HCO3 32.2 H Sodium Potassium Chloride Carbon Dioxide Glucose POC Glucose 346 H AST Alkaline Phosphatase Urine Glucose (UA) >=500 H Urine Urobilinogen 2.0 H 11/18/18 22:27 RBC Hgb VBG HCO3 Sodium Potassium Chloride Carbon Dioxide Glucose POC Glucose 262 H AST Alkaline Phosphatase Urine Glucose (UA) Urine Urobilinogen Discharge - Discharge Clinical Impression: Ataxia, Hyperglycemia, Dizziness Condition: Stable Disposition: ADMITTED OBSERVATION Admitting Provider: Rashard (Hospitalist) Unit Admitted: [facility]
--- NOTE | 2018-11-18 22:01 | EKG REPORT ---
SEVERITY:- NORMAL ECG - SINUS RHYTHM : Confirmed by: Sidney Bowie MD 18-Nov-2018 22:00:22
--- NOTE | 2018-11-18 23:31 | RADIOLOGY REPORT (SQ) ---
EXAM DESCRIPTION: XR CHEST 1 VIEW COMPLETED DATE/TME: 11/18/2018 22:53 CLINICAL HISTORY: 58 years, Male, weakness COMPARISON: Prior study from 07/23/2016 NUMBER OF VIEWS: One TECHNIQUE: Single frontal view of the chest was obtained LIMITATIONS: None. FINDINGS: Cardiac and mediastinal contours are stable. Lungs are clear. No pleural effusion or pneumothorax. There is an old healed fracture deformity involving the right clavicular midshaft. IMPRESSION: No acute disease. copyright 2010 [employer]- All Rights Reserved
--- NOTE | 2018-11-18 23:42 | RADIOLOGY REPORT (SQ) ---
CT HEAD WITHOUT IV CONTRAST EXAM DATE: 11/18/2018 10:53 PM CDT HISTORY: Confusion. COMPARISON: 09/06/2018 TECHNIQUE: CT scan of the brain without IV contrast. This exam was performed according to our departmental dose-optimization program, which includes automated exposure control, adjustment of the mA and/or kV according to patient size and/or use of iterative reconstruction technique. FINDINGS: There is a large area of encephalomalacia in the right occipital lobe. Old bilateral basal ganglia lacunar infarcts. There are scattered areas of hypoattenuation within the periventricular white matter, which likely represent chronic microvascular ischemia. No evidence of acute infarction, intracranial hemorrhage, extra-axial fluid collection, or midline shift. No air-fluid levels are seen in the paranasal sinuses to suggest acute sinusitis. No depressed skull fracture. IMPRESSION: No acute intracranial findings.
[2018-11-19] MEDS ORDERED: MAGNESIUM HYDROXIDE SUSP 30 ML UDCUP PO PRN (02:31)
[2018-11-19] MEDS ORDERED: DOCUSATE SODIUM 100 MG CAPSULE PO PRN (02:31)
[2018-11-19] MEDS ORDERED: DEXTROSE 40% GEL 15 GM TUBE PO PRN ×4 (02:31→15:44)
[2018-11-19] MEDS ORDERED: GLUCAGON,HUMAN RECOMB 1 MG INJ IM PRN ×2 (02:31→15:44)
[2018-11-19] MEDS ORDERED: DEXTROSE 50%-WATER 25 GM/50 ML DISP.SYRIN IV PRN ×4 (02:31→15:44)
[2018-11-19] MEDS ORDERED: NORMAL SALINE 1000 ML 1,000 ML IV ONE (02:35)
[2018-11-19] MEDS ORDERED: ATORVASTATIN CALCIUM 80 MG TABLET PO ONE (02:45)
[2018-11-19] MEDS: POTASSI CL 20 MEQ/50 ML RIDER 20 MEQ/50 ML RTUPB IV SCH ×2 (04:12→06:07)
--- NOTE | 2018-11-19 05:18 | PDOC H&P ---
History of Present Illness Admission Date/PCP: 11/19/18 02:35 JEFFREY MYRICK Patient complains of: Falls History of Present Illness: RADHA GARCIA is a 58 year old male with an extensive past medical history of ongoing tobacco, opiate dependent chronic pain, poorly controlled diabetes and hypertension, 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 He presents with sensation of falling to the right side and uncontrolled blood sugars prompting evaluation in the emergency room. He is found to have hyperglycemia and CT shows chronic changes of the septal encephalomalacia. He has no new focal deficits, he denies recent change in medications, palpitations or chest pain. He is referred to the hospitalist for admission. Past Medical History Cardiac Medical History: Reports: DVT - Left leg, Hyperlipidema, Hypertension Denies: Atrial Fibrillation, Congestive Heart Failure, Coronary Artery Disease, Myocardial Infarction, Peripheral Vascular Disease, Pulmonary Embolism Pulmonary Medical History: Reports: Chronic Obstructive Pulmonary Disease (COPD) Denies: Asthma, Bronchitis, Pneumonia Neurological Medical History: Reports: Seizures - Epilepsy Endocrine Medical History: Reports: Diabetes Mellitus Type 2 Denies: Diabetes Mellitus Type 1, Hyperthyroidism, Hypothyroidism GI Medical History: Reports: Gastroesophageal Reflux Disease Denies: Cirrhosis, Crohn's Disease, Hepatitis, Ulcerative Colitis Musculoskeltal Medical History: Reports: Arthritis Denies: Gout Skin Medical History: Denies: Eczema, Psoriasis Psychiatric Medical History: Reports: Depression Hematology: Denies: Anemia, Bleeding Tendencies Past Surgical History Past Surgical History: Reports: Appendectomy, Cholecystectomy, Orthopedic Surgery - Neck. Flexor tendon release both hands. Social History Information Source: Patient Smoking Status: Current Every Day Smoker Cigarettes Packs Per Day: 1 Frequency of Alcohol Use: None Hx Recreational Drug Use: No Drugs: None Hx Prescription Drug Abuse: No - Advance Directive Resuscitation Status: Full Code Family History Family History: CAD, Malignancy - Melanoma Parental Family History Reviewed: Yes Children Family History Reviewed: Yes Sibling(s) Family History Reviewed.: Yes Medication/Allergy Home Medications: Albuterol Sulfate [Proair HFA] 2 puff IH Q6HP PRN 11/13/16 Fluticasone Propionate [Flonase Nasal [place] 50 Mcg/[place] 16 gm] 2 sprays NAREB DAILYP PRN 11/13/16 Buprenorphine [Butrans] 20 mcg TP MO@1000 09/28/17 Tizanidine HCl [Zanaflex] 4 mg PO Q8HP PRN 09/28/17 Bupropion HCl [Wellbutrin Xl 300mg 24hr Tablet] 300 mg PO DAILY 07/09/18 Fluticasone/Salmeterol [Advair 250-50 Diskus 14 Dose/Diskus] 1 inh IH Q12 07/09/18 Pantoprazole Sodium [Protonix [address] Tablet] 40 mg PO QAM 07/09/18 Ergocalciferol (Vitamin D2) [Drisdol 50,000 unit (1.25MG) Capsule] 50,000 unit PO TU@1000 09/06/18 Atorvastatin Calcium [Lipitor 40 mg Tablet] 40 mg PO QHS #30 tablet 09/10/18 Carvedilol [Coreg 12.5 mg Tablet] 12.5 mg PO Q12 60 Days #60 tablet 09/10/18 Hydrochlorothiazide [Hydrodiuril 25 mg Tablet] 25 mg PO DAILY #30 tablet 09/10/18 Insulin Detemir [Levemir] 45 unit SQ Q12 #2 vial 09/10/18 Losartan Potassium [Cozaar 50 mg Tablet] 50 mg PO DAILY #30 tablet 09/10/18 Nicotine [Nicoderm 21 mg/24 Hr Transderm Patch] 1 each TD DAILYP PRN #30 patch.td24 09/10/18 Oxycodone HCl/Acetaminophen [Percocet 5-325 mg Tablet] 1 tab PO Q8HP PRN #6 09/10/18 Potassium Chloride [Klor-Con 10 Meq Capsule ER] 10 meq PO DAILY #7 tablet.sa 09/10/18 Pregabalin [Lyrica 100 mg Capsule] 100 mg PO Q8 PRN #0 09/10/18 Rivaroxaban [Xarelto 15 mg Tablet] 15 mg PO WSUPPER #30 tablet 09/10/18 Allergies/Adverse Reactions: [place] Ginseng [From Ginseng Edge] Allergy (Severe, Verified 09/05/18 18:01) INTERACTS WITH SZ MEDICATION SO CANNOT HAVE guarana seed extract [From Ginseng Edge] Allergy (Severe, Verified 09/05/18 18:01) INTERACTS WITH SZ MEDICATION SO CANNOT HAVE Greek Ginseng [From Ginseng Edge] Allergy (Severe, Verified 09/05/18 18:01) INTERACTS WITH SZ MEDICATION SO CANNOT HAVE Siberian Ginseng Root Extract [From Ginseng Edge] Allergy (Severe, Verified 09/05/18 18:01) INTERACTS WITH SZ MEDICATION SO CANNOT HAVE Review of Systems ROS unobtainable: Due to mental status Physical Exam Vital Signs: Temp Pulse Resp BP Pulse Ox 98.1 F 57 L 16 172/77 H 99 11/19/18 04:26 11/19/18 04:26 11/19/18 04:26 11/19/18 04:26 11/19/18 04:26 Intake & Output 11/17/18 11/18/18 11/19/18 11:59 11:59 11:59 Intake Total 1000 Balance 1000 Weight 74.3 kg General appearance: PRESENT: cooperative, disheveled, mild distress, thin, well- nourished Head exam: PRESENT: atraumatic, normocephalic Eye exam: PRESENT: conjunctiva pink, EOMI, PERRLA. ABSENT: scleral icterus Ear exam: PRESENT: normal external ear exam Mouth exam: PRESENT: moist, tongue midline Neck exam: ABSENT: carotid bruit, JVD, lymphadenopathy, thyromegaly Respiratory exam: PRESENT: clear to auscultation mark. ABSENT: rales, rhonchi, wheezes Cardiovascular exam: PRESENT: RRR. ABSENT: diastolic murmur, rubs, systolic murmur Pulses: PRESENT: normal dorsalis pedis pul Vascular exam: PRESENT: normal capillary refill GI/Abdominal exam: PRESENT: normal bowel sounds, soft. ABSENT: distended, guarding, mass, organolmegaly, rebound, tenderness Rectal exam: PRESENT: deferred Extremities exam: PRESENT: full ROM. ABSENT: calf tenderness, clubbing, pedal edema Neurological exam: PRESENT: alert, awake, oriented to person, oriented to place, oriented to situation, CN II-XII grossly intact. ABSENT: motor sensory deficit Psychiatric exam: PRESENT: depressed, flat affect - Denies suicidal ideation, unusual affect. ABSENT: homicidal ideation, suicidal ideation Skin exam: PRESENT: dry, intact, warm. ABSENT: cyanosis, rash Results Laboratory Results: 11/18/18 17:40 11/18/18 17:40 11/18/18 11/18/18 11/18/18 17:40 17:40 17:40 WBC 8.0 RBC 4.22 L Hgb 13.3 L Hct 39.2 MCV 93 MCH 31.6 MCHC 34.0 RDW 13.6 Plt Count 296 Seg Neutrophils % 59.4 VBG pH 7.33 VBG pCO2 62.1 VBG HCO3 32.2 H VBG Base Excess 4.5 Sodium 136.4 L Potassium 3.2 L Chloride 91 L Carbon Dioxide 33 H Anion Gap 12 BUN 16 Creatinine 0.85 Est GFR ( Amer) > 60 Glucose 400 H* Calcium 9.4 Magnesium Total Bilirubin 0.4 AST 16 L Alkaline Phosphatase 165 H Total Protein 7.5 Albumin 4.0 Urine Color Urine Appearance Urine pH Ur Specific [place] Urine Protein Urine Glucose (UA) Urine Ketones Urine Blood Urine Nitrite Ur Leukocyte Esterase Urine WBC (Auto) Urine RBC (Auto) 11/18/18 11/18/18 17:40 17:49 WBC RBC Hgb Hct MCV MCH MCHC RDW Plt Count Seg Neutrophils % VBG pH VBG pCO2 VBG HCO3 VBG Base Excess Sodium Potassium Chloride Carbon Dioxide Anion Gap BUN Creatinine Est GFR ( Amer) Glucose Calcium Magnesium 1.7 Total Bilirubin AST Alkaline Phosphatase Total Protein Albumin Urine Color YELLOW Urine Appearance CLEAR Urine pH 7.0 Ur Specific [place] 1.022 Urine Protein NEGATIVE Urine Glucose (UA) >=500 H Urine Ketones NEGATIVE Urine Blood NEGATIVE Urine Nitrite NEGATIVE Ur Leukocyte Esterase NEGATIVE Urine WBC (Auto) 0 Urine RBC (Auto) 0 11/18/18 23:35 Troponin I 0.015 Impressions: Chest X-Ray 11/18/18 22:53 IMPRESSION: No acute disease. copyright 2011 [employer]- All Rights Reserved Head CT 11/18/18 22:53 IMPRESSION: No acute intracranial findings. Assessment and Plan - Diagnosis (1) Ataxia Is this a current diagnosis for this admission?: Yes Plan: CVA care set deployed, follow-up MRI vertebrobasilar circulation, continue aspirin and statin, consider PT (2) Acute CVA (cerebrovascular accident) Is this a current diagnosis for this admission?: Yes Plan: Complicated by chronic noncompliance with uncontrolled hypertension, diabetes, tobacco and evidence for encephalomalacia (3) COPD (chronic obstructive pulmonary disease) Qualifiers: Chronic bronchitis type: unspecified Is this a current diagnosis for this admission?: Yes Plan: Incentive spirometry, flutter valve, albuterol and Atrovent ordered (4) Chronic pain Is this a current diagnosis for this admission?: Yes Plan: Follow-up medication reconciliation (5) Diabetes mellitus type 2 in nonobese Is this a current diagnosis for this admission?: Yes Plan: Lantus and Humalog sliding scale QIC, education, A1c recurrently greater than 14 (6) Hypokalemia Is this a current diagnosis for this admission?: Yes Plan: Potassium repleted, follow-up magnesium level and chemistry - Time Time Spent with patient: 35 or more minutes - Inpatient Certification Medical Necessity: Need Close Monitoring Due to Risk of Patient Decompensation
[2018-11-19 06:05] LABS: ANION GAP 9 (5-19); BLOOD UREA NITROGEN 14 mg/dL (7-20); CALCIUM 9.3 mg/dL (8.4-10.2); CARBON DIOXIDE 30 mmol/L (22-30); CHLORIDE 99 mmol/L (98-107); GLUCOSE 239 mg/dL (75-110); POTASSIUM 3.4 mmol/L (3.6-5.0)
[2018-11-19] MEDS ORDERED: INSULIN GLARGINE,HUM.REC.ANLOG 1,000 UNIT/10 ML VIAL SUBCUT SCH ×2 (10:00→22:00)
[2018-11-19] MEDS ORDERED: ALBUTEROL SULFATE HFA (90 MCG/PUFF) 200 PUFF/8.5 GM MDI IH PRN (15:39)
[2018-11-19] MEDS: OXYCODONE HCL IR 5 MG TABLET PO PRN ×2 (17:06→22:48)
[2018-11-19] MEDS: INSULIN REG, HUMAN 100 UNIT/ML 3 ML VIAL (PYX) SUBCUT SCH ×2 (17:06→22:44)
[2018-11-19] MEDS: RIVAROXABAN 15 MG TABLET PO SCH (17:06)
--- NOTE | 2018-11-19 21:44 | RADIOLOGY REPORT (SQ) ---
EXAM DESCRIPTION: MR BRAIN WITHOUT IV CONTRAST COMPLETED DATE/TME: 11/19/2018 00:00 CLINICAL HISTORY: 58 years, Male, falls please eval vertebral / basilar circ COMPARISON: Noncontrast CT head performed on 11/18/2018 TECHNIQUE: Multiplanar, multisequence MR images of the brain were obtained without the use of intravenous contrast. Images stored on PACS. LIMITATIONS: None. FINDINGS: Midline structures show no suspicious abnormal normality. Evaluation of the brain parenchyma reveals a zone of encephalomalacia about the right occipital lobe with associated ex vacuo dilatation of the posterior horn of the right lateral ventricle. Additional areas of CSF signal are noted about the bilateral lentiform nuclei, indicating remote lacunar infarcts. Likewise, there is superimposed mild periventricular and patchy subcortical white matter signal alteration. Similar findings are noted about the torri as well as the left cerebellar hemisphere. Diffusion weighted images reveal several scattered foci of diffusion restriction located about the left frontal, parietal, and occipital lobes. Additional punctate foci of diffusion restriction are suspected about the parasagittal posterior right parietal lobe on image 21 of series 5. These areas of diffusion restriction demonstrate concomitant hyperintense T2/FLAIR signal. Susceptibility weighted images reveal no suspicious foci of susceptibility artifact. Intracranial venous flow voids show no suspicious abnormality. Ventricles and sulcal spaces are mildly enlarged. Globes and orbits show no acute normality. Paranasal sinuses and mastoid air cells are clear. No extra-axial fluid collections are clearly identified. IMPRESSION: Multifocal acute infarcts about the left frontal, parietal, and occipital lobes with additional punctate acute infarcts about the parasagittal posterior right parietal lobe. Given the multifocality, an embolic phenomenon is a definite possibility. Remote encephalomalacia about the right occipital lobe, indicating a remote right SALT MANAGER distribution infarct. Additional remote lacunar infarcts about the bilateral lentiform nuclei. Underlying mild chronic microvascular ischemic change with generalized atrophy. copyright 2010 [employer]- All Rights Reserved
--- NOTE | 2018-11-19 21:52 | RADIOLOGY REPORT (SQ) ---
MR BRAIN ANGIOGRAPHY WITHOUT IV CONTRAST HISTORY: Stroke. COMPARISON: None. TECHNIQUE: MR angiography of the brain was performed without the administration of intravenous gadolinium. FINDINGS: The anterior and posterior cerebral circulations are patent. No hemodynamically significant stenosis, aneurysmal dilatation or dissection is seen. No focal aneurysm is identified. IMPRESSION: No evidence of acute thrombosis in the major head vasculature.
[2018-11-19] MEDS ORDERED: (PENDING PHARMACY ID) (Fluticasone/Salmeterol 1 PUFF) IH SCH (22:00)
[2018-11-19] MEDS ORDERED: ATORVASTATIN CALCIUM 80 MG TABLET PO SCH (22:00)
[2018-11-19] MEDS ORDERED: INSULIN DETEMIR 40 UNIT SQ SCH (22:00)
[2018-11-19] MEDS: ATORVASTATIN CALCIUM 40 MG TABLET PO SCH (22:01)
[2018-11-19] MEDS: CARVEDILOL 6.25 MG TABLET PO SCH (22:01)
[2018-11-19] MEDS: TIZANIDINE HCL 4 MG TABLET PO PRN (22:03)
[2018-11-20 05:22] LABS: ANION GAP 9 (5-19); BLOOD UREA NITROGEN 11 mg/dL (7-20); CALCIUM 9.2 mg/dL (8.4-10.2); CARBON DIOXIDE 30 mmol/L (22-30); CHLORIDE 100 mmol/L (98-107); CHOLESTEROL 194.24 mg/dL (0-200); GLUCOSE 118 mg/dL (75-110); TRIGLYCERIDES 148 mg/dL (<150)
[2018-11-20 05:32] LABS: DIRECT LDL 145 mg/dL (<100)
[2018-11-20 05:34] LABS: POTASSIUM 2.7 mmol/L (3.6-5.0)
[2018-11-20] MEDS: PANTOPRAZOLE SODIUM 40 MG TABLET.DR PO SCH (06:32)
[2018-11-20] MEDS: OXYCODONE HCL IR 5 MG TABLET PO PRN ×2 (06:32→18:04)
[2018-11-20] MEDS: POTASSIUM CHLORIDE 20 MEQ/50 ML RTU IV SCH ×3 (06:33→09:31)
[2018-11-20] MEDS ORDERED: POTASSIUM CHLORIDE 10 MEQ CAPSULE.ER PO ONE (07:00)
[2018-11-20] MEDS: INSULIN REG, HUMAN 100 UNIT/ML 3 ML VIAL (PYX) SUBCUT SCH ×4 (08:19→22:45)
[2018-11-20] MEDS: FLUTICASONE/VILANTEROL 200-25 MCG/DOSE IH SCH (09:26)
[2018-11-20] MEDS: CARVEDILOL 6.25 MG TABLET PO SCH ×2 (09:26→22:43)
[2018-11-20] MEDS: ESCITALOPRAM OXALATE 10 MG TABLET PO SCH (09:26)
--- NOTE | 2018-11-20 13:20 | PDOC PROGRESS REPORT ---
Subjective Progress Note for:: 11/20/18 Subjective:: No adverse events overnight. Blood pressures have remained pretty high. He says that he has been taking his blood thinner as directed but his grandson said he may have missed some of them here and there. He is more alert and awake today. Reason For Visit: CVA,DM,HTN,OPIATE DEP Physical Exam Vital Signs: Temp Pulse Resp BP Pulse Ox 97.9 F 65 18 207/89 H 97 11/20/18 11:17 11/20/18 12:00 11/20/18 12:00 11/20/18 12:00 11/20/18 12:00 Intake & Output 11/19/18 11/20/18 11/21/18 06:59 06:59 06:59 Intake Total 1248 1961 244 Output Total 250 400 200 Balance 998 1561 44 Weight 74.3 kg 73.9 kg General appearance: PRESENT: no acute distress, cooperative, disheveled Respiratory exam: PRESENT: clear to auscultation mark, symmetrical, unlabored. ABSENT: accessory muscle use, chest wall tenderness, crackles, prolonged expiratory phas, rhonchi, tachypnea, wheezes Cardiovascular exam: PRESENT: irregular rhythm Pulses: PRESENT: normal carotid pulses Vascular exam: PRESENT: normal capillary refill GI/Abdominal exam: PRESENT: normal bowel sounds, soft. ABSENT: distended, guarding, rebound, tenderness Extremities exam: ABSENT: clubbing, pedal edema Musculoskeletal exam: PRESENT: normal inspection. ABSENT: deformity Neurological exam: PRESENT: alert, awake, oriented to person, oriented to place, oriented to situation Psychiatric exam: PRESENT: flat affect Skin exam: PRESENT: dry, warm Results Laboratory Results: 11/18/18 17:40 11/20/18 04:18 11/20/18 04:18 Sodium 138.5 Potassium 2.7 L* Chloride 100 Carbon Dioxide 30 Anion Gap 9 BUN 11 Creatinine 0.68 Est GFR ( Amer) > 60 Glucose 118 H Calcium 9.2 Triglycerides 148 Cholesterol 194.24 LDL Cholesterol Direct 145 H VLDL Cholesterol 30.0 HDL Cholesterol 23 L 11/18/18 23:35 Troponin I 0.015 Impressions: Chest X-Ray 11/18/18 22:53 IMPRESSION: No acute disease. copyright 2011 [employer]- All Rights Reserved Head CT 11/18/18 22:53 IMPRESSION: No acute intracranial findings. Brain MRI with MRA 11/19/18 00:00 IMPRESSION: No evidence of acute thrombosis in the major head vasculature. Head MRI 11/19/18 00:00 IMPRESSION: Multifocal acute infarcts about the left frontal, parietal, and occipital lobes with additional punctate acute infarcts about the parasagittal posterior right parietal lobe. Given the multifocality, an embolic phenomenon is a definite possibility. Remote encephalomalacia about the right occipital lobe, indicating a remote right C 13 CATAPULT OPERATOR distribution infarct. Additional remote lacunar infarcts about the bilateral lentiform nuclei. Underlying mild chronic microvascular ischemic change with generalized atrophy. copyright 2010 [employer]- All Rights Reserved Assessment and Plan - Diagnosis (1) Acute CVA (cerebrovascular accident) Is this a current diagnosis for this admission?: Yes Plan: He had a bilateral multifocal stroke consistent with embolic phenomenon. His A. fib is rate controlled. He says that he has been taking his Xarelto at home but I am somewhat suspicious. Echocardiogram is pending. He did fairly well for physical therapy but will likely need some after he leaves the hospital. (2) Uncontrolled type 2 diabetes mellitus Qualifiers: Glycemic state: with hyperglycemia Qualified Code(s): E11.65 - Type 2 diabetes mellitus with hyperglycemia Is this a current diagnosis for this admission?: Yes Plan: His diabetes is not well controlled at home. We will have to make changes with his regimen and attempt to get better control. (3) HTN (hypertension) Qualifiers: Hypertension type: essential hypertension Qualified Code(s): I10 - Ess ential (primary) hypertension Is this a current diagnosis for this admission?: Yes Plan: We are restarting his clonidine in addition to his Coreg he has been on. We may have to add other medications if we cannot achieve adequate control. - Time Time Spent with patient: 25-34 minutes
[2018-11-20] MEDS: CLONIDINE HCL 0.2 MG TABLET PO SCH ×2 (14:35→22:43)
[2018-11-20] MEDS: RIVAROXABAN 15 MG TABLET PO SCH (17:14)
--- NOTE | 2018-11-20 18:50 | XCELERA REPORT ---
[address] [address] Transthoracic Echocardiogram Report Name: RADHA GARCIA Age: 58 yrs Gender: Male : 1960 Patient Status: Inpatient Patient Location: [address] [place], [place] [address] Study Date: 11/19/2018 03:10 PM Height: 70 in Weight: 170 lb BSA: 1.9 m2 Procedure: A two-dimensional transthoracic echocardiogram with color flow and Doppler was performed. Study Quality: Fair. Reason For Study: cva History: CVA. Ordering Physician: MIGUEL ANGEL MASSEY Performed By: Coco Ramirez Interpretation Summary There is no obvious cardiac source of embolus noted on this transthoracic echocardiogram. Follow-up with a [facility] is suggested if cardiac source is still suspected. The left ventricle is normal in size. There is normal left ventricular wall thickness. The left ventricular ejection fraction is normal. LV EF is 65% Doppler measurements suggest impaired left ventricular relaxation, which is associated with grade I/IV or mild diastolic dysfunction The left ventricular wall motion is normal. There is no thrombus. No ASD ,VSD , or PFO seen. The right ventricle is grossly normal size. The right atrium is normal. The left atrial size is normal. There is no evidence of mitral valve prolapse. There is no vegetation seen on the mitral valve. There is no mitral valve stenosis. There is a trace amount of mitral regurgitation There is no aortic valve stenosis There is no LVOT obstruction. No aortic regurgitation is present. There is no tricuspid stenosis. There is a trace amount of tricuspid regurgitation Tricuspid regurgitation jet envelope not well defined to measure RV systolic pressure accurately. There is no pulmonic valvular stenosis. There is a trace amount of pulmonic regurgitation The aortic root is normal size. The inferior vena cava appeared normal and decreased > 50% with respiration (RAP 5-10 mmHg) There is no pericardial effusion. There is no obvious cardiac source of embolus noted on this transthoracic echocardiogram. Follow-up with a [facility] is suggested if cardiac source is still suspected MMode/2D Measurements & Calculations RVDd: 2.7 cm LVIDd: 4.8 cm FS: 43.4 % Ao root diam: 3.3 cm IVSd: 1.1 cm LVIDs: 2.7 cm EDV(Teich): 107.7 ml Ao root area: 8.7 cm2 LVPWd: 1.1 cm ESV(Teich): 27.4 ml LA dimension: 3.4 cm EF(Teich): 74.5 % Doppler Measurements & Calculations MV E max summer: MV P1/2t max summer: Ao V2 max: LV V1 max P.1 cm/sec 69.6 cm/sec 133.3 cm/sec 3.8 mmHg MV A max summer: MV P1/2t: 121.2 msec Ao max P.1 mmHg LV V1 max: 84.9 cm/sec MVA(P1/2t): 1.8 cm2 97.2 cm/sec MV E/A: 0.81 MV dec slope: 168.2 cm/sec2 MV dec time: 0.41 sec PA V2 max: PI end-d summer: MV P1/2t-pr_phl: 116.0 cm/sec 111.3 cm/sec 121.2 msec PA max P.4 mmHg Left Ventricle The left ventricle is normal in size. There is normal left ventricular wall thickness. The left ventricular ejection fraction is normal. LV EF is 65%. Doppler measurements suggest impaired left ventricular relaxation, which is associated with grade I/IV or mild diastolic dysfunction. The left ventricular wall motion is normal. There is no thrombus. No ASD ,VSD , or PFO seen. Right Ventricle The right ventricle is grossly normal size. Atria The right atrium is normal. The left atrial size is normal. Mitral Valve There is no evidence of mitral valve prolapse. There is no vegetation seen on the mitral valve. There is no mitral valve stenosis. There is a trace amount of mitral regurgitation. Aortic Valve There is no aortic valve stenosis. There is no LVOT obstruction. No aortic regurgitation is present. Tricuspid Valve There is no tricuspid stenosis. There is a trace amount of tricuspid regurgitation. Tricuspid regurgitation jet envelope not well defined to measure RV systolic pressure accurately. Pulmonic Valve There is no pulmonic valvular stenosis. There is a trace amount of pulmonic regurgitation. Great Vessels The aortic root is normal size. The inferior vena cava appeared normal and decreased > 50% with respiration (RAP 5-10 mmHg). Effusions There is no pericardial effusion. : MIGUEL ANGEL MASSEY Lakshmi
[2018-11-20] MEDS ORDERED: INSULIN GLARGINE,HUM.REC.ANLOG 1,000 UNIT/10 ML VIAL (PYX) SUBCUT ONE (22:37)
[2018-11-20] MEDS: ATORVASTATIN CALCIUM 40 MG TABLET PO SCH (22:43)
[2018-11-20] MEDS: INSULIN GLARGINE,HUM.REC.ANLOG 1,000 UNIT/10 ML VIAL SUBCUT SCH (22:44)
[2018-11-21] MEDS: OXYCODONE HCL IR 5 MG TABLET PO PRN (00:46)
[2018-11-21 03:32] LABS: ANION GAP 10 (5-19); BLOOD UREA NITROGEN 10 mg/dL (7-20); CALCIUM 9.3 mg/dL (8.4-10.2); CARBON DIOXIDE 28 mmol/L (22-30); CHLORIDE 102 mmol/L (98-107); GLUCOSE 87 mg/dL (75-110); POTASSIUM 3.1 mmol/L (3.6-5.0)
[2018-11-21] MEDS: PANTOPRAZOLE SODIUM 40 MG TABLET.DR PO SCH (05:54)
[2018-11-21] MEDS: INSULIN REG, HUMAN 100 UNIT/ML 3 ML VIAL (PYX) SUBCUT SCH ×4 (09:09→22:01)
[2018-11-21] MEDS: CLONIDINE HCL 0.2 MG TABLET PO SCH ×2 (09:12→22:01)
[2018-11-21] MEDS: ESCITALOPRAM OXALATE 10 MG TABLET PO SCH (09:12)
[2018-11-21] MEDS: FLUTICASONE/VILANTEROL 200-25 MCG/DOSE IH SCH (09:12)
[2018-11-21] MEDS: CARVEDILOL 6.25 MG TABLET PO SCH ×2 (09:12→22:01)
--- NOTE | 2018-11-21 12:20 | PDOC PROGRESS REPORT ---
Subjective Progress Note for:: 11/21/18 Subjective:: No adverse events overnight. Blood pressures have improved today. He is eating without difficulty and using both of his hands. He is not terribly interactive. Reason For Visit: ACUTE ISCHEMIC STROKE, UNCONTROLLED DIABETES Physical Exam Vital Signs: Temp Pulse Resp BP Pulse Ox 98.2 F 62 17 143/66 H 97 11/21/18 08:04 11/21/18 08:04 11/21/18 08:04 11/21/18 08:04 11/21/18 08:04 Intake & Output 11/20/18 11/21/18 11/22/18 06:59 06:59 06:59 Intake Total 1960 244 Output Total 400 200 Balance 1561 44 Weight 73.9 kg 72.2 kg General appearance: PRESENT: no acute distress, cooperative, disheveled Respiratory exam: PRESENT: clear to auscultation mark, symmetrical, unlabored. ABSENT: accessory muscle use, chest wall tenderness, crackles, prolonged expiratory phas, rhonchi, tachypnea, wheezes Cardiovascular exam: PRESENT: irregular rhythm Pulses: PRESENT: normal carotid pulses Vascular exam: PRESENT: normal capillary refill GI/Abdominal exam: PRESENT: normal bowel sounds, soft. ABSENT: distended, guarding, rebound, tenderness Extremities exam: ABSENT: clubbing, pedal edema Musculoskeletal exam: PRESENT: normal inspection. ABSENT: deformity Neurological exam: PRESENT: alert, awake, oriented to person, oriented to place Psychiatric exam: PRESENT: flat affect Skin exam: PRESENT: dry, warm Results Laboratory Results: 11/18/18 17:40 11/21/18 02:54 11/21/18 02:54 Sodium 139.6 Potassium 3.1 L Chloride 102 Carbon Dioxide 28 Anion Gap 10 BUN 10 Creatinine 0.70 Est GFR ( Amer) > 60 Glucose 87 Calcium 9.3 11/18/18 23:35 Troponin I 0.015 Impressions: Chest X-Ray 11/18/18 22:53 IMPRESSION: No acute disease. copyright 2011 [facility]- All Rights Reserved Head CT 11/18/18 22:53 IMPRESSION: No acute intracranial findings. Brain MRI with MRA 11/19/18 00:00 IMPRESSION: No evidence of acute thrombosis in the major head vasculature. Head MRI 11/19/18 00:00 IMPRESSION: Multifocal acute infarcts about the left frontal, parietal, and occipital lobes with additional punctate acute infarcts about the parasagittal posterior right parietal lobe. Given the multifocality, an embolic phenomenon is a definite possibility. Remote encephalomalacia about the right occipital lobe, indicating a remote right MOTION STUDY ANALYST distribution infarct. Additional remote lacunar infarcts about the bilateral lentiform nuclei. Underlying mild chronic microvascular ischemic change with generalized atrophy. copyright 2010 [facility]- All Rights Reserved Assessment and Plan - Diagnosis (1) Acute CVA (cerebrovascular accident) Is this a current diagnosis for this admission?: Yes Plan: He had a bilateral multifocal stroke consistent with embolic phenomenon. His A. fib is rate controlled. He says that he has been taking his Xarelto at home but I am somewhat suspicious. Echocardiogram is negative for thrombus. He did fairly well for physical therapy but will likely need some after he leaves the hospital. (2) Uncontrolled type 2 diabetes mellitus Qualifiers: Glycemic state: with hyperglycemia Qualified Code(s): E11.65 - Type 2 diabetes mellitus with hyperglycemia Is this a current diagnosis for this admission?: Yes Plan: His diabetes is not well controlled at home. We have made changes to his regimen and have achieved a measure of better control. (3) HTN (hypertension) Qualifiers: Hypertension type: essential hypertension Qualified Code(s): I10 - Esse ntial (primary) hypertension Is this a current diagnosis for this admission?: Yes Plan: We got him back on his home medications and his blood pressures have improved - Time Time Spent with patient: 15-24 minutes
[2018-11-21] MEDS ORDERED: POTASSIUM CHLORIDE 10 MEQ CAPSULE.ER PO ONE (13:00)
[2018-11-21] MEDS: RIVAROXABAN 15 MG TABLET PO SCH (17:57)
[2018-11-21] MEDS ORDERED: NORMAL SALINE 500 ML IV ONE (18:00)
[2018-11-21] MEDS: ATORVASTATIN CALCIUM 40 MG TABLET PO SCH (21:50)
[2018-11-21] MEDS ORDERED: INSULIN GLARGINE,HUM.REC.ANLOG 1,000 UNIT/10 ML VIAL (PYX) SUBCUT ONE (21:57)
[2018-11-21] MEDS: INSULIN GLARGINE,HUM.REC.ANLOG 1,000 UNIT/10 ML VIAL SUBCUT SCH (22:00)
--- NOTE | 2018-11-22 02:25 | RADIOLOGY REPORT (SQ) ---
CLINICAL HISTORY: MENDs exam results increasing COMPARISON: November 19, 2018. TECHNIQUE: CT HEAD WITHOUT IV CONTRAST on 11/22/2018 1:34 AM CDT This exam was performed according to our departmental dose-optimization program, which includes automated exposure control, adjustment of the mA and/or kV according to patient size and/or use of iterative reconstruction technique. FINDINGS: There is no acute hemorrhage, mass effect or midline shift. There is encephalomalacia involving the medial right occipital lobe. There are old bilateral anterior basal ganglia lacunar infarcts. There is minimal left frontal lobe encephalomalacia. There is a left thalamic lacunar infarct. There is no hydrocephalus. There is no significant volume loss for age. There are mild patchy hypodensities within the periventricular and subcortical white matter, consistent with microangiopathic ischemic changes. The calvarium is intact. Orbits and globes are unremarkable. The paranasal sinuses are clear. Mastoid air cells are clear. IMPRESSION: Multiple old lacunar infarcts. Acute areas of infarct seen on prior MRI are not clearly seen on this study. No hemorrhage.
[2018-11-22 03:10] LABS: ANION GAP 9 (5-19); BLOOD UREA NITROGEN 19 mg/dL (7-20); CALCIUM 9.3 mg/dL (8.4-10.2); CARBON DIOXIDE 27 mmol/L (22-30); CHLORIDE 102 mmol/L (98-107); GLUCOSE 161 mg/dL (75-110); POTASSIUM 3.4 mmol/L (3.6-5.0)
[2018-11-22] MEDS: PANTOPRAZOLE SODIUM 40 MG TABLET.DR PO SCH (06:06)
[2018-11-22] MEDS: INSULIN REG, HUMAN 100 UNIT/ML 3 ML VIAL (PYX) SUBCUT SCH ×4 (08:47→21:39)
[2018-11-22] MEDS: CLONIDINE HCL 0.2 MG TABLET PO SCH ×2 (09:31→21:35)
[2018-11-22] MEDS: CARVEDILOL 6.25 MG TABLET PO SCH ×2 (09:31→21:34)
[2018-11-22] MEDS: FLUTICASONE/VILANTEROL 200-25 MCG/DOSE IH SCH (09:31)
[2018-11-22] MEDS: ESCITALOPRAM OXALATE 10 MG TABLET PO SCH (09:31)
--- NOTE | 2018-11-22 15:03 | PDOC PROGRESS REPORT ---
Subjective Progress Note for:: 11/22/18 Subjective:: The patient is laying still in bed. He has a very flat affect. He does not maintain eye contact during discussion. He is emotionally quite flat. Reason For Visit: ACUTE ISCHEMIC STROKE, UNCONTROLLED DIABETES Physical Exam Vital Signs: Temp Pulse Resp BP Pulse Ox 98.2 F 62 14 138/66 H 98 11/22/18 11:37 11/22/18 12:00 11/22/18 12:00 11/22/18 12:00 11/22/18 12:00 Intake & Output 11/21/18 11/22/18 11/23/18 06:59 06:59 06:59 Intake Total 244 360 Output Total 200 240 Balance 44 120 Weight 72.2 kg 72.5 kg General appearance: PRESENT: cooperative, other - Very flat today. Head exam: PRESENT: atraumatic, normocephalic Respiratory exam: PRESENT: clear to auscultation mark, symmetrical, unlabored. ABSENT: accessory muscle use, rales, rhonchi, tachypnea, wheezes Cardiovascular exam: PRESENT: RRR, +S1, +S2 GI/Abdominal exam: PRESENT: normal bowel sounds, soft. ABSENT: distended, tenderness Rectal exam: PRESENT: deferred Extremities exam: ABSENT: joint swelling, pedal edema Musculoskeletal exam: PRESENT: other - Fairly symmetric handgrip strength. 4/5. Plantar flexion symmetric but 3/5. Neurological exam: PRESENT: alert, awake, oriented to person, oriented to place, oriented to situation Psychiatric exam: PRESENT: depressed - Appears depressed, flat affect - Extrem jareth flat affect Results Laboratory Results: 11/18/18 17:40 11/22/18 02:44 11/22/18 02:44 Sodium 137.7 Potassium 3.4 L Chloride 102 Carbon Dioxide 27 Anion Gap 9 BUN 19 Creatinine 0.84 Est GFR ( Amer) > 60 Glucose 161 H Calcium 9.3 11/18/18 23:35 Troponin I 0.015 Impressions: Chest X-Ray 11/18/18 22:53 IMPRESSION: No acute disease. copyright 2011 [employer]- All Rights Reserved Brain MRI with MRA 11/19/18 00:00 IMPRESSION: No evidence of acute thrombosis in the major head vasculature. Head MRI 11/19/18 00:00 IMPRESSION: Multifocal acute infarcts about the left frontal, parietal, and occipital lobes with additional punctate acute infarcts about the parasagittal posterior right parietal lobe. Given the multifocality, an embolic phenomenon is a definite possibility. Remote encephalomalacia about the right occipital lobe, indicating a remote right LEATHER PIECE INSPECTOR distribution infarct. Additional remote lacunar infarcts about the bilateral lentiform nuclei. Underlying mild chronic microvascular ischemic change with generalized atrophy. copyright 2010 [employer]- All Rights Reserved Head CT 11/22/18 01:34 IMPRESSION: Multiple old lacunar infarcts. Acute areas of infarct seen on prior MRI are not clearly seen on this study. No hemorrhage. Assessment and Plan - Diagnosis (1) Acute CVA (cerebrovascular accident) Is this a current diagnosis for this admission?: Yes Plan: 11/22/2018-I did discuss with the nurse the fact that the patient seemed to be declining. He seems extremely flat emotionally. Strength was symmetric arms and legs. Repeat CT scan did not show any new areas of concern. He does have areas of encephalomalacia. I asked patient if he worked with physical therapy maik leos. He was noncommittal with his answer. I then reviewed the physical therapy notes and he in fact was out of bed and walking with therapy today. Continue current regimen. I will discuss further the possibility of depression versus physiologic change. (2) Uncontrolled type 2 diabetes mellitus Qualifiers: Glycemic state: with hyperglycemia Qualified Code(s): E11.65 - Type 2 diabetes mellitus with hyperglycemia Is this a current diagnosis for this admission?: Yes Plan: 11/22/2018-all fingersticks less than 200. Continue current regimen. Continue Accu-Cheks. (3) HTN (hypertension) Qualifiers: Hypertension type: essential hypertension Qualified Code(s): I10 - Essential (primary) hypertension Is this a current diagnosis for this admission?: Yes Plan: 11/22/2018-blood pressures slightly higher than desired. We will continue to mo nitor and adjust medications if needed. Would like to keep his systolic pressure less than 130. (4) Depression Qualifiers: Depression Type: unspecified Qualified Code(s): F32.9 - Major depressive disorder, single episode, unspecified Is this a current diagnosis for this admission?: Yes Plan: 11/22/2018-the patient does have a history of depression. We have continued his SSRI therapy. Clearly an acute event could exacerbate his depression. As noted above I will discuss further with the patient and consider adjustments in medication. - Time Time Spent with patient: Less than 15 minutes Medications reviewed and adjusted accordingly: Yes
[2018-11-22] MEDS: RIVAROXABAN 15 MG TABLET PO SCH (17:43)
[2018-11-22] MEDS: ATORVASTATIN CALCIUM 40 MG TABLET PO SCH (21:34)
[2018-11-22] MEDS: INSULIN GLARGINE,HUM.REC.ANLOG 1,000 UNIT/10 ML VIAL SUBCUT SCH (21:42)
[2018-11-22] MEDS ORDERED: INSULIN GLARGINE,HUM.REC.ANLOG 1,000 UNIT/10 ML VIAL (PYX) SUBCUT ONE (21:42)
[2018-11-23 03:41] LABS: ANION GAP 7 (5-19); BLOOD UREA NITROGEN 17 mg/dL (7-20); CALCIUM 9.5 mg/dL (8.4-10.2); CARBON DIOXIDE 28 mmol/L (22-30); CHLORIDE 104 mmol/L (98-107); GLUCOSE 131 mg/dL (75-110); POTASSIUM 3.6 mmol/L (3.6-5.0)
[2018-11-23] MEDS: PANTOPRAZOLE SODIUM 40 MG TABLET.DR PO SCH (05:43)
[2018-11-23] MEDS: INSULIN REG, HUMAN 100 UNIT/ML 3 ML VIAL (PYX) SUBCUT SCH ×4 (08:15→21:58)
[2018-11-23] MEDS: CLONIDINE HCL 0.2 MG TABLET PO SCH (09:25)
[2018-11-23] MEDS: ESCITALOPRAM OXALATE 10 MG TABLET PO SCH (09:25)
[2018-11-23] MEDS: FLUTICASONE/VILANTEROL 200-25 MCG/DOSE IH SCH (09:25)
[2018-11-23] MEDS: CARVEDILOL 6.25 MG TABLET PO SCH ×2 (09:25→21:57)
--- NOTE | 2018-11-23 11:47 | PDOC PROGRESS REPORT ---
Subjective Progress Note for:: 11/23/18 Subjective:: The patient is laying in bed. He does not try to establish or maintain eye contact. He barely speaks during the encounter. I did review physical therapy notes and the patient in fact walks in the hallway with a cane. I believe his current psychological status reflects significant depression. Reason For Visit: ACUTE ISCHEMIC STROKE, UNCONTROLLED DIABETES Physical Exam Vital Signs: Temp Pulse Resp BP Pulse Ox 97.5 F 58 L 16 147/50 H 99 11/23/18 07:58 11/23/18 07:58 11/23/18 07:58 11/23/18 07:58 11/23/18 07:58 Intake & Output 11/22/18 11/23/18 11/24/18 06:59 06:59 06:59 Intake Total 360 Output Total 240 2 Balance 120 -2 Weight 72.5 kg 72.8 kg General appearance: PRESENT: no acute distress, well-developed. ABSENT: cooperative - flat affect and minimally interactive Head exam: PRESENT: atraumatic, normocephalic Ear exam: PRESENT: normal external ear exam. ABSENT: bleeding, drainage Respiratory exam: PRESENT: clear to auscultation mark, symmetrical, unlabored. ABSENT: rales, rhonchi, tachypnea, wheezes Cardiovascular exam: PRESENT: RRR, +S1, +S2 GI/Abdominal exam: PRESENT: normal bowel sounds, soft. ABSENT: distended, tenderness Rectal exam: PRESENT: deferred Extremities exam: ABSENT: joint swelling, pedal edema, tenderness Musculoskeletal exam: PRESENT: normal inspection. ABSENT: deformity Neurological exam: PRESENT: alert, awake, other - aphasia? Psychiatric exam: PRESENT: flat affect. ABSENT: agitated, anxious Focused psych exam: ABSENT: delusional, restlessness Skin exam: PRESENT: dry, normal color, warm. ABSENT: rash Results Laboratory Results: 11/18/18 17:40 11/23/18 02:59 11/23/18 02:59 Sodium 139.0 Potassium 3.6 Chloride 104 Carbon Dioxide 28 Anion Gap 7 BUN 17 Creatinine 0.95 Est GFR ( Amer) > 60 Glucose 131 H Calcium 9.5 11/18/18 23:35 Troponin I 0.015 Impressions: Chest X-Ray 11/18/18 22:53 IMPRESSION: No acute disease. copyright 2010 [employer]- All Rights Reserved Brain MRI with MRA 11/19/18 00:00 IMPRESSION: No evidence of acute thrombosis in the major head vasculature. Head MRI 11/19/18 00:00 IMPRESSION: Multifocal acute infarcts about the left frontal, parietal, and occipital lobes with additional punctate acute infarcts about the parasagittal posterior right parietal lobe. Given the multifocality, an embolic phenomenon is a definite possibility. Remote encephalomalacia about the right occipital lobe, indicating a remote right SOCIAL MEDIA MARKETING ANALYST distribution infarct. Additional remote lacunar infarcts about the bilateral lentiform nuclei. Underlying mild chronic microvascular ischemic change with generalized atrophy. copyright 2010 [employer]- All Rights Reserved Head CT 11/22/18 01:34 IMPRESSION: Multiple old lacunar infarcts. Acute areas of infarct seen on prior MRI are not clearly seen on this study. No hemorrhage. Assessment and Plan - Diagnosis (1) Acute CVA (cerebrovascular accident) Is this a current diagnosis for this admission?: Yes Plan: 11/22/2018-I did discuss with the nurse the fact that the patient seemed to be declining. He seems extremely flat emotionally. Strength was symmetric arms and legs. Repeat CT scan did not show any new areas of concern. He does have areas of encephalomalacia. I asked patient if he worked with physical therapy today. He was noncommittal with his answer. I then reviewed the physical therapy notes and he in fact was out of bed and walking with therapy today. Continue current regimen. I will discuss further the possibility of depression versus physiologic change. 11/23/2018-the patient in fact walks in the hallway with minimal assist using a cane. His mental status is more due to depression than his stroke. An exacerbation of his underlying depression as a reaction to the stroke would explain the current situation. I have asked psychiatry to see the patient. Recovery from his stroke is coming along nicely. Consider home with home health for therapy depending on psychiatry's recommendations. (2) Uncontrolled type 2 diabetes mellitus Qualifiers: Glycemic state: with hyperglycemia Qualified Code(s): E11.65 - Type 2 diabetes mellitus with hyperglycemia Is this a current diagnosis for this admission?: Yes Plan: 11/22/2018-all fingersticks less than 200. Continue current regimen. Continue Accu-Cheks. 11/23/2018-continue current regimen (3) HTN (hypertension) Qualifiers: Hypertension type: essential hypertension Qualified Code(s): I10 - Essential (primary) hypertension Is this a current diagnosis for this admission?: Yes Plan: 11/22/2018-blood pressures slightly higher than desired. We will continue to monitor and adjust medications if needed. Would like to keep his systolic pressure less than 130. 11/23/2018-the patient clonidine could be sedating. I am going to decrease the clonidine to 0.1 mg twice daily and add 5 mg of amlodipine and 12.5 mg of hydrochlorothiazide and monitor his pressure. (4) Depression Qualifiers: Depression Type: unspecified Qualified Code(s): F32.9 - Major depressive disorder, single episode, unspecified Is this a current diagnosis for this admission?: Yes Plan: 11/22/2018-the patient does have a history of depression. We have continued his SSRI therapy. Clearly an acute event could exacerbate his depression. As noted above I will discuss further with the patient and consider adjustments in medication. 11/23/2018-I did review the medication reconciliation. I have resumed his bupropion. He was on bupropion and escitalopram at home. I also decrease the clonidine to 0.1 mg twice daily as it may be sedating the patient. I have asked psychiatry to assess the patient as well. - Time Time Spent with patient: 15-24 minutes Medications reviewed and adjusted accordingly: Yes
[2018-11-23] MEDS: RIVAROXABAN 15 MG TABLET PO SCH (17:07)
[2018-11-23] MEDS ORDERED: INSULIN GLARGINE,HUM.REC.ANLOG 1,000 UNIT/10 ML VIAL (PYX) SUBCUT ONE (21:54)
[2018-11-23] MEDS: CLONIDINE HCL 0.1 MG TABLET PO SCH (21:56)
[2018-11-23] MEDS: BUPROPION HCL 100 MG TABLET PO SCH (21:57)
[2018-11-23] MEDS: AMLODIPINE BESYLATE 5 MG TABLET PO SCH (21:57)
[2018-11-23] MEDS: ATORVASTATIN CALCIUM 40 MG TABLET PO SCH (21:57)
[2018-11-23] MEDS: INSULIN GLARGINE,HUM.REC.ANLOG 1,000 UNIT/10 ML VIAL SUBCUT SCH (21:58)
[2018-11-24 03:25] LABS: ANION GAP 9 (5-19); BLOOD UREA NITROGEN 21 mg/dL (7-20); CALCIUM 9.2 mg/dL (8.4-10.2); CARBON DIOXIDE 25 mmol/L (22-30); CHLORIDE 103 mmol/L (98-107); GLUCOSE 187 mg/dL (75-110); POTASSIUM 3.3 mmol/L (3.6-5.0)
[2018-11-24] MEDS: PANTOPRAZOLE SODIUM 40 MG TABLET.DR PO SCH (05:23)
[2018-11-24] MEDS: BUPROPION HCL 100 MG TABLET PO SCH ×3 (05:23→22:29)
[2018-11-24 08:20] LABS: ABSOLUTE BASOPHILS # (AUTO) 0.1 10^3/uL (0.0-0.2); ABSOLUTE EOSINOPHILS # (AUTO) 0.2 10^3/uL (0.0-0.6); ABSOLUTE LYMPHOCYTES (AUTO) 2.5 10^3/uL (0.5-4.7); ABSOLUTE MONOCYTES (AUTO) 0.6 10^3/uL (0.1-1.4); ABSOLUTE NEUT (AUTO) 4.5 10^3/uL (1.7-8.2); BASOPHILS % (AUTO) 1.3 % (0-2); HEMATOCRIT 37.3 % (37.9-51.0); HEMOGLOBIN 12.8 g/dL (13.5-17.0); LYMPHOCYTES % (AUTO) 31.5 % (13-45); MEAN CORPUSCULAR HEMOGLOBIN 31.8 pg (27.0-33.4); MEAN CORPUSCULAR HGB CONC 34.4 g/dL (32.0-36.0); MEAN CORPUSCULAR VOLUME 92 fl (80-97); MONOCYTES % (AUTO) 7.4 % (3-13); PLATELET COUNT 272 10^3/uL (150-450); RED BLOOD COUNT 4.04 10^6/uL (4.35-5.55); RED CELL DISTRIBUTION WIDTH 13.4 % (11.5-14.0); SEGMENTED NEUTROPHILS % (AUTO) 56.8 % (42-78); TOTAL CELLS COUNTED % (AUTO) 100 %
[2018-11-24 08:49] LABS: ALBUMIN 3.7 g/dL (3.5-5.0); ALKALINE PHOSPHATASE 98 U/L (38-126); ANION GAP 10 (5-19); ASPARTATE AMINO TRANSFERASE 19 U/L (17-59); BILIRUBIN,DIRECT 0.1 mg/dL (0.0-0.4); BILIRUBIN,TOTAL 0.5 mg/dL (0.2-1.3); BLOOD UREA NITROGEN 18 mg/dL (7-20); CALCIUM 9.5 mg/dL (8.4-10.2); CARBON DIOXIDE 26 mmol/L (22-30); CHLORIDE 104 mmol/L (98-107); GLUCOSE 156 mg/dL (75-110); POTASSIUM 3.6 mmol/L (3.6-5.0); TOTAL PROTEIN 7.1 g/dL (6.3-8.2)
[2018-11-24] MEDS: INSULIN REG, HUMAN 100 UNIT/ML 3 ML VIAL (PYX) SUBCUT SCH ×4 (08:55→22:29)
[2018-11-24] MEDS: HYDROCHLOROTHIAZIDE 12.5 MG TABLET PO SCH (08:55)
[2018-11-24] MEDS: CARVEDILOL 6.25 MG TABLET PO SCH ×2 (09:51→22:26)
[2018-11-24] MEDS: CLONIDINE HCL 0.1 MG TABLET PO SCH ×2 (09:51→22:28)
[2018-11-24] MEDS: FLUTICASONE/VILANTEROL 200-25 MCG/DOSE IH SCH (09:51)
[2018-11-24] MEDS: ESCITALOPRAM OXALATE 10 MG TABLET PO SCH (09:51)
--- NOTE | 2018-11-24 15:20 | PDOC PROGRESS REPORT ---
Subjective Progress Note for:: 11/24/18 Subjective:: The patient was resting comfortably in bed. Today he in fact participated in the encounter more than the last 2 days. He was slow to answer questions but did establish eye contact. He did attempt to answer questions albeit in a low monotone voice. He denied any acute complaints. Reason For Visit: ACUTE ISCHEMIC STROKE, UNCONTROLLED DIABETES Physical Exam Vital Signs: Temp Pulse Resp BP Pulse Ox 97.8 F 57 L 16 152/71 H 99 11/24/18 12:02 11/24/18 12:02 11/24/18 12:02 11/24/18 12:02 11/24/18 12:02 Intake & Output 11/23/18 11/24/18 11/25/18 06:59 06:59 06:59 Intake Total 360 Output Total 2 150 Balance -2 -150 360 Weight 72.8 kg 72.2 kg General appearance: PRESENT: no acute distress, cooperative, well-developed Head exam: PRESENT: atraumatic, normocephalic Eye exam: PRESENT: conjunctiva pink. ABSENT: scleral icterus Ear exam: PRESENT: normal external ear exam. ABSENT: bleeding, drainage Mouth exam: PRESENT: moist, tongue midline Respiratory exam: PRESENT: chest wall tenderness, symmetrical, unlabored. ABSENT: accessory muscle use, rales, rhonchi, tachypnea, wheezes Cardiovascular exam: PRESENT: RRR, +S1, +S2, systolic murmur - 1/6 GI/Abdominal exam: PRESENT: normal bowel sounds, soft. ABSENT: distended, ten derness Rectal exam: PRESENT: deferred Gentrourinary exam: ABSENT: indwelling catheter Extremities exam: PRESENT: full ROM. ABSENT: joint swelling, pedal edema Musculoskeletal exam: PRESENT: ambulatory - With assist device. Occasional loss of balance., full ROM, normal inspection. ABSENT: deformity Neurological exam: PRESENT: alert, awake, oriented to person, oriented to place, oriented to situation, CN II-XII grossly intact, other - More interactive today Psychiatric exam: PRESENT: flat affect. ABSENT: agitated, anxious Focused psych exam: ABSENT: delusional, restlessness Results Laboratory Results: 11/24/18 08:05 11/24/18 08:05 11/24/18 11/24/18 11/24/18 02:54 08:05 08:05 WBC 8.0 RBC 4.04 L Hgb 12.8 L Hct 37.3 L MCV 92 MCH 31.8 MCHC 34.4 RDW 13.4 Plt Count 272 Seg Neutrophils % 56.8 Sodium 137.1 139.6 Potassium 3.3 L 3.6 Chloride 103 104 Carbon Dioxide 25 26 Anion Gap 9 10 BUN 21 H 18 Creatinine 0.84 0.78 Est GFR ( Amer) > 60 > 60 Glucose 187 H 156 H Calcium 9.2 9.5 Magnesium 1.3 L Total Bilirubin 0.5 AST 19 Alkaline Phosphatase 98 Total Protein 7.1 Albumin 3.7 TSH 11/24/18 08:05 WBC RBC Hgb Hct MCV MCH MCHC RDW Plt Count Seg Neutrophils % Sodium Potassium Chloride Carbon Dioxide Anion Gap BUN Creatinine Est GFR ( Amer) Glucose Calcium Magnesium Total Bilirubin AST Alkaline Phosphatase Total Protein Albumin TSH 1.03 11/18/18 23:35 Troponin I 0.015 Impressions: Chest X-Ray 11/18/18 22:53 IMPRESSION: No acute disease. copyright 2010 [employer]- All Rights Reserved Brain MRI with MRA 11/19/18 00:00 IMPRESSION: No evidence of acute thrombosis in the major head vasculature. Head MRI 11/19/18 00:00 IMPRESSION: Multifocal acute infarcts about the left frontal, parietal, and occipital lobes with additional punctate acute infarcts about the parasagittal posterior right parietal lobe. Given the multifocality, an embolic phenomenon is a definite possibility. 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 Additional remote lacunar infarcts about the bilateral lentiform nuclei. Underlying mild chronic microvascular ischemic change with generalized atrophy. copyright 2010 [employer]- All Rights Reserved Head CT 11/22/18 01:34 IMPRESSION: Multiple old lacunar infarcts. Acute areas of infarct seen on prior MRI are not clearly seen on this study. No hemorrhage. Assessment and Plan - Diagnosis (1) Acute CVA (cerebrovascular accident) Is this a current diagnosis for this admission?: Yes Plan: 11/22/2018-I did discuss with the nurse the fact that the patient seemed to be declining. He seems extremely flat emotionally. Strength was symmetric arms and legs. Repeat CT scan did not show any new areas of concern. He does have areas of encephalomalacia. I asked patient if he worked with physical therapy today. He was noncommittal with his answer. I then reviewed the physical therapy notes and he in fact was out of bed and walking with therapy today. Continue current regimen. I will discuss further the possibility of depression versus physiologic change. 11/23/2018-the patient in fact walks in the hallway with minimal assist using a cane. His mental status is more due to depression than his stroke. An exacerbation of his underlying depression as a reaction to the stroke would explain the current situation. I have asked psychiatry to see the patient. Recovery from his stroke is coming along nicely. Consider home with home health for therapy depending on psychiatry's recommendations. 11/24/2018-physical therapy continues to work with the patient. We will order physical therapy for home. We will also have speech and occupational therapy work with the patient as well. Anticipate discharge in the next 48 hours. (2) Uncontrolled type 2 diabetes mellitus Qualifiers: Glycemic state: with hyperglycemia Qualified Code(s): E11.65 - Type 2 diabetes mellitus with hyperglycemia Is this a current diagnosis for this admission?: Yes Plan: 11/22/2018-all fingersticks less than 200. Continue current regimen. Continue Accu-Cheks. 11/23/2018-continue current regimen 11/24/2018-the patient in fact has reasonable blood sugar control with Accu- Cheks less than 200. Continue current regimen. (3) HTN (hypertension) Qualifiers: Hypertension type: essential hypertension Qualified Code(s): I10 - Essent ial (primary) hypertension Is this a current diagnosis for this admission?: Yes Plan: 11/22/2018-blood pressures slightly higher than desired. We will continue to monitor and adjust medications if needed. Would like to keep his systolic pres sure less than 130. 11/23/2018-the patient clonidine could be sedating. I am going to decrease the clonidine to 0.1 mg twice daily and add 5 mg of amlodipine and 12.5 mg of hydrochlorothiazide and monitor his pressure. 11/24/2018-amlodipine and hydrochlorothiazide just added yesterday. Systolic pr essure still slightly high. We will continue to monitor the blood pressure for 7 more days before considering any change. (4) Depression Qualifiers: Depression Type: unspecified Qualified Code(s): F32.9 - Major depressive disorder, single episode, unspecified Is this a current diagnosis for this admission?: Yes Plan: 11/22/2018-the patient does have a history of depression. We have continued his SSRI therapy. Clearly an acute event could exacerbate his depression. As noted above I will discuss further with the patient and consider adjustments in medication. 11/23/2018-I did review the medication reconciliation. I have resumed his bupropion. He was on bupropion and escitalopram at home. I also decrease the clonidine to 0.1 mg twice daily as it may be sedating the patient. I have asked psychiatry to assess the patient as well. 11/24/2018-the patient is somewhat more alert today. I added his bupropion back and decreased his clonidine. I believe it would just be amount of time before the medicine kicks in and his emotional state improves. (5) Hypomagnesemia Is this a current diagnosis for this admission?: Yes Plan: 11/24/2018-serum magnesium is only 1.3 today. I have ordered intravenous magnesium for today and will start oral magnesium tomorrow. - Time Time Spent with patient: Less than 15 minutes Medications reviewed and adjusted accordingly: Yes Anticipated discharge: Home with Homehealth Within: within 48 hours
[2018-11-24] MEDS ORDERED: MAGNESIUM SULFATE 4 GM/100 ML RTUPB IV ONE (16:00)
[2018-11-24] MEDS: RIVAROXABAN 15 MG TABLET PO SCH (17:05)
[2018-11-24] MEDS: OXYCODONE HCL IR 5 MG TABLET PO PRN ×2 (17:08→23:08)
[2018-11-24] MEDS ORDERED: MAGNESIUM SULFATE 4 GM/D5W 100 ML IV ONE (19:00)
[2018-11-24] MEDS ORDERED: INSULIN GLARGINE,HUM.REC.ANLOG 1,000 UNIT/10 ML VIAL (PYX) SUBCUT ONE (22:20)
[2018-11-24] MEDS: AMLODIPINE BESYLATE 5 MG TABLET PO SCH (22:27)
[2018-11-24] MEDS: ATORVASTATIN CALCIUM 40 MG TABLET PO SCH (22:28)
[2018-11-24] MEDS: TIZANIDINE HCL 4 MG TABLET PO PRN (22:29)
[2018-11-24] MEDS: INSULIN GLARGINE,HUM.REC.ANLOG 1,000 UNIT/10 ML VIAL SUBCUT SCH (22:30)
[2018-11-25 03:30] LABS: ANION GAP 10 (5-19); BLOOD UREA NITROGEN 20 mg/dL (7-20); CALCIUM 9.5 mg/dL (8.4-10.2); CARBON DIOXIDE 28 mmol/L (22-30); CHLORIDE 101 mmol/L (98-107); GLUCOSE 141 mg/dL (75-110); POTASSIUM 3.1 mmol/L (3.6-5.0)
[2018-11-25] MEDS: PANTOPRAZOLE SODIUM 40 MG TABLET.DR PO SCH (06:14)
[2018-11-25] MEDS: BUPROPION HCL 100 MG TABLET PO SCH ×2 (06:14→13:05)
[2018-11-25] MEDS: OXYCODONE HCL IR 5 MG TABLET PO PRN ×3 (06:18→19:54)
[2018-11-25] MEDS: INSULIN REG, HUMAN 100 UNIT/ML 3 ML VIAL (PYX) SUBCUT SCH ×4 (08:17→21:43)
[2018-11-25] MEDS: HYDROCHLOROTHIAZIDE 12.5 MG TABLET PO SCH (08:38)
[2018-11-25] MEDS ORDERED: CHLORTHALIDONE 25 MG TABLET PO SCH (10:00)
[2018-11-25] MEDS ORDERED: LOSARTAN POTASSIUM 50 MG TABLET PO SCH (10:15)
[2018-11-25] MEDS: CLONIDINE HCL 0.1 MG TABLET PO SCH (10:56)
[2018-11-25] MEDS: CARVEDILOL 6.25 MG TABLET PO SCH (10:57)
[2018-11-25] MEDS: AMLODIPINE BESYLATE 5 MG TABLET PO SCH (11:11)
[2018-11-25] MEDS: ESCITALOPRAM OXALATE 10 MG TABLET PO SCH (11:11)
[2018-11-25] MEDS: MAGNESIUM OXIDE 400 MG TABLET PO SCH (11:11)
[2018-11-25] MEDS: ASPIRIN 81 MG TABLET, CHEWABLE PO SCH (11:11)
[2018-11-25] MEDS: LISINOPRIL 10 MG TABLET PO SCH (11:11)
[2018-11-25] MEDS: ENOXAPARIN SODIUM INJ 80 MG/0.8 ML DISP.SYRIN SUBCUT SCH ×2 (11:12→21:51)
[2018-11-25] MEDS: FLUTICASONE/VILANTEROL 200-25 MCG/DOSE IH SCH (11:12)
[2018-11-25] MEDS: CHLORTHALIDONE 25 MG TABLET PO SCH (13:06)
[2018-11-25] MEDS: TIZANIDINE HCL 4 MG TABLET PO PRN (17:38)
--- NOTE | 2018-11-25 17:57 | PSYCHOLOGICAL NOTE ---
Psych Note - Psych Note Date seen by psych provider: 11/24/18 Time seen by psych provider: 13:25 Psych Note: Date seen: 11/24/2018 Time seen by psych: 13:25 Psych Note: Reason for consult: Depression concerns Patient has a history of strokes. Per report, patients most recent stroke was 11-19-18 and patient had a stroke a few weeks prior. Patient was sitting on the side of the bed watching television when clinician entered room. Patient would respond and make appropriate eye contact with clinician, however if clinician asked a question that it seemed required patient engage in memory recall, patient would divert his attention to back to the television. When clinician would make attempts to reengage, it seems patient forgot clinician was in the room. Patient reported being excited to go home tomorrow. Patient stated his plan at discharge is to get better. Patient is alert and oriented to person, place, time and circumstance. Mood is flat with congruent affect as evidenced by patient observed to be in no immediate distress and no mood liability. Patient denies suicidal and homicidal ideation. Delusions are absent and behavior is congruent with an intact reality based presentation (i.e.: organized and linear through processes). Patient denies auditory and visual hallucinations. Eye contact is appropriate. Conversational speech is within normal rate, tone, and prosody. Intellectual ability appears to be within average range given multiple long. Attention and concentration are fair. Insight, judgment and impulse control are currently good. Diagnosis: Stroke Medication recommendations per [facility] contracted psychiatrist Dr. Desire MD are as follows: decrease home medication of Welbutrin to 75MG 2x daily for 5 days then decrease to 75MG for 7 days then discontinue Add Depakote 125 2x daily to assist with depression/mood stabilization Decrease discontinue home medication of Lexapro Impression/Plan: Patient is cleared from acute psychiatric services. Patient does not meet IVC criteria per [place] GS 122C. At this time, patient is unable to demonstrate strong insight and judgment into his current situation due to multiple stroke episodes. It is recommended that patient be linked appropriate rehabilitative services to facilitate physical and mental recovery. It is also recommended that patients daughter, who is also his primary caregiver, receive education and resources to increase her knowledge about patients current state, prognosis, and appropriate treatments. If any new concerns arise please re- consult. Dr. Crawley was consulted on the care and management of this patient; attending physician is in agreement with recommendations and disposition.
--- NOTE | 2018-11-25 18:48 | PDOC PROGRESS REPORT ---
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 He presents with sensation of falling to the right side and uncontrolled blood sugars prompting evaluation in the emergency room. He is found to have hyperglycemia and CT shows chronic changes of the septal encephalomalacia. He has no new focal deficits, he denies recent change in medications, palpitations or chest pain. He is referred to the hospitalist for admission. 11/25/2017. No acute events overnight, patient in no apparent distress, however does not communicate much, alert oriented x2, daughter at bedside, updated, patient denies any fever, chills, nausea, vomiting, diarrhea, constipation or any urinary symptoms, p.o. tolerant having normal bowel and bladder movements. Reason For Visit: ACUTE ISCHEMIC STROKE, UNCONTROLLED DIABETES Physical Exam Vital Signs: Temp Pulse Resp BP Pulse Ox 97.9 F 71 17 124/63 98 11/25/18 16:18 11/25/18 16:18 11/25/18 16:18 11/25/18 16:18 11/25/18 16:18 Intake & Output 11/24/18 11/25/18 11/26/18 06:59 06:59 06:59 Intake Total 820 600 Output Total 150 100 Balance -150 720 600 Weight 72.2 kg 71.3 kg General appearance: PRESENT: no acute distress, well-developed, well-nourished Respiratory exam: PRESENT: clear to auscultation mark. ABSENT: rales, rhonchi, wheezes Cardiovascular exam: PRESENT: RRR. ABSENT: diastolic murmur, rubs, systolic murmur Pulses: PRESENT: normal dorsalis pedis pul Extremities exam: PRESENT: full ROM. ABSENT: calf tenderness, clubbing, pedal edema Neurological exam: PRESENT: alert, awake, oriented to person, oriented to place, CN II-XII grossly intact Results Laboratory Results: 11/24/18 08:05 11/25/18 03:05 11/25/18 11/25/18 03:05 04:26 Sodium 138.6 Potassium 3.1 L Chloride 101 Carbon Dioxide 28 Anion Gap 10 BUN 20 Creatinine 0.94 Est GFR ( Amer) > 60 Glucose 141 H Calcium 9.5 Magnesium 2.3 D 11/18/18 23:35 Troponin I 0.015 Impressions: Chest X-Ray 11/18/18 22:53 IMPRESSION: No acute disease. copyright 2010 [employer]- All Rights Reserved Brain MRI with MRA 11/19/18 00:00 IMPRESSION: No evidence of acute thrombosis in the major head vasculature. Head MRI 11/19/18 00:00 IMPRESSION: Multifocal acute infarcts about the left frontal, parietal, and occipital lobes with additional punctate acute infarcts about the parasagittal posterior right parietal lobe. Given the multifocality, an embolic phenomenon is a definite possibility. 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 Additional remote lacunar infarcts about the bilateral lentiform nuclei. Underlying mild chronic microvascular ischemic change with generalized atrophy. copyright 2010 [employer]- All Rights Reserved Head CT 11/22/18 01:34 IMPRESSION: Multiple old lacunar infarcts. Acute areas of infarct seen on prior MRI are not clearly seen on this study. No hemorrhage. 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 11/20/2018. 2D echo negative for any cardiac source of embolus. LVEF 65%. No ASD, VSD, or PFO. As per my conversation with his daughter who is a primary caregiver she is stating that his father has been having recurrent strokes since she was very young, when they were living in [place] about 12 years ago he was diagnosed with some type of genetic deficiency which puts him at risk of recurrent thromboembolism. He used to be taking Coumadin and was very adherent but unfortunately his INR was really difficult to be kept at therapeutic levels. About 2 months ago he was admitted here at [facility] for a CVA and due to the fact that his INR was therapeutic and it was thought that patient may not have been compliant with his Coumadin patient was switched to Xarelto. Patient's daughter stating that he has always been on Coumadin and he was getting less strokes while being on Coumadin. Patient's daughter does not want him to be switched back to Coumadin as she is only care provider and she will not be able to handle too much blood tests and also dietary restrictions. She instead wants him to be placed on Lovenox instead. Does not want to be continued on NOACs. Patient does not have any focal neurological deficits however his gait is unst able. He does not communicate much, alert and oriented x2, short-term memory is okay but long-term memory has been affected. Daughter states that he does not remember his anymore. Given history of multiple recurrent thromboembolic strokes patient's most likely suffering from some kind of hypercoagulable state. No records are available, patient's daughter does not believe she will be able t o get records from [place]. Given the above scenario I believe patient should be either switch back to Coumadin or sent home or Lovenox in the latter of which patient and patient's daughter prefers. Consulted hematology for further recommendation. Switch to Lovenox therapeutic dose. Continue PT OT, antiplatelets, optimize BP. (2) Depression Qualifiers: Depression Type: unspecified Qualified Code(s): F32.9 - Major depressive disorder, single episode, unspecified Is this a current diagnosis for this admission?: Yes Plan: Denies any suicidal or homicidal ideation. Psychiatry has been consulted. Recommendations noted. Plan is to taper Wellbutrin over 5 days and discontinue. Add Depakote 125 mg twice daily and continue Lexapro. (3) HTN (hypertension) Qualifiers: Hypertension type: essential hypertension Qualified Code(s): I10 - Essential (primary) hypertension Is this a current diagnosis for this admission?: Yes Plan: Euvolemic. Normotensive. DC clonidine as it is causing sedation and risk of rebound hypertension if nonc ompliant. Switch HCTZ to rheumatology and the latter one is longer acting. Continue amlodipine and lisinopril. (4) Uncontrolled type 2 diabetes mellitus Qualifiers: Glycemic state: with hyperglycemia Qualified Code(s): E11.65 - Type 2 diabetes mellitus with hyperglycemia Is this a current diagnosis for this admission?: Yes Plan: Uncontrolled. Likely due to noncompliance. Hemoglobin A1c 10%. Continue continue basal and prandial insulin, sliding scale insulin, Accu-Chek, hypoglycemia protocol, adjust dosage as needed. Outpatient PCP follow-up. (5) Hx of hypercoagulable state Is this a current diagnosis for this admission?: Yes Plan: This is based on history provided by family. No records available. As per my conversation with his daughter who is a primary caregiver she is stating that his father has been having recurrent strokes since she was very young, when they were living in [place] about 12 years ago he was diagnosed with some type of genetic deficiency which puts him at risk of recurrent thromboembolism. He used to be taking Coumadin and was very adherent but unfortunately his INR was really difficult to be kept at therapeutic levels. About 2 months ago he was admitted here at [facility] for a CVA and due to the fact that his INR was therapeutic and it was thought that patient may not have been compliant with his Coumadin patient was switched to Xarelto. Patient's daughter stating that he has always been on Coumadin and he was getting less strokes while being on Coumadin. Patient's daughter does not want him to be switched back to Coumadin as she is only care provider and she will not be able to handle too much blood tests and also dietary restrictions. She instead wants him to be placed on Lovenox instead. Does not want to be continued on NOACs. Patient does not have any focal neurological deficits however his gait is unstable. He does not communicate much, alert and oriented x2, short-term memory is okay but long-term memory has been affected. Daughter states that he does not remember his anymore. Given history of multiple recurrent thromboembolic strokes patient's most likely suffering from some kind of hypercoagulable state. No records are available, patient's daughter does not believe she will be able to get records from [place]. Given the above scenario I believe patient should be either switch back to Coumadin or sent home or Lovenox in the latter of which patient and patient's daughter prefers. Consulted hematology for further recommendation. Switch to Lovenox therapeutic dose. Continue PT OT, antiplatelets, optimize BP.
[2018-11-25] MEDS: INSULIN GLARGINE,HUM.REC.ANLOG 1,000 UNIT/10 ML VIAL SUBCUT SCH (21:48)
[2018-11-25] MEDS: GABAPENTIN 400 MG CAPSULE PO SCH (21:50)
[2018-11-25] MEDS: PREGABALIN 100 MG CAPSULE PO SCH (21:50)
[2018-11-25] MEDS: ATORVASTATIN CALCIUM 40 MG TABLET PO SCH (21:50)
[2018-11-25] MEDS: VALPROATE SODIUM SYRUP 250 MG/5 ML UDCUP PO SCH (23:11)
[2018-11-26 04:38] LABS: ABSOLUTE BASOPHILS # (AUTO) 0.1 10^3/uL (0.0-0.2); ABSOLUTE EOSINOPHILS # (AUTO) 0.3 10^3/uL (0.0-0.6); ABSOLUTE LYMPHOCYTES (AUTO) 3.7 10^3/uL (0.5-4.7); ABSOLUTE MONOCYTES (AUTO) 0.9 10^3/uL (0.1-1.4); ABSOLUTE NEUT (AUTO) 5.7 10^3/uL (1.7-8.2); BASOPHILS % (AUTO) 1.4 % (0-2); EOSINOPHILS % (AUTO) 2.7 % (0-6); HEMATOCRIT 40.3 % (37.9-51.0); HEMOGLOBIN 13.8 g/dL (13.5-17.0); LYMPHOCYTES % (AUTO) 34.6 % (13-45); MEAN CORPUSCULAR HEMOGLOBIN 31.7 pg (27.0-33.4); MEAN CORPUSCULAR HGB CONC 34.2 g/dL (32.0-36.0); MEAN CORPUSCULAR VOLUME 93 fl (80-97); PLATELET COUNT 300 10^3/uL (150-450); RED BLOOD COUNT 4.35 10^6/uL (4.35-5.55); RED CELL DISTRIBUTION WIDTH 13.6 % (11.5-14.0); SEGMENTED NEUTROPHILS % (AUTO) 53.3 % (42-78); TOTAL CELLS COUNTED % (AUTO) 100 %; WHITE BLOOD COUNT 10.7 10^3/uL (4.0-10.5)
[2018-11-26 05:06] LABS: ALBUMIN 4.1 g/dL (3.5-5.0); ALKALINE PHOSPHATASE 113 U/L (38-126); ANION GAP 13 (5-19); ASPARTATE AMINO TRANSFERASE 20 U/L (17-59); BILIRUBIN,DIRECT 0.2 mg/dL (0.0-0.4); BILIRUBIN,TOTAL 0.4 mg/dL (0.2-1.3); BLOOD UREA NITROGEN 20 mg/dL (7-20); CALCIUM 9.6 mg/dL (8.4-10.2); CARBON DIOXIDE 26 mmol/L (22-30); CHLORIDE 99 mmol/L (98-107); GLUCOSE 267 mg/dL (75-110); POTASSIUM 3.5 mmol/L (3.6-5.0); TOTAL PROTEIN 7.5 g/dL (6.3-8.2)
[2018-11-26] MEDS: GABAPENTIN 400 MG CAPSULE PO SCH ×3 (05:44→21:43)
[2018-11-26] MEDS: PREGABALIN 100 MG CAPSULE PO SCH ×3 (05:44→21:43)
[2018-11-26] MEDS: PANTOPRAZOLE SODIUM 40 MG TABLET.DR PO SCH (05:44)
[2018-11-26] MEDS: INSULIN REG, HUMAN 100 UNIT/ML 3 ML VIAL (PYX) SUBCUT SCH ×4 (08:39→21:44)
--- NOTE | 2018-11-26 09:05 | PDOC CONSULTATION ---
Consultation Consult Date: 11/26/18 Provider Consulted: BARRETT AGUILAR Consult reason:: Hematology/Oncology consultation was requested for patient admitted with new CVA previously on Xarelto. History of Present Illness Admission Date/PCP: 11/21/18 08:56 JEFFREY MYRICK History of Present Illness: RADHA GARCIA is a 58 year old male who according to medical records, presented with aphasia and confusion. He has a long history of A-fib and had been on warfarin for many years. He states that he has a home monitor which he used. However, at some point, it appears that this was changed to Xarelto. Family is not available and patient is not sure why this was changed or when it was changed. Patient states that he was taking this regularly. However, compliance was questioned on admission. He is currently on Lovenox and was found to have new evidence of CVA. Patient states that he is back to his baseline at this point. I cannot confirm this with family. Past Medical History Cardiac Medical History: Reports: DVT - Left leg, Hyperlipidema, Hypertension Denies: Atrial Fibrillation, Congestive Heart Failure, Coronary Artery Disease, Myocardial Infarction, Peripheral Vascular Disease, Pulmonary Embolism Pulmonary Medical History: Reports: Chronic Obstructive Pulmonary Disease (COPD) Denies: Asthma, Bronchitis, Pneumonia Neurological Medical History: Reports: Seizures - Epilepsy Endocrine Medical History: Reports: Diabetes Mellitus Type 2 Denies: Diabetes Mellitus Type 1, Hyperthyroidism, Hypothyroidism Renal/ Medical History: Reports: End Stage Renal Disease - dialysis in the past GI Medical History: Reports: Gastroesophageal Reflux Disease Denies: Cirrhosis, Crohn's Disease, Hepatitis, Ulcerative Colitis Musculoskeltal Medical History: Reports: Arthritis Denies: Gout Skin Medical History: Denies: Eczema, Psoriasis Psychiatric Medical History: Reports: Depression Hematology: Denies: Anemia, Bleeding Tendencies Past Surgical History Past Surgical History: Reports: Appendectomy, Cholecystectomy, Orthopedic Surgery - Neck. Flexor tendon release both hands. Social History Lives with: Family Smoking Status: Former Smoker Cigarettes Packs Per Day: 1 Frequency of Alcohol Use: None Hx Recreational Drug Use: No Drugs: None Hx Prescription Drug Abuse: No Past Social History Note: 1 child. 2 GKs. Lives with daughter. - Advance Directive Resuscitation Status: Full Code Family History Family History: CAD, Malignancy - Melanoma Parental Family History Reviewed: No - Patient could not answer Children Family History Reviewed: No Sibling(s) Family History Reviewed.: No Medication/Allergy Home Medications: Albuterol Sulfate [Proair HFA Inhalation Aerosol 8.5 gm MDI] 2 puff IH Q6HP PRN 11/19/18 Atorvastatin Calcium [Lipitor 40 mg Tablet] 40 mg PO QHS 11/19/18 Buprenorphine [Butrans] 20 mcg TP MO@1000 11/19/18 Bupropion HCl [Wellbutrin Xl 300mg 24hr Tablet] 300 mg PO DAILY 11/19/18 Carvedilol [Coreg 6.25 mg Tablet] 6.25 mg PO Q12 11/19/18 Clonidine HCl [Catapres 0.2 mg Tablet] 0.2 mg PO Q12 11/19/18 Escitalopram Oxalate [Lexapro] 20 mg PO DAILY 11/19/18 Fluticasone Propionate [Flonase Nasal [place] 50 Mcg/[place] 16 gm] 1 spray NASL DAILY 11/19/18 Fluticasone/Salmeterol [Advair 250-50 Diskus 14 Dose/Diskus] 1 puff IH Q12 11/19/18 Gabapentin [Neurontin 400 mg Capsule] 800 mg PO Q8 11/19/18 Insulin Detemir [Levemir] 40 units SQ Q12 11/19/18 Oxycodone HCl [Oxy-Ir 5 mg Tablet] 5 mg PO Q6HP PRN 11/19/18 Pantoprazole Sodium [Protonix [address] Tablet] 40 mg PO DAILY 11/19/18 Pregabalin [Lyrica 100 mg Capsule] 100 mg PO Q8 11/19/18 Rivaroxaban [Xarelto 15 mg Tablet] 15 mg PO WSUPPER 11/19/18 Tizanidine HCl [Zanaflex 4 mg Tablet] 4 mg PO TIDP PRN 11/19/18 Allergies/Adverse Reactions: Finnish Ginseng [From Ginseng Edge] Allergy (Severe, Verified 09/05/18 18:01) INTERACTS WITH SZ MEDICATION SO CANNOT HAVE guarana seed extract [From Ginseng Edge] Allergy (Severe, Verified 09/05/18 18:01) INTERACTS WITH SZ MEDICATION SO CANNOT HAVE Welsh Ginseng [From Ginseng Edge] Allergy (Severe, Verified 09/05/18 18:01) INTERACTS WITH SZ MEDICATION SO CANNOT HAVE Siberian Ginseng Root Extract [From Ginseng Edge] Allergy (Severe, Verified 09/05/18 18:01) INTERACTS WITH SZ MEDICATION SO CANNOT HAVE Review of Systems Constitutional: ABSENT: fever(s), headache(s) Eyes: ABSENT: visual disturbances Ears: ABSENT: hearing changes Nose, Mouth, and Throat: ABSENT: sore throat Cardiovascular: ABSENT: chest pain Respiratory: ABSENT: dyspnea Gastrointestinal: ABSENT: nausea Genitourinary: ABSENT: dysuria Integumentary: ABSENT: rash Neurological: PRESENT: abnormal speech, weakness Hematologic/Lymphatic: ABSENT: easy bleeding Physical Exam Vital Signs: Temp Pulse Resp BP Pulse Ox 97.6 F 63 16 156/68 H 98 11/26/18 03:45 11/26/18 07:00 11/26/18 03:45 11/26/18 03:45 11/26/18 03:45 Intake & Output 11/25/18 11/26/18 11/27/18 06:59 06:59 06:59 Intake Total 820 600 Output Total 100 0 Balance 720 600 Weight 71.3 kg 72 kg General appearance: PRESENT: well-developed, well-nourished Exam: 58 year old male. Patient is able to answer in short answers, and does so appropriately. However, he cannot remember the names of his doctors. Head exam: PRESENT: normocephalic Eye exam: PRESENT: EOMI Mouth exam: PRESENT: tongue midline Neck exam: ABSENT: lymphadenopathy, tenderness Respiratory exam: PRESENT: clear to auscultation mark, unlabored Cardiovascular exam: PRESENT: irregular rhythm GI/Abdominal exam: PRESENT: soft. ABSENT: tenderness Extremities exam: ABSENT: pedal edema Neurological exam: PRESENT: alert, awake Psychiatric exam: PRESENT: appropriate affect Skin exam: PRESENT: normal color Results Laboratory Results: 11/26/18 03:43 11/26/18 03:43 11/26/18 11/26/18 03:43 03:43 WBC 10.7 H RBC 4.35 Hgb 13.8 Hct 40.3 MCV 93 MCH 31.7 MCHC 34.2 RDW 13.6 Plt Count 300 Seg Neutrophils % 53.3 Sodium 138.2 Potassium 3.5 L Chloride 99 Carbon Dioxide 26 Anion Gap 13 BUN 20 Creatinine 1.05 Est GFR ( Amer) > 60 Glucose 267 H Calcium 9.6 Magnesium 1.6 Total Bilirubin 0.4 AST 20 Alkaline Phosphatase 113 Total Protein 7.5 Albumin 4.1 11/18/18 23:35 Troponin I 0.015 Impressions: Chest X-Ray 11/18/18 22:53 IMPRESSION: No acute disease. copyright 2010 [employer]- All Rights Reserved Brain MRI with MRA 11/19/18 00:00 IMPRESSION: No evidence of acute thrombosis in the major head vasculature. Head MRI 11/19/18 00:00 IMPRESSION: Multifocal acute infarcts about the left frontal, parietal, and occipital lobes with additional punctate acute infarcts about the parasagittal posterior right parietal lobe. Given the multifocality, an embolic phenomenon is a definite possibility. Remote encephalomalacia about the right occipital lobe, indicating a remote right VISUAL EDUCATOR distribution infarct. Additional remote lacunar infarcts about the bilateral lentiform nuclei. Underlying mild chronic microvascular ischemic change with generalized atrophy. copyright 2010 [employer]- All Rights Reserved Head CT 11/22/18 01:34 IMPRESSION: Multiple old lacunar infarcts. Acute areas of infarct seen on prior MRI are not clearly seen on this study. No hemorrhage. Assessment & Plan - Diagnosis (1) Acute CVA (cerebrovascular accident) Is this a current diagnosis for this admission?: Yes Plan: Patient was previously anticoagulated, but unsure if he missed any doses. It may be safer to transition him back to the warfarin. I have tried to reach family to discuss, but was unable to leave a message on voice mail. He states that he was being monitored for this by PCP. However, he cannot tell me who his PCP is, for me to discuss why this was changed to begin with. I will keep raffaele giles to investigate this. For now, would continue Lovenox 1 mg/kg SC BID. - Plan Summary Plan Summary: I will continue to follow him with you. Please call with questions or concerns.
[2018-11-26] MEDS ORDERED: BUPROPION HCL 100 MG TABLET PO SCH (10:00)
[2018-11-26] MEDS: ESCITALOPRAM OXALATE 10 MG TABLET PO SCH (10:44)
[2018-11-26] MEDS: MAGNESIUM OXIDE 400 MG TABLET PO SCH (10:44)
[2018-11-26] MEDS: AMLODIPINE BESYLATE 5 MG TABLET PO SCH (10:44)
[2018-11-26] MEDS: BUPROPION HCL 75 MG TABLET PO SCH ×2 (10:45→21:43)
[2018-11-26] MEDS: ASPIRIN 81 MG TABLET, CHEWABLE PO SCH (10:45)
[2018-11-26] MEDS: LISINOPRIL 10 MG TABLET PO SCH (10:45)
[2018-11-26] MEDS: CHLORTHALIDONE 25 MG TABLET PO SCH (10:46)
[2018-11-26] MEDS: FLUTICASONE/VILANTEROL 200-25 MCG/DOSE IH SCH (10:47)
[2018-11-26] MEDS: FLUTICASONE NASAL SPRAY 50 MCG/SPRY 120 SPRAY/16 GM NASL SCH (10:48)
[2018-11-26] MEDS: ENOXAPARIN SODIUM INJ 80 MG/0.8 ML DISP.SYRIN SUBCUT SCH ×2 (10:49→21:43)
[2018-11-26 11:05] LABS: INTERNATIONAL RATION (INR) 1.03; PROTHROMBIN TIME 13.5 SEC (11.4-15.4)
[2018-11-26 11:06] LABS: PARTIAL THROMBOPLASTIN TIME 29.8 SEC (23.5-35.8)
[2018-11-26] MEDS: VALPROATE SODIUM SYRUP 250 MG/5 ML UDCUP PO SCH (11:31)
[2018-11-26] MEDS ORDERED: DEXTROSE 40% GEL 15 GM TUBE PO PRN ×2 (15:18)
[2018-11-26] MEDS ORDERED: GLUCAGON,HUMAN RECOMB 1 MG INJ IM PRN (15:18)
[2018-11-26] MEDS ORDERED: DEXTROSE 50%-WATER 25 GM/50 ML DISP.SYRIN IV PRN ×2 (15:18)
--- NOTE | 2018-11-26 15:48 | PDOC PROGRESS REPORT ---
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 He presents with sensation of falling to the right side and uncontrolled blood sugars prompting evaluation in the emergency room. He is found to have hyperglycemia and CT shows chronic changes of the septal encephalomalacia. He has no new focal deficits, he denies recent change in medications, palpitations or chest pain. He is referred to the hospitalist for admission. 11/25/2017. No acute events overnight, patient in no apparent distress, however does not communicate much, alert oriented x2, daughter at bedside, updated, patient denies any fever, chills, nausea, vomiting, diarrhea, constipation or any urinary symptoms, p.o. tolerant having normal bowel and bladder movements. 11/26/2018. No acute events overnight, patient alert oriented x3 however very slow to communicate, no focal neurological deficits, with daughters at bedside, denies any fever, chills, nausea, vomiting, diarrhea, constipation or any urinary symptoms. Oncology has been consulted, patient daughter prefers him to be transitioned back to Lovenox. Patient could be discharged potentially but as per his daughter she is stating that they do not have a place yet and she has been trying to find one. Reason For Visit: ACUTE ISCHEMIC STROKE, UNCONTROLLED DIABETES Physical Exam Vital Signs: Temp Pulse Resp BP Pulse Ox 97.3 F 67 16 132/58 H 97 11/26/18 08:13 11/26/18 14:00 11/26/18 08:13 11/26/18 08:13 11/26/18 08:13 Intake & Output 11/25/18 11/26/18 11/27/18 06:59 06:59 06:59 Intake Total 820 600 240 Output Total 100 0 400 Balance 720 600 -160 Weight 71.3 kg 72 kg Results Laboratory Results: 11/26/18 03:43 11/26/18 03:43 11/26/18 11/26/18 03:43 03:43 WBC 10.7 H RBC 4.35 Hgb 13.8 Hct 40.3 MCV 93 MCH 31.7 MCHC 34.2 RDW 13.6 Plt Count 300 Seg Neutrophils % 53.3 Sodium 138.2 Potassium 3.5 L Chloride 99 Carbon Dioxide 26 Anion Gap 13 BUN 20 Creatinine 1.05 Est GFR ( Amer) > 60 Glucose 267 H Calcium 9.6 Magnesium 1.6 Total Bilirubin 0.4 AST 20 Alkaline Phosphatase 113 Total Protein 7.5 Albumin 4.1 11/18/18 23:35 Troponin I 0.015 Impressions: Chest X-Ray 11/18/18 22:53 IMPRESSION: No acute disease. copyright 2010 [employer]- All Rights Reserved Brain MRI with MRA 11/19/18 00:00 IMPRESSION: No evidence of acute thrombosis in the major head vasculature. Head MRI 11/19/18 00:00 IMPRESSION: Multifocal acute infarcts about the left frontal, parietal, and occipital lobes with additional punctate acute infarcts about the parasagittal posterior right parietal lobe. Given the multifocality, an embolic phenomenon is a definite possibility. Remote encephalomalacia about the right occipital lobe, indicating a remote right SCALE TECHNICIAN distribution infarct. Additional remote lacunar infarcts about the bilateral lentiform nuclei. Underlying mild chronic microvascular ischemic change with generalized atrophy. copyright 2010 [employer]- All Rights Reserved Head CT 11/22/18 01:34 IMPRESSION: Multiple old lacunar infarcts. Acute areas of infarct seen on prior MRI are not clearly seen on this study. No hemorrhage. 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 11/20/2018. 2D echo negative for any cardiac source of embolus. LVEF 65%. No ASD, VSD, or PFO. As per my conversation with his daughter who is a primary caregiver she is stating that his father has been having recurrent strokes since she was very young, when they were living in [place] about 12 years ago he was diagnosed with some type of genetic deficiency which puts him at risk of recurrent thromboembolism. He used to be taking Coumadin and was very adherent but unfortunately his INR was really difficult to be kept at therapeutic levels. About 2 months ago he was admitted here at [facility] for a CVA and due to the fact that his INR was therapeutic and it was thought that patient may not have been compliant with his Coumadin patient was switched to Xarelto. Patient's daughter stating that he has always been on Coumadin and he was getting less strokes while being on Coumadin. Patient's daughter does not want him to be switched back to Coumadin as she is only care provider and she will not be able to handle too much blood tests and also dietary restrictions. She instead wants him to be placed on Lovenox instead. Does not want to be continued on NOACs. Patient does not have any focal neurological deficits however his gait is unstable. He does not communicate much, alert and oriented x2, short-term memory is okay but long-term memory has been affected. Daughter states that he does not remember his anymore. Given history of multiple recurrent thromboembolic strokes patient's most likely suffering from some kind of hypercoagulable state. No records are available, patient's daughter does not believe she will be able to get records from [place]. Given the above scenario I believe patient should be either switch back to Coumadin or sent home or Lovenox in the latter of which patient and patient's daughter prefers. Consulted hematology for further recommendation. Switch to Lovenox therapeutic dose. Continue PT OT, antiplatelets, optimize BP. (2) Hx of hypercoagulable state Is this a current diagnosis for this admission?: Yes Plan: This is based on history provided by family. No records available. As per my conversation with his daughter who is a primary caregiver she is stating that his father has been having recurrent strokes since she was very young, when they were living in [place] about 12 years ago he was diagnosed with some type of genetic deficiency which puts him at risk of recurrent thromboembolism. He used to be taking Coumadin and was very adherent but unfortunately his INR was really difficult to be kept at therapeutic levels. About 2 months ago he was admitted here at [facility] for a CVA and due to the fact that his INR was therapeutic and it was thought that patient may not have been compliant with his Coumadin patient was switched to Xarelto. Patient's daughter stating that he has always been on Coumadin and he was getting less strokes while being on Coumadin. Patient's daughter does not want him to be switched back to Coumadin as she is only care provider and she will not be able to handle too much blood tests and also dietary restrictions. She instead wants him to be placed on Lovenox instead. Does not want to be continued on NOACs. Patient does not have any focal neurological deficits however his gait is unstable. He does not communicate much, alert and oriented x2, short-term memory is okay but long-term memory has been affected. Daughter states that he does not remember his anymore. Given history of multiple recurrent thromboembolic strokes patient's most likely suffering from some kind of hypercoagulable state. No records are available, patient's daughter does not believe she will be able to get records from [place]. Given the above scenario I believe patient should be either switch back to Coumadin or sent home or Lovenox in the latter of which patient and patient's daughter prefers. Consulted hematology and had a conversation with Dr. Vieira. I conveyed patient's daughter concerns and she is agreeable to discharging patient on Lovenox therapeutic dose. Given the fact that patient has recurrent thromboembolic CVAs and he may very l ikely have some type of hypercoagulable state however doing new work-up will be not be very useful as it may not change course of treatment. I have asked daughter to get records if possible. Continue Lovenox therapeutic dose. (3) Depression Qualifiers: Depression Type: unspecified Qualified Code(s): F32.9 - Major depressive d isorder, single episode, unspecified Is this a current diagnosis for this admission?: Yes Plan: Denies any suicidal or homicidal ideation. Psychiatry has been consulted. Recommendations noted. Plan is to taper Wellbutrin over 5 days and discontinue. Add Depakote 125 mg twice daily and continue Lexapro. (4) HTN (hypertension) Qualifiers: Hypertension type: essential hypertension Qualified Code(s): I10 - Essential (primary) hypertension Is this a current diagnosis for this admission?: Yes Plan: Euvolemic. Normotensive. DC clonidine as it is causing sedation and risk of rebound hypertension if noncompliant. Switch HCTZ to rheumatology and the latter one is longer acting. Continue amlodipine and lisinopril. (5) Uncontrolled type 2 diabetes mellitus Qualifiers: Glycemic state: with hyperglycemia Qualified Code(s): E11.65 - Type 2 diabetes mellitus with hyperglycemia Is this a current diagnosis for this admission?: Yes Plan: Uncontrolled. Likely due to noncompliance. Hemoglobin A1c 10%. Continue continue basal and prandial insulin, sliding scale insulin, Accu-Chek, hypoglycemia protocol, adjust dosage as needed. Outpatient PCP follow-up.
[2018-11-26] MEDS: INSULIN LISPRO 100 UNIT/ML 3 ML VIAL SUBCUT SCH (16:45)
[2018-11-26] MEDS: OXYCODONE HCL IR 5 MG TABLET PO PRN (19:39)
[2018-11-26] MEDS: ATORVASTATIN CALCIUM 40 MG TABLET PO SCH (21:43)
[2018-11-26] MEDS ORDERED: INSULIN GLARGINE,HUM.REC.ANLOG 1,000 UNIT/10 ML VIAL SUBCUT SCH (22:00)
[2018-11-27] MEDS: OXYCODONE HCL IR 5 MG TABLET PO PRN ×3 (01:33→22:18)
[2018-11-27] MEDS: PANTOPRAZOLE SODIUM 40 MG TABLET.DR PO SCH (05:42)
[2018-11-27] MEDS: PREGABALIN 100 MG CAPSULE PO SCH ×3 (05:42→21:51)
[2018-11-27] MEDS: GABAPENTIN 400 MG CAPSULE PO SCH ×3 (05:42→21:47)
[2018-11-27 06:27] LABS: ABSOLUTE BASOPHILS # (AUTO) 0.2 10^3/uL (0.0-0.2); ABSOLUTE EOSINOPHILS # (AUTO) 0.3 10^3/uL (0.0-0.6); ABSOLUTE LYMPHOCYTES (AUTO) 3.8 10^3/uL (0.5-4.7); ABSOLUTE MONOCYTES (AUTO) 0.9 10^3/uL (0.1-1.4); BASOPHILS % (AUTO) 1.7 % (0-2); EOSINOPHILS % (AUTO) 3.4 % (0-6); HEMATOCRIT 43.3 % (37.9-51.0); HEMOGLOBIN 14.7 g/dL (13.5-17.0); MEAN CORPUSCULAR HEMOGLOBIN 31.4 pg (27.0-33.4); MEAN CORPUSCULAR HGB CONC 33.9 g/dL (32.0-36.0); MEAN CORPUSCULAR VOLUME 93 fl (80-97); MONOCYTES % (AUTO) 8.4 % (3-13); PLATELET COUNT 353 10^3/uL (150-450); RED BLOOD COUNT 4.68 10^6/uL (4.35-5.55); RED CELL DISTRIBUTION WIDTH 13.6 % (11.5-14.0); SEGMENTED NEUTROPHILS % (AUTO) 49.5 % (42-78); TOTAL CELLS COUNTED % (AUTO) 100 %; WHITE BLOOD COUNT 10.2 10^3/uL (4.0-10.5)
[2018-11-27 07:00] LABS: ALBUMIN 4.2 g/dL (3.5-5.0); ALKALINE PHOSPHATASE 102 U/L (38-126); ANION GAP 13 (5-19); ASPARTATE AMINO TRANSFERASE 19 U/L (17-59); BILIRUBIN,DIRECT 0.2 mg/dL (0.0-0.4); BILIRUBIN,TOTAL 0.4 mg/dL (0.2-1.3); BLOOD UREA NITROGEN 20 mg/dL (7-20); CALCIUM 10.1 mg/dL (8.4-10.2); CARBON DIOXIDE 28 mmol/L (22-30); CHLORIDE 97 mmol/L (98-107); GLUCOSE 178 mg/dL (75-110); POTASSIUM 3.6 mmol/L (3.6-5.0); TOTAL PROTEIN 7.9 g/dL (6.3-8.2)
[2018-11-27] MEDS: INSULIN REG, HUMAN 100 UNIT/ML 3 ML VIAL (PYX) SUBCUT SCH ×4 (08:59→21:44)
[2018-11-27] MEDS: INSULIN LISPRO 100 UNIT/ML 3 ML VIAL SUBCUT SCH ×2 (09:00→17:33)
[2018-11-27] MEDS: ESCITALOPRAM OXALATE 10 MG TABLET PO SCH (09:49)
[2018-11-27] MEDS: ENOXAPARIN SODIUM INJ 80 MG/0.8 ML DISP.SYRIN SUBCUT SCH ×2 (09:50→21:46)
[2018-11-27] MEDS: ASPIRIN 81 MG TABLET, CHEWABLE PO SCH (09:50)
[2018-11-27] MEDS: AMLODIPINE BESYLATE 5 MG TABLET PO SCH (09:50)
[2018-11-27] MEDS: FLUTICASONE/VILANTEROL 200-25 MCG/DOSE IH SCH (09:50)
[2018-11-27] MEDS: BUPROPION HCL 75 MG TABLET PO SCH (09:50)
[2018-11-27] MEDS: MAGNESIUM OXIDE 400 MG TABLET PO SCH (09:50)
[2018-11-27] MEDS: LISINOPRIL 10 MG TABLET PO SCH (09:50)
[2018-11-27] MEDS: CHLORTHALIDONE 25 MG TABLET PO SCH (09:50)
[2018-11-27] MEDS: FLUTICASONE NASAL SPRAY 50 MCG/SPRY 120 SPRAY/16 GM NASL SCH (09:50)
--- NOTE | 2018-11-27 11:45 | PDOC PROGRESS REPORT ---
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 He presents with sensation of falling to the right side and uncontrolled blood sugars prompting evaluation in the emergency room. He is found to have hyperglycemia and CT shows chronic changes of the septal encephalomalacia. He has no new focal deficits, he denies recent change in medications, palpitations or chest pain. He is referred to the hospitalist for admission. 11/25/2017. No acute events overnight, patient in no apparent distress, however does not communicate much, alert oriented x2, daughter at bedside, updated, patient denies any fever, chills, nausea, vomiting, diarrhea, constipation or any urinary symptoms, p.o. tolerant having normal bowel and bladder movements. 11/26/2018. No acute events overnight, patient alert oriented x3 however very slow to communicate, no focal neurological deficits, with daughters at bedside, denies any fever, chills, nausea, vomiting, diarrhea, constipation or any urinary symptoms. Oncology has been consulted, patient daughter prefers him to be transitioned back to Lovenox. Patient could be discharged potentially but as per his daughter she is stating that they do not have a place yet and she has been trying to find one. 11/27/2018. No acute events overnight. Patient alert x3, complaining of chronic back pain otherwise p.o. tolerant, having normal bowel bladder movement, able to walk to the restroom with the help of front-wheeled walkers, denies any fever, chills, nausea, vomiting, diarrhea, constipation or any urinary symptoms. Could be discharged home once blood pressure is optimized however daughter stating that he still does not have a place for him and she will be able to take him home tomorrow. Reason For Visit: ACUTE ISCHEMIC STROKE, UNCONTROLLED DIABETES Physical Exam Vital Signs: Temp Pulse Resp BP Pulse Ox 98.0 F 70 18 187/82 H 99 11/27/18 08:56 11/27/18 08:56 11/27/18 08:56 11/27/18 08:56 11/27/18 08:56 Intake & Output 11/26/18 11/27/18 11/28/18 06:59 06:59 06:59 Intake Total 600 1176 Output Total 0 400 Balance 600 776 Weight 72 kg 71.6 kg General appearance: PRESENT: no acute distress, well-developed, well-nourished Respiratory exam: PRESENT: clear to auscultation mark. ABSENT: rales, rhonchi, wheezes Cardiovascular exam: PRESENT: RRR. ABSENT: diastolic murmur, rubs, systolic murmur Pulses: PRESENT: normal dorsalis pedis pul GI/Abdominal exam: PRESENT: normal bowel sounds, soft. ABSENT: distended, guarding, mass, organolmegaly, rebound, tenderness Neurological exam: PRESENT: alert, awake, oriented to person, oriented to place, oriented to time, oriented to situation, CN II-XII grossly intact. ABSENT: motor sensory deficit Results Laboratory Results: 11/27/18 06:06 11/27/18 06:06 11/27/18 11/27/18 06:06 06:06 WBC 10.2 RBC 4.68 Hgb 14.7 Hct 43.3 MCV 93 MCH 31.4 MCHC 33.9 RDW 13.6 Plt Count 353 Seg Neutrophils % 49.5 Sodium 138.3 Potassium 3.6 Chloride 97 L Carbon Dioxide 28 Anion Gap 13 BUN 20 Creatinine 0.89 Est GFR ( Amer) > 60 Glucose 178 H Calcium 10.1 Magnesium 1.5 L Total Bilirubin 0.4 AST 19 Alkaline Phosphatase 102 Total Protein 7.9 Albumin 4.2 11/18/18 23:35 Troponin I 0.015 Impressions: Chest X-Ray 11/18/18 22:53 IMPRESSION: No acute disease. copyright 2010 [employer]- All Rights Reserved Brain MRI with MRA 11/19/18 00:00 IMPRESSION: No evidence of acute thrombosis in the major head vasculature. Head MRI 11/19/18 00:00 IMPRESSION: Multifocal acute infarcts about the left frontal, parietal, and occipital lobes with additional punctate acute infarcts about the parasagittal posterior right parietal lobe. Given the multifocality, an embolic phenomenon is a definite possibility. Remote encephalomalacia about the right occipital lobe, indicating a remote right CLERICAL SUPERVISOR distribution infarct. Additional remote lacunar infarcts about the bilateral lentiform nuclei. Underlying mild chronic microvascular ischemic change with generalized atrophy. copyright 2010 [employer]- All Rights Reserved Head CT 11/22/18 01:34 IMPRESSION: Multiple old lacunar infarcts. Acute areas of infarct seen on prior MRI are not clearly seen on this study. No hemorrhage. 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 11/20/2018. 2D echo negative for any cardiac source of embolus. LVEF 65%. No ASD, VSD, or PFO. As per my conversation with his daughter who is a primary caregiver she is stating that his father has been having recurrent strokes since she was very young, when they were living in [place] about 12 years ago he was diagnosed with some type of genetic deficiency which puts him at risk of recurrent thromboembolism. He used to be taking Coumadin and was very adherent but unfortunately his INR was really difficult to be kept at therapeutic levels. About 2 months ago he was admitted here at [facility] for a CVA and due to the fact that his INR was therapeutic and it was thought that patient may not have been compliant with his Coumadin patient was switched to Xarelto. Patient's daughter stating that he has always been on Coumadin and he was getting less strokes while being on Coumadin. Patient's daughter does not want him to be switched back to Coumadin as she is only care provider and she will n ot be able to handle too much blood tests and also dietary restrictions. She instead wants him to be placed on Lovenox instead. Does not want to be continued on NOACs. Patient does not have any focal neurological deficits however his gait is unstable. He does not communicate much, alert and oriented x2, short-term memory is okay but long-term memory has been affected. Daughter states that he does not remember his anymore. Given history of multiple recurrent thromboembolic strokes patient's most likely suffering from some kind of hypercoagulable state. No records are available, patient's daughter does not believe she will be able to get records from [place]. Given the above scenario I believe patient should be either switch back to Coumadin or sent home or Lovenox in the latter of which patient and patient's daughter prefers. Consulted hematology for further recommendation. Switch to Lovenox therapeutic dose. Continue PT OT, antiplatelets, optimize BP. (2) Hx of hypercoagulable state Is this a current diagnosis for this admission?: Yes Plan: This is based on history provided by family. No records available. As per my conversation with his daughter who is a primary caregiver she is stating that his father has been having recurrent strokes since she was very young, when they were living in [place] about 12 years ago he was diagnosed with some type of genetic deficiency which puts him at risk of recurrent thromboembolism. He used to be taking Coumadin and was very adherent but unfortunately his INR was really difficult to be kept at therapeutic levels. About 2 months ago he was admitted here at [facility] for a CVA and due to the fact that his INR was therapeutic and it was thought that patient may not have been compliant with his Coumadin patient was switched to Xarelto. Patient's daughter stating that he has always been on Coumadin and he was getting less strokes while being on Coumadin. Patient's daughter does not want him to be switched back to Coumadin as she is only care provider and she will not be able to handle too much blood tests and also dietary restrictions. She instead wants him to be placed on Lovenox instead. Does not want to be continued on NOACs. Patient does not have any focal neurological deficits however his gait is unstable. He does not communicate much, alert and oriented x2, short-term memory is okay but long-term memory has been affected. Daughter states that he does not remember his anymore. Given history of multiple recurrent thromboembolic strokes patient's most likely suffering from some kind of hypercoagulable state. No records are available, patient's daughter does not believe she will be able to get records from [place]. Given the above scenario I believe patient should be either switch back to Coumadin or sent home or Lovenox in the latter of which patient and patient's daughter prefers. Consulted hematology and had a conversation with Dr. Vieira. I conveyed patient's daughter concerns and she is agreeable to discharging patient on Lovenox therapeutic dose. Given the fact that patient has recurrent thromboembolic CVAs and he may very likely have some type of hypercoagulable state however doing new work-up will be not be very useful as it may not change course of treatment. I have asked daughter to get records if possible. Continue Lovenox therapeutic dose. (3) Depression Qualifiers: Depression Type: unspecified Qualified Code(s): F32.9 - Major depressive disorder, single episode, unspecified Is this a current diagnosis for this admission?: Yes Plan: Denies any suicidal or homicidal ideation. Psychiatry has been consulted. Recommendations noted. My recommendation was to taper Wellbutrin over 5 days and discontinue and add Depakote 125 mg twice daily and continue Lexapro, however daughter is adamant about continuing his gabapentin and Wellbutrin. He does not want to be on Depakote. Stating he used to be on that and did not work for his seizure. Continue Wellbutrin and Lexapro. (4) HTN (hypertension) Qualifiers: Hypertension type: essential hypertension Qualified Code(s): I10 - E ssential (primary) hypertension Is this a current diagnosis for this admission?: Yes Plan: Euvolemic. Not optimized. Home medications are clonidine 0.2 mg p.o. twice daily, carvedilol 6.25 p.o. twice daily. Was switched to amlodipine, lisinopril and chlorthalidone. Clonidine was DC'd due to risk of rebound hypertension. Coreg was DC'd as patient does not have any cardiac history and it may interfere with clonidine. Blood BP is not optimized, as per my conversation with daughter she is stating that he responded very well to clonidine and she will make sure that he is compliant with it. Restart clonidine 0.2 mg p.o. twice daily. Continue lisinopril to 40 mg p.o. daily. Continue chlorthalidone 25 mg p.o. daily. DC amlodipine. Monitor vitals, adjust meds as needed. (5) Uncontrolled type 2 diabetes mellitus Qualifiers: Glycemic state: with hyperglycemia Qualified Code(s): E11.65 - Type 2 diabetes mellitus with hyperglycemia Is this a current diagnosis for this admission?: Yes Plan: Uncontrolled. Likely due to noncompliance. Hemoglobin A1c 10%. Continue continue basal and prandial insulin, sliding scale insulin, Accu-Chek, hypoglycemia protocol, adjust dosage as needed. Outpatient PCP follow-up.
[2018-11-27] MEDS: CLONIDINE HCL 0.2 MG TABLET PO SCH ×2 (12:20→21:44)
[2018-11-27] MEDS ORDERED: MAGNESIUM OXIDE 400 MG TABLET PO ONE (12:30)
[2018-11-27] MEDS: BUPROPION HCL 100 MG TABLET PO SCH ×2 (14:41→21:48)
[2018-11-27] MEDS ORDERED: NORMAL SALINE 500 ML IV ONE (16:00)
[2018-11-27] MEDS: ATORVASTATIN CALCIUM 40 MG TABLET PO SCH (21:47)
[2018-11-27] MEDS ORDERED: LISINOPRIL 10 MG TABLET PO SCH (22:00)
[2018-11-27] MEDS ORDERED: INSULIN GLARGINE,HUM.REC.ANLOG 1,000 UNIT/10 ML VIAL SUBCUT SCH (22:00)
[2018-11-27] MEDS ORDERED: INSULIN GLARGINE,HUM.REC.ANLOG 1,000 UNIT/10 ML VIAL (PYX) SUBCUT ONE (22:29)
[2018-11-28 05:41] LABS: ANION GAP 14 (5-19); BLOOD UREA NITROGEN 38 mg/dL (7-20); CALCIUM 9.4 mg/dL (8.4-10.2); CARBON DIOXIDE 26 mmol/L (22-30); CHLORIDE 99 mmol/L (98-107); GLUCOSE 203 mg/dL (75-110)
[2018-11-28] MEDS: GABAPENTIN 400 MG CAPSULE PO SCH ×3 (05:41→22:28)
[2018-11-28] MEDS: PANTOPRAZOLE SODIUM 40 MG TABLET.DR PO SCH (05:41)
[2018-11-28] MEDS: BUPROPION HCL 100 MG TABLET PO SCH ×3 (05:41→22:28)
[2018-11-28] MEDS: PREGABALIN 100 MG CAPSULE PO SCH ×3 (05:41→22:29)
[2018-11-28] MEDS: INSULIN REG, HUMAN 100 UNIT/ML 3 ML VIAL (PYX) SUBCUT SCH ×4 (07:54→22:32)
[2018-11-28] MEDS: INSULIN LISPRO 100 UNIT/ML 3 ML VIAL SUBCUT SCH ×3 (07:55→17:05)
[2018-11-28] MEDS: CLONIDINE HCL 0.2 MG TABLET PO SCH ×2 (09:45→22:30)
[2018-11-28] MEDS: FLUTICASONE NASAL SPRAY 50 MCG/SPRY 120 SPRAY/16 GM NASL SCH (09:52)
[2018-11-28] MEDS: FLUTICASONE/VILANTEROL 200-25 MCG/DOSE IH SCH (09:52)
[2018-11-28] MEDS: ENOXAPARIN SODIUM INJ 80 MG/0.8 ML DISP.SYRIN SUBCUT SCH ×2 (09:52→22:30)
[2018-11-28] MEDS: ESCITALOPRAM OXALATE 10 MG TABLET PO SCH (09:52)
[2018-11-28] MEDS: ASPIRIN 81 MG TABLET, CHEWABLE PO SCH (09:52)
[2018-11-28] MEDS: MAGNESIUM OXIDE 400 MG TABLET PO SCH (09:52)
[2018-11-28] MEDS: NORMAL SALINE 1000 ML 1,000 ML IV PRN ×2 (09:53→22:44)
[2018-11-28] MEDS ORDERED: LISINOPRIL 10 MG TABLET PO SCH ×3 (10:00)
[2018-11-28] MEDS: OXYCODONE HCL IR 5 MG TABLET PO PRN ×2 (11:43→22:28)
--- NOTE | 2018-11-28 13:08 | PDOC PROGRESS REPORT ---
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 He presents with sensation of falling to the right side and uncontrolled blood sugars prompting evaluation in the emergency room. He is found to have hyperglycemia and CT shows chronic changes of the septal encephalomalacia. He has no new focal deficits, he denies recent change in medications, palpitations or chest pain. He is referred to the hospitalist for admission. 11/25/2017. No acute events overnight, patient in no apparent distress, however does not communicate much, alert oriented x2, daughter at bedside, updated, patient denies any fever, chills, nausea, vomiting, diarrhea, constipation or any urinary symptoms, p.o. tolerant having normal bowel and bladder movements. 11/26/2018. No acute events overnight, patient alert oriented x3 however very slow to communicate, no focal neurological deficits, with daughters at bedside, denies any fever, chills, nausea, vomiting, diarrhea, constipation or any urinary symptoms. Oncology has been consulted, patient daughter prefers him to be transitioned back to Lovenox. Patient could be discharged potentially but as per his daughter she is stating that they do not have a place yet and she has been trying to find one. 11/27/2018. No acute events overnight. Patient alert x3, complaining of chronic back pain otherwise p.o. tolerant, having normal bowel bladder movement, able to walk to the restroom with the help of front-wheeled walkers, denies any fever, chills, nausea, vomiting, diarrhea, constipation or any urinary symptoms. Could be discharged home once blood pressure is optimized however daughter stating that he still does not have a place for him and she will be able to take him home tomorrow. 11/28/2018. Patient has been hypotensive overnight, asymptomatic, this was most likely due to resumption of clonidine and unfortunately he also has developed JOEL. Otherwise patient is alert and oriented x3, comfortably resting in bed, denies any fever, chills, nausea, vomiting, diarrhea, constipation or any urinary symptoms. Reason For Visit: ACUTE ISCHEMIC STROKE, UNCONTROLLED DIABETES Physical Exam Vital Signs: Temp Pulse Resp BP Pulse Ox 97.7 F 70 18 127/61 H 99 11/28/18 11:20 11/28/18 11:20 11/28/18 11:20 11/28/18 11:20 11/28/18 11:20 Intake & Output 11/27/18 11/28/18 11/29/18 06:59 06:59 06:59 Intake Total 1176 1845 480 Output Total 400 200 Balance 776 1845 280 Weight 71.6 kg 72 kg General appearance: PRESENT: no acute distress, well-developed, well-nourished Neck exam: ABSENT: carotid bruit, JVD, lymphadenopathy, thyromegaly Respiratory exam: PRESENT: clear to auscultation mark. ABSENT: rales, rhonchi, wheezes Cardiovascular exam: PRESENT: RRR. ABSENT: diastolic murmur, rubs, systolic murmur GI/Abdominal exam: PRESENT: normal bowel sounds, soft. ABSENT: distended, guarding, mass, organolmegaly, rebound, tenderness Neurological exam: PRESENT: alert, awake, oriented to person, oriented to place, oriented to time, CN II-XII grossly intact. ABSENT: motor sensory deficit Results Laboratory Results: 11/27/18 06:06 11/28/18 04:53 11/28/18 11/28/18 04:53 04:53 Sodium 139.2 Potassium 4.0 Chloride 99 Carbon Dioxide 26 Anion Gap 14 BUN 38 H Creatinine 2.15 H Est GFR ( Amer) 39 L Glucose 203 H Calcium 9.4 Magnesium 1.6 11/18/18 23:35 Troponin I 0.015 Impressions: Chest X-Ray 11/18/18 22:53 IMPRESSION: No acute disease. copyright 2011 [employer]- All Rights Reserved Brain MRI with MRA 11/19/18 00:00 IMPRESSION: No evidence of acute thrombosis in the major head vasculature. Head MRI 11/19/18 00:00 IMPRESSION: Multifocal acute infarcts about the left frontal, parietal, and occipital lobes with additional punctate acute infarcts about the parasagittal posterior right parietal lobe. Given the multifocality, an embolic phenomenon is a definite possibility. Remote encephalomalacia about the right occipital lobe, indicating a remote right CONTINUUM OF CARE MANAGER distribution infarct. Additional remote lacunar infarcts about the bilateral lentiform nuclei. Underlying mild chronic microvascular ischemic change with generalized atrophy. copyright 2011 [employer]- All Rights Reserved Head CT 11/22/18 01:34 IMPRESSION: Multiple old lacunar infarcts. Acute areas of infarct seen on prior MRI are not clearly seen on this study. No hemorrhage. 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 11/20/2018. 2D echo negative for any cardiac source of embolus. LVEF 65%. No ASD, VSD, or PFO. As per my conversation with his daughter who is a primary caregiver she is stating that his father has been having recurrent strokes since she was very young, when they were living in [place] about 12 years ago he was diagnosed with some type of genetic deficiency which puts him at risk of recurrent thromboembolism. He used to be taking Coumadin and was very adherent but unfortunately his INR was really difficult to be kept at therapeutic levels. About 2 months ago he was admitted here at [facility] for a CVA and due to the fact that his INR was therapeutic and it was thought that patient may not have been compliant with his Coumadin patient was switched to Xarelto. Patient's daughter stating that he has always been on Coumadin and he was getting less strokes while being on Coumadin. Patient's daughter does not want him to be switched back to Coumadin as she is only care provider and she will not be able to handle too much blood tests and also dietary restrictions. She instead wants him to be placed on Lovenox instead. Does not want to be continued on NOACs. Patient does not have any focal neurological deficits however his gait is unstable. He does not communicate much, alert and oriented x2, short-term memory is okay but long-term memory has been affected. Daughter states that he does not remember his anymore. Given history of multiple recurrent thromboembolic strokes patient's most likely suffering from some kind of hypercoagulable state. No records are available, patient's daughter does not believe she will be able to get records from [place]. Given the above scenario I believe patient should be either switch back to Coumadin or sent home or Lovenox in the latter of which patient and patient's daughter prefers. Hematology consulted. Recommendations noted. Continue Lovenox therapeutic dose. Continue PT OT, antiplatelets, optimize BP. (2) Hx of hypercoagulable state Is this a current diagnosis for this admission?: Yes Plan: This is based on history provided by family. No records available. As per my conversation with his daughter who is a primary caregiver she is stating that his father has been having recurrent strokes since she was very young, when they were living in [place] about 12 years ago he was diagnosed with some type of genetic deficiency which puts him at risk of recurrent thromboembolism. He used to be taking Coumadin and was very adherent but unfortunately his INR was really difficult to be kept at therapeutic levels. About 2 months ago he was admitted here at [facility] for a CVA and due to the fact that his INR was therapeutic and it was thought that patient may not have been compliant with his Coumadin patient was switched to Xarelto. Patient's daughter stating that he has always been on Coumadin and he was getting less strokes while being on Coumadin. Patient's daughter does not want him to be switched back to Coumadin as she is only care provider and she will not be able to handle too much blood tests and also dietary restrictions. She instead wants him to be placed on Lovenox instead. Does not want to be continued on NOACs. Patient does not have any focal neurological deficits however his gait is unstable. He does not communicate much, alert and oriented x2, short-term memory is okay but long-term memory has been affected. Daughter states that he does not remember his anymore. Given history of multiple recurrent thromboembolic strokes patient's most likely suffering from some kind of hypercoagulable state. No records are available, patient's daughter does not believe she will be able to get records from [place]. Given the above scenario I believe patient should be either switch back to Coumadin or sent home or Lovenox in the latter of which patient and patient's daughter prefers. Consulted hematology and had a conversation with Dr. Vieira. I conveyed patient's daughter concerns and she is agreeable to discharging patient on Lovenox therapeutic dose. Given the fact that patient has recurrent thromboembolic CVAs and he may very likely have some type of hypercoagulable state however doing new work-up will be not be very useful as it may not change course of treatment. I have asked daughter to get records if possible. Continue Lovenox therapeutic dose. (3) Depression Qualifiers: Depression Type: unspecified Qualified Code(s): F32.9 - Major depressive disorder, single episode, unspecified Is this a current diagnosis for this admission?: Yes Plan: Denies any suicidal or homicidal ideation. Psychiatry has been consulted. Recommendations noted. My recommendation was to taper Wellbutrin over 5 days and discontinue and add Depakote 125 mg twice daily and continue Lexapro, however daughter is adamant about continuing his gabapentin and Wellbutrin. He does not want to be on Depakote. Stating he used to be on that and did not work for his seizure. Continue Wellbutrin and Lexapro. (4) HTN (hypertension) Qualifiers: Hypertension type: essential hypertension Qualified Code(s): I10 - Essential (primary) hypertension Is this a current diagnosis for this admission?: Yes Plan: Euvolemic. Home medications are clonidine 0.2 mg p.o. twice daily, carvedilol 6.25 p.o. twice daily. Was switched to amlodipine, lisinopril and chlorthalidone. Clonidine was DC'd due to risk of rebound hypertension. Coreg was DC'd as patient does not have any cardiac history and it may interfere with clonidine. Blood BP is not optimized, as per my conversation with daughter she is stating that he responded very well to clonidine and she will make sure that he is compliant with it and she wanted to be started because he does not respond to any antihypertensives. Restarted clonidine 0.2 mg p.o. twice daily on 11/27/2017 but unfortunately blood pressure patient became very hypotensive. Hold clonidine and amlodipine. Resume once pressure has been stabilized. DC lisinopril. DC chlorthalidone. (5) Uncontrolled type 2 diabetes mellitus Qualifiers: Glycemic state: with hyperglycemia Qualified Code(s): E11.65 - Type 2 diabetes mellitus with hyperglycemia Is this a current diagnosis for this admission?: Yes Plan: Uncontrolled. Likely due to noncompliance. Hemoglobin A1c 10%. Continue continue basal and prandial insulin, sliding scale insulin, Accu-Chek, hypoglycemia protocol, adjust dosage as needed. Outpatient PCP follow-up. (6) Hypotension due to drugs Is this a current diagnosis for this admission?: Yes Plan: Most likely due to resumption of clonidine. Continue IV fluids. Hold clonidine. Resume once BPs are stabilized. (7) Acute kidney injury superimposed on CKD Is this a current diagnosis for this admission?: Yes Plan: Prerenal. Most likely due to hypotension caused by resumption of clonidine. Monitor volume status and electrolytes. Avoid nephrotoxic meds. BMP tomorrow. Cautious volume resuscitation.
[2018-11-28] MEDS ORDERED: AMLODIPINE BESYLATE 5 MG TABLET PO SCH (22:00)
[2018-11-28] MEDS: ATORVASTATIN CALCIUM 40 MG TABLET PO SCH (22:28)
[2018-11-28] MEDS: INSULIN GLARGINE,HUM.REC.ANLOG 1,000 UNIT/10 ML VIAL SUBCUT SCH (22:31)
[2018-11-29] MEDS: PREGABALIN 100 MG CAPSULE PO SCH ×3 (05:23→21:13)
[2018-11-29] MEDS: GABAPENTIN 400 MG CAPSULE PO SCH ×3 (05:23→21:13)
[2018-11-29] MEDS: NORMAL SALINE 1000 ML 1,000 ML IV PRN (05:23)
[2018-11-29] MEDS: BUPROPION HCL 100 MG TABLET PO SCH ×3 (05:23→21:13)
[2018-11-29] MEDS: PANTOPRAZOLE SODIUM 40 MG TABLET.DR PO SCH (05:23)
[2018-11-29] MEDS: OXYCODONE HCL IR 5 MG TABLET PO PRN (05:25)
[2018-11-29 06:34] LABS: ANION GAP 8 (5-19); BLOOD UREA NITROGEN 26 mg/dL (7-20); CALCIUM 8.9 mg/dL (8.4-10.2); CARBON DIOXIDE 30 mmol/L (22-30); CHLORIDE 101 mmol/L (98-107); GLUCOSE 160 mg/dL (75-110); POTASSIUM 3.7 mmol/L (3.6-5.0)
[2018-11-29] MEDS: INSULIN LISPRO 100 UNIT/ML 3 ML VIAL SUBCUT SCH ×3 (07:54→17:00)
[2018-11-29] MEDS: INSULIN REG, HUMAN 100 UNIT/ML 3 ML VIAL (PYX) SUBCUT SCH ×4 (07:55→21:13)
[2018-11-29] MEDS: MAGNESIUM OXIDE 400 MG TABLET PO SCH (09:12)
[2018-11-29] MEDS: ESCITALOPRAM OXALATE 10 MG TABLET PO SCH (09:12)
[2018-11-29] MEDS: FLUTICASONE NASAL SPRAY 50 MCG/SPRY 120 SPRAY/16 GM NASL SCH (09:12)
[2018-11-29] MEDS: ASPIRIN 81 MG TABLET, CHEWABLE PO SCH (09:12)
[2018-11-29] MEDS: CLONIDINE HCL 0.1 MG TABLET PO SCH ×2 (09:12→21:13)
[2018-11-29] MEDS: FLUTICASONE/VILANTEROL 200-25 MCG/DOSE IH SCH (09:13)
[2018-11-29] MEDS: ENOXAPARIN SODIUM INJ 80 MG/0.8 ML DISP.SYRIN SUBCUT SCH ×2 (09:13→21:12)
[2018-11-29] MEDS ORDERED: CLONIDINE HCL 0.2 MG TABLET PO SCH (10:00)
[2018-11-29] MEDS ORDERED: AMLODIPINE BESYLATE 5 MG TABLET PO SCH (12:00)
--- NOTE | 2018-11-29 17:45 | PDOC DISCHARGE SUMMARY ---
Impression - Admit/DC Date/PCP Admission Date/Primary Care Provider: 11/21/18 08:56 JEFFREY MYRICK Discharge Date: 11/29/18 - Discharge Diagnosis (1) Acute CVA (cerebrovascular accident) Is this a current diagnosis for this admission?: Yes (2) Hx of hypercoagulable state Is this a current diagnosis for this admission?: Yes (3) Depression Is this a current diagnosis for this admission?: Yes (4) HTN (hypertension) Is this a current diagnosis for this admission?: Yes (5) Uncontrolled type 2 diabetes mellitus Is this a current diagnosis for this admission?: Yes (6) Hypotension due to drugs Is this a current diagnosis for this admission?: Yes (7) Acute kidney injury superimposed on CKD Is this a current diagnosis for this admission?: Yes - Additional Information Resuscitation Status: Full Code Discharge Diet: As Tolerated Discharge Activity: Activity As Tolerated, No Driving, Slowly Increase Activity, No tub bath Referrals: LEVAR ROSA MD [NO LOCAL MD] - 12/06/18 11:15 am JEFFREY MYRICK MD [Primary Care Provider] - 12/09/18 11:15 am Prescriptions: Aspirin [Aspirin 81 mg Chewable Tablet] 81 mg PO DAILY 30 Days #30 tab.chew Clonidine HCl [Catapres 0.1 mg Tablet] 0.1 mg PO Q12 30 Days #60 tablet Insulin Detemir [Levemir] 50 unit SQ QHS 30 Days #3 vial Atorvastatin Calcium [Lipitor 80 mg Tablet] 80 mg PO QHS 30 Days #30 tablet Enoxaparin Sodium [Lovenox Inj 80 mg/0.8 ml Disp.syrin] 70 mg SUBCUT Q12 30 Days #60 disp.syrin Amlodipine Besylate [Norvasc 5 mg Tablet] 5 mg PO DAILY 30 Days #30 tablet Insulin Aspart [Novolog] 0 - 12 unit SQ ACHS PRN 30 Days #3 vial PRN Reason: Insulin Aspart [Novolog] 5 unit SQ AC 30 Days #3 vial Home Medications: Albuterol Sulfate [Proair HFA Inhalation Aerosol 8.5 gm MDI] 2 puff IH Q6HP PRN 11/19/18 Buprenorphine [Butrans] 20 mcg TP MO@1000 11/19/18 Bupropion HCl [Wellbutrin Xl 300mg 24hr Tablet] 300 mg PO DAILY 11/19/18 Escitalopram Oxalate [Lexapro] 20 mg PO DAILY 11/19/18 Fluticasone Propionate [Flonase Nasal Melvin 50 Mcg/Melvin 16 gm] 1 spray NASL DAILY 11/19/18 Fluticasone/Salmeterol [Advair 250-50 Diskus 14 Dose/Diskus] 1 puff IH Q12 11/19/18 Gabapentin [Neurontin 400 mg Capsule] 800 mg PO Q8 11/19/18 Oxycodone HCl [Oxy-Ir 5 mg Tablet] 5 mg PO Q6HP PRN 11/19/18 Pantoprazole Sodium [Protonix [address] Tablet] 40 mg PO DAILY 11/19/18 Pregabalin [Lyrica 100 mg Capsule] 100 mg PO Q8 11/19/18 Tizanidine HCl [Zanaflex 4 mg Tablet] 4 mg PO TIDP PRN 11/19/18 Amlodipine Besylate [Norvasc 5 mg Tablet] 5 mg PO DAILY 30 Days #30 tablet 11/29/18 Aspirin [Aspirin 81 mg Chewable Tablet] 81 mg PO DAILY 30 Days #30 tab.chew 11/29/18 Atorvastatin Calcium [Lipitor 80 mg Tablet] 80 mg PO QHS 30 Days #30 tablet 11/29/18 Clonidine HCl [Catapres 0.1 mg Tablet] 0.1 mg PO Q12 30 Days #60 tablet 11/29/18 Enoxaparin Sodium [Lovenox Inj 80 mg/0.8 ml Disp.syrin] 70 mg SUBCUT Q12 30 Days #60 disp.syrin 11/29/18 Insulin Aspart [Novolog] 0 - 12 unit SQ ACHS PRN 30 Days #3 vial 11/29/18 Insulin Aspart [Novolog] 5 unit SQ AC 30 Days #3 vial 11/29/18 Insulin Detemir [Levemir] 50 unit SQ QHS 30 Days #3 vial 11/29/18 History of Present Illiness History of Present Illness: RADHA GARCIA is a 58 year old male with an extensive past medical history of ongoing tobacco, opiate dependent chronic pain, poorly controlled diabetes and hypertension, 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 He presents with sensation of falling to the right side and uncontrolled blood sugars prompting evaluation in the emergency room. He is found to have hyperglycemia and CT shows chronic changes of the septal encephalomalacia. He has no new focal deficits, he denies recent change in medications, palpitations or chest pain. He is referred to the hospitalist for admission. 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 11/20/2018. 2D echo negative for any cardiac source of embolus. LVEF 65%. No ASD, VSD, or PFO. As per my conversation with his daughter who is a primary caregiver she is stating that his father has been having recurrent strokes since she was very young, when they were living in [place] about 12 years ago he was diagnosed with some type of genetic deficiency which puts him at risk of recurrent thromboembolism. He used to be taking Coumadin and was very adherent but unfortunately his INR was really difficult to be kept at therapeutic levels. About 2 months ago he was admitted here at [facility] for a CVA and due to the fact that his INR was therapeutic and it was thought that patient may not have been compliant with his Coumadin patient was switched to Xarelto. Patient's daughter stating that he has always been on Coumadin and he was getting less strokes while being on Coumadin. Patient's daughter does not want him to be switched back to Coumadin as she is only care provider and she will not be able to handle too much blood tests and also dietary restrictions. She instead wants him to be placed on Lovenox instead. Does not want to be continued on NOACs. Patient does not have any focal neurological deficits however his gait is unstable. He does not communicate much, alert and oriented x2, short-term memory is okay but long-term memory has been affected. Daughter states that he does not remember his anymore. Given history of multiple recurrent thromboembolic strokes patient's most likely suffering from some kind of hypercoagulable state. No records are available, patient's daughter does not believe she will be able to get records from [place]. Given the above scenario I believe patient should be either switch back to Coumadin or sent home or Lovenox in the latter of which patient and patient's daughter prefers. Hematology consulted. Recommendations noted. Was discharged on Lovenox therapeutic dose. Was discharged on home health with home physical therapy and frontwheel walker. (2) Hx of hypercoagulable state This is based on history provided by family. No records available. As per my conversation with his daughter who is a primary caregiver she is stating that his father has been having recurrent strokes since she was very young, when they were living in [place] about 12 years ago he was diagnosed with some type of genetic deficiency which puts him at risk of recurrent thromboembolism. He used to be taking Coumadin and was very adherent but unfortunately his INR was really difficult to be kept at therapeutic levels. About 2 months ago he was admitted here at [facility] for a CVA and due to the fact that his INR was therapeutic and it was thought that patient may not have been compliant with his Coumadin patient was switched to Xarelto. Patient's daughter stating that he has always been on Coumadin and he was getting less strokes while being on Coumadin. Patient's daughter does not want him to be switched back to Coumadin as she is only care provider and she will not be able to handle too much blood tests and also dietary restrictions. She instead wants him to be placed on Lovenox instead. Does not want to be continued on NOACs. Patient does not have any focal neurological deficits however his gait is uns table. He does not communicate much, alert and oriented x2, short-term memory is okay but long-term memory has been affected. Daughter states that he does not remember his anymore. Given history of multiple recurrent thromboembolic strokes patient's most likely suffering from some kind of hypercoagulable state. No records are available, patient's daughter does not believe she will be able to get records from [place]. Given the above scenario I believe patient should be either switch back to Coumadin or sent home or Lovenox in the latter of which patient and patient's daughter prefers. Consulted hematology and had a conversation with Dr. Vieira. I conveyed patient's daughter concerns and she is agreeable to discharging patient on Lovenox therapeutic dose. Given the fact that patient has recurrent thromboembolic CVAs and he may very likely have some type of hypercoagulable state however doing new work-up will be not be very useful as it may not change course of treatment. I have asked daughter to get records if possible. Was discharged on therapeutic Lovenox. Follow-up with Dr. Vieira cuff knitter. (3) Depression Denies any suicidal or homicidal ideation. Psychiatry has been consulted. Recommendations noted. My recommendation was to taper Wellbutrin over 5 days and discontinue and add Depakote 125 mg twice daily and continue Lexapro, however daughter is adamant about continuing his gabapentin and Wellbutrin. He does not want to be on Depakote. Stating he used to be on that and did not work for his seizure. Discharged on home meds. (4) HTN (hypertension) Euvolemic. Normotensive. Home medications are clonidine 0.2 mg p.o. twice daily, carvedilol 6.25 p.o. twice daily. Was switched to amlodipine, lisinopril and chlorthalidone. Clonidine was DC'd due to risk of rebound hypertension. Coreg was DC'd as patient does not have any cardiac history and it may interfere with clonidine. Blood BP is not optimized, as per my conversation with daughter she is stating that he responded very well to clonidine and she will make sure that he is compliant with it and she wanted to be started because he does not respond to any antihypertensives. Restarted clonidine 0.2 mg p.o. twice daily on 11/27/2017 but unfortunately blood pressure patient became very hypotensive. Held clonidine and amlodipine and started on IV fluids. BPs recovered. Lisinopril and chlorthalidone DC'd. Following day patient was restarted on clonidine 0.1 mg p.o. twice daily and amlodipine 5 mg p.o. daily. With BPs WNL. Patient and daughter were extensively counseled about importance of optimizing his blood pressure. They both voiced understanding. An appointment was made with PCP to follow-up for re-consideration of his BP meds. (5) Uncontrolled type 2 diabetes mellitus Optimized during hospitalization. Uncontrolled. Likely due to noncompliance. Hemoglobin A1c 10%. Was a started on basal and prandial insulin, sliding scale insulin, Accu-Chek, hypoglycemia protocol, adjust dosage as needed. Was going to discharge on metformin however as per my conversation with daughter he has not been able to tolerate it in the past and he did not wanted to be restarted again. Was discharged on Levemir 50 units nightly, lispro 5 units q. before meals, lispro sliding scale. Patient and daughter were both counseled on importance of optimizing diabetic control. An appointment was made for him to follow-up with PCP. (6) Hypotension due to drugs Resolved. As per above. Most likely due to resumption of clonidine. (7) Acute kidney injury superimposed on CKD Resolved. Prerenal. Most likely due to hypotension caused by resumption of clonidine. Started on IV fluids, monitor volume status and electrolytes. Avoid nephrotoxic meds. Physical Exam Vital Signs: Temp Pulse Resp BP Pulse Ox 97.6 F 66 17 140/62 H 99 11/29/18 15:12 11/29/18 15:12 11/29/18 15:12 11/29/18 15:12 11/29/18 15:12 Intake & Output 11/28/18 11/29/18 11/30/18 06:59 06:59 06:59 Intake Total 1845 3267 927 Output Total 2075 460 Balance 1845 1192 467 Weight 72 kg 73.6 kg General appearance: PRESENT: no acute distress, well-developed, well-nourished Respiratory exam: PRESENT: clear to auscultation mark. ABSENT: rales, rhonchi, wheezes Cardiovascular exam: PRESENT: RRR. ABSENT: diastolic murmur, rubs, systolic murmur GI/Abdominal exam: PRESENT: normal bowel sounds, soft. ABSENT: distended, guarding, mass, organolmegaly, rebound, tenderness Extremities exam: PRESENT: full ROM. ABSENT: calf tenderness, clubbing, pedal edema Neurological exam: PRESENT: alert, awake, oriented to person, oriented to place, oriented to time, oriented to situation, abnormal gait, CN II-XII grossly intact. ABSENT: motor sensory deficit Skin exam: PRESENT: dry, intact, warm. ABSENT: cyanosis, rash Results Laboratory Results: WBC 10.2 10^3/uL (4.0-10.5) 11/27/18 06:06 RBC 4.68 10^6/uL (4.35-5.55) 11/27/18 06:06 Hgb 14.7 g/dL (13.5-17.0) 11/27/18 06:06 Hct 43.3 % (37.9-51.0) 11/27/18 06:06 MCV 93 fl (80-97) 11/27/18 06:06 MCH 31.4 pg (27.0-33.4) 11/27/18 06:06 MCHC 33.9 g/dL (32.0-36.0) 11/27/18 06:06 RDW 13.6 % (11.5-14.0) 11/27/18 06:06 Plt Count 353 10^3/uL (150-450) 11/27/18 06:06 Lymph % (Auto) 37.0 % (13-45) 11/27/18 06:06 [place] % (Auto) 8.4 % (3-13) 11/27/18 06:06 Eos % (Auto) 3.4 % (0-6) 11/27/18 06:06 Baso % (Auto) 1.7 % (0-2) 11/27/18 06:06 Absolute Neuts (auto) 5.0 10^3/uL (1.7-8.2) 11/27/18 06:06 Absolute Lymphs (auto) 3.8 10^3/uL (0.5-4.7) 11/27/18 06:06 Absolute Monos (auto) 0.9 10^3/uL (0.1-1.4) 11/27/18 06:06 Absolute Eos (auto) 0.3 10^3/uL (0.0-0.6) 11/27/18 06:06 Absolute Basos (auto) 0.2 10^3/uL (0.0-0.2) 11/27/18 06:06 Seg Neutrophils % 49.5 % (42-78) 11/27/18 06:06 PT 13.5 SEC (11.4-15.4) 11/26/18 10:25 INR 1.03 11/26/18 10:25 APTT 29.8 SEC (23.5-35.8) 11/26/18 10:25 VBG pH 7.33 (7.30-7.42) 11/18/18 17:40 VBG pCO2 62.1 mmHg (35-63) 11/18/18 17:40 VBG HCO3 32.2 mmol/L (20-32) H 11/18/18 17:40 VBG Base Excess 4.5 mmol/L 11/18/18 17:40 Sodium 138.8 mmol/L (137-145) 11/29/18 05:16 Potassium 3.7 mmol/L (3.6-5.0) 11/29/18 05:16 Chloride 101 mmol/L (98-107) 11/29/18 05:16 Carbon Dioxide 30 mmol/L (22-30) 11/29/18 05:16 Anion Gap 8 (5-19) 11/29/18 05:16 BUN 26 mg/dL (7-20) H 11/29/18 05:16 Creatinine 0.99 mg/dL (0.52-1.25) 11/29/18 05:16 Est GFR ( Amer) > 60 (>60) 11/29/18 05:16 Est GFR (MDRD) Non-Af > 60 (>60) 11/29/18 05:16 Glucose 160 mg/dL (75-110) H 11/29/18 05:16 POC Glucose 160 mg/dL (70-110) H 11/29/18 16:01 Hemoglobin A1c % 10.7 % (4.7-6.0) H 11/20/18 04:18 Calcium 8.9 mg/dL (8.4-10.2) 11/29/18 05:16 Magnesium 1.5 mg/dL (1.6-2.3) L 11/29/18 05:16 Total Bilirubin 0.4 mg/dL (0.2-1.3) 11/27/18 06:06 Direct Bilirubin 0.2 mg/dL (0.0-0.4) 11/27/18 06:06 Neonat Total Bilirubin Not Reportable 11/27/18 06:06 Neonat Direct Bilirubin Not Reportable 11/27/18 06:06 Neonat Indirect Bili Not Reportable 11/27/18 06:06 AST 19 U/L (17-59) 11/27/18 06:06 ALT 26 U/L (<50) 11/27/18 06:06 Alkaline Phosphatase 102 U/L (38-126) 11/27/18 06:06 Troponin I 0.015 ng/mL 11/18/18 23:35 Total Protein 7.9 g/dL (6.3-8.2) 11/27/18 06:06 Albumin 4.2 g/dL (3.5-5.0) 11/27/18 06:06 Triglycerides 148 mg/dL (<150) 11/20/18 04:18 Cholesterol 194.24 mg/dL (0-200) 11/20/18 04:18 LDL Cholesterol Direct 145 mg/dL (<100) H 11/20/18 04:18 VLDL Cholesterol 30.0 mg/dL (10-31) 11/20/18 04:18 HDL Cholesterol 23 mg/dL (>40) L 11/20/18 04:18 TSH 1.03 uIU/mL (0.47-4.68) 11/24/18 08:05 Cortisol AM Sample 6.50 ug/dL (4.46-22.7) 11/24/18 08:05 Urine Color YELLOW 11/18/18 17:49 Urine Appearance CLEAR 11/18/18 17:49 Urine pH 7.0 (5.0-9.0) 11/18/18 17:49 Ur Specific [place] 1.022 11/18/18 17:49 Urine Protein NEGATIVE mg/dL (NEGATIVE) 11/18/18 17:49 Urine Glucose (UA) >=500 mg/dL (NEGATIVE) H 11/18/18 17:49 Urine Ketones NEGATIVE mg/dL (NEGATIVE) 11/18/18 17:49 Urine Blood NEGATIVE (NEGATIVE) 11/18/18 17:49 Urine Nitrite NEGATIVE (NEGATIVE) 11/18/18 17:49 Urine Bilirubin NEGATIVE (NEGATIVE) 11/18/18 17:49 Urine Urobilinogen 2.0 mg/dL (<2.0) H 11/18/18 17:49 Ur Leukocyte Esterase NEGATIVE (NEGATIVE) 11/18/18 17:49 Urine WBC (Auto) 0 /HPF 11/18/18 17:49 Urine RBC (Auto) 0 /HPF 11/18/18 17:49 Squamous Epi Cells Auto <1 /HPF 11/18/18 17:49 Urine Ascorbic Acid NEGATIVE (NEGATIVE) 11/18/18 17:49 11/18/18 23:35 Troponin I 0.015 Impressions: Chest X-Ray 11/18/18 22:53 IMPRESSION: No acute disease. copyright 2011 [employer]- All Rights Reserved Head CT 11/18/18 22:53 IMPRESSION: No acute intracranial findings. Brain MRI with MRA 11/19/18 00:00 IMPRESSION: No evidence of acute thrombosis in the major head vasculature. Head MRI 11/19/18 00:00 IMPRESSION: Multifocal acute infarcts about the left frontal, parietal, and occipital lobes with additional punctate acute infarcts about the parasagittal posterior right parietal lobe. Given the multifocality, an embolic phenomenon is a definite possibility. Remote encephalomalacia about the right occipital lobe, indicating a remote right IMAGING TECH distribution infarct. Additional remote lacunar infarcts about the bilateral lentiform nuclei. Underlying mild chronic microvascular ischemic change with generalized atrophy. copyright 2011 [employer]- All Rights Reserved Head CT 11/22/18 01:34 IMPRESSION: Multiple old lacunar infarcts. Acute areas of infarct seen on prior MRI are not clearly seen on this study. No hemorrhage. Stroke Is this a Stroke Patient?: Yes Stroke Pt being discharged on Anti-thrombolytic therapy?: Yes Stroke Pt being discharged on Anti-coagulation therapy?: Yes Stroke Pt being discharged on Statins?: Yes Acute Heart Failure - Is this a Heart Failure Patient?: No
[2018-11-29] MEDS ORDERED: INSULIN GLARGINE,HUM.REC.ANLOG 1,000 UNIT/10 ML VIAL (PYX) SUBCUT ONE ×2 (21:09→21:30)
[2018-11-29] MEDS: INSULIN GLARGINE,HUM.REC.ANLOG 1,000 UNIT/10 ML VIAL SUBCUT SCH (21:36)
[2018-11-29] MEDS ORDERED: ATORVASTATIN CALCIUM 80 MG TABLET PO SCH (22:00)
[2018-11-29 23:00] VITALS: BP 158/76
[2018-12-02] MEDS ORDERED: CLONIDINE 0.3 MG/24 HR PATCH.TDWK TD SCH (10:00)
== END 2018-11-29 22:18 | disposition home or self-care (01) | DRG 65 ==
LOC: ER 17:31 → EH 11-19 02:35 → 3N 11-19 04:07 → 3S 11-20 18:05 → OBSVTOIN 11-21 08:56
PROVIDERS: ADMIT Family Medicine; ATTEND Family Medicine
DX: I63.9 Cerebral infarction, unspecified (principal); F11.20 Opioid dependence, uncomplicated; N17.9 Acute kidney failure, unspecified; D68.59 Other primary thrombophilia; E11.65 Type 2 diabetes mellitus with hyperglycemia; Z79.4 Long term (current) use of insulin; F32.9 Major depressive disorder, single episode, unspecified; E83.42 Hypomagnesemia; G89.4 Chronic pain syndrome; F01.50 Vascular dementia, unspecified severity, without behavioral disturbance, psychotic disturbance, mood disturbance, and anxiety; M54.9 Dorsalgia, unspecified; I12.9 Hypertensive chronic kidney disease with stage 1 through stage 4 chronic kidney disease, or unspecified chronic kidney disease; N18.9 Chronic kidney disease, unspecified; E11.22 Type 2 diabetes mellitus with diabetic chronic kidney disease; Z79.899 Other long term (current) drug therapy; I69.220 Aphasia following other nontraumatic intracranial hemorrhage; I69.24 Monoplegia of lower limb following other nontraumatic intracranial hemorrhage; Z79.02 Long term (current) use of antithrombotics/antiplatelets; I95.2 Hypotension due to drugs; T46.5X5A Adverse effect of other antihypertensive drugs, initial encounter; Y92.230 Patient room in hospital as the place of occurrence of the external cause; Z90.49 Acquired absence of other specified parts of digestive tract; K21.9 Gastro-esophageal reflux disease without esophagitis; M19.90 Unspecified osteoarthritis, unspecified site; I69.398 Other sequelae of cerebral infarction; G93.89 Other specified disorders of brain; Z86.718 Personal history of other venous thrombosis and embolism; G40.909 Epilepsy, unspecified, not intractable, without status epilepticus; F17.210 Nicotine dependence, cigarettes, uncomplicated; Z91.14 Patient's other noncompliance with medication regimen
CPT/HCPCS: 36415; 70450; 70544; 70551; 71045; 80048; 80053; 80061; 81001; 82533; 82803; 82962; 83036; 83735; 84443; 84484; 85025; 85610; 85730; 87070; 93005; 93010; 93306; 96360; 99285; G0378; J1650; J1815; J3475; J3480; J3490; J7030; J7040

== ENCOUNTER 2019-05-10 15:22 | Observation (INO) | payer MEDICARE, MEDICAID ==
--- NOTE | 2019-05-10 15:35 | ER Document Report ---
ED Dizziness/Weakness - General Chief Complaint: Altered Mental Status Stated Complaint: WEAKNESS Time Seen by Provider: 05/10/19 15:26 Primary Care Provider: JEFFREY MYRICK MD [Primary Care Provider] - Follow up as needed Notes: 58-year-old male was brought in via EMS for altered mental status. The patient has a history of Jose J Hale and stroke. Patient had residual stroke with right-sided weakness. The patient has not had any fever chills sore throat or cough lately. Family states that he is getting more lethargic. The patient denies any excessive pain medicine use or alcohol or otherwise. Patient denies any new weakness. Denies chest pain denies shortness of breath. States he has chronic back pain. Movement makes it worse. He rates his at mild to moderate. Patient states she just feels tired and really cannot provide much more history than that. TRAVEL OUTSIDE OF THE [place] IN LAST 30 DAYS: No - Related Data Allergies/Adverse Reactions: Maltese Ginseng [From Ginseng Edge] Allergy (Severe, Verified 09/05/18 18:01) INTERACTS WITH SZ MEDICATION SO CANNOT HAVE guarana seed extract [From Ginseng Edge] Allergy (Severe, Verified 09/05/18 18:01) INTERACTS WITH SZ MEDICATION SO CANNOT HAVE Syriac Ginseng [From Ginseng Edge] Allergy (Severe, Verified 09/05/18 18:01) INTERACTS WITH SZ MEDICATION SO CANNOT HAVE Siberian Ginseng Root Extract [From Ginseng Edge] Allergy (Severe, Verified 09/05/18 18:01) INTERACTS WITH SZ MEDICATION SO CANNOT HAVE Past Medical History - Social History Smoking Status: Current Every Day Smoker Family History: CAD, Malignancy - Melanoma Patient has suicidal ideation: No Patient has homicidal ideation: No - Past Medical History Cardiac Medical History: Reports: Hx DVT - Left leg, Hx Hypercholesterolemia, Hx Hypertension Denies: Hx Atrial Fibrillation, Hx Congestive Heart Failure, Hx Coronary Artery Disease, Hx Heart Attack, Hx Peripheral Vascular Disease, Hx Pulmonary Embolism Pulmonary Medical History: Reports: Hx COPD Denies: Hx Asthma, Hx Bronchitis, Hx Pneumonia Neurological Medical History: Reports: Hx Cerebrovascular Accident - 2 Major CV As- 1996, 2008, Hx Seizures - Epilepsy Endocrine Medical History: Reports: Hx Diabetes Mellitus Type 2. Denies: Hx Diabetes Mellitus Type 1, Hx Hyperthyroidism, Hx Hypothyroidism Renal/ Medical History: Reports: Hx End Stage Renal Disease - dialysis in the past, Hx Kidney Stones. Denies: Hx Peritoneal Dialysis GI Medical History: Reports: Hx Gastroesophageal Reflux Disease. Denies: Hx Cirrhosis, Hx Crohn's Disease, Hx Hepatitis, Hx Ulcerative Colitis Musculoskeletal Medical History: Reports Hx Arthritis, Denies Hx Gout Skin Medical History: Denies Hx Eczema, Denies Hx Psoriasis Psychiatric Medical History: Reports: Hx Anxiety, Hx Depression Infectious Medical History: Denies: Hx Hepatitis Past Surgical History: Reports: Hx Appendectomy, Hx Cholecystectomy, Hx Orthopedic Surgery - Neck. Flexor tendon release both hands. - Immunizations Hx Diphtheria, Pertussis, Tetanus Vaccination: Yes - 2006 Review of Systems - Review of Systems Constitutional: Malaise. denies: Chills, Fever, Weakness EENT: No symptoms reported Cardiovascular: No symptoms reported Respiratory: No symptoms reported Gastrointestinal: No symptoms reported Genitourinary: No symptoms reported Musculoskeletal: Back pain Skin: No symptoms reported Hematologic/Lymphatic: No symptoms reported Neurological/Psychological: Confusion, Other - Increasing somnolence. denies: Headaches -: Yes All other systems reviewed and negative Physical Exam - Vital signs Vitals: Temp Resp BP Pulse Ox 97.5 F 11 L 146/72 H 95 05/10/19 15:31 05/10/19 15:31 05/10/19 15:31 05/10/19 15:31 - Notes Notes: GENERAL_APPEARANCE: well_nourished, alert, cooperative, somnolent Appearing VITALS: reviewed, see vital signs table. HEAD: no_swelling\tenderness on the head. EYES: PERRL, EOMI, conjunctiva_clear. NOSE: no_nasal_discharge. MOUTH: Dry mucous membranes THROAT: no_tonsilar_inflammation, no_airway_obstruction. no_lymphadenopathy NECK: supple, no_neck_tenderness, (-)thyromegaly. BACK: no_back_tenderness. CHEST_WALL: no_chest_tenderness. LUNGS: no_wheezing, no_rales, no_rhonchi, (-)accessory muscle use, good air exchange bilateral. HEART: normal_rate, normal_rhythm, normal_S1, normal_S2, (-)S3, (-)S4, no_murmur, no_rub. ABDOMEN: soft, no_abd_tenderness, (-)guarding, (-)rebound, no_organomegaly, no_abd_masses. EXTREMITIES: strength 5/5 in all_extremities, good pulses in all_extremities, no_swelling\tenderness in the extremities, no_edema. SKIN: warm, dry, good_color, no_rash. MENTAL_STATUS: speech_slow, oriented_X_3, somnolent_affect, responds_appropriately to questions. NEURO: Motorvery slight weakness noticed on the right arm and leg due to prior stroke 4/5, neg Sensory Deficits on exam, CN 2-12 intact, DTR 2+ symmetric x 4, No cerbellar signs Course - Re-evaluation Re-evalutation: 05/10/19 15:34 58-year-old male presents with altered mental status. He has a history of prior stroke with right-sided deficits. Patient does have a history of Tyler Hale but there has been no URI symptoms or anything that would suggest an exacerbation. This seems to be just diffuse somnolence we will check an ammonia EMS got an elevated lactic acid of 4 we will check a lactic acid cultures urine look for signs of infection. Do a drug screen. Clinically looks dry and will give a liter of fluids. 05/10/19 18:19 The patient's lactic was mildly elevated 2.2 this likely due to dehydration the patient has no fever no tachycardia no leukocytosis. Does not have any other sirs criteria chest x-ray was negative urine was clean. Patient has no men ingismus no purpura no petechiae nothing to suggest a [employer] infection. I think this is all due to hydration his mouth is very dry he is received a liter of IV fluids from EMS and was to receive another liter here. Likely his lactic will normalize at that point. Magnesium and potassium are low we will supplement. Patient has become a little more alert. I did not want give the patient Narcan due to his chronic opiates. This may likely precipitate acute withdrawal. He is managing his airway well doing well now I think observing him overnight for altered mental status and I believe his mentation will improve. I would plan for an MRI in the morning to see if there is any acute strokelike activity. Due to timing and multiple other strokes the patient is not a candidate for TPA at this time. Nursing has updated family the patient will be admitted - Vital Signs Vital signs: Temp Pulse Resp BP Pulse Ox 97.5 F 68 12 173/91 H 97 05/10/19 15:31 05/10/19 15:35 05/10/19 17:31 05/10/19 17:31 05/10/19 17:31 - Laboratory Result Diagrams: 05/10/19 15:25 05/10/19 16:29 Laboratory results interpreted by me: 05/10/19 05/10/19 05/10/19 15:25 15:25 15:25 RBC 3.34 L Hgb 10.5 L Hct 30.8 L RDW 14.9 H PT 16.0 H APTT 37.7 H Sodium Potassium Glucose POC Glucose Lactic Acid Magnesium AST Ammonia < 8.7 L Creatine Kinase Urine Protein Urine Glucose (UA) Salicylates 05/10/19 05/10/19 05/10/19 15:31 16:29 16:29 RBC Hgb Hct RDW PT APTT Sodium 134.5 L Potassium 3.3 L Glucose 255 H POC Glucose 263 H Lactic Acid 2.2 H Magnesium 1.5 L AST 16 L Ammonia Creatine Kinase 47 L Urine Protein Urine Glucose (UA) Salicylates < 1.0 L 05/10/19 17:03 RBC Hgb Hct RDW PT APTT Sodium Potassium Glucose POC Glucose Lactic Acid Magnesium AST Ammonia Creatine Kinase Urine Protein 30 H Urine Glucose (UA) >=500 H Salicylates - Diagnostic Test Radiology reviewed: Reports reviewed Radiology results interpreted by me: 05/10/19 18:18 Chest X-Ray 05/10/19 15:28 IMPRESSION: NO ACUTE RADIOGRAPHIC FINDING IN THE CHEST. Head CT 05/10/19 15:28 IMPRESSION: Old right occipital lobe infarct. Old right basal ganglia infarct. Diffuse small vessel ischemic changes. No acute intracranial event. EVIDENCE OF ACUTE STROKE: NO. Discharge - Discharge Clinical Impression: Hypokalemia, Hypomagnesemia Altered mental status Qualifiers: Altered mental status type: disorientation Qualified Code(s): R41.0 - Disorientation, unspecified Condition: Good Disposition: ADMITTED OBSERVATION Admitting Provider: Wilma (Hospitalist) Unit Admitted: Telemetry Referrals: JEFFREY MYRICK MD [Primary Care Provider] - Follow up as needed
[2019-05-10 15:48] LABS: ABSOLUTE BASOPHILS # (AUTO) 0.1 10^3/uL (0.0-0.2); ABSOLUTE EOSINOPHILS # (AUTO) 0.2 10^3/uL (0.0-0.6); ABSOLUTE LYMPHOCYTES (AUTO) 1.7 10^3/uL (0.5-4.7); ABSOLUTE MONOCYTES (AUTO) 0.4 10^3/uL (0.1-1.4); ABSOLUTE NEUT (AUTO) 4.3 10^3/uL (1.7-8.2); BASOPHILS % (AUTO) 0.9 % (0-2); EOSINOPHILS % (AUTO) 3.3 % (0-6); HEMATOCRIT 30.8 % (37.9-51.0); HEMOGLOBIN 10.5 g/dL (13.5-17.0); MEAN CORPUSCULAR HEMOGLOBIN 31.5 pg (27.0-33.4); MEAN CORPUSCULAR HGB CONC 34.2 g/dL (32.0-36.0); MEAN CORPUSCULAR VOLUME 92 fl (80-97); MONOCYTES % (AUTO) 5.3 % (3-13); PLATELET COUNT 161 10^3/uL (150-450); RED BLOOD COUNT 3.34 10^6/uL (4.35-5.55); RED CELL DISTRIBUTION WIDTH 14.9 % (11.5-14.0); SEGMENTED NEUTROPHILS % (AUTO) 65.5 % (42-78); TOTAL CELLS COUNTED % (AUTO) 100 %; WHITE BLOOD COUNT 6.6 10^3/uL (4.0-10.5)
[2019-05-10 15:55] LABS: INTERNATIONAL RATION (INR) 1.27
[2019-05-10 15:56] LABS: PARTIAL THROMBOPLASTIN TIME 37.7 SEC (23.5-35.8)
--- NOTE | 2019-05-10 16:19 | RADIOLOGY REPORT (SQ) ---
EXAM DESCRIPTION: CT HEAD WITHOUT IMAGES COMPLETED DATE/TIME: 05/10/2019 3:55 pm REASON FOR STUDY: altered mental status COMPARISON: Teen 2019 TECHNIQUE: Axial images acquired through the brain without intravenous contrast. Images reviewed wi th bone, brain and subdural windows. Additional sagittal and coronal reconstructions were generated. Images stored on PACS. All CT scanners at this facility use dose modulation, iterative reconstruction, and/or weight based d osing when appropriate to reduce radiation dose to as low as reasonably achievable (ALARA). [facility]: Dose Right [facility]: CareDose [facility]: Dose Right [facility]: Teradose 4D [facility]: HelloWallet RADIATION DOSE: CT Rad equipment meets quality standard of care and radiation dose reduction techniq ues were employed. CTDIvol: 48.6 mGy. DLP: 930 mGy-cm.mGy. LIMITATIONS: None. FINDINGS: VENTRICLES: Prominent. CEREBRUM: No masses. No hemorrhage. No midline shift. Areas of low density in the white matter mos t likely due to chronic micro-vascular ischemic change. No evidence for acute infarction. Old right occipital lobe infarct is again noted. CEREBELLUM: No masses. No hemorrhage. No alteration of density. No evidence for acute infarction. EXTRAAXIAL SPACES: Age-related involutional change. No fluid collections. No masses. ORBITS AND GLOBE: No intra- or extraconal masses. Normal contour of globe without masses. CALVARIUM: No fracture. PARANASAL SINUSES: No fluid or mucosal thickening. SOFT TISSUES: No mass or hematoma. OTHER: No other significant finding. IMPRESSION: Old right occipital lobe infarct. Old right basal ganglia infarct. Diffuse small vesse l ischemic changes. No acute intracranial event. EVIDENCE OF ACUTE STROKE: NO. TECHNICAL DOCUMENTATION: JOB ID: [id number] Quality ID # [id number]: Final reports with documentation of one or more dose reduction techniques (e.g., Au tomated exposure control, adjustment of the mA and/or kV according to patient size, use of iterative reconstruction technique) 2010 [employer]- All Rights Reserved Reading location - IP/workstation name: [email or web address]
--- NOTE | 2019-05-10 16:20 | RADIOLOGY REPORT (SQ) ---
EXAM DESCRIPTION: CHEST SINGLE VIEW IMAGES COMPLETED DATE/TIME: 05/10/2019 3:58 pm REASON FOR STUDY: altered mental status COMPARISON: 11/18/2018 EXAM PARAMETERS: NUMBER OF VIEWS: One view. TECHNIQUE: Single frontal radiographic view of the chest acquired. RADIATION DOSE: NA LIMITATIONS: None. FINDINGS: LUNGS AND PLEURA: No opacities, masses or pneumothorax. No pleural effusion. MEDIASTINUM AND HILAR STRUCTURES: No masses. Contour normal. HEART AND VASCULAR STRUCTURES: Heart normal in size. Normal vasculature. BONES: No acute findings. HARDWARE: None in the chest. OTHER: No other significant finding. IMPRESSION: NO ACUTE RADIOGRAPHIC FINDING IN THE CHEST. TECHNICAL DOCUMENTATION: JOB ID: [id number] 2010 [employer] All Rights Reserved Reading location - IP/workstation name: [email or web address]
--- NOTE | 2019-05-10 16:20 | EKG REPORT ---
SEVERITY:- NORMAL ECG - SINUS RHYTHM : Confirmed by: Kyaw Verma 10-May-2019 16:20:24
[2019-05-10 17:06] LABS: ALBUMIN 3.6 g/dL (3.5-5.0); ALKALINE PHOSPHATASE 103 U/L (38-126); ANION GAP 9 (5-19); ASPARTATE AMINO TRANSFERASE 16 U/L (17-59); BILIRUBIN,DIRECT 0.2 mg/dL (0.0-0.4); BILIRUBIN,TOTAL 0.2 mg/dL (0.2-1.3); BLOOD UREA NITROGEN 11 mg/dL (7-20); CALCIUM 8.6 mg/dL (8.4-10.2); CARBON DIOXIDE 28 mmol/L (22-30); CHLORIDE 98 mmol/L (98-107); CREATINE KINASE 47 U/L (55-170); GLUCOSE 255 mg/dL (75-110); POTASSIUM 3.3 mmol/L (3.6-5.0)
[2019-05-10 17:08] LABS: ALCOHOL < 10 mg/dL (NONE DETECTED); SALICYLATE < 1.0 mg/dL (2.0-20.0)
[2019-05-10 17:30] LABS: APPEARANCE,URINE CLEAR; BILIRUBIN,URINE NEGATIVE (NEGATIVE); COLOR,URINE YELLOW; GLUCOSE, URINE >=500 mg/dL (NEGATIVE); KETONES,URINE NEGATIVE (NEGATIVE); LEUKOCYTE ESTERASE,URINE NEGATIVE (NEGATIVE); NITRITE,URINE NEGATIVE (NEGATIVE); PROTEIN,URINE 30 mg/dL (NEGATIVE); URINE SPECIFIC GRAVITY 1.009; UROBILINOGEN,URINE NEGATIVE mg/dL (<2.0)
[2019-05-10 17:45] LABS: URINE AMPHETAMINES SCREEN NEGATIVE; URINE BARBITURATES SCREEN NEGATIVE; URINE BENZODIAZEPINES SCREEN NEGATIVE; URINE COCAINE SCREEN NEGATIVE; URINE MARIJUANA (THC) SCREEN UNCONFIRMED POSITIVE; URINE METHADONE SCREEN NEGATIVE; URINE PHENCYCLIDINE SCREEN NEGATIVE
[2019-05-10] MEDS ORDERED: ACETAMINOPHEN 325 MG TABLET PO PRN (18:17)
[2019-05-10] MEDS ORDERED: NORMAL SALINE 1000 ML 1,000 ML IV ONE (18:17)
[2019-05-10] MEDS ORDERED: ONDANSETRON 4 MG TAB.RAPDIS PO PRN (18:17)
[2019-05-10] MEDS ORDERED: MAGNESIUM SULFATE/D5W 1 GM/100 ML RTUPB IV ONE (18:18)
[2019-05-10] MEDS ORDERED: POTASSIUM CHLORIDE 10 MEQ TABLET.ER PO ONE (18:18)
--- NOTE | 2019-05-10 18:41 | PDOC H&P ---
History of Present Illness Admission Date/PCP: JEFFREY MYRICK Patient complains of: Dizziness and weakness as well as change in mental status History of Present Illness: RADHA GARCIA is a 58 year old male Who presents to the emergency room with the above complaints. He apparently is much improved at the time of my exam. He was initially confused but became clear while he was in the emergency room. He was able to answer my questions appropriately. He states that he feels better. He had some weakness earlier today. He does have a history of old CVA and so he had a CT scan of the head done which showed old infarct but no acute findings. Patient also takes oxycodone 10 mg every 6 hours with his last dose being this morning. He said this was just recently increased about a month ago from 5 mg. He was found to be hypokalemic and mildly hyponatremic otherwise no significant other findings. Urinalysis is still pending at this time Past Medical History Cardiac Medical History: Reports: DVT - Left leg, Hyperlipidema, Hypertension Denies: Atrial Fibrillation, Congestive Heart Failure, Coronary Artery Disease, Myocardial Infarction, Peripheral Vascular Disease, Pulmonary Embolism Pulmonary Medical History: Reports: Chronic Obstructive Pulmonary Disease (COPD) Denies: Asthma, Bronchitis, Pneumonia Neurological Medical History: Reports: Seizures - Epilepsy Endocrine Medical History: Reports: Diabetes Mellitus Type 2 Denies: Diabetes Mellitus Type 1, Hyperthyroidism, Hypothyroidism Renal/ Medical History: Reports: End Stage Renal Disease - dialysis in the past GI Medical History: Reports: Gastroesophageal Reflux Disease Denies: Cirrhosis, Crohn's Disease, Hepatitis, Ulcerative Colitis Musculoskeltal Medical History: Reports: Arthritis Denies: Gout Skin Medical History: Denies: Eczema, Psoriasis Psychiatric Medical History: Reports: Depression Hematology: Denies: Anemia, Bleeding Tendencies Past Surgical History Past Surgical History: Reports: Appendectomy, Cholecystectomy, Orthopedic Surgery - Neck. Flexor tendon release both hands. Social History Information Source: Patient Smoking Status: Current Every Day Smoker Frequency of Alcohol Use: None Hx Recreational Drug Use: No Drugs: None Hx Prescription Drug Abuse: No - Advance Directive Resuscitation Status: Full Code Family History Family History: CAD, Malignancy - Melanoma Parental Family History Reviewed: Yes Children Family History Reviewed: Yes Sibling(s) Family History Reviewed.: Yes Medication/Allergy Home Medications: Albuterol Sulfate [Proair HFA Inhalation Aerosol 8.5 gm MDI] 2 puff IH Q6HP PRN 11/19/18 Buprenorphine [Butrans] 20 mcg TP MO@1000 11/19/18 Bupropion HCl [Wellbutrin Xl 300mg 24hr Tablet] 300 mg PO DAILY 11/19/18 Escitalopram Oxalate [Lexapro] 20 mg PO DAILY 11/19/18 Fluticasone Propionate [Flonase Nasal [place] 50 Mcg/[place] 16 gm] 1 spray NASL DAILY 11/19/18 Fluticasone/Salmeterol [Advair 250-50 Diskus 14 Dose/Diskus] 1 puff IH Q12 11/19/18 Gabapentin [Neurontin 400 mg Capsule] 800 mg PO Q8 11/19/18 Oxycodone HCl [Oxy-Ir 5 mg Tablet] 5 mg PO Q6HP PRN 11/19/18 Pantoprazole Sodium [Protonix [address] Tablet] 40 mg PO DAILY 11/19/18 Pregabalin [Lyrica 100 mg Capsule] 100 mg PO Q8 11/19/18 Tizanidine HCl [Zanaflex 4 mg Tablet] 4 mg PO TIDP PRN 11/19/18 Amlodipine Besylate [Norvasc 5 mg Tablet] 5 mg PO DAILY 30 Days #30 tablet 11/29/18 Aspirin [Aspirin 81 mg Chewable Tablet] 81 mg PO DAILY 30 Days #30 tab.chew 11/29/18 Atorvastatin Calcium [Lipitor 80 mg Tablet] 80 mg PO QHS 30 Days #30 tablet 11/29/18 Clonidine HCl [Catapres 0.1 mg Tablet] 0.1 mg PO Q12 30 Days #60 tablet 11/29/18 Enoxaparin Sodium [Lovenox Inj 80 mg/0.8 ml Disp.syrin] 70 mg SUBCUT Q12 30 Days #60 disp.syrin 11/29/18 Insulin Aspart [Novolog] 0 - 12 unit SQ ACHS PRN 30 Days #3 vial 11/29/18 Insulin Aspart [Novolog] 5 unit SQ AC 30 Days #3 vial 11/29/18 Insulin Detemir [Levemir] 50 unit SQ QHS 30 Days #3 vial 11/29/18 Allergies/Adverse Reactions: Mauritanian Ginseng [From Ginseng Edge] Allergy (Severe, Verified 09/05/18 18:01) INTERACTS WITH SZ MEDICATION SO CANNOT HAVE guarana seed extract [From Ginseng Edge] Allergy (Severe, Verified 09/05/18 18:01) INTERACTS WITH SZ MEDICATION SO CANNOT HAVE Khmer Ginseng [From Ginseng Edge] Allergy (Severe, Verified 09/05/18 18:01) INTERACTS WITH SZ MEDICATION SO CANNOT HAVE Siberian Ginseng Root Extract [From Ginseng Edge] Allergy (Severe, Verified 09/05/18 18:01) INTERACTS WITH SZ MEDICATION SO CANNOT HAVE Review of Systems All systems: reviewed and no additional remarkable complaints except as stated Constitutional: ABSENT: fever(s), headache(s) Nose, Mouth, and Throat: ABSENT: sore throat Cardiovascular: ABSENT: chest pain, edema, orthropnea Respiratory: ABSENT: cough, dyspnea Neurological: PRESENT: confusion. ABSENT: numbness, paresthesias Psychiatric: ABSENT: hallucinations Physical Exam Vital Signs: Temp Pulse Resp BP Pulse Ox 97.5 F 68 7 L 156/82 H 99 05/10/19 15:31 05/10/19 15:35 05/10/19 18:16 05/10/19 18:16 05/10/19 18:16 Intake & Output 05/09/19 05/10/19 05/11/19 06:59 06:59 06:59 Weight 75.6 kg General appearance: PRESENT: no acute distress, cooperative Head exam: PRESENT: atraumatic, normocephalic Eye exam: PRESENT: conjunctiva pink, EOMI, PERRLA. ABSENT: scleral icterus Ear exam: PRESENT: normal external ear exam Mouth exam: PRESENT: moist, tongue midline Neck exam: ABSENT: carotid bruit, JVD, lymphadenopathy, thyromegaly Respiratory exam: PRESENT: clear to auscultation mark. ABSENT: rales, rhonchi, wheezes Cardiovascular exam: PRESENT: RRR, +S1, +S2. ABSENT: diastolic murmur, rubs, systolic murmur Pulses: PRESENT: normal dorsalis pedis pul Vascular exam: PRESENT: normal capillary refill GI/Abdominal exam: PRESENT: normal bowel sounds, soft. ABSENT: distended, guarding, mass, organolmegaly, rebound, tenderness Rectal exam: PRESENT: deferred Extremities exam: PRESENT: full ROM. ABSENT: calf tenderness, clubbing, pedal edema, +1 edema Neurological exam: PRESENT: alert, awake, oriented to person, oriented to place, oriented to time, oriented to situation, motor sensory deficit - Strength 4/5 Psychiatric exam: PRESENT: appropriate affect, normal mood. ABSENT: homicidal ideation, suicidal ideation Skin exam: PRESENT: dry, intact, warm. ABSENT: cyanosis, rash Results Laboratory Results: 05/10/19 15:25 05/10/19 16:29 05/10/19 05/10/19 05/10/19 15:25 15:25 15:25 WBC 6.6 RBC 3.34 L Hgb 10.5 L Hct 30.8 L MCV 92 MCH 31.5 MCHC 34.2 RDW 14.9 H Plt Count 161 Seg Neutrophils % 65.5 Sodium Cancelled Potassium Cancelled Chloride Cancelled Carbon Dioxide Cancelled Anion Gap Cancelled BUN Cancelled Creatinine Cancelled Est GFR ( Amer) Cancelled Est GFR (Non-Af Amer) Cancelled Glucose Cancelled Lactic Acid Cancelled Calcium Cancelled Magnesium Cancelled Total Bilirubin Cancelled AST Cancelled Alkaline Phosphatase Cancelled Ammonia Total Protein Cancelled Albumin Cancelled Lipase Cancelled Urine Color Urine Appearance Urine pH Ur Specific [place] Urine Protein Urine Glucose (UA) Urine Ketones Urine Blood Urine Nitrite Ur Leukocyte Esterase Urine WBC (Auto) Urine RBC (Auto) 05/10/19 05/10/19 05/10/19 15:25 16:29 16:29 WBC RBC Hgb Hct MCV MCH MCHC RDW Plt Count Seg Neutrophils % Sodium 134.5 L Potassium 3.3 L Chloride 98 Carbon Dioxide 28 Anion Gap 9 BUN 11 Creatinine 0.74 Est GFR ( Amer) > 60 Est GFR (Non-Af Amer) Glucose 255 H Lactic Acid 2.2 H Calcium 8.6 Magnesium 1.5 L Total Bilirubin 0.2 AST 16 L Alkaline Phosphatase 103 Ammonia < 8.7 L Total Protein 7.0 Albumin 3.6 Lipase 149.4 Urine Color Urine Appearance Urine pH Ur Specific [place] Urine Protein Urine Glucose (UA) Urine Ketones Urine Blood Urine Nitrite Ur Leukocyte Esterase Urine WBC (Auto) Urine RBC (Auto) 05/10/19 17:03 WBC RBC Hgb Hct MCV MCH MCHC RDW Plt Count Seg Neutrophils % Sodium Potassium Chloride Carbon Dioxide Anion Gap BUN Creatinine Est GFR ( Amer) Est GFR (Non-Af Amer) Glucose Lactic Acid Calcium Magnesium Total Bilirubin AST Alkaline Phosphatase Ammonia Total Protein Albumin Lipase Urine Color YELLOW Urine Appearance CLEAR Urine pH 6.0 Ur Specific [place] 1.009 Urine Protein 30 H Urine Glucose (UA) >=500 H Urine Ketones NEGATIVE Urine Blood NEGATIVE Urine Nitrite NEGATIVE Ur Leukocyte Esterase NEGATIVE Urine WBC (Auto) 1 Urine RBC (Auto) 0 05/10/19 05/10/19 05/10/19 15:25 15:25 16:29 Creatine Kinase Cancelled 47 L Troponin I Cancelled 05/10/19 16:29 Creatine Kinase Troponin I < 0.012 Impressions: Chest X-Ray 05/10/19 15:28 IMPRESSION: NO ACUTE RADIOGRAPHIC FINDING IN THE CHEST. Head CT 05/10/19 15:28 IMPRESSION: Old right occipital lobe infarct. Old right basal ganglia infarct. Diffuse small vessel ischemic changes. No acute intracranial event. EVIDENCE OF ACUTE STROKE: NO. Assessment and Plan - Diagnosis (1) Altered mental status Qualifiers: Altered mental status type: disorientation Qualified Code(s): R41.0 - Disorientation, unspecified Is this a current diagnosis for this admission?: Yes Plan: Etiology not quite clear. Patient appeared to be back at his baseline by the time I examined him but he was apparently confused and altered on initial presentation. As such patient will be monitored at least overnight. Will obtain a UA to rule out an infection. (2) Hypokalemia Is this a current diagnosis for this admission?: Yes Plan: Will be replaced (3) Hypomagnesemia Is this a current diagnosis for this admission?: Yes Plan: Will replace and recheck in a.m. (4) Anemia Qualifiers: Anemia type: unspecified type Qualified Code(s): D64.9 - Anemia, unspecified Is this a current diagnosis for this admission?: Yes Plan: She is also noted to be anemic with his hemoglobin less than baseline. I will follow-up with iron studies and recheck hemoglobin in the a.m. If no acute deterioration this should be followed as outpatient - Time Time Spent with patient: 25-34 minutes Medications reviewed and adjusted accordingly: Yes Anticipated discharge: Home Within: within 24 hours - Inpatient Certification Based on my medical assessment, after consideration of the patient's comorbidities, presenting symptoms, or acuity I expect that the services needed warrant INPATIENT care.: Yes Medical Necessity: Risk of Complication if Not Cared For in Hospital
[2019-05-10] MEDS: NORMAL SALINE 1000 ML 1,000 ML IV PRN (20:54)
[2019-05-10] MEDS ORDERED: TIZANIDINE HCL 4 MG TABLET PO PRN (21:19)
[2019-05-10] MEDS ORDERED: ALBUTEROL SULFATE HFA (90 MCG/PUFF) 8 GM MDI (1 MDI/ER DISP) IH PRN (21:19)
[2019-05-10] MEDS: OXYCODONE-ACETAMINOPHEN 5-325 MG TABLET PO PRN (21:20)
[2019-05-10] MEDS ORDERED: INSULIN ASPART SUBCUT SCH (21:30)
[2019-05-10] MEDS ORDERED: (PENDING PHARMACY ID) (Fluticasone/Salmeterol 1 PUFF) IH SCH (22:00)
[2019-05-10] MEDS ORDERED: CARBAMAZEPINE 200 MG TAB.SR.12H PO SCH (22:00)
[2019-05-10] MEDS ORDERED: (PENDING PHARMACY ID) (Enoxaparin Sodium 80 MG) SUBCUT SCH (22:00)
[2019-05-10] MEDS ORDERED: INSULIN DETEMIR 55 UNIT SQ SCH (22:00)
[2019-05-10] MEDS ORDERED: ATORVASTATIN CALCIUM 40 MG TABLET PO SCH (22:00)
[2019-05-10] MEDS: INSULIN GLARGINE,HUM.REC.ANLOG 1,000 UNIT/10 ML VIAL SUBCUT SCH (22:53)
[2019-05-10] MEDS: PREGABALIN 100 MG CAPSULE PO SCH (22:54)
[2019-05-10] MEDS: CLONIDINE HCL 0.1 MG TABLET PO SCH (22:54)
[2019-05-10] MEDS: GABAPENTIN 400 MG CAPSULE PO SCH (22:54)
[2019-05-10] MEDS: BUPROPION HCL 100 MG TABLET PO SCH (22:55)
[2019-05-10] MEDS ORDERED: DEXTROSE 40% GEL 15 GM TUBE PO PRN (23:30)
[2019-05-10] MEDS ORDERED: DEXTROSE 50%-WATER SYRINGE 25 GM/50 ML DOSE IV PRN (23:30)
[2019-05-10] MEDS ORDERED: GLUCAGON,HUMAN RECOMB 1 MG INJ IM PRN (23:30)
[2019-05-10] MEDS ORDERED: DEXTROSE 50%-WATER SYRINGE 12.5 GM/25 ML DOSE IV PRN (23:30)
[2019-05-10] MEDS ORDERED: DEXTROSE 40% GEL 15 GM TUBE X 2 PO PRN (23:30)
[2019-05-10] MEDS ORDERED: INSULIN LISPRO 100 UNIT/ML 3 ML VIAL SUBCUT ONE (23:45)
[2019-05-11] MEDS: OXYCODONE-ACETAMINOPHEN 5-325 MG TABLET PO PRN ×3 (03:20→15:28)
[2019-05-11] MEDS: BUPROPION HCL 100 MG TABLET PO SCH ×2 (05:21→13:21)
[2019-05-11] MEDS: PREGABALIN 100 MG CAPSULE PO SCH ×2 (05:21→13:21)
[2019-05-11] MEDS: NORMAL SALINE 1000 ML 1,000 ML IV PRN (05:21)
[2019-05-11] MEDS: GABAPENTIN 400 MG CAPSULE PO SCH ×2 (05:21→13:21)
[2019-05-11] MEDS ORDERED: PANTOPRAZOLE SODIUM 40 MG TABLET.DR PO SCH (06:00)
[2019-05-11 06:02] LABS: ANION GAP 9 (5-19); BLOOD UREA NITROGEN 8 mg/dL (7-20); CALCIUM 8.4 mg/dL (8.4-10.2); CARBON DIOXIDE 27 mmol/L (22-30); CHLORIDE 102 mmol/L (98-107); GLUCOSE 259 mg/dL (75-110); IRON(TIBC) 58.5 ug/dL (49-181); POTASSIUM 3.3 mmol/L (3.6-5.0)
[2019-05-11 07:05] LABS: HEMATOCRIT 37.9 % (37.9-51.0); MEAN CORPUSCULAR HEMOGLOBIN 31.2 pg (27.0-33.4); MEAN CORPUSCULAR HGB CONC 34.7 g/dL (32.0-36.0); MEAN CORPUSCULAR VOLUME 90 fl (80-97); PLATELET COUNT 196 10^3/uL (150-450); RED BLOOD COUNT 4.22 10^6/uL (4.35-5.55); RED CELL DISTRIBUTION WIDTH 14.6 % (11.5-14.0)
[2019-05-11 07:07] LABS: HEMOGLOBIN 13.2 g/dL (13.5-17.0)
[2019-05-11 07:08] LABS: FOLATE 7.06 ng/mL (>2.76)
[2019-05-11] MEDS: INSULIN LISPRO 100 UNIT/ML 3 ML VIAL SUBCUT SCH ×3 (08:14→17:12)
[2019-05-11] MEDS ORDERED: POTASSIUM CHLORIDE 10 MEQ TABLET.ER PO ONE (08:40)
[2019-05-11] MEDS: CLONIDINE HCL 0.1 MG TABLET PO SCH (09:16)
[2019-05-11] MEDS: INSULIN GLARGINE,HUM.REC.ANLOG 1,000 UNIT/10 ML VIAL SUBCUT SCH (09:16)
[2019-05-11] MEDS: DOCUSATE SODIUM 100 MG CAPSULE PO SCH ×2 (09:17→17:07)
[2019-05-11] MEDS ORDERED: ENOXAPARIN SODIUM INJ 40 MG/0.4 ML DISP.SYRIN SUBCUT SCH (10:00)
[2019-05-11] MEDS ORDERED: ESCITALOPRAM OXALATE 10 MG TABLET PO SCH ×2 (10:00)
[2019-05-11] MEDS ORDERED: FLUTICASONE NASAL SPRAY 50 MCG/SPRY 120 SPRAY/16 GM NAREB SCH (10:00)
[2019-05-11] MEDS ORDERED: GLIMEPIRIDE 4 MG TABLET PO SCH (10:00)
[2019-05-11] MEDS ORDERED: FLUTICASONE/VILANTEROL 200-25 MCG/DOSE IH SCH (10:00)
[2019-05-11] MEDS ORDERED: AMLODIPINE BESYLATE 10 MG TABLET PO SCH (10:00)
--- NOTE | 2019-05-11 15:34 | PDOC DISCHARGE SUMMARY ---
Impression - Admit/DC Date/PCP Admission Date/Primary Care Provider: 05/10/19 18:30 JEFFREY MYRICK Discharge Date: 05/11/19 - Discharge Diagnosis (1) Altered mental status Is this a current diagnosis for this admission?: Yes (2) Hypokalemia Is this a current diagnosis for this admission?: Yes (3) Hypomagnesemia Is this a current diagnosis for this admission?: Yes (4) Anemia Is this a current diagnosis for this admission?: Yes (5) Diabetes mellitus type 2 in nonobese Is this a current diagnosis for this admission?: Yes - Additional Information Resuscitation Status: Full Code Discharge Diet: Diabetic Discharge Activity: Activity As Tolerated Referrals: JEFFREY MYRICK MD [Primary Care Provider] - 05/19/19 10:30 am Home Medications: Albuterol Sulfate [Proair HFA Inhalation Aerosol 8.5 gm MDI] 2 puff IH Q6HP PRN 11/19/18 Bupropion HCl [Wellbutrin Xl 300mg 24hr Tablet] 300 mg PO DAILY 11/19/18 Escitalopram Oxalate [Lexapro] 20 mg PO DAILY 11/19/18 Fluticasone Propionate [Flonase Nasal Excel 50 Mcg/Excel 16 gm] 1 spray NAREB DAILY 11/19/18 Fluticasone/Salmeterol [Advair 250-50 Diskus 14 Dose/Diskus] 1 puff IH Q12 11/19/18 Gabapentin [Neurontin 400 mg Capsule] 800 mg PO Q8 11/19/18 Oxycodone HCl [Oxy-Ir 5 mg Tablet] 10 mg PO Q8HP PRN 11/19/18 Pantoprazole Sodium [Protonix [address] Tablet] 40 mg PO DAILY 11/19/18 Pregabalin [Lyrica 100 mg Capsule] 100 mg PO Q8 11/19/18 Tizanidine HCl [Zanaflex 4 mg Tablet] 4 mg PO Q8HP PRN 11/19/18 Clonidine HCl [Catapres 0.1 mg Tablet] 0.1 mg PO Q12 30 Days #60 tablet 11/29/18 Amlodipine Besylate [Norvasc 10 mg Tablet] 10 mg PO DAILY 05/10/19 Atorvastatin Calcium [Lipitor 40 mg Tablet] 40 mg PO QHS 05/10/19 Carbamazepine [Tegretol Xr 200 mg Tab.sr] 400 mg PO QHS 05/10/19 Enoxaparin Sodium [Lovenox Inj 80 mg/0.8 ml Disp.syrin] 80 mg SUBCUT Q12 05/10/19 Ergocalciferol (Vitamin D2) [Drisdol 50,000 unit (1.25MG) Capsule] 50,000 unit PO TH@1000 05/10/19 Glimepiride [Amaryl 4 mg Tablet] 4 mg PO DAILY 05/10/19 Insulin Aspart [Novolog] 0 unit SQ .SLIDING SCALE 05/10/19 Insulin Detemir [Levemir] 55 unit SQ Q12 05/10/19 History of Present Illiness History of Present Illness: RADHA GARCIA is a 58 year old male Who presents to the emergency room with the above complaints. He apparently is much improved at the time of my exam. He was initially confused but became clear while he was in the emergency room. He was able to answer my questions appropriately. He states that he feels better. He had some weakness earlier today. He does have a history of old CVA and so he had a CT scan of the head done which showed old infarct but no acute findings. Patient also takes oxyc odone 10 mg every 6 hours with his last dose being this morning. He said this was just recently increased about a month ago from 5 mg. He was found to be hypokalemic and mildly hyponatremic otherwise no significant other findings. Hospital Course Hospital Course: Patient was admitted on May 09 with change in mental status. Apparently he was confused prior to arrival in the emergency room. By the time I saw him in the emergency room patient apparently appeared to be back at his baseline. He was awake alert and oriented x3. He was able to answer questions appropriately. There was concerned that he may have ingested oxycodone excessively however patient never received Narcan and without any kind of treatment he appeared to have completely be at baseline within a few hours. CT scan was done which revealed no acute findings. Patient did have a stroke in November 2018 that was demonstrated by MRI. He is on Lovenox Q12 hence he is not on any aspirin. There are no new deficits although patient has a slight residual right-sided weakness from his old CVA. Patient speech another neurological exam is appropriate. His vital signs have been stable. His blood pressure has been somewhat elevated but at this point only medication management is indicated. He was ambulated and appears to be at his baseline. At this time patient has remained hemodynamically stable for more than 24 hours observation in the hospital. There no persistent or new deficits and in fact since I saw him over 24 hours ago patient has been appropriate. Patient does have a history of chronic atrial fibrillation however he was in sinus rhythm while in hospital. He was continued on his Lovenox Patient did have hypokalemia and his potassium was replaced. His hemoglobin was initially noted to be decreased yesterday however repeat today shows it to be within his baseline. No acute intervention was done. There is no further reason to keep him in hospital at this time and so patient is being discharged home. Physical Exam Vital Signs: Temp Pulse Resp BP Pulse Ox 98.2 F 73 13 143/75 H 97 05/11/19 12:03 05/11/19 12:03 05/11/19 12:03 05/11/19 12:03 05/11/19 12:03 Intake & Output 05/10/19 05/11/19 05/12/19 06:59 06:59 06:59 Intake Total 2320 1237 Output Total 2125 600 Balance 195 637 Weight 72.4 kg General appearance: PRESENT: no acute distress, cooperative, well-nourished Head exam: PRESENT: atraumatic, normocephalic Eye exam: PRESENT: conjunctiva pink, EOMI, PERRLA. ABSENT: scleral icterus Ear exam: PRESENT: normal external ear exam Mouth exam: PRESENT: moist, tongue midline Neck exam: ABSENT: carotid bruit, JVD, lymphadenopathy, thyromegaly Respiratory exam: PRESENT: clear to auscultation mark. ABSENT: rales, rhonchi, wheezes Cardiovascular exam: PRESENT: RRR, +S1, +S2. ABSENT: diastolic murmur, rubs, systolic murmur Vascular exam: PRESENT: normal capillary refill GI/Abdominal exam: PRESENT: normal bowel sounds, soft. ABSENT: distended, guarding, mass, organolmegaly, rebound, tenderness Rectal exam: PRESENT: deferred Extremities exam: PRESENT: full ROM. ABSENT: calf tenderness, clubbing, pedal edema Neurological exam: PRESENT: alert, awake, oriented to person, oriented to place, oriented to time, oriented to situation, CN II-XII grossly intact, motor sensory deficit - Mild weakness R 4/5 Psychiatric exam: PRESENT: appropriate affect, normal mood. ABSENT: homicidal ideation, suicidal ideation Skin exam: PRESENT: dry, intact, warm. ABSENT: cyanosis, rash Results Laboratory Results: WBC 7.0 10^3/uL (4.0-10.5) 05/11/19 06:38 RBC 4.22 10^6/uL (4.35-5.55) L 05/11/19 06:38 Hgb 13.2 g/dL (13.5-17.0) L D 05/11/19 06:38 Hct 37.9 % (37.9-51.0) 05/11/19 06:38 MCV 90 fl (80-97) 05/11/19 06:38 MCH 31.2 pg (27.0-33.4) 05/11/19 06:38 MCHC 34.7 g/dL (32.0-36.0) 05/11/19 06:38 RDW 14.6 % (11.5-14.0) H 05/11/19 06:38 Plt Count 196 10^3/uL (150-450) 05/11/19 06:38 Lymph % (Auto) 25.0 % (13-45) 05/10/19 15:25 [place] % (Auto) 5.3 % (3-13) 05/10/19 15:25 Eos % (Auto) 3.3 % (0-6) 05/10/19 15:25 Baso % (Auto) 0.9 % (0-2) 05/10/19 15:25 Absolute Neuts (auto) 4.3 10^3/uL (1.7-8.2) 05/10/19 15:25 Absolute Lymphs (auto) 1.7 10^3/uL (0.5-4.7) 05/10/19 15:25 Absolute Monos (auto) 0.4 10^3/uL (0.1-1.4) 05/10/19 15:25 Absolute Eos (auto) 0.2 10^3/uL (0.0-0.6) 05/10/19 15:25 Absolute Basos (auto) 0.1 10^3/uL (0.0-0.2) 05/10/19 15:25 Seg Neutrophils % 65.5 % (42-78) 05/10/19 15:25 Platelet Estimate Cancelled 05/11/19 04:55 PT 16.0 SEC (11.4-15.4) H 05/10/19 15:25 INR 1.27 05/10/19 15:25 APTT 37.7 SEC (23.5-35.8) H 05/10/19 15:25 Sodium 137.6 mmol/L (137-145) 05/11/19 04:55 Potassium 3.3 mmol/L (3.6-5.0) L 05/11/19 04:55 Chloride 102 mmol/L (98-107) 05/11/19 04:55 Carbon Dioxide 27 mmol/L (22-30) 05/11/19 04:55 Anion Gap 9 (5-19) 05/11/19 04:55 BUN 8 mg/dL (7-20) 05/11/19 04:55 Creatinine 0.55 mg/dL (0.52-1.25) 05/11/19 04:55 Est GFR ( Amer) > 60 (>60) 05/11/19 04:55 Est GFR (Non-Af Amer) Cancelled 05/10/19 15:25 Est GFR (MDRD) Non-Af > 60 (>60) 05/11/19 04:55 Glucose 259 mg/dL (75-110) H 05/11/19 04:55 POC Glucose 310 mg/dL (70-110) H 05/11/19 11:21 Lactic Acid 2.2 mmol/L (0.7-2.1) H 05/10/19 16:29 Calcium 8.4 mg/dL (8.4-10.2) 05/11/19 04:55 Magnesium 1.8 mg/dL (1.6-2.3) 05/11/19 04:55 Iron 58.5 ug/dL (49-181) 05/11/19 04:55 TIBC 300 ug/dL (250-450) 05/11/19 04:55 % Saturation 20 % 05/11/19 04:55 Ferritin 26.30 ng/mL (17.9-464.0) 05/11/19 04:55 Total Bilirubin 0.2 mg/dL (0.2-1.3) 05/10/19 16:29 Direct Bilirubin 0.2 mg/dL (0.0-0.4) 05/10/19 16:29 Neonat Total Bilirubin Not Reportable 05/10/19 16:29 Neonat Direct Bilirubin Not Reportable 05/10/19 16:29 Neonat Indirect Bili Not Reportable 05/10/19 16:29 AST 16 U/L (17-59) L 05/10/19 16:29 ALT 20 U/L (<50) 05/10/19 16:29 Alkaline Phosphatase 103 U/L (38-126) 05/10/19 16:29 Ammonia < 8.7 umol/L (9-33) L 05/10/19 15:25 Creatine Kinase 47 U/L (55-170) L 05/10/19 16:29 Troponin I < 0.012 ng/mL 05/10/19 16:29 Total Protein 7.0 g/dL (6.3-8.2) 05/10/19 16:29 Albumin 3.6 g/dL (3.5-5.0) 05/10/19 16:29 Lipase 149.4 U/L (23-300) 05/10/19 16:29 EGFR Cancelled 05/10/19 15:25 Vitamin B12 315.0 pg/mL (239-931) 05/11/19 04:55 Folate 7.06 ng/mL (>2.76) 05/11/19 04:55 Urine Color YELLOW 05/10/19 17:03 Urine Appearance CLEAR 05/10/19 17:03 Urine pH 6.0 (5.0-9.0) 05/10/19 17:03 Ur Specific [place] Path 1.009 05/10/19 17:03 Urine Protein 30 mg/dL (NEGATIVE) H 05/10/19 17:03 Urine Glucose (UA) >=500 mg/dL (NEGATIVE) H 05/10/19 17:03 Urine Ketones NEGATIVE mg/dL (NEGATIVE) 05/10/19 17:03 Urine Blood NEGATIVE (NEGATIVE) 05/10/19 17:03 Urine Nitrite NEGATIVE (NEGATIVE) 05/10/19 17:03 Urine Bilirubin NEGATIVE (NEGATIVE) 05/10/19 17:03 Urine Urobilinogen NEGATIVE mg/dL (<2.0) 05/10/19 17:03 Ur Leukocyte Esterase NEGATIVE (NEGATIVE) 05/10/19 17:03 Urine WBC (Auto) 1 /HPF 05/10/19 17:03 Urine RBC (Auto) 0 /HPF 05/10/19 17:03 U Hyaline Cast (Auto) 1 /LPF 05/10/19 17:03 Urine Mucus (Auto) RARE /LPF 05/10/19 17:03 Urine Ascorbic Acid NEGATIVE (NEGATIVE) 05/10/19 17:03 Salicylates < 1.0 mg/dL (2.0-20.0) L 05/10/19 16:29 Urine Opiates Screen UNCONFIRMED POSITIVE 05/10/19 17:03 Urine Methadone Screen NEGATIVE 05/10/19 17:03 Ur Barbiturates Screen NEGATIVE 05/10/19 17:03 Ur Phencyclidine Scrn NEGATIVE 05/10/19 17:03 Ur Amphetamines Screen NEGATIVE 05/10/19 17:03 U Benzodiazepines Scrn NEGATIVE 05/10/19 17:03 Urine Cocaine Screen NEGATIVE 05/10/19 17:03 U Marijuana (THC) Screen UNCONFIRMED POSITIVE 05/10/19 17:03 Serum Alcohol < 10 mg/dL (NONE DETECTED) 05/10/19 16:29 Slides for Path Review Cancelled 05/11/19 04:55 05/10/19 05/10/19 15:25 16:29 Troponin I Cancelled < 0.012 Impressions: Chest X-Ray 05/10/19 15:28 IMPRESSION: NO ACUTE RADIOGRAPHIC FINDING IN THE CHEST. Head CT 05/10/19 15:28 IMPRESSION: Old right occipital lobe infarct. Old right basal ganglia infarct. Diffuse small vessel ischemic changes. No acute intracranial event. EVIDENCE OF ACUTE STROKE: NO. Plan Health Concerns: It is very possible the patient may have had a TIA as per family's description however as stated earlier there had been no deficit noted since patient arrived in the emergency room and certainly since I saw him. As such there is no indication for obtaining an MRI or any other imaging studies at this time. Patient's family is insisting on him getting an MRI despite no medical indication at this time. Unfortunately the MRI machine is also not available. They have been advised that this can be pursued as outpatient if necessary. Patient is hemodynamically stable to be discharged home Stroke Is this a Stroke Patient?: No Acute Heart Failure - Is this a Heart Failure Patient?: No
[2019-05-11 16:10] VITALS: BP 126/73
[2019-05-12] MEDS ORDERED: ERGOCALCIFEROL (VITAMIN D2) 50000 UNIT (1.25 MG) CAPSULE PO SCH (10:00)
== END 2019-05-11 17:50 | disposition home or self-care (01) ==
LOC: ER 15:22 → EH 18:30 → 3W 20:06
PROVIDERS: ADMIT Internal Medicine; ATTEND Internal Medicine
DX: R41.0 Disorientation, unspecified (principal); I69.351 Hemiplegia and hemiparesis following cerebral infarction affecting right dominant side; E87.6 Hypokalemia; E83.42 Hypomagnesemia; D64.9 Anemia, unspecified; I48.20 Chronic atrial fibrillation, unspecified; E78.5 Hyperlipidemia, unspecified; I12.0 Hypertensive chronic kidney disease with stage 5 chronic kidney disease or end stage renal disease; E11.22 Type 2 diabetes mellitus with diabetic chronic kidney disease; N18.6 End stage renal disease; K21.9 Gastro-esophageal reflux disease without esophagitis; J44.9 Chronic obstructive pulmonary disease, unspecified; G61.0 Guillain-Barre syndrome; M54.9 Dorsalgia, unspecified; R68.2 Dry mouth, unspecified; F17.200 Nicotine dependence, unspecified, uncomplicated; Z79.899 Other long term (current) drug therapy; Z79.891 Long term (current) use of opiate analgesic; Z86.718 Personal history of other venous thrombosis and embolism; Z90.49 Acquired absence of other specified parts of digestive tract; Z82.49 Family history of ischemic heart disease and other diseases of the circulatory system; Z79.51 Long term (current) use of inhaled steroids; Z79.4 Long term (current) use of insulin; G40.909 Epilepsy, unspecified, not intractable, without status epilepticus
CPT/HCPCS: 93005; 99285; 96365; 36415 ×2; 87040; 87086; 82962 ×2; 80307 ×3; 82140; 82607; 82550; 82728; 82746; 83540; 83550; 83605; 83690; 83735 ×2; 85025; 85027; 85610; 85730; 80048; 80053; 81001; 84484; 71045; 70450; 93010; A9270 ×24; J1650; J3475; J7030 ×2; J3490; J1815